=== PATIENT | female | born 1970 | race Hispanic/Latino ===

== ENCOUNTER → 2017-08-14 | Outpatient (CLI) | payer OTHER ==
[~2017-08-14] MED LIST: ACETAMINOPHEN500 MG PO; ALEVE220 M1 PO; LEXAPRO10 MG PO; METRONIDAZOLE250 MG PO; OMEPRAZOLE40 MG PO; TETRACYCLINE H500 MG PO; TYLENOL PO; TYLENOL WITH C1 EACH PO; VALIUM5 MG PO; XANAX2 MG PO; Z-QUIL PO
--- NOTE | 2017-08-14 18:11 | Diagnostic Imaging Report ---
PROCEDURE:X-RAY ABDOMEN - KUB COMPARISON:07/27/16 INDICATIONS:CHECK UP AFTER LITHOTRIPSY FINDINGS: There is a non-obstructed bowel-gas pattern. 5 mm calcification overlying the left renal shadow. There are also tiny calcifications overlying right renal shadow, measuring up to 3 mm. There are no acute osseous abnormalities. The lung bases are clear. CONCLUSION: Overlying bowel gas limits evaluation. Bilateral subcentimeter renal calculi as described above. The bilateral renal stone burden appears slightly decreased when compared to prior KUB. Dictated by: Noe Thayer M.D. on 08/14/2017 at 18:20 Electronically approved by: Noe Thayer M.D. on 08/14/2017 at 18:20
== END ==
LOC: RAD 17:30
PROVIDERS: ATTEND Urology
DX: N20.0 Calculus of kidney (principal)
CPT/HCPCS: 74018

== ENCOUNTER → 2017-09-06 | Day surgery (SDC) | payer OTHER ==
[~2017-09-06] MED LIST changes: +CEFTRIAXONE SOD 1 GM VIAL ONE; +DEXAMETHASONE SOD PHOS INJ 4 MG/ML VIAL ONE; +FENTANYL CITRATE/PF 100MCG/2 ML INJ ONE; +LIDOCAINE HCL 2% LOCAL INJ 5 ML SDV VIAL INJ ONE; +MIDAZOLAM HCL 2 MG/2 ML VIAL ONE; +ONDANSETRON HCL INJ 2 MG/ML VIAL ONE; +PROPOFOL IV EMULSION 10 MG/ML 20 ML VIAL ONE; +SEVOFLURANE INHAL SOLN 250 ML PEN BTL ONE
--- OUTSIDE RECORDS SUMMARY | 2017-09-06 07:49 | XMS REPORT | Clinical Summary ---
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
--- OUTSIDE RECORDS SUMMARY | 2017-09-06 07:49 | XMS REPORT ---
Author Author Admin, [place] Organization [facility] Address Unknown Phone Unavailable Allergies, Adverse Reactions, Alerts Allergy Name Reaction Description Start Date Severity Status Provider VICODIN itchiness Moderate Active Kyle Heránndez MD Conditions or Problems Problem Name Problem Code Onset Date Status Entry Date Provider Comment Standard Description Annotate DEPRESSIVE DISORDER, MAJOR, RECURRENT EPISODE, MODERATE Active Kyle Hernández MD Major depressive disorder, recurrent episode , moderate degree GENERALIZED ANXIETY DISORDER Active Kyle Hernández MD Generalized anxiety disorder Medication List Medication Instructions Start Date Stop Date Generic Name NDC Status Provider Patient Instruction LEXAPRO 20 MG ORAL TABLET Take 1 tab By Mouth Every Morning ESCITALOPRAM OXALATE [id number] Active Kyle Hernández MD Active VALIUM 5 MG ORAL TABLET Take 1 tab By Mouth Twice a Day DIAZEPAM [id number] Active Kyle Hernández MD Active Vital Signs Date Name Value Unit Range Description blood pressure, diastolic 80 mm[Hg] BP bright blood pressure, systolic 119 mm[Hg] BP sys height E&M 63 [in_us] Bdy height pulse rate E&M 90 /min Heart rate weight E&M 145 [lb_av] Weight Measured blood pressure, diastolic 76 mm[Hg] BP bright blood pressure, systolic 112 mm[Hg] BP sys height E&M 63 [in_us] Bdy height pulse rate E&M 87 /min Heart rate weight E&M 145 [lb_av] Weight Measured blood pressure, diastolic 85 mm[Hg] BP bright blood pressure, systolic 121 mm[Hg] BP sys height E&M 63 [in_us] Bdy height pulse rate E&M 77 /min Heart rate weight E&M 136 [lb_av] Weight Measured blood pressure, diastolic 83 mm[Hg] BP bright blood pressure, systolic 127 mm[Hg] BP sys height E&M 63 [in_us] Bdy height pulse rate E&M 91 /min Heart rate weight E&M 132 [lb_av] Weight Measured Encounters Date Encounter Provider Code Facility 14:48:35 ACCESS SERVICES REPRESENTATIVE Est Patient Exp Problem - 32821 Kyle Hernández MD CPT -45980 [facility] 09:24:57 ACCESS SERVICES REPRESENTATIVE Est Patient Detailed - 54460 Kyle Hernández MD CPT- 41995 [facility] 13:15:18 ACCESS SERVICES REPRESENTATIVE Est Patient Detailed - 24032 Kyle Hernández MD CPT- 27997 [facility] Procedures Code Procedure Name Date Entry Date Standard Description CPT-86664 Psychotherapy 45 (38-52*) min - 55618 (with patient and/or family member) 22:38:22 ACCESS SERVICES REPRESENTATIVE CPT-16610 Psychotherapy 45 (38-52*) min - 16998 (with patient and/or family member) 20:22:30 ACCESS SERVICES REPRESENTATIVE CPT-77134 Psychotherapy 45 (38-52*) min - 33209 (with patient and/or family member) 15:26:00 ACCESS SERVICES REPRESENTATIVE CPT-84150 Psychotherapy 45 (38-52*) min - 12678 (with patient and/or family member) 12:50:16 ACCESS SERVICES REPRESENTATIVE CPT-75998 Psychotherapy 45 (38-52*) min - 28136 (with patient and/or family member) 19:40:03 ACCESS SERVICES REPRESENTATIVE CPT-92117 Psychotherapy 45 (38-52*) min - 55837 (with patient and/or family member) 23:43:14 ACCESS SERVICES REPRESENTATIVE CPT-86932 Diagnostic evaluation (no medical) - 83683 16:10:48 ACCESS SERVICES REPRESENTATIVE CPT-37078 Diagnostic evaluation with medical - 59375 10:37:35 CDT
--- OUTSIDE RECORDS SUMMARY | 2017-09-06 07:49 | XMS REPORT ---
Author Author [facility] Address Unknown Phone Unavailable Care Team Providers Care Molecular Pathologist Name Role Phone ANN LAMA Unavailable Unavailable GALILEO PELAEZ Unavailable Unavailable ARPIT GILLESPIE Unavailable Unavailable Problems This patient has no known problems. Allergies, Adverse Reactions, Alerts This patient has no known allergies or adverse reactions. Medications This patient has no known medications. Encounters Start Date/Time End Date/Time Encounter Type Admission Type Attending Clinicians Care Facility Care Department Encounter ID 2017-02-01 11:59:32 2017-02-01 11:59:32 Outpatient [facility] [id number] Results Test Description Test Time Test Comments Text Results Atomic Results Result Comments ABDOMEN-1VIEW (KUB) [place] [address] Patient Name: MARIANNE MCKENZIE MR #: [id number] : 1970 Age/Sex: 46/F Req #: [id number] Adm Physician: Ordered by: ANN LAMA MD Report #: [id number] Location: [facility] Room/Bed: Procedure: [id number] DX/ABDOMEN-1VIEW (KUB) Exam Date: 08/14/17 Exam Time : 1750 REPORT STATUS: Signed PROCEDURE: X-RAY ABDOMEN - KUB COMPARISON: 07/27/16 INDICATIONS: CHECK UP AFTER LITHOTRIPSY FINDINGS: There is a non-obstructed bowel-gas pattern. 5 mm calcification overlying the left renal shadow. There are also tiny calcifications overlying right renal shadow, measuring up to 3 mm. There are no acute osseous abnormalities. The lung bases are clear. CONCLUSION: Overlying bowel gas limits evaluation. Bilateral subcentimeter renal calculi as described above. The bilateral renal stone burden appears slightly decreased when compared to prior KUB. Dictated by: Noe Kapadia M.D. on 08/14/2017 at 18:20 Electronically approved by: Noe Kapadia M.D. on 08/14/2017 at 18:20 Dictated By: NOE KAPADIA MD 19 Transcribed By: ABI on 08/14/171819 COPY TO: ANN LAMA MD [facility] [place] [address] Patient Name: MARIANNE MCKENZIE MR #: [id number] : 1970 Age/Sex: 46/F Req #: [id number] Adm Physician: GALILEO PELAEZ MD Ordered by: SARAI RITCHIE MD Report #: [id number] Location: [facility] Room/Bed: [facility] Procedure: [id number] NM/NUCLEAR MEDICINE MECKELS SCAN Exam Date: 05/31/17 Exam Time: 1028 REPORT STATUS: Signed Meckel's Scan Reason for exam: Chronic GI blood loss Radiopharmaceutical: Tc-99m pertechnetate 11 mCi IV Report: The patient was placed in a slight left decubitus position. Following administration of the radiopharmaceutical, dynamic images of the abdomen in the anterior projection were obtained through 60 minutes. Distribution of tracer activity appears physiologic throughout the abdomen. No focal abnormality is identified nor is there any focal uptake of tracer that appears to intensify over time. Impression: No scan evidence of ectopic gastric mucosa. Signed by: Dr. Beth Mccollum M.D. on 05/31/2017 12: 02 PM Dictated By: BETH MCCOLLUM MD 1202 Transcribed By: EUGENE on 05/31/17 120 COPY TO: SARAI RITCHIE MD CHEST SINGLE (PORTABLE) [place] [address] Patient Name: MARIANNE MCKENZIE MR #: [id number] : 1970 Age/Sex: 46/F Req #: [id number] Adm Physician: Ordered by: ARPIT GILLESPIE MD Report #: [id number] Location: ER Room/Bed: Procedure: [id number] DX/CHEST SINGLE (PORTABLE) Exam Date: 05/11/17 Exam Time: 1045 REPORT STATUS: Signed EXAMINATION: Chest, CHEST SINGLE (PORTABLE) INDICATION: Chest pain COMPARISON: None FINDINGS: LINES: None. Heart: Normal cardiac silhouette. Vascular: The pulmonary vasculature is within normal limits. Mediastinum: No mediastinal, hilar, or axillary mass or lymphadenopathy. Lungs: No parenchymal mass. No focal consolidation. Pleura: No pleural effusion. No pneumothorax. Bones: No acute osseous abnormality. Degenerative changes of the thoracic spine. Soft tissues: Normal. Impression: No acute radiographic abnormality. Signed by: Dr. Cody Granger M.D. on 05/11/2017 11:06 AM Dictated By: CODY GRANGER MD 1106 Transcribed By: EUGENE on 05/11/17 110 COPY TO: ARPIT GILLESPIE MD CT ABDOMEN/PELVIS W [place] [address] Patient Name: MARIANNE MCKENZIE MR #: [id number] : 1970 Age/Sex: 46/F Req #: [id number] Adm Physician: Ordered by: ARPIT GILLESPIE MD Report #: [id number] Location: ER Room/Bed: Procedure: [id number] CT/CT ABDOMEN/PELVIS W Exam Date: 05/11/17 Exam Time : 1035 REPORT STATUS: Signed EXAM: CT Abdomen and Pelvis WITH contrast INDICATION: Abdominal pain COMPARISON: CT abdomen and pelvis without contrast 03/18/2017 TECHNIQUE: Abdomen and pelvis were scanned utilizing a multidetector helical scanner from the lung base to the pubic symphysis after administration of contrast. Coronal and sagittal reformations were obtained. Protocol: General survey IV CONTRAST: 100 mL of Isovue 370 ORAL CONTRAST: Water COMPLICATIONS: None RADIATION DOSE: Total Exam DLP: 251.8 mGy*cm. CTDIvol has been reviewed. It is below the limits set by the Radiation Protocol Committee (RPC). FINDINGS: LINES: None. Lower thorax: No parenchymal abnormality. No pneumothorax. No pleural effusion. Stable bulla in the left lower lobe. Liver: No focal mass. No hepatomegaly. Normal parenchyma. The hepatic and portal veins are patent. Gallbladder: No gallstones. No gallbladder distention. Biliary tree: No intrahepatic duct dilation. No extrahepatic duct dilation. Spleen: No splenomegaly. No focal mass. Pancreas: Normal parenchymal enhancement. No focal mass. Normal pancreatic duct. No peripancreatic inflammatory changes. Kidneys: Stable bilateral nephrolithiasis. No obstructing calculi. No hydronephrosis. No solid enhancing mass. Stable cyst in the inferior pole of the left kidney. No perinephric soft tissue inflammatory changes. Adrenal glands: No adrenal nodules.. Bladder: Normal urinary bladder. Pelvic organs: Right ovarian cysts. Normal uterus. No left ovary is visualized. GI: No bowel wall thickening. No air-fluid levels. The stomach and small bowel are normal. Diverticulosis without evidence of diverticulitis. Normal appendix. A moderate amount of retained feces limits intraluminal evaluation of the colon. Peritoneum/retroperitoneum: No pneumoperitoneum. No ascites. No drainable fluid collection. Lymph nodes : No lymphadenopathy. . Vessels: The abdominal aorta and iliac vessels are patent. The celiac, superior mesenteric, and inferior mesenteric arteries are patent. Single bilateral renal arteries are patent. . Bones: No focal abnormality. . Soft tissues: No focal abnormality. IMPRESSION: Stable bilateral nonobstructing nephrolithiasis. Diverticulosis without evidence of diverticulitis. Right ovarian cysts. Signed by: Dr. Cody Granger M.D. on 05/11/2017 12:25 PM Dictated By : CODY GRANGER MD 1225 Transcribed By: EUGENE on 05/11/17 1225 COPY TO: ARPIT GILLESPIE MD ABDOMEN-1VIEW (KUB) [place] [address] Patient Name: MARIANNE MCKENZIE MR #: [id number] : 1970 Age/Sex: 46/F Req #: [id number] Adm Physician: Ordered by: ANN LAMA MD Report #: [id number] Location: OR Room/Bed: Procedure: [id number] DX/ABDOMEN-1VIEW (KUB) Exam Date: 04/26/17 Exam Time : 0650 REPORT STATUS: Signed PROCEDURE: X-RAY ABDOMEN - KUB COMPARISON: Abdomen one view 04/12/2017. CT abdomen and pelvis 03/18/2017. INDICATIONS: PRE-OP LEFT KIDNEY STONE FINDINGS: There is a non -obstructed bowel-gas pattern. Bilateral nephrolithiasis, the largest calcification measuring 5.7 mm projecting over the superior pole of the left kidney. There are no calcifications projected over the expected course of the ureters or bladder. There are no acute osseous abnormalities. The lung bases are clear. CONCLUSION: Bilateral nephrolithiasis. Dictated by: Cody Granger M.D. on 04/26/2017 at 7:40 Electronically approved by: Cody Granger M.D. on 04/26/2017 at 7:40 Dictated By : CODY GRANGER MD 9 Transcribed By: ABI on 04/26/17739 COPY TO: ANN LAMA MD ABDOMEN-1VIEW (KUB) [place] [address] Patient Name: MARIANNE MCKENZIE MR #: [id number] : 1970 Age/Sex: 46/F Req #: [id number] Adm Physician: Ordered by: ANN LAMA MD Report #: [id number] Location: OR Room/Bed: Procedure: [id number] DX/ABDOMEN-1VIEW (KUB) Exam Date: 04/12/17 Exam Time : 1040 REPORT STATUS: Signed PROCEDURE: X-RAY ABDOMEN - KUB COMPARISON: CT abdomen pelvis 03/18/2017. INDICATIONS: PRE-OPERATIVE KUB FOR STONE REMOVAL FINDINGS: There is a non-obstructed bowel-gas pattern. There are no acute osseous abnormalities. The lung bases are clear. At least 3 clusters of stones in the right and left kidneys are visualized. Other stones are better seen on CT abdomen pelvis 03/18/2017. CONCLUSION: 3 small clusters of stones in bilateral kidneys. More stones were identified on CT abdomen pelvis 03/18/2017. Dictated by: Artie Pollock M.D. on 04/12/2017 at 11:28 Electronically approved by: Artie Pollock M.D. on 04/12/2017 at 11:28 Dictated By: ARTIE POLLOCK MD 112 Transcribed By: ABI on 04/12/17 1128 COPY TO: ANN LAMA MD CT ABDOMEN/PELVIS WO [place] [address] Patient Name: MARIANNE MCKENZIE MR #: [id number] : 1970 Age/Sex: 46/F Req #: [id number] Adm Physician: Ordered by: ARPIT GILLESPIE MD Report #: [id number] Location: ER Room/Bed: Procedure: [id number] CT/CT ABDOMEN/PELVIS WO Exam Date: 03/18/17 Exam Time: 1130 REPORT STATUS: Signed PROCEDURE: CT ABDOMEN AND PELVIS WITHOUT CONTRAST TECHNIQUE: The abdomen and pelvis were scanned utilizing a multidetector helical scanner from the diaphragm to the lesser trochanter. No oral or intravenous contrast was administered per referring physician request. Coronal and sagittal multiplanar reformations were obtained. COMPARISON: 05/17/2012. INDICATIONS: RIGHT LOWER QUADRANT AND BACK PAIN, NAUSEA/VOMITING FINDINGS: ABSENCE OF INTRAVENOUS CONTRAST DECREASES SENSITIVITY FOR DETECTION OF FOCAL LESIONS AND VASCULAR PATHOLOGY. LOWER THORAX: Large air-filled cyst medially within the left lower lobe, unchanged relative to 05/17/2012. Trace subsegmental dependent atelectasis. HEPATOBILIARY: No focal hepatic lesions. No biliary ductal dilatation. Gallbladder is unremarkable. SPLEEN : No splenomegaly. PANCREAS: No focal masses or ductal dilatation. ADRENALS: No adrenal nodules. KIDNEYS/URETERS: No hydronephrosis. No focal renal mass lesion. Bilateral renal calculi with stone burden increased relative to 05/17/2012. Largest left-sided calcification measures 5 mm as seen on series 3 image 61. Largest right-sided calculus measures 9 mm as seen on series 3 image 59. No ureteral, or bladder calculi. No perinephric inflammation. PELVIC ORGANS/BLADDER: The urinary bladder is unremarkable. The uterus is anteflexed and appears normal. 2.6 cm right ovarian cyst, average internal attenuation 16 Hounsfield units. The appearance is unchanged relative to May 2012.. PERITONEUM / RETROPERITONEUM: No ascites or pneumoperitoneum. LYMPH NODES: No pelvic sidewall, retroperitoneal , or mesenteric lymphadenopathy. VESSELS: Limited evaluation without intravenous contrast. Abdominal aorta is non-aneurysmal.. GI TRACT: The large bowel is notable for several sigmoid diverticula without evidence of diverticulitis. Otherwise no distention or wall thickening. The appendix is normal. There is no small bowel dilatation to suggest obstruction. BONES AND SOFT TISSUES: No focal soft tissue abnormalities. No osseous structure lesions. Healed fracture deformity of the right inferior and right superior pubic rami. IMPRESSION: No acute intra-abdominal or pelvic CT abnormalities. Bilateral nonobstructing nephrolithiasis, interval increase in stone burden relative to 05/17/2012. Sigmoid diverticulosis without evidence of diverticulitis. Dictated by: Pritesh Grant M.D. on 03/18/2017 at 12:14 Electronically approved by: Pritesh Grant M.D. on 03/18/2017 at 12:14 Dictated By: PRITESH GRANT MD 1214 Transcribed By: ABI on 03/18/17 1214 COPY TO: ARPIT GILLESPIE MD
--- NOTE | 2017-09-06 08:40 | Operative Report ---
DATE OF PROCEDURE: September 06, 2017 PREOPERATIVE DIAGNOSIS: Right kidney stone. POSTOPERATIVE DIAGNOSIS: Right kidney stone. PROCEDURES 1. Staged shock wave lithotripsy. 2. Supervision of fluoroscopy. ANESTHESIA: General. ESTIMATED BLOOD LOSS: Minimal. COMPLICATIONS: None. INDICATIONS: Ms. Rosales is a 46-year-old female with symptomatic right kidney stone. She has had intermittent colic. She and I had a long discussion about alternatives, risks and benefits, including doing nothing, shock wave lithotripsy, ureteroscopy, percutaneous surgery and open surgery. She voiced understanding of the options, alternatives, risks and benefits and elected to proceed. PROCEDURE IN DETAIL: After informed consent was obtained, the patient was placed on the operating table and underwent general anesthesia by the anesthesia service. The patient was placed in the supine position and sterilely prepped and draped in a standard fashion for lithotripsy. The stones were localized in the X, Y and Z planes. A total of 2000 shocks were delivered with complete fragmentation of the stones. The patient tolerated the procedure well and was transported to the recovery room in excellent condition. SUPERVISION OF FLUOROSCOPY: I was present throughout the entire procedure and I supervised the use of fluoroscopy. Job#: [id number]
== END | disposition home or self-care (01) ==
LOC: OR 07:46
PROVIDERS: ATTEND Urology
DX: N20.0 Calculus of kidney (principal); N39.3 Stress incontinence (female) (male); N39.0 Urinary tract infection, site not specified; R35.1 Nocturia; K21.9 Gastro-esophageal reflux disease without esophagitis; K44.9 Diaphragmatic hernia without obstruction or gangrene; F32.9 Major depressive disorder, single episode, unspecified; F41.9 Anxiety disorder, unspecified
CPT/HCPCS: 50590; J0696; J1100; J2001; J2250; J2405

== ENCOUNTER → 2017-09-25 | Outpatient (CLI) | payer OTHER ==
[~2017-09-25] MED LIST changes: -CEFTRIAXONE SOD 1 GM VIAL ONE; -DEXAMETHASONE SOD PHOS INJ 4 MG/ML VIAL ONE; -FENTANYL CITRATE/PF 100MCG/2 ML INJ ONE; +IOPAMIDOL 370 MG/ML 200 ML INFUS..BTL INJ ONE; -LIDOCAINE HCL 2% LOCAL INJ 5 ML SDV VIAL INJ ONE; -MIDAZOLAM HCL 2 MG/2 ML VIAL ONE; -ONDANSETRON HCL INJ 2 MG/ML VIAL ONE; -PROPOFOL IV EMULSION 10 MG/ML 20 ML VIAL ONE; -SEVOFLURANE INHAL SOLN 250 ML PEN BTL ONE; +SODIUM CHLORIDE 0.9% 50ML 50 ML ONE
--- NOTE | 2017-09-25 12:13 | Diagnostic Imaging Report ---
EXAMINATION: Head CT without and with contrast HISTORY: Dizziness, vertigo, blurry vision, evaluate for intracranial mass COMPARISON: None. TECHNIQUE: Multidetector axial images were obtained without and with contrast from the foramen magnum to the vertex . The images were reconstructed using brain and bone algorithms. Thin section brain images were reformatted into coronal and sagittal planes. Intravenous contrast: 100 mL of Visipaque via 370. Motion/streaking artifact limits the evaluation of the skull base and posterior cranial fossa. FINDINGS: Parenchyma: 1. No abnormal densities. 2. No mass or hemorrhage. No CT evidence of acute territorial vascular insult. Extra-axial spaces:No abnormal density. No extra-axial fluid collections Brain volume: Normal for age. Ventricles: No hydrocephalus or displacement. Arteries: No density suggestive of thrombus. Dural sinuses: No abnormal density. Extra-axial spaces: No abnormal density. Foramen magnum: No mass, Chiari malformation, or basilar invagination. Sella: No obvious mass. Paranasal/mastoid sinuses: Imaged portions unremarkable. Skull/Scalp: No lytic or blastic lesions. No fractures. Nonspecific 2 soft tissue density enhancing foci in the subcutaneous soft tissues of the left parietal occipital scalp (near the placed scalp marker by the microcomputer technician) measuring about 1.3 and 1.6 cm diameter, no associated underlying osseous erosion or intracranial abnormalities, they may represent granulation tissue, scar tissue, lymph nodes, retention sebaceous cyst, less likely prominent draining vessels. Comparison to prior studies if available is recommended. IMPRESSION: 1. No intracranial abnormalities. 2. Nonspecific nonaggressive appearing scalp soft tissue lesions as detail above. Signed by: Dr. Roya Oneal M.D. on 09/25/2017 12:10 PM
== END ==
LOC: CT 10:25
PROVIDERS: ATTEND Family Medicine
DX: R42 Dizziness and giddiness (principal); R55 Syncope and collapse
CPT/HCPCS: 70470; Q9967

== ENCOUNTER → 2017-10-23 | Outpatient (CLI) | payer OTHER ==
[~2017-10-23] MED LIST changes: -IOPAMIDOL 370 MG/ML 200 ML INFUS..BTL INJ ONE; -SODIUM CHLORIDE 0.9% 50ML 50 ML ONE
== END ==
LOC: RAD 17:09
PROVIDERS: ATTEND Internal Medicine Hematology & Oncology
DX: D72.828 Other elevated white blood cell count (principal); D69.2 Other nonthrombocytopenic purpura; D68.62 Lupus anticoagulant syndrome; R22.43 Localized swelling, mass and lump, lower limb, bilateral
CPT/HCPCS: 93970

== ENCOUNTER → 2017-11-14 | Outpatient (CLI) | payer OTHER ==
--- NOTE | 2017-11-14 14:11 | Diagnostic Imaging Report ---
PROCEDURE:X-RAY ABDOMEN - KUB COMPARISON:KUB 08/14/2017 INDICATIONS:RENAL STONE FOLLOW UP. OCCASIONAL PAIN BOTH SIDES FINDINGS: There are no dilated loops of bowel to suggest obstruction. There is no evidence of free air. No acute osseous abnormalities are present. 0.2 cm and 0.3 cm right renal stones are unchanged. Previous 0.5 cm left renal stone is not identified. CONCLUSION: No acute abdominal abnormality. Stable 2 small right renal stones. Previous left renal stone is not visualized. Dictated by: Brown Norwood M.D. on 11/14/2017 at 14:12 Electronically approved by: Brown Norwood M.D. on 11/14/2017 at 14:12
== END ==
LOC: RAD 12:35
PROVIDERS: ATTEND Urology
DX: N20.0 Calculus of kidney (principal)
CPT/HCPCS: 74018

== ENCOUNTER → 2018-01-06 | Outpatient (CLI) | payer OTHER ==
--- NOTE | 2018-01-06 17:03 | Diagnostic Imaging Report ---
PROCEDURE:X-RAY ABDOMEN - KUB COMPARISON:KUB dated 11/14/17 INDICATIONS:FOLLOW UP TO RENAL STONES IN MAY. DENIES COMPLAINTS FINDINGS: There is a non-obstructed bowel-gas pattern. Questionable 2 mm calcification overlying right renal shadow. There are no acute osseous abnormalities. The lung bases are clear. CONCLUSION: Questionable 2 mm right renal calculus. The previously noted 3 mm right renal calculus is not well visualized on today's exam. Please note that renal stone protocol CT is a more sensitive study for detection of renal stones. Dictated by: Noe Thayer M.D. on 01/06/2018 at 17:07 Electronically approved by: Noe Thayer M.D. on 01/06/2018 at 17:07
== END ==
LOC: RAD 14:59
PROVIDERS: ATTEND Urology
DX: N20.0 Calculus of kidney (principal)
CPT/HCPCS: 74018

== ENCOUNTER → 2018-06-11 | Outpatient (CLI) | payer OTHER ==
--- NOTE | 2018-06-11 12:02 | Diagnostic Imaging Report ---
PROCEDURE:X-RAY ABDOMEN - KUB COMPARISON:[facility], DX, ABDOMEN-1VIEW (KUB), 01/06/2018, 15:16. INDICATIONS:LEFT KIDNEY PAIN, BLOOD IN URINE FINDINGS: There are no dilated loops of bowel to suggest obstruction. There multiple stones within the right kidney. At least two small stones in the left kidney are noted. Size of the stones range from 4 mm to barely detectable size. Pelvic calcification is most compatible with phleboliths. There is no evidence of free air. No acute osseous abnormalities are present. CONCLUSION: Bilateral renal lithiasis. Denys You D.O. Dictated by: Denys You D.O. on 06/11/2018 at 12:12 Electronically approved by: Denys You D.O. on 06/11/2018 at 12:12
== END ==
LOC: RAD 09:29
PROVIDERS: ATTEND Urology
DX: N20.0 Calculus of kidney (principal)
CPT/HCPCS: 74018

== ENCOUNTER → 2019-01-16 | Day surgery (SDC) | payer OTHER ==
[~2019-01-16] MED LIST changes: +CEFTRIAXONE SOD 1 GM/NS 50 ML 50 ML IV ONE; +CYMBALTA30 MG PO; +DEXAMETHASONE SOD PHOS INJ 4 MG/ML VIAL ONE; +FENTANYL CITRATE/PF 100MCG/2 ML INJ ONE; +IOPAMIDOL 610MG/1ML 300 MG/ML VIAL IV ONE; +LIDOCAINE HCL 2% LOCAL INJ 5 ML SDV VIAL INJ ONE; +MIDAZOLAM HCL 2 MG/2 ML VIAL ONE; +ONDANSETRON HCL INJ 2MG/ML 2ML 2 MG/ML VIAL ONE; +PROPOFOL IV EMULSION 10 MG/ML 20 ML VIAL ONE; +SEVOFLURANE INHAL SOLN 250 ML PEN BTL ONE
--- OUTSIDE RECORDS SUMMARY | 2019-01-16 05:50 | XMS REPORT | Clinical Summary ---
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 Last Filed Vital Signs Not on file Plan of Treatment Not on file Results Not on fileafter 01/15/2018 Insurance Payer Benefit Subscriber ID Type Phone Address Plan / Group [employer] FA[employer] xxxxxx [employer] E EXCHANGE
--- OUTSIDE RECORDS SUMMARY | 2019-01-16 05:51 | XMS REPORT ---
Author Author Admin, [place] Organization [facility] Address [address] [facility] [address] [place] [id number] Phone Allergies, Adverse Reactions, Alerts Allergy Name Reaction Description Start Date Severity Status Provider VICODIN itchiness Moderate Active Kyle Hernández MD Conditions or Problems Problem Name Problem Code Onset Date Status Entry Date Provider Comment Standard Description Annotate DEPRESSIVE DISORDER, MAJOR, RECURRENT EPISODE, MODERATE Active Kyle Hernández MD Major depressive disorder, recurrent episode, moderate degree GENERALIZED ANXIETY DISORDER Active Kyle Hernández MD Generalized anxiety disorder Vaccination Against Influenza V04.81 Inactive Amadou Alonzo MD Need for prophylactic vaccination and inoculation against influenza Vaccination Against Influenza ICD-V04.81 Inactive Amadou Alonzo MD Medication List Medication Instructions Start Date Stop Date Generic Name NDC Status Provider Patient Instruction CYMBALTA 60 MG ORAL CAPSULE DELAYED RELEASE PARTICLES Take 1 tab By Mouth Every Morning DULOXETINE HCL 01989437158 Active Kyle Hernández MD Active DIAZEPAM 5 MG TABS TAKE 1 TABLET BY MOUTH EVERY 4 TO 6 HOURS NEEDED FOR ANXIETY DIAZEPAM 45846735793 Active Kyle Hernández MD Active ESCITALOPRAM 20 MG TABLET TAKE 1 TABLET BY MOUTH EVERY DAY IN THE MORNING ESCITALOPRAM 20 MG TABLET 492649 ESCITALOPRAM OXALATE Inactive ESCITALOPRAM 20 MG TABLET TAKE 1 TABLET BY MOUTH EVERY DAY IN THE MORNING ESCITALOPRAM OXALATE 44907423119 No Longer Active Kyle Hernández MD Active Immunizations Vaccine Administration Date Value Standard Description influenza immunization (Flu Vax) has been administered given influenza virus vaccine, unspecified formulation Vital Signs Date Name Value Unit Range Description blood pressure, diastolic 89 mm[Hg] BP bright blood pressure, systolic 140 mm[Hg] BP sys height E&M 63 [in_us] Bdy height pulse rate E&M 74 /min Heart rate weight E&M 156.50 [lb_av] Weight Measured blood pressure, diastolic 80 mm[Hg] BP bright blood pressure, systolic 132 mm[Hg] BP sys height E&M 63 [in_us] Bdy height pulse rate E&M 83 /min Heart rate weight E&M 155.50 [lb_av] Weight Measured blood pressure, diastolic 75 mm[Hg] BP bright blood pressure, systolic 107 mm[Hg] BP sys height E&M 63 [in_us] Bdy height pulse rate E&M 61 /min Heart rate weight E&M 158 [lb_av] Weight Measured blood pressure, diastolic 92 mm[Hg] BP bright blood pressure, systolic 144 mm[Hg] BP sys height E&M 63 [in_us] Bdy height pulse rate E&M 68 /min Heart rate respiratory rate E&M 18 /min Resp rate temperature E&M 98.0 [degF] Body temperature weight E&M 156.38 [lb_av] Weight Measured blood pressure, diastolic 84 mm[Hg] BP bright blood pressure, systolic 129 mm[Hg] BP sys height E&M 63 [in_us] Bdy height pulse rate E&M 71 /min Heart rate weight E&M 155.13 [lb_av] Weight Measured blood pressure, diastolic 76 mm[Hg] BP bright blood pressure, systolic 109 mm[Hg] BP sys height E&M 63 [in_us] Bdy height pulse rate E&M 84 /min Heart rate weight E&M 154.20 [lb_av] Weight Measured Encounters Date Encounter Provider Code Facility 12:28:48 CDT Est Patient Detailed - 65089 Kyle Hernández MD CPT-06467 [facility] 11:23:14 CDT Est Patient Exp Problem - 72957 Kyle Hernández MD CPT-15180 [facility] 11:43:54 ESCROW OFFICER Est Patient Detailed - 91746 Kyle Hernández MD CPT-41093 [facility] 14:08:26 ESCROW OFFICER Est Patient Exp Problem - 61983 Amadou Alonzo MD CPT-53450 [facility] 11:09:20 CDT Est Patient Exp Problem - 66491 Kyle Hernández MD CPT-93588 [facility] 13:11:00 CDT Est Patient Exp Problem - 94415 Kyle Hernández MD CPT-89338 [facility] 12:38:22 CDT Est Patient Exp Problem - 67634 Kyle Hernández MD CPT-17171 [facility] 14:04:44 CDT Est Patient Detailed - 72442 Kyle Hernández MD CPT-10885 [facility] 13:56:10 CDT Est Patient Exp Problem - 91741 Kyle Hernández MD CPT-94102 [facility] 14:12:46 CDT Est Patient Exp Problem - 79271 Kyle Hernández MD CPT-78087 [facility] 14:48:35 ESCROW OFFICER Est Patient Exp Problem - 69829 Kyle Hernández MD CPT-33085 [facility] 09:24:57 ESCROW OFFICER Est Patient Detailed - 98788 Kyle Hernández MD CPT-94047 [facility] 13:15:18 ESCROW OFFICER Est Patient Detailed - 69437 Kyle Hernández MD CPT-72046 [facility] Procedures Code Procedure Name Date Entry Date Standard Description CPT-68919 Psychotherapy 45 (38-52*) min - 77279 (with patient and/or family member) 08:26:51 CDT CPT-39666 Psychotherapy 45 (38-52*) min - 68638 (with patient and/or family member) 14:32:43 CDT CPT-55332 Psychotherapy 45 (38-52*) min - 17133 (with patient and/or family member) 21:46:04 ESCROW OFFICER CPT-37227 Psychotherapy 45 (38-52*) min - 53811 (with patient and/or family member) 16:09:29 ESCROW OFFICER CPT-37963 INFLUENZA VACCINE QUADRIVALENT 3 YRS PLUS IM 14:07:30 ESCROW OFFICER CPT-70796 Admin of Vaccine - Injection - 1 14:07:30 ESCROW OFFICER CPT-42251 Psychotherapy 45 (38-52*) min - 56306 (with patient and/or family member) 12:38:52 CDT CPT-47108 Psychotherapy 45 (38-52*) min - 64114 (with patient and/or family member) 07:36:29 CDT CPT-47712 Psychotherapy 45 (38-52*) min - 38084 (with patient and/or family member) 14:09:17 CDT CPT-68878 Psychotherapy 45 (38-52*) min - 54718 (with patient and/or family member) 11:53:59 CDT CPT-44178 Psychotherapy 45 (38-52*) min - 53567 (with patient and/or family member) 13:24:47 CDT CPT-43518 Psychotherapy 45 (38-52*) min - 77587 (with patient and/or family member) 19:29:01 CDT CPT-65452 Psychotherapy 45 (38-52*) min - 52770 (with patient and/or family member) 00:33:46 CDT CPT-48474 Psychotherapy 60 (53+*) min - 00277 (with patient and/or family member) 20:26:53 CDT CPT-70620 Psychotherapy 45 (38-52*) min - 70116 (with patient and/or family member) 14:31:48 CDT CPT-37374 Psychotherapy 60 (53+*) min - 84993 (with patient and/or family member) 18:23:21 CDT CPT-26273 Psychotherapy 45 (38-52*) min - 95540 (with patient and/or family member) 14:06:33 CDT CPT-46191 Psychotherapy 45 (38-52*) min - 22848 (with patient and/or family member) 22:38:22 ESCROW OFFICER CPT-51290 Psychotherapy 45 (38-52*) min - 54202 (with patient and/or family member) 20:22:30 ESCROW OFFICER CPT-44291 Psychotherapy 45 (38-52*) min - 49124 (with patient and/or family member) 15:26:00 ESCROW OFFICER CPT-08494 Psychotherapy 45 (38-52*) min - 49905 (with patient and/or family member) 12:50:16 ESCROW OFFICER CPT-03623 Psychotherapy 45 (38-52*) min - 61496 (with patient and/or family member) 19:40:03 ESCROW OFFICER CPT-63580 Psychotherapy 45 (38-52*) min - 68649 (with patient and/or family member) 23:43:14 ESCROW OFFICER CPT-22437 Diagnostic evaluation (no medical) - 97688 16:10:48 ESCROW OFFICER CPT-05646 Diagnostic evaluation with medical - 56249 10:37:35 CDT
--- NOTE | 2019-01-16 09:25 | NUR ---
SPIRITUAL CARE - Pre-Surgery Assessment: Pt's son at bedside. Pt identified as Zoroastrian. Pt reported supportive attention from family and friends. Intervention: I provided pastoral presence, hospitality, sympathetic listening, and prayer. I acquainted pt with availability of senior electrical design engineer while hospitalized. Outcome: Pt expressed appreciation for visit. No need for follow up indicated at this time. EMILI HALL Primer Waterproofing Machine Operator Spiritual Care Department O: [phone] Pager: [phone] ([phone] calling from)
[2019-01-16 10:45] VITALS: BP 139/84
--- NOTE | 2019-01-16 11:37 | Operative Report ---
DATE OF PROCEDURE: 01/16/2019 SURGEON: Brody Ro MD PREOPERATIVE DIAGNOSES: 1. Right ureteral calculus. 2. Right renal calculus. 3. Hematuria. POSTOPERATIVE DIAGNOSIS: Passed ureteral calculus. PROCEDURES: 1. Right-sided ureteroscopy. 2. Cystourethroscopy with insertion of a right indwelling stent (entirely separate procedure for ureteral stricture). 3. Supervision of fluoroscopy for ureteroscopic and dilation portion. 4. Interpretation of retrograde pyelography. 5. Supervision of fluoroscopy for stent insertion. ANESTHESIA: General. ESTIMATED BLOOD LOSS: Minimal. COMPLICATIONS: None. INDICATIONS FOR PROCEDURE: Ms. Rosales is a very pleasant 48-year-old female patient with a history of right-sided flank pain, who was found on the CT scan to have a right ureteral calculus and right renal calculi. I had a long discussion about alternatives, risks, and benefits of doing nothing, shock wave lithotripsy, ureteroscopy, percutaneous surgery, or open surgery. She voiced understanding of the options, alternatives, the risks, and benefits and she elected to proceed. PROCEDURE IN DETAIL: After informed consent was obtained, the patient was taken to the operative suite, she was placed supine on the operating table, underwent general anesthesia by Anesthesia Service. She was placed in the dorsal lithotomy position and sterilely prepped and draped in standard fashion for cystoscopy. A 21-Tamazight cystoscope was inserted per urethra and normal urethra was noted. Panendoscopy of bladder revealed no tumors and no stones. Both ureteral orifices were in normal anatomic location and position and were seen to efflux clear urine. Right-sided retrograde pyelogram was performed revealing a delicate ureter, some narrowing in the distal ureter, proximal filling defect in the mid to upper pole moiety. A guidewire was advanced utilizing dual-lumen, this was dilated. Flexible ureteroscope was advanced to the level of renal pelvis. There were multiple Ron's plaque seen in the distal ureter. There was ureteral stricture and evidence of prior passage of ureteral calculi, but nothing other than Ron's plaque seen of which photographic images were taken. The scope was removed. A 6 x 26 ureteral stent was deployed with coil in renal pelvis and coil in the bladder. The patient's bladder was drained. She was awakened from anesthesia and transferred to the recovery room in excellent condition. Supervision of fluoroscopy and interpretation of retrograde pyelography: I was present for the entire procedure and supervised the use of fluoroscopy, there was no radiologist present. Attention was turned to the right ureter which was catheterized with ureteroscope and retrograde pyelogram was performed revealing delicate ureter, delicate pelvocaliceal system, filling defects in the mid upper pole moiety found to be consistent with prominent calices and Ron's plaques. MD EBONY Guillen/MODL /[id number]
== END | disposition home or self-care (01) ==
LOC: OR 05:47
PROVIDERS: ATTEND Urology
DX: N20.1 Calculus of ureter (principal); N20.0 Calculus of kidney; N39.0 Urinary tract infection, site not specified; R35.1 Nocturia; N13.5 Crossing vessel and stricture of ureter without hydronephrosis; I10 Essential (primary) hypertension; K58.9 Irritable bowel syndrome, unspecified; F41.9 Anxiety disorder, unspecified; F32.9 Major depressive disorder, single episode, unspecified; Z86.2 Personal history of diseases of the blood and blood-forming organs and certain disorders involving the immune mechanism
CPT/HCPCS: 52332; 52351; 74420; C1758; C1874; J0696; J1100; J2001; J2250; J2405; J2704; J3010; Q9967; C1788; C2617

== ENCOUNTER 2019-06-17 21:04 | Inpatient (IN) | payer OTHER ==
[~2019-06-17] VITALS: Ht 160 cm; Wt 63.5 kg
[~2019-06-17 21:04] MED LIST changes: -CEFTRIAXONE SOD 1 GM/NS 50 ML 50 ML IV ONE; -DEXAMETHASONE SOD PHOS INJ 4 MG/ML VIAL ONE; -FENTANYL CITRATE/PF 100MCG/2 ML INJ ONE; -IOPAMIDOL 610MG/1ML 300 MG/ML VIAL IV ONE; -LIDOCAINE HCL 2% LOCAL INJ 5 ML SDV VIAL INJ ONE; -MIDAZOLAM HCL 2 MG/2 ML VIAL ONE; -ONDANSETRON HCL INJ 2MG/ML 2ML 2 MG/ML VIAL ONE; -PROPOFOL IV EMULSION 10 MG/ML 20 ML VIAL ONE; -SEVOFLURANE INHAL SOLN 250 ML PEN BTL ONE
[2019-06-17] MEDS ORDERED: KETOROLAC TROMETHAMINE 30 MG/ML VIAL IV ONE (21:17)
[2019-06-17] MEDS ORDERED: ONDANSETRON HCL INJ 2MG/ML 2ML 2 MG/ML VIAL IV ONE (21:17)
[2019-06-17 21:36] LABS: BASOPHILS # (AUTO) 0.1 (0.0-0.1); BASOPHILS % 0.6 % (0.0-1.0); EOSINOPHILS # (AUTO) 0.2 (0.0-0.4); EOSINOPHILS % 1.5 % (0.0-6.0); HEMATOCRIT 40.6 % (34.2-44.1); HEMOGLOBIN 12.8 g/dL (12.0-16.0); MEAN CORPUSCULAR HEMOGLOBIN 29.8 pg (28-32); MEAN CORPUSCULAR HGB CONC 31.5 g/dL (31-35); MEAN CORPUSCULAR VOLUME 94.6 fL (81-99); MONOCYTES # (AUTO) 1.2 (0.2-0.8); MONOCYTES % 7.5 % (4.4-11.3); NEUTROPHILS # (AUTO) 11.7 (2.1-6.9); NEUTROPHILS % 74.7 % (38.7-80.0); PLATELET COUNT 278 x10e3/uL (140-360); RED BLOOD COUNT 4.29 x10e6/uL (3.6-5.1); RED CELL DISTRIBUTION WIDTH 13.2 % (11.7-14.4)
[2019-06-17 21:49] LABS: ANION GAP 15.1 mmol/L (8-16); CALCIUM 9.3 mg/dL (8.4-10.2); CREATININE, SERUM 1.6 mg/dL (0.57-1.11); POTASSIUM 4.1 mmol/L (3.5-5.1)
[2019-06-17 22:09] LABS: CLARITY,URINE SL CLOUDY (CLEAR); COLOR,URINE YELLOW (YELLOW); LEUKOCYTE ESTERASE ,URINE NEGATIVE (NEGATIVE); NITRITE,URINE NEGATIVE (NEGATIVE); PROTEIN,URINE DIPSTICK NEGATIVE (NEGATIVE); URINE UROBILINOGEN 0.2 mg/dL (0.2 - 1)
[2019-06-17 22:10] LABS: BILIRUBIN,URINE NEGATIVE (NEGATIVE); KETONES,URINE NEGATIVE (NEGATIVE)
[2019-06-17 22:12] LABS: PREGNANCY TEST, URINE NEGATIVE (NEGATIVE)
[2019-06-17] MEDS ORDERED: HYDROMORPHONE 1MG/1ML INJ IV STA (22:12)
[2019-06-17 22:31] LABS: BACTERIA,URINE MODERATE /HPF; EPITHELIAL CELLS,URINE FEW /LPF
--- NOTE | 2019-06-17 23:22 | Diagnostic Imaging Report ---
EXAM: CT Abdomen and Pelvis WITHOUT contrast INDICATION: Right flank pain COMPARISON: None. TECHNIQUE: Abdomen and pelvis were scanned utilizing a multidetector helical scanner from the lung base to the pubic symphysis without administration of IV contrast. Absence of intravenous contrast decreases sensitivity for detection of focal lesions and vascular pathology. Coronal and sagittal reformations were obtained. Routine protocol was performed. IV CONTRAST: None ORAL CONTRAST: None COMPLICATIONS: None RADIATION DOSE: Total DLP: 441 mGy*cm Estimated effective dose: (DLP x 0.015 x size factor) mSv CTDIvol has been reviewed. It is below the limits set by the Radiation Protocol Committee (RPC). Dose modulation, iterative reconstruction, and/or weight based adjustment of the mA/kV was utilized to reduce the radiation dose to as low as reasonably achievable. FINDINGS: LINES and TUBES: None. LOWER THORAX: Multiple focal patchy ground glass opacities in the bilateral lower lungs. Lead in the medial left lung base. HEPATOBILIARY: No focal hepatic lesions. No biliary ductal dilation. GALLBLADDER: No radio-opaque stones or sludge. No wall thickening. SPLEEN: No splenomegaly. PANCREAS: No focal masses or ductal dilatation. ADRENALS: No adrenal nodules KIDNEYS/URETERS: A 6 mm obstructive calculus in the proximal right ureter with mild upstream right hydroureteronephrosis. Multiple tiny nonobstructive bilateral renal calculi, measure less than 5 mm. No cystic or solid mass lesions. GI TRACT: No abnormal distention, wall thickening, or evidence of bowel obstruction. Colonic stool burden greater than average Appendix is normal. PELVIC ORGANS/BLADDER: Unremarkable. LYMPH NODES: No lymphadenopathy. VESSELS: Unremarkable. PERITONEUM / RETROPERITONEUM: No free air or fluid. BONES: Low bone mineral density. Helical right superior and inferior pubic ramus fractures. SOFT TISSUES: Unremarkable. IMPRESSION: 1. A 6 mm obstructive calculus in the proximal right ureter with mild upstream right hydroureteronephrosis. 2. Multiple additional nonobstructive bilateral renal calculi measure less than 5 mm. 3. Multifocal patchy ground glass opacities in the included lower lungs could reflect multifocal pneumonia. 4. Colonic stool burden greater than average, correlate for constipation. 5. Low bone mineral density. Signed by: Jhonny Whaley DO on 06/17/2019 11:19 PM
[2019-06-18] VITALS (8 sets, daily range): BP systolic 126–165; BP diastolic 72–88
[2019-06-18] MEDS: SODIUM CHLORIDE 0.9% 1000ML 1,000 ML IV SCH ×3 (02:38→17:37)
[2019-06-18] MEDS: CEFTRIAXONE SOD 1 GM/NS 50 ML 50 ML IV SCH (02:38)
--- NOTE | 2019-06-18 03:47 | NUR ---
Received patient from ER. Patient awake, alert, and oriented, in stable condition. No s/s of distress or c/o pain at this time. All safety measures in place. Call light placed within reach. Patient instructed to call for assistance if needed, verbalized understanding. Will continue to monitor.
[2019-06-18] MEDS ORDERED: INFLUENZA VIRUS VAC SPLIT INJ 0.5 ML SYR IM SCH (03:58)
[2019-06-18] MEDS: ONDANSETRON HCL INJ 2MG/ML 2ML 2 MG/ML VIAL IV PRN ×3 (04:24→22:11)
[2019-06-18] MEDS: HYDROMORPHONE 1MG/1ML INJ IV PRN ×6 (04:24→22:11)
--- NOTE | 2019-06-18 07:08 | NUR ---
Bedside report given to day nurse. Patient resting in bed, no s/s of distress at this time. All safety measures in place.
--- NOTE | 2019-06-18 09:44 | Diagnostic Imaging Report ---
Chest, 1 view, 06/18/2019. History: Right flank pain. Comparison: None available. Findings: The cardiomediastinal silhouette and pulmonary vasculature are within normal limits for a portable exam. There is no focal consolidation or pleural effusion. There are no acute osseous or soft tissue abnormalities. Impression: No acute cardiopulmonary abnormality. Signed by: Ivan Barrett on 06/18/2019 9:41 AM
--- NOTE | 2019-06-18 09:47 | Diagnostic Imaging Report ---
Abdomen, 1 view. History: Ureteral calculus. Findings: A 6 mm stone is again seen in the mid right ureter at the level of L3-L4. Air is scattered throughout nondilated small and large bowel. The osseous structures are intact. IMPRESSION: Right ureteral stone unchanged in position. Signed by: Ivan Barrett on 06/18/2019 9:44 AM
[2019-06-18] MEDS: AZITHROMYCIN 250MG/NS 100 ML 100 ML IV SCH (11:39)
[2019-06-18] MEDS: AMLODIPINE BESYLATE 5 MG TAB PO SCH (11:39)
[2019-06-18] MEDS: DULOXETINE HCL 30 MG DELAYED RELEASE PO SCH (11:39)
--- NOTE | 2019-06-18 15:18 | Consultation ---
DATE OF CONSULTATION: 06/18/2019 Urology Consultation Consultation is called by the emergency room. CHIEF COMPLAINT/REASON FOR CONSULTATION: Ureteral calculus. HISTORY OF PRESENT ILLNESS: Kalie Rosales is a 48-year-old female patient of mine is sent to the emergency room with acute onset of sharp severe right-sided flank pain. She denied fevers. No chills. Denied nausea, vomiting. She has prior history of kidney stones. PAST MEDICAL HISTORY: As above. MEDICATIONS: Please see EMR. ALLERGIES: NKDA. SOCIAL HISTORY: Denied smoking or drinking. FAMILY HISTORY: Denied urologic stones or malignancies. REVIEW OF SYSTEMS: Noncontributory, other than problems mentioned above for 12 organ systems. PHYSICAL EXAMINATION: GENERAL: A middle-aged female, in no acute distress. VITAL SIGNS: Temperature 96.4, pulse 83, respirations 18, blood pressure 147/81. HEENT: Sclerae anicteric. NECK: Supple. BACK: Without costovertebral angle tenderness bilaterally. ABDOMEN: Soft. It is nontender. It is nondistended. No palpable mass. No palpable hernias. No palpable groin lymphadenopathy. : Normal female genitalia. EXTREMITIES: No edema. NEUROLOGIC: Moves all four extremities. PSYCH: Alert and mood appropriate. SKIN: Intact. Normal color. PERTINENT LABORATORY DATA: Sodium 141, potassium 4.1, chloride 104, bicarb 26, BUN 28, creatinine 1.6, glucose 131. Hemoglobin 12.8, hematocrit 40.6, platelet count 238,000, and white blood cell count 15,600. Urinalysis 11-20 reds, [address] scan revealing a 6 mm right ureteral calculus, right hydronephrosis, bilateral renal calculi approximately 5 mm in size. IMPRESSION: 1. Right ureteral calculus. 2. Bilateral renal calculus. 3. Right hydronephrosis. 4. Microscopic hematuria. 5. Renal colic. 6. Hypertension. PLAN: We will employ a brief trial OF passage and obtain a KUB. Should this fail, the patient will need stenting. Thank you for allowing me to participate in the care of this patient. We will be happy to follow along with you. Brody Ro MD ES/MODL /[id number] cc: Lee Willis MD
--- NOTE | 2019-06-18 19:20 | History and Physical ---
HISTORY OF PRESENT ILLNESS: The patient is a 48-year-old female, past medical history positive for recurrent kidney stones, came here with right flank pain. She was found to have another kidney stone with hydronephrosis and acute renal failure. The patient has been seen by Dr. Ro, Urology, who is going to do lithotripsy and possible stent placement. Incidentally, she was found to have bilateral pneumonia and started on broad-spectrum IV antibiotic. REVIEW OF SYSTEMS: CARDIOVASCULAR: No chest pain or palpitation. RESPIRATORY: No shortness of breath. No cough. GASTROINTESTINAL: She has vomiting, but no diarrhea. No abdominal pain. GENITOURINARY: No frequency, no dysuria, but she does have right flank pain. ALLERGIES: SHE IS ALLERGIC TO VICODIN. SOCIAL HISTORY: She does not smoke. She does not drink. PAST MEDICAL HISTORY: Mainly positive for recurrent kidney stones for last 20 years. PHYSICAL EXAMINATION: HEART: Showed regular rhythm. Normal S1 and S2 sound. LUNGS: Clear bilaterally. ABDOMEN: Soft. EXTREMITIES: Show no evidence of cyanosis or hematoma. VITAL SIGNS: Blood pressure 147/81, temperature 96.4, heart rate 83 per minute, respiratory rate 18 per minute, and oxygen saturation 100%. LABORATORY DATA: On the BMP; sodium 141, potassium 4.1, chloride 104, CO2 26, BUN 28, creatinine 1.60, and glucose 131. On the CBC; white blood count 15,600, hemoglobin 12.8, hematocrit 40.6, and platelet count 278,000. CT of the abdomen showed hydronephrosis, right kidney stones, intrarenal stones, and bilateral pneumonia. FINAL IMPRESSION: 1. Right kidney stone with hydronephrosis. 2. Bilateral pneumonia. 3. Acute renal failure. PLAN OF TREATMENT: IV ceftriaxone 1 g IV daily. We are going to add Zithromax 250 mg IV daily because of pneumonia. Continue IV fluids with normal saline 125 mL an hour, Dilaudid 1 mg IV every 3 hours as needed, Zofran 4 mg IV q.4 hours as needed, and Tylenol 650 mg q.4 hours as needed for pain or fever. She received influenza vaccine also. We are going to order blood culture. We are going to order a CBC and a BMP tomorrow. MD ISAAC Ray/SHANIQUE /[id number]
[2019-06-19] VITALS (8 sets, daily range): BP systolic 131–161; BP diastolic 76–87
[2019-06-19] MEDS: HYDROMORPHONE 1MG/1ML INJ IV PRN ×4 (01:10→11:28)
[2019-06-19] MEDS: CEFTRIAXONE SOD 1 GM/NS 50 ML 50 ML IV SCH (01:10)
[2019-06-19] MEDS: ONDANSETRON HCL INJ 2MG/ML 2ML 2 MG/ML VIAL IV PRN ×2 (04:30→11:50)
[2019-06-19 05:25] LABS: BASOPHILS # (AUTO) 0.1 (0.0-0.1); BASOPHILS % 0.7 % (0.0-1.0); EOSINOPHILS # (AUTO) 0.2 (0.0-0.4); EOSINOPHILS % 1.8 % (0.0-6.0); HEMATOCRIT 40.3 % (34.2-44.1); HEMOGLOBIN 12.5 g/dL (12.0-16.0); LYMPHOCYTES # (AUTO) 0.8 (1.0-3.2); LYMPHOCYTES % 7.3 % (18.0-39.1); MEAN CORPUSCULAR HEMOGLOBIN 29.3 pg (28-32); MEAN CORPUSCULAR VOLUME 94.4 fL (81-99); MONOCYTES # (AUTO) 0.6 (0.2-0.8); MONOCYTES % 6.1 % (4.4-11.3); NEUTROPHILS # (AUTO) 8.5 (2.1-6.9); NEUTROPHILS % 81.8 % (38.7-80.0); PLATELET COUNT 234 x10e3/uL (140-360); RED BLOOD COUNT 4.27 x10e6/uL (3.6-5.1)
[2019-06-19 05:38] LABS: ALBUMIN 2.9 g/dL (3.5-5.0); ALBUMIN/GLOBULIN RATIO 0.9 (0.8-2.0); ANION GAP 15.1 mmol/L (8-16); CALCIUM 8.8 mg/dL (8.4-10.2); CREATININE, SERUM 1.05 mg/dL (0.57-1.11); POTASSIUM 4.1 mmol/L (3.5-5.1)
--- NOTE | 2019-06-19 07:22 | NUR ---
Gave bedside report to oncoming nurse. Patient resting in bed, no s/s of distress at this time. All safety measures in place.
[2019-06-19] MEDS: AMLODIPINE BESYLATE 5 MG TAB PO SCH (09:00)
--- NOTE | 2019-06-19 09:00 | NUR ---
LISATA ALREADY DOCUMENTED EARLIER
[2019-06-19] MEDS: SODIUM CHLORIDE 0.9% 1000ML 1,000 ML IV SCH ×2 (09:37→09:48)
[2019-06-19] MEDS: AZITHROMYCIN 250MG/NS 100 ML 100 ML IV SCH (11:00)
[2019-06-19] MEDS: ACETAMINOPHEN 325 MG TAB PO PRN ×2 (11:50→20:46)
--- NOTE | 2019-06-19 13:19 | NUR ---
PAGED DR CUEVAS AND NOTIFIED THE PT PASSED STONE GOT THE ORDER PT CAN GO HOME AC HIS STAND POINT
[2019-06-19 13:26] LABS: EOSINOPHILS % (MANUAL) 3 % (0-7); LYMPHOCYTES % (MANUAL) 7 % (19-48); MONOCYTES % (MANUAL) 6 % (3.4-9.0); NEUTROPHILS % (MANUAL) 84 % (40-74); PLATELET ESTIMATE ADEQUATE; PLATELET MORPHOLOGY COMMENT NORMAL; RBC MORPHOLOGY COMMENT NORMAL
--- NOTE | 2019-06-19 18:46 | NUR ---
PT RESTING ON BED BED SIDE REPORT GIVEN TO ONCOMING NURSE
--- NOTE | 2019-06-19 19:38 | NUR ---
Received bedside report from day nurse. Patient resting in bed, no s/s of distress or c/o pain at this time. All safety measures in place. Family at bedside. Will continue to monitor.
[2019-06-20 00:14] VITALS: BP 124/58
[2019-06-20] MEDS: CEFTRIAXONE SOD 1 GM/NS 50 ML 50 ML IV SCH (00:44)
[2019-06-20 05:19] VITALS: BP 129/67
[2019-06-20] MEDS ORDERED: NORVASC5 MG PO (06:49)
[2019-06-20] MEDS ORDERED: ZITHROMAX250 MG PO (06:51)
[2019-06-20] MEDS ORDERED: CEFUROXIME500 MG PO (06:51)
--- NOTE | 2019-06-20 07:00 | NUR ---
RCD PT AT BED PT IS ALERT AND ORIENTED PT RESTING ON BED IV PATENT BY SALINE FLUSH BED LOW AND LOCKED CALL LIGHT IN REACH
--- NOTE | 2019-06-20 07:04 | NUR ---
Bedside report given to day nurse. Patient resting in bed, no s/s of distress or c/o pain at this time. All safety measures in place.
[2019-06-20 07:46] VITALS: BP 129/67
[2019-06-20 08:22] VITALS: BP 138/83
[2019-06-20] MEDS: DULOXETINE HCL 30 MG DELAYED RELEASE PO SCH (08:59)
[2019-06-20] MEDS: AMLODIPINE BESYLATE 5 MG TAB PO SCH (08:59)
--- NOTE | 2019-06-20 09:04 | NUR ---
PT WENT HOME IN SAFE CONDITION WITH HER MOTHER
--- NOTE | 2019-06-20 11:57 | Discharge Summary ---
HOSPITAL COURSE: The patient is a 48-year-old female with past medical history positive for depression and kidney stones, came here with right flank pain and a kidney stone. The patient was admitted to the hospital and she passed the stone. She is going home tomorrow. She was found to have evidence of pneumonia on a CT of the abdomen also, which showed partial view of the lungs. The patient was started on IV antibiotic. She is going to be switched to oral antibiotic and she is going home tomorrow. PHYSICAL EXAMINATION: HEART: Showed regular rhythm. Normal S1 and S2 sound. LUNGS: Clear bilaterally. FINAL IMPRESSION: 1. Right kidney stone, which is resolved. 2. Bilateral pneumonia. 3. Hypertension. PLAN OF TREATMENT: Continue the Cymbalta that she was taking at home 90 mg daily. Continue Norvasc 5 mg daily. Continue on Ceftin 500 mg twice a day for 10 days and Zithromax 250 mg once a day for a total of 10 days. Follow up with Dr. Ro in a week. MD ISAAC Ray/SHANIQUE /[id number]
--- OUTSIDE RECORDS SUMMARY | 2019-06-26 11:10 | XMS REPORT ---
Author Author Admin, [place] Organization Unknown Address Unknown Phone Unavailable PROBLEMS Condition Status Date Provider Notes Vaccination Against Influenza completed - Amadou Alonzo DEPRESSIVE DISORDER, MAJOR, RECURRENT EPISODE, MODERATE active Kyle Hernández GENERALIZED ANXIETY DISORDER active Kyle Hernández ENCOUNTERS Date Type Provider Location Encounter Diagnosis - Ambulatory Encounter Kyle Hernández [facility] UNK - Ambulatory Encounter Kyle Barrera [facility] - Ambulatory Encounter Christina Barrera [facility] UNK - Ambulatory Encounter Leeanne Walsh [facility] UNK [facility] Ambulatory Encounter Kyle Hernández [facility] UNK [facility] Ambulatory Encounter Kyle Barrera [facility] UNK [facility] Ambulatory Encounter Kyle Hernández [facility] UNK - Ambulatory Encounter Leeanne Walsh [facility] UNK - Ambulatory Encounter Christina Barrera [facility] UNK - Ambulatory Encounter Kyle eHrnández [facility] UNK - Ambulatory Encounter Kyle Barrera [facility] UNK - Ambulatory Encounter Kyle Hernández [facility] UNK - Ambulatory Encounter Kyle Fabian [facility]ro[facility] - Ambulatory Encounter Christina Richea [facility] Ambulatory Encounter Kyle Hern[facility]dez [facility] Ambulatory Encounter Leeanneviviane Walsh [facility] Ambulatory Encounter Christina Richea [facility] Ambulatory Encounter Kyle Hern[facility]dez [facility] Ambulatory Encounter Kyle Vasquez [facility] - Ambulatory Encounter Kyle Hern[facility]dez [facility] Ambulatory Encounter Leeanne Walsh [facility] Ambulatory Encounter Christina Richea [facility] Ambulatory Encounter Kyle Hern[facility]dez [facility] Ambulatory Encounter Kyle Hern[facility]dez [facility] Ambulatory Encounter Kyle Vasquez [facility] UNK - Ambulatory Encounter Amadou Fabian [facility]K - Ambulatory Encounter Leeanne Mascorroen [facility] - Ambulatory Encounter Reneefannie Pedro [facility] - Ambulatory Encounter Laura Hull [facility]K - Ambulatory Encounter Amadou Alonzo [facility] - Ambulatory Encounter Amadou Vasquez [facility] Vaccination Against Influenza - Ambulatory Encounter Isaura Rudd [facility] - [facility]ulatory Encounter [facility] - Ambulatory Encounter Laura Hull [facility] UNK - Ambulatory Encounter Leeanne Jillian [facility] UNK [facility] Ambulatory Encounter Cheryl Church [facility] UNK - Ambulatory Encounter Kyle Hernández [facility] UNK - Ambulatory Encounter Kyle Delarosa Blaire [facility] UNK [facility] Ambulatory Encounter Leeanne Walsh [facility] UNK - Ambulatory Encounter Lisa Arnold [facility] UNK [facility] Ambulatory Encounter Kyle Hernández [facility] UNK [facility] Ambulatory Encounter Kyle Arnold [facility] UNK [facility] Ambulatory Encounter Leeanne Walsh [facility] UNK - Ambulatory Encounter Kyle Hernández [facility] UNK - Ambulatory Encounter Klye Arnold [facility] UNK - Ambulatory Encounter Kyle Beck [facility] UNK - Ambulatory Encounter Kyle Fabian [facility] UNK - Ambulatory Encounter Leeanneviviane [facility] Ambulatory Encounter Leeanneviviane [facility] Ambulatory Encounter Kyle [facility] - Ambulatory Encounter Kyle Arnold [facility] UNK [facility] Ambulatory Encounter Leeanneviviane [facility] Ambulatory Encounter Kyle Wills [facility] UNK [facility] Ambulatory Encounter Leeanneviviane [facility] - Ambulatory Encounter Leeanneviviane [facility] Ambulatory Encounter Leeanneviviane [facility] Ambulatory Encounter Leeanneviviane [facility] - Ambulatory Encounter Kyle Hernández [facility] UNK - Ambulatory Encounter Kyle [facility] Ambulatory Encounter Kyle Arnold [facility] UNK - Ambulatory Encounter Leeanneviviane [facility] Ambulatory Encounter Kyle [facility] Ambulatory Encounter Kyle Arnold [facility] UNK - Ambulatory Encounter Kyle Hernández [facility]K - Ambulatory Encounter [facility] - Ambulatory Encounter Kyle Fabian [facility] Ambulatory Encounter Leeanneviviane Mascorroen [facility] Ambulatory Encounter Lisa Arnold [facility] - Ambulatory Encounter Leeanne Jillian [facility] Ambulatory Encounter Kyle Hern[facility]dez [facility] Ambulatory Encounter Lisa Arnold [facility] Ambulatory Encounter Kyle Arnold [facility] Ambulatory Encounter Leeanne Jillian [facility] Ambulatory Encounter Lisa Arnold [facility] Ambulatory Encounter Kyle Hern[facility]dez [facility] UNK - Ambulatory Encounter yKle Arnold [facility] Ambulatory Encounter Leeanne Jillian [facility] - Ambulatory Encounter Lauraiona Steeleia [facility]K - Ambulatory Encounter Leeanne Jillian [facility]K - Ambulatory Encounter Kyle Hernández [facility] Ambulatory Encounter Kyle Arnold [facility] - Ambulatory Encounter Lisa Arnodl [facility] - Ambulatory Encounter Leeanneviviane Walsh [facility] UNK - Ambulatory Encounter Lisa Clayton [facility]K [facility] Ambulatory Encounter Leeanne Walsh [facility] UNK - Ambulatory Encounter Kyle Arnold [facility] UNK - Ambulatory Encounter Kyle Hernández [facility] UNK - Ambulatory Encounter Kyle Hernández [facility] UNK - Ambulatory Encounter Kyle Gonzalez Arnold [facility] GENERALIZED ANXIETY DISORDERDEPRESSIVE DISORDER, MAJOR, RECURRENT EPISODE, MODERATE - Ambulatory Encounter Linette Jarquin [facility] UNK VITAL SIGNS No Information Available ALLERGIES Allergy Name Onset Date Reaction Criticality Status VICODIN itchiness Unable to assess criticality active REASON FOR REFERRAL No Information Available RESULTS No Information Available HISTORY OF IMMUNIZATIONS No Information Available HISTORY OF MEDICATION USE Medication Instructions Dates Provider Comments CYMBALTA 30 MG ORAL CAPSULE DELAYED RELEASE PARTICLES Take 1 tab By Mouth Every Morning - take with 60 mg for total of 90 mg Kyle Hernández DULOXETINE HCL DR 60 MG CAP TAKE 1 CAPSULE BY MOUTH EVERY DAY IN THE MORNING Kyle Hernández ESCITALOPRAM 20 MG TABLET TAKE 1 TABLET BY MOUTH EVERY DAY IN THE MORNING - Kyle Hernández SOCIAL HISTORY Date Observation Value Provider smoking status never smoker Kyle Hernández smoking status never smoker Kyle Hernández smoking status never smoker Kyle Hernández smoking status never smoker Kyle Hernández smoking status never smoker Kyle Hernández " Exercise Program Referral T Mike Vasquez " Weight Management Counseling Provided T Mike Vasquez " Nutrition intervention T Mike Vasquez " drug use, illicit Never Mike Vasquez " alcohol use Previously Mike Vasquez " social history E&M One little sister Lives with bio parents. Seperated in 2004, after 15 years of marriage - 2 children 21, and 18 - live with their father Graduated [employer]. 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 No Debfannie Coulterados " passive cigarette smoke exposure No Deborath Vasquez " smoking status never smoker Mike Vasquez smoking status never smoker Kyle Hernández smoking status never smoker Kyle Hernández " social history E&M One little sister Lives with bio parents. Seperated in 2004, after 15 years of marriage - 2 children 21, and 18 - live with their father Graduated [employer]. 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 Seperated in 2004, after 15 years of marriage - 2 children 21, and 18 - live with their father Graduated [employer]. 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 Seperated in 2004, after 15 years of marriage - 2 children 21, and 18 - live with their father Graduated [employer]. 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 Seperated in 2004, after 15 years of marriage - 2 children 21, and 18 - live with their father Graduated [employer]. 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 Seperated in 2004, after 15 years of marriage - 2 children 21, and 18 - live with their father Graduated [employer]. 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 Seperated in 2004, after 15 years of marriage - 2 children 21, and 18 - live with their father Graduated [employer]. 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 Seperated in 2004, after 15 years of marriage - 2 children 21, and 18 - live with their father Graduated [employer]. 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 Seperated in 2004, after 15 years of marriage - 2 children 21, and 18 - live with their father Graduated [employer]. 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 Seperated in 2004, after 15 years of marriage - 2 children 21, and 18 - live with their father Graduated [employer]. 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 Seperated in 2004, after 15 years of marriage - 2 children 21, and 18 - live with their father Graduated [employer]. 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 Seperated in 2004, after 15 years of marriage - 2 children 21, and 18 - live with their father Kyle Hernández FUNCTIONAL STATUS No Information Available MENTAL STATUS Date Observation Value Provider mental status assessment, judgment fair Kyle Hernández " insight (mental status exam) fair, limited with relationships Kyle Hernández " Mental Status Exam: intelligence oriented to person, oriented to place, oriented to time, oriented to reality Kyle Hernández " hallucinations none Kyle Hernández " thought content (mental status exam) (E&M) lucid Kyle Hernández " mental status assessment, process goal-directed, logical Kyle Hernández " mental status assessment, sensorium alert, clear Kyle Hernández " affect (mental status exam) congruent, anxious Kyle Hernández" mood (mental status exam) " OK " Kyle Hernández " mental status assessment, speech activity normal flow, normal pace, normal pressure, normal rate, normal tone, normal volume, spontaneous Kyle Hernández " mental status assessment, motor activity normal gait, normal posture, Kyle Hernández " behavior (mental status exam) appropriate, cooperative, good eye contact, responsive Kyle Hernández" mental appearance (mental status exam) adequate hygiene, appropriate dress Kyle Arsalanryan mental status assessment, judgment fair Leeanne Jillian " insight (mental status exam) fair Leeanne Jillian " Mental Status Exam: intelligence oriented to person, oriented to place, oriented to time, oriented to reality Leeanne Jillian " hallucinations none Leeanne Jillian " thought content (mental status exam) (E&M) lucid Leeanne Jillian " mental status assessment, process goal-directed, logical Leeanne Jillian " mental status assessment, sensorium alert, clear Leeanne Jillina " affect (mental status exam) congruent, euthymic Leeanne Jillian " mood (mental status exam) frustrated Leeanne Jillian " mental status assessment, speech activity normal flow, normal pace, normal pressure, normal rate, normal tone, normal volume, spontaneous Leeanne Jillian " mental status assessment, motor activity normal gait, normal posture Leeanne Jillian " behavior (mental status exam) appropriate, cooperative, good eye contact, responsive Leeanne Jillian " mental appearance (mental status exam) adequate hygiene, appropriate dress Leeanne Jillian mental status assessment, judgment fair Kyle Hernández " insight (mental status exam) fair Kyle Hernández " Mental Status Exam: intelligence oriented to person, oriented to place, oriented to time, oriented to reality Kyle Berno " hallucinations none Kyle Berno " thought content (mental status exam) (E&M) lucid Kyle Bernryan " mental status assessment, process goal-directed, logical Kyle Berno " mental status assessment, sensorium alert, clear Kyle Berno " affect (mental status exam) congruent, euthymic Kyle Berno " mood (mental status exam) pleasant Kyle Berno " mental status assessment, speech activity normal flow, normal pace, normal pressure, normal rate, normal tone, normal volume, spontaneous Kyle Berno " mental status assessment, motor activity normal gait, normal posture Kyle Edgar " behavior (mental status exam) appropriate, cooperative, good eye contact, responsive Kyle Arriazao " mental appearance (mental status exam) adequate hygiene, appropriate dress Kyle Hernández mood (mental status exam) anxious, frustrated Leeanne Jillian " mental status assessment, judgment fair Leeanne Jillian " insight (mental status exam) fair Leeanne Jillian " Mental Status Exam: intelligence oriented to person, oriented to place, oriented to time, oriented to reality Leeanne Jillian " hallucinations none Leeanne Jillian " thought content (mental status exam) (E&M) lucid Leeanne Jillian " mental status assessment, process goal-directed, logical Leeanne Jillian " mental status assessment, sensorium alert, clear Leeanne Jillian " affect (mental status exam) congruent, euthymic Leeanne Jillian " mental status assessment, speech activity normal flow, normal pace, normal pressure, normal rate, normal tone, normal volume, spontaneous Leeanne Jillian " behavior (mental status exam) appropriate, cooperative, good eye contact, responsive Leeanne Jillian " mental appearance (mental status exam) adequate hygiene, appropriate dress Leeanne Jillian mental status assessment, judgment fair Kyle Hernández " insight (mental status exam) fair Kyle Hernández " Mental Status Exam: intelligence oriented to person, oriented to place, oriented to time, oriented to reality Kyle Berno " hallucinations none Kyle Berno " thought content (mental status exam) (E&M) lucid Kyle Berno " mental status assessment, process goal-directed, logical Kyle Berno " mental status assessment, sensorium alert, clear Kyle Berno " affect (mental status exam) congruent, euthymic Kyle Berno " mood (mental status exam) anxious, pleasant Kyle Berno " mental status assessment, speech activity normal flow, normal pace, normal pressure, normal rate, normal tone, normal volume, spontaneous Kyle Berno " mental status assessment, motor activity normal gait, normal posture Kyle Berno " behavior (mental status exam) appropriate, cooperative, good eye contact, responsive Kyle Berno " mental appearance (mental status exam) adequate hygiene, appropriate dress Kyle Berno mental status assessment, judgment fair Leeanne Jillian " insight (mental status exam) fair Leeanne Jillian " Mental Status Exam: intelligence oriented to person, oriented to place, oriented to time, oriented to reality Leeanne Jillian " hallucinations none Leeanne Jillian " thought content (mental status exam) (E&M) lucid Leeanne Jillian " mental status assessment, process goal-directed, logical Leeanne Jillian " mental status assessment, sensorium alert, clear Leeanne Jillian " affect (mental status exam) congruent, euthymic, normal intensity, normal range Leeanen Jillian " mood (mental status exam) anxious, frustrated, pleasant Leeanne Jillian " mental status assessment, speech activity normal flow, normal pace, normal pressure, normal rate, normal tone, normal volume, spontaneous Leeanne Jillian " mental status assessment, motor activity normal gait, normal posture Leeanne Jillian " behavior (mental status exam) appropriate, cooperative, good eye contact, responsive Leeanne Jillian " mental appearance (mental status exam) adequate hygiene, appropriate dress Leeanne Jillian mental status assessment, judgment fair Kyle Berno " insight (mental status exam) fair Kyle Berno " Mental Status Exam: intelligence oriented to person, oriented to place, oriented to time, oriented to reality Kyle Berno " hallucinations none Kyle Berno " thought content (mental status exam) (E&M) lucid Kyle Berno " mental status assessment, process goal-directed, logical Kyle Berno " mental status assessment, sensorium alert, clear Kyle Berno " affect (mental status exam) congruent, euthymic, normal intensity, normal range Kyle Berno " mood (mental status exam) pleasant Kyle Berno " mental status assessment, speech activity normal flow, normal pace, normal pressure, normal rate, normal tone, normal volume, spontaneous Kyle Berno " mental status assessment, motor activity normal gait, normal posture Kyle Berno " behavior (mental status exam) appropriate, cooperative, good eye contact, responsive Kyle Berno " mental appearance (mental status exam) adequate hygiene, appropriate dress Kyle Berno mental status assessment, judgment fair Leeanne Jillian " insight (mental status exam) fair Leeanne Jillian " Mental Status Exam: intelligence oriented to person, oriented to place, oriented to time, oriented to reality Leeanne Jillian " hallucinations none Leeanne Jillian " thought content (mental status exam) (E&M) lucid Leeanne Jillian " mental status assessment, process goal-directed, logical Leeanne Jillian " mental status assessment, sensorium alert, clear Leeanne Jillian " affect (mental status exam) congruent, euthymic, normal intensity, normal range Leeanne Jillian " mood (mental status exam) anxious, pleasant Leeanne Jillian " mental status assessment, speech activity normal flow, normal pace, normal pressure, normal rate, normal tone, normal volume, spontaneous Leeanne Jillian " mental status assessment, motor activity normal gait, normal posture Leeanne Jillian " behavior (mental status exam) appropriate, cooperative, good eye contact, responsive Leeanne Jillian " mental appearance (mental status exam) adequate hygiene, appropriate dress Leeanne Jillian mental status assessment, judgment fair Kyle Berno " insight (mental status exam) fair Kyle Berno " Mental Status Exam: intelligence oriented to person, oriented to place, oriented to time, oriented to reality Kyle Berno " hallucinations none Kyle Berno " thought content (mental status exam) (E&M) lucid Kyle Berno " mental status assessment, process goal-directed, logical Kyle Berno " mental status assessment, sensorium alert, clear Kyle Berno " affect (mental status exam) congruent, euthymic, normal intensity, normal range Kyle Berno " mood (mental status exam) anxious, pleasant Kyle Berno " mental status assessment, speech activity normal flow, normal pace, normal pressure, normal rate, normal tone, normal volume, spontaneous Kyle Hernández " mental status assessment, motor activity normal gait, normal posture Kyle Edgar " behavior (mental status exam) appropriate, cooperative, good eye contact, responsive Kyle Hernández " mental appearance (mental status exam) adequate hygiene, appropriate dress Kyle Hernández mental status assessment, judgment fair Leeanne Jillian " insight (mental status exam) fair Leeanne Jillian " Mental Status Exam: intelligence oriented to person, oriented to place, oriented to time, oriented to reality Leeanne Jillian " hallucinations none Leeanne Jillian " thought content (mental status exam) (E&M) lucid Leeanne Jillian " mental status assessment, process goal-directed, logical Leeanne Jillian " mental status assessment, sensorium alert, clear Leeanne Jillian " affect (mental status exam) congruent, euthymic, normal intensity, normal range Leeanne Jillian " mood (mental status exam) anxious, pleasant Leeanne Jillian " mental status assessment, speech activity normal flow, normal pace, normal pressure, normal rate, normal tone, normal volume, spontaneous Leeanne Jillian " mental status assessment, motor activity normal gait, normal posture Leeanne Jillian " behavior (mental status exam) appropriate, cooperative, good eye contact, responsive Leeanne Jillian " mental appearance (mental status exam) adequate hygiene, appropriate dress Leeanne Jillian assessment of judgment and insight E&M intact Amadou Alonzo " mental status examination: orientation E&M oriented to time, place, and person Amadou Alonzo " assessment of mood and affect E&M no depression, anxiety, or agitation Amadou Alonzo " Generalized Anxiety Disorder Questionnaire - Question 2 3 amoret Pedro " Generalized Anxiety Disorder Questionnaire - Question 1 3 Mike Vasquez mental status assessment, judgment fair Leeanne Jillian " insight (mental status exam) fair Leeanne Jillian " Mental Status Exam: intelligence oriented to person, oriented to place, oriented to time, oriented to reality Leeanne Jillian " hallucinations none Leeanne Jillian " thought content (mental status exam) (E&M) lucid Leeanne Jillian " mental status assessment, process goal-directed, logical Leeanne Jillian " mental status assessment, sensorium alert, clear Leeanne Jillian " affect (mental status exam) congruent, euthymic, normal intensity, normal range Leeanne Jillian " mood (mental status exam) pleasant Leeanne Jillian " mental status assessment, speech activity normal flow, normal pace, normal pressure, normal rate, normal tone, normal volume, spontaneous Leeanne Jillian " mental status assessment, motor activity normal gait, normal posture Leeanne Jillian " behavior (mental status exam) appropriate, cooperative, good eye contact, responsive Leeanne Jillian " mental appearance (mental status exam) adequate hygiene, appropriate dress Leeanne Jillian mental status assessment, judgment fair Kyle Berno " insight (mental status exam) fair Kyle Berno " Mental Status Exam: intelligence oriented to person, oriented to place, oriented to time, oriented to reality Kyle Berno " hallucinations none Kyle Berno " thought content (mental status exam) (E&M) lucid Kyle Berno " mental status assessment, process goal-directed, logical Kyle Berno " mental status assessment, sensorium alert, clear Kyle Berno " affect (mental status exam) congruent, normal intensity, normal range Kyle Berno " mood (mental status exam) pleasant Kyle Berno " mental status assessment, speech activity normal flow, normal pace, normal pressure, normal rate, normal tone, normal volume, spontaneous Kyle Berno " mental status assessment, motor activity normal gait, normal posture Kyle Berno " behavior (mental status exam) appropriate, cooperative, good eye contact, responsive Kyle Berno " mental appearance (mental status exam) adequate hygiene, appropriate dress Kyle Arriazao mental status assessment, motor activity normal gait, normal posture Leeanne Jillian " mental status assessment, judgment fair Leeanne Jillian " insight (mental status exam) fair Leeanne Jillian " Mental Status Exam: intelligence oriented to person, oriented to place, oriented to time, oriented to reality Leeanne Jillian " hallucinations none Leeanne Jillian " thought content (mental status exam) (E&M) lucid Leeanne Jillian " mental status assessment, process goal-directed, logical Leeanne Jillian " mental status assessment, sensorium alert, clear Leeanne Jillian " affect (mental status exam) congruent, normal intensity, normal range Leeanne Jillian " mood (mental status exam) anxious, pleasant Leeanne Jillian " mental status assessment, speech activity normal flow, normal pace, normal pressure, normal rate, normal tone, normal volume, spontaneous Leeanne Jillian " behavior (mental status exam) appropriate, cooperative, good eye contact, polite, responsive Leeanne Jillian " mental appearance (mental status exam) adequate hygiene, appropriate dress Leeanne Jillian mental status assessment, judgment fair Kyle Berno " insight (mental status exam) fair Kyle Berno " Mental Status Exam: intelligence oriented to person, oriented to place, oriented to time, oriented to reality Kyle Berno " hallucinations none Kyle Berno " thought content (mental status exam) (E&M) lucid Kyle Berno " mental status assessment, process goal-directed, logical Kyle Berno " mental status assessment, sensorium alert, clear Kyle Berno " affect (mental status exam) congruent, normal intensity, normal range Kyle Berno " mental status assessment, speech activity normal flow, normal pace, normal pressure, normal rate, normal tone, normal volume, spontaneous Kyle Berno " mental status assessment, motor activity normal gait, normal posture Kyle Berno " behavior (mental status exam) appropriate, cooperative, good eye contact, polite, responsive Kyle Berno " mental appearance (mental status exam) adequate hygiene, appropriate dress Kyle Arriazao mental status assessment, motor activity normal gait, normal posture Leeanne Jillian " mental status assessment, judgment fair Leeanne Jillian " insight (mental status exam) fair Leeanne Jillian " Mental Status Exam: intelligence oriented to person, oriented to place, oriented to time, oriented to reality Leeanne Jillian " hallucinations none Leeanne Jillian " thought content (mental status exam) (E&M) lucid Leeanne Jillian " mental status assessment, process goal-directed, logical Leeanne Jillian " mental status assessment, sensorium alert, clear Leeanne Jillian " affect (mental status exam) congruent, normal intensity, normal range Leeanne Jillian " mood (mental status exam) anxious, sad Leeanne Jillian " mental status assessment, speech activity normal flow, normal pace, normal pressure, normal rate, normal tone, normal volume, spontaneous Leeanne Jillian " behavior (mental status exam) appropriate, cooperative, good eye contact, polite, responsive Leeanne Jillian " mental appearance (mental status exam) adequate hygiene, appropriate dress Leeanne Jillian mental status assessment, judgment fair Kyle Berno " insight (mental status exam) fair Kyle Berno " Mental Status Exam: intelligence oriented to person, oriented to place, oriented to time, oriented to reality Kyle Berno " hallucinations none Kyle Berno " thought content (mental status exam) (E&M) lucid Kyle Berno " mental status assessment, process goal-directed, logical Kyle Berno " mental status assessment, sensorium alert, clear Kyle Berno " affect (mental status exam) congruent, normal intensity, normal range Kyle Berno " mental status assessment, speech activity normal flow, normal pace, normal pressure, normal rate, normal tone, normal volume, spontaneous Kyle Berno " mental status assessment, motor activity normal posture, fidgety Kyle Berno " behavior (mental status exam) appropriate, cooperative, good eye contact, responsive Kyle Berno " mental appearance (mental status exam) adequate hygiene, appropriate dress Kyle Hernández mental status assessment, judgment fair Leeanne Jillian " insight (mental status exam) fair Leeanne Jillian " Mental Status Exam: intelligence oriented to person, oriented to place, oriented to time, oriented to reality Leeanne Jillian " hallucinations none Leeanne Jillian " thought content (mental status exam) (E&M) lucid Leeanne Jillian " mental status assessment, process goal-directed, logical Leeanne Jillian " mental status assessment, sensorium alert, clear Leeanne Jillian " affect (mental status exam) congruent, euthymic, normal intensity, normal range Leeanne Jillian " mood (mental status exam) anxious, sad Leeanne Jillian " mental status assessment, speech activity normal flow, normal pace, normal pressure, normal rate, normal tone, normal volume, spontaneous Leeanne Jillian " mental status assessment, motor activity normal posture, fidgety Leeanne Jillian " behavior (mental status exam) appropriate, cooperative, good eye contact, responsive Leeanne Jillian " mental appearance (mental status exam) adequate hygiene, appropriate dress Leeanne Walsh mental status assessment, judgment fair Leeanne Jillian " insight (mental status exam) fair Leeanne Jillian " Mental Status Exam: intelligence oriented to person, oriented to place, oriented to time, oriented to reality Leeanne Jillian " hallucinations none Leeanne Jillian " thought content (mental status exam) (E&M) lucid Leeanne Jillian " mental status assessment, process goal-directed, logical Leeanne Jillian " mental status assessment, sensorium alert, clear Leeanne Jillian " affect (mental status exam) congruent, euthymic, normal intensity, normal range Leeanne Jillian " mood (mental status exam) anxious, sad Leeanne Jillian " mental status assessment, speech activity normal flow, normal pace, normal pressure, normal rate, normal tone, normal volume, spontaneous Leeanne Jililan " mental status assessment, motor activity normal posture, fidgety Leeanne Jillian " behavior (mental status exam) appropriate, cooperative, good eye contact, responsive Leeanne Jillian " mental appearance (mental status exam) adequate hygiene, appropriate dress Leeanne Jillian mental status assessment, judgment fair Kyle Berno " insight (mental status exam) fair Kyle Berno " Mental Status Exam: intelligence oriented to person, oriented to place, oriented to time, oriented to reality Kyle Berno " hallucinations none Kyle Berno " thought content (mental status exam) (E&M) lucid Kyle Berno " mental status assessment, process goal-directed, logical Kyle Berno " mental status assessment, sensorium alert, clear Kyle Berno " affect (mental status exam) congruent, euthymic, normal intensity, normal range Kyle Berno " mental status assessment, speech activity normal flow, normal pace, normal pressure, normal rate, normal tone, normal volume, spontaneous Kyle Berno " mental status assessment, motor activity normal posture, fidgety Kyle Berno " behavior (mental status exam) appropriate, cooperative, good eye contact, responsive Kyle Berno " mental appearance (mental status exam) adequate hygiene, appropriate dress Kyle Berno mental status assessment, judgment fair Leeanne Jillian " insight (mental status exam) fair Leeanne Jillian " Mental Status Exam: intelligence oriented to person, oriented to place, oriented to time, oriented to reality Leeanne Jillian " hallucinations none Leeanne Jillian " thought content (mental status exam) (E&M) lucid Leeanne Jillian " mental status assessment, process goal-directed, logical Leeanne Jillian " mental status assessment, sensorium alert, clear Leeanne Jillian " affect (mental status exam) congruent, euthymic, normal intensity, normal range Leeanne Jillian " mood (mental status exam) anxious, sad Leeanne Jillian " mental status assessment, speech activity normal flow, normal pace, normal pressure, normal rate, normal tone, normal volume, spontaneous Leeanne Jillian " mental status assessment, motor activity normal posture, fidgety Leeanne Jillian " behavior (mental status exam) appropriate, cooperative, good eye contact, responsive, tearful Leeanne Jillian " mental appearance (mental status exam) adequate hygiene, appropriate dress Leeanne Jillian mental status assessment, judgment fair Leeanne Jillian " insight (mental status exam) fair Leeanne Jillian " Mental Status Exam: intelligence oriented to person, oriented to place, oriented to time, oriented to reality Leeanne Jillian " hallucinations none Leeanne Jillian " thought content (mental status exam) (E&M) lucid Leeanne Jillian " mental status assessment, process goal-directed, logical Leeanne Jillian " mental status assessment, sensorium alert, clear Leeanne Jillian " affect (mental status exam) congruent, euthymic, normal intensity, normal range Leeanne Jillian " mood (mental status exam) anxious, sad Leeanne Jillian " mental status assessment, speech activity normal flow, normal pace, normal pressure, normal rate, normal tone, normal volume, spontaneous Leeanne Jillian " mental status assessment, motor activity normal posture, fidgety Leeanne Jillian " behavior (mental status exam) appropriate, cooperative, good eye contact, responsive, tearful Leeanne Jillian " mental appearance (mental status exam) adequate hygiene, appropriate dress Leeanne Jillian mental status assessment, judgment fair Leeanne Jillian " insight (mental status exam) fair Leeanne Jillian " Mental Status Exam: intelligence oriented to person, oriented to place, oriented to time, oriented to reality Leeanne Jillian " hallucinations none Leeanne Jillian " thought content (mental status exam) (E&M) lucid Leeanne Jillian " mental status assessment, process goal-directed, logical Leeanne Jillian " mental status assessment, sensorium alert, clear Leeanne Jillian " affect (mental status exam) congruent, euthymic, normal intensity, normal range Leeanne Jillian " mood (mental status exam) anxious, frustrated, sad Leeanne Jillian " mental status assessment, speech activity normal flow, normal pace, normal pressure, normal rate, normal tone, normal volume, spontaneous Leeanne Jillian " mental status assessment, motor activity normal posture, fidgety Leeanne Jillian " behavior (mental status exam) appropriate, cooperative, good eye contact, responsive, tearful Leeanne Jillian " mental appearance (mental status exam) adequate hygiene, appropriate dress Leeanneviviane Walsh mental status assessment, judgment fair Leeanne Jillian " insight (mental status exam) fair Leeanne Jillian " Mental Status Exam: intelligence oriented to person, oriented to place, oriented to time, oriented to reality Leeanne Jillian " hallucinations none Leeanne Jillian " thought content (mental status exam) (E&M) lucid Leeanne Jillian " mental status assessment, process goal-directed, logical Leeanne Jillian " mental status assessment, sensorium alert, clear Leeanne Jillian " affect (mental status exam) congruent, euthymic, normal intensity, normal range Leeanne Jillian " mood (mental status exam) anxious, frustrated Leeanne Jillian " mental status assessment, speech activity normal flow, normal pace, normal pressure, normal rate, normal tone, normal volume, spontaneous Leeanne Jillian " mental status assessment, motor activity normal posture, fidgety Leeanne Jillian " behavior (mental status exam) appropriate, cooperative, good eye contact, responsive, tearful Leeanne Jillian " mental appearance (mental status exam) adequate hygiene, appropriate dress Leeanneviviane Walsh mental status assessment, judgment fair Leeanne Jillian " insight (mental status exam) fair Leeanne Jillian " Mental Status Exam: intelligence oriented to person, oriented to place, oriented to time, oriented to reality Leeanne Jillian " hallucinations none Leeanne Jillian " thought content (mental status exam) (E&M) lucid Leeanne Jillian " mental status assessment, process goal-directed, logical Leeanne Jillian " mental status assessment, sensorium alert, clear Leeanne Jillian " affect (mental status exam) congruent, euthymic, normal intensity, normal range Leeanne Jillian " mood (mental status exam) angry, anxious Leeanne Jillian " mental status assessment, speech activity normal flow, normal pace, normal pressure, normal rate, normal tone, normal volume, spontaneous Leeanne Jillian " mental status assessment, motor activity normal posture, fidgety Leeanne Jillian " behavior (mental status exam) appropriate, cooperative, good eye contact, responsive, tearful Leeanne Jillian " mental appearance (mental status exam) adequate hygiene, appropriate dress Leeanne Mascorroen mental status assessment, judgment fair Kyle Berno " insight (mental status exam) fair Kyle Berno " Mental Status Exam: intelligence oriented to person, oriented to place, oriented to time, oriented to reality Kyle Berno " hallucinations none Kyle Berno " thought content (mental status exam) (E&M) lucid Kyle Berno " mental status assessment, process goal-directed, logical Kyle Berno " mental status assessment, sensorium alert, clear Kyle Berno " affect (mental status exam) congruent, euthymic, normal intensity, normal range Kyle Berno " mental status assessment, speech activity normal flow, normal pace, normal pressure, normal rate, normal tone, normal volume, spontaneous Kyle Berno " mental status assessment, motor activity normal posture, fidgety Kyle Berno " behavior (mental status exam) appropriate, cooperative, good eye contact, responsive Kyle Berno " mental appearance (mental status exam) adequate hygiene, appropriate dress Kyle Arriazao mental status assessment, judgment fair Leeanne Jillian " insight (mental status exam) fair Leeanne Jillian " Mental Status Exam: intelligence oriented to person, oriented to place, oriented to time, oriented to reality Leeanne Jillian " hallucinations none Leeanne Jillian " thought content (mental status exam) (E&M) lucid Leeanne Jillian " mental status assessment, process goal-directed, logical Leeanne Jillian " mental status assessment, sensorium alert, clear Leaenne Jillian " affect (mental status exam) congruent, euthymic, normal intensity, normal range Leeanne Jillian " mood (mental status exam) pleasant, worried Leeanne Jillian " mental status assessment, speech activity normal flow, normal pace, normal pressure, normal rate, normal tone, normal volume, spontaneous Leeanne Jillian " mental status assessment, motor activity normal posture, fidgety Leeanne Jillian " behavior (mental status exam) appropriate, cooperative, good eye contact, responsive Leeanne Jillian " mental appearance (mental status exam) adequate hygiene, appropriate dress Leeanne Jillian mental status assessment, judgment fair Kyle Berno " insight (mental status exam) fair Kyle Berno " Mental Status Exam: intelligence oriented to person, oriented to place, oriented to time, oriented to reality Kyle Berno " hallucinations none Kyle Berno " thought content (mental status exam) (E&M) lucid Kyle Berno " mental status assessment, process goal-directed, logical Kyle Berno " mental status assessment, sensorium alert, clear Kyle Berno " affect (mental status exam) congruent, euthymic, normal intensity, normal range Kyle Berno " mood (mental status exam) pleasant Kyle Berno " mental status assessment, speech activity normal flow, normal pace, normal pressure, normal rate, normal tone, normal volume, spontaneous Kyle Berno " mental status assessment, motor activity normal posture, fidgety Kyle Berno " behavior (mental status exam) appropriate, cooperative, good eye contact, responsive Kyle Berno " mental appearance (mental status exam) adequate hygiene, appropriate dress Kyle Arsalano mental status assessment, judgment fair Leeanne Jillian " insight (mental status exam) fair Leeanne Jillian " Mental Status Exam: intelligence oriented to person, oriented to place, oriented to time, oriented to reality Leeanne Jillian " hallucinations none Leeanne Jillian " thought content (mental status exam) (E&M) lucid Leeanne Jillian " mental status assessment, process goal-directed, logical Leeanne Jillian " mental status assessment, sensorium alert, clear Leeanne Jillian " affect (mental status exam) congruent, euthymic, normal intensity, normal range Leeanne Jillian " mood (mental status exam) frustrated, pleasant Leeanne Jillian " mental status assessment, speech activity normal flow, normal pace, normal pressure, normal rate, normal tone, normal volume, spontaneous Leeanne Jillian " mental status assessment, motor activity normal gait, normal posture, fidgety Leeanne Jillian " behavior (mental status exam) appropriate, cooperative, good eye contact, responsive Leeanne Jillian " mental appearance (mental status exam) adequate hygiene, appropriate dress Leeanne Jillian mental status assessment, judgment fair Leeanne Jillian " insight (mental status exam) fair Leeanne Jillian " Mental Status Exam: intelligence oriented to person, oriented to place, oriented to time, oriented to reality Leeanne Jillian " hallucinations none Leeanne Jillian " thought content (mental status exam) (E&M) lucid Leeanne Jillian " mental status assessment, process goal-directed, logical Leeanne Jillian " mental status assessment, sensorium alert, clear Leeanne Jillian " affect (mental status exam) congruent, euthymic, normal intensity, normal range Leeanne Jillain " mood (mental status exam) pleasant Leeanne Jillian " mental status assessment, speech activity normal flow, normal pace, normal pressure, normal rate, normal tone, normal volume, spontaneous Leeanne Jillian " mental status assessment, motor activity normal gait, normal posture, fidgety Leeanne Jillian " behavior (mental status exam) appropriate, cooperative, good eye contact, responsive Leeanne Jillian " mental appearance (mental status exam) adequate hygiene, appropriate dress Leeanne Walsh mental status assessment, judgment fair Kyle Berno " insight (mental status exam) fair Kyle Berno " Mental Status Exam: intelligence oriented to person, oriented to place, oriented to time, oriented to reality Ykle Berno " hallucinations none Kyle Berno " thought content (mental status exam) (E&M) lucid Kyle Berno " mental status assessment, process goal-directed, logical Kyle Berno " mental status assessment, sensorium alert, clear Kyle Berno " affect (mental status exam) congruent, normal intensity, normal range Kyle Berno " mood (mental status exam) pleasant Kyle Berno " mental status assessment, speech activity normal flow, normal pace, normal pressure, normal rate, normal tone, normal volume, spontaneous Kyle Berno " mental status assessment, motor activity normal gait, normal posture, fidgety Kyle Berno " behavior (mental status exam) appropriate, cooperative, good eye contact, responsive Kyle Berno " mental appearance (mental status exam) adequate hygiene, appropriate dress Kyle Hernández mental status assessment, judgment fair Leeanne Jillian " insight (mental status exam) fair Leeanne Jillian " Mental Status Exam: intelligence oriented to person, oriented to place, oriented to time, oriented to reality Leeanne Jillian " hallucinations none Leeanne Jillian " thought content (mental status exam) (E&M) lucid Leeanne Jillian " mental status assessment, process goal-directed, logical Leeanne Jillian " mental status assessment, sensorium alert, clear Leeanne Jillian " affect (mental status exam) congruent, normal intensity, normal range Leeanne Jillian " mood (mental status exam) pleasant Leeanne Jillian " mental status assessment, speech activity normal flow, normal pace, normal pressure, normal rate, normal tone, normal volume, spontaneous Leeanne Jillian " mental status assessment, motor activity normal gait, normal posture, fidgety Leeanne Jillian " behavior (mental status exam) appropriate, cooperative, good eye contact, responsive Leeanne Jillian " mental appearance (mental status exam) adequate hygiene, appropriate dress Leeanneviviane Mascorroen mental status assessment, judgment fair Kyle Berno " insight (mental status exam) fair Kyle Berno " Mental Status Exam: intelligence oriented to person, oriented to place, oriented to time, oriented to reality Kyle Berno " hallucinations none Kyle Berno " thought content (mental status exam) (E&M) lucid Kyle Berno " mental status assessment, process goal-directed, logical Kyle Berno " mental status assessment, sensorium alert, clear Kyle Berno " affect (mental status exam) congruent, normal intensity, normal range Kyle Berno " mood (mental status exam) pleasant Kyle Berno " mental status assessment, speech activity normal flow, normal pace, normal pressure, normal rate, normal tone, normal volume, spontaneous Kyle Berno " mental status assessment, motor activity normal gait, normal posture, fidgety Kyle Berno " behavior (mental status exam) appropriate, cooperative, good eye contact, responsive Kyle Berno " mental appearance (mental status exam) adequate hygiene, appropriate dress Kyle Arriazao mental status assessment, judgment fair Leeanne Jillian " insight (mental status exam) fair Leeanne Ijllian " Mental Status Exam: intelligence oriented to person, oriented to place, oriented to time, oriented to reality Leeanne Jillian " hallucinations none Leeanne Jillian " thought content (mental status exam) (E&M) lucid Leeanne Jillian " mental status assessment, process goal-directed, logical Leeanne Jillian " mental status assessment, sensorium alert, clear Leeanne Jillian " affect (mental status exam) congruent, euthymic, normal intensity, normal range, anxious Leeanne Jillian " mood (mental status exam) anxious, pleasant Leeanne Jillian " mental status assessment, speech activity normal flow, normal pace, normal pressure, normal rate, normal tone, normal volume, spontaneous Leeanne Jillian " mental status assessment, motor activity normal gait, normal posture, fidgety Leeanne Jillian " behavior (mental status exam) appropriate, cooperative, good eye contact, responsive Leeanne Jillian " mental appearance (mental status exam) adequate hygiene, appropriate dress Leeanne Jillian mental status assessment, judgment fair Leeanne Jillian " insight (mental status exam) fair Leeanne Jillian " Mental Status Exam: intelligence oriented to person, oriented to place, oriented to time, oriented to reality Leeanne Jillian " hallucinations none Leeanne Jillian " thought content (mental status exam) (E&M) lucid Leeanne Jillian " mental status assessment, process goal-directed, logical Leeanne Jillian " mental status assessment, sensorium alert, clear Leeanne Jillian " affect (mental status exam) congruent, normal intensity, normal range Leeanne Jillian " mood (mental status exam) anxious, pleasant Leeanne Jillian " mental status assessment, speech activity normal flow, normal pace, normal pressure, normal rate, normal tone, normal volume, spontaneous Leeanne Jillian " mental status assessment, motor activity normal gait, normal posture, fidgety Leeanne Jillian " behavior (mental status exam) appropriate, cooperative, good eye contact, responsive Leeanne Jillian " mental appearance (mental status exam) adequate hygiene, appropriate dress Leeanne Jillian mental status assessment, judgment fair Kyle Arriazao " insight (mental status exam) fair Kyle Berno " Mental Status Exam: intelligence oriented to person, oriented to place, oriented to time, oriented to reality Kyle Arriazao " hallucinations none Kyle Berno " thought content (mental status exam) (E&M) lucid Kyle Arriazao " mental status assessment, process goal-directed, logical Kyle Berno " mental status assessment, sensorium alert, clear Kyle Berno " affect (mental status exam) congruent, normal intensity, normal range Kyle Berno " mood (mental status exam) pleasant Kyle Berno " mental status assessment, speech activity normal flow, normal pace, normal pressure, normal rate, normal tone, normal volume, spontaneous Kyle Hernández " mental status assessment, motor activity normal gait, normal posture, fidgety Kyle Hernández " behavior (mental status exam) appropriate, cooperative, good eye contact, responsive Kyle Hernández " mental appearance (mental status exam) adequate hygiene, appropriate dress Kyle Hernández mental status assessment, judgment fair Leeanne Jillian " insight (mental status exam) fair Leeanne Jillian " Mental Status Exam: intelligence adequate fund of information, intact memory processes, oriented to person, oriented to place, oriented to time, oriented to reality Leeanne Jillian " hallucinations none Leeanne Jillian " thought content (mental status exam) (E&M) lucid Leeanne Jillian " mental status assessment, process able to abstract, goal-directed, logical Leeanne Jillian " mental status assessment, sensorium alert, clear Leeanne Jillian " affect (mental status exam) congruent, euthymic, normal intensity, normal range Leeanne Jillian " mood (mental status exam) anxious, pleasant, worried Leeanne Jillian " mental status assessment, speech activity normal flow, normal pace, normal pressure, normal rate, normal tone, normal volume, spontaneous Leeanne Jillian " mental status assessment, motor activity normal gait, normal posture, fidgety Leeanne Jillian " behavior (mental status exam) appropriate, candid, cooperative, good eye contact, polite, responsive Leeanne Jillian " mental appearance (mental status exam) adequate hygiene, appropriate dress Leeanne Mascorroen mood (mental status exam) anxious, pleasant Leeanne Jillian " mental status assessment, judgment fair Leeanne Jillian " insight (mental status exam) fair Leeanne Jillian " Mental Status Exam: intelligence adequate fund of information, intact memory processes, oriented to person, oriented to place, oriented to time, oriented to reality Leeanne Jillian " hallucinations none Leeanne Jillian " thought content (mental status exam) (E&M) lucid Leeanne Jillian " mental status assessment, process able to abstract, goal-directed, logical Leeanne Jillian " mental status assessment, sensorium alert, clear Leeanne Jillian " affect (mental status exam) congruent, euthymic Leeanne Jillian " mental status assessment, speech activity normal flow, normal pace, normal pressure, normal rate, normal tone, normal volume, spontaneous Leeanne Jillian " mental status assessment, motor activity normal gait, normal posture, fidgety Leeanne Jillian " behavior (mental status exam) appropriate, candid, cooperative, good eye contact, polite, responsive Leeanne Jillian " mental appearance (mental status exam) adequate hygiene, appropriate dress Leeanne Jillian " anxiety worry a lot, sleep disturbance, restlessness, many physical complaints, panic attacks, muscle tension Leeanne Jillian anxiety worry a lot, sleep disturbance, restlessness, many physical complaints, panic attacks, muscle tension Kyle Hernández " mental status assessment, judgment fair Kyle Hernández" insight (mental status exam) fair Kyle Arriazao " Mental Status Exam: intelligence adequate fund of information, intact memory processes, oriented to person, oriented to place, oriented to time, oriented to reality Kyle Hernández " hallucinations none Kyle Hernández " thought content (mental status exam) (E&M) lucid Kyle Hernández " mental status assessment, process able to abstract, goal-directed, logical Kyle Arriazao " mental status assessment, sensorium alert, clear Kyle Hernández " affect (mental status exam) congruent, euthymic Kyle Berno " mental status assessment, speech activity normal flow, normal pace, normal pressure, normal rate, normal tone, normal volume, spontaneous Kyle Berno " mental status assessment, motor activity normal gait, normal posture, fidgety Kyle Hernández " behavior (mental status exam) appropriate, cooperative, good eye contact, responsive Kyle Arriazao " mental appearance (mental status exam) adequate hygiene, appropriate dress Kyle Hernández MEDICAL EQUIPMENT No Information Available FAMILY HISTORY No Information Available INSURANCE PROVIDERS No Information Available ADVANCE DIRECTIVES No Information Available TREATMENT PLAN Date Name Est Patient Exp Problem - 48693 Psychotherapy 45 (38-52*) min - 55638 (with patient and/or family member) Est Patient Exp Problem - 18297 Psychotherapy 45 (38-52*) min - 92547 (with patient and/or family member) Est Patient Detailed - 91802 Psychotherapy 45 (38-52*) min - 81514 (with patient and/or family member) Est Patient Exp Problem - 58826 Psychotherapy 45 (38-52*) min - 93157 (with patient and/or family member) Est Patient Detailed - 81047 Psychotherapy 45 (38-52*) min - 84595 (with patient and/or family member) Est Patient Exp Problem - 69175 INFLUENZA VACCINE QUADRIVALENT 3 YRS PLUS IM Admin of Vaccine - Injection - 1 Psychotherapy 45 (38-52*) min - 30453 (with patient and/or family member) Est Patient Exp Problem - 32381 Psychotherapy 45 (38-52*) min - 07889 (with patient and/or family member) Est Patient Exp Problem - 79994 Psychotherapy 45 (38-52*) min - 97157 (with patient and/or family member) Est Patient Exp Problem - 69887 Psychotherapy 45 (38-52*) min - 38252 (with patient and/or family member) Psychotherapy 45 (38-52*) min - 61049 (with patient and/or family member) Est Patient Detailed - 40362 Psychotherapy 45 (38-52*) min - 27316 (with patient and/or family member) Psychotherapy 45 (38-52*) min - 89899 (with patient and/or family member) Psychotherapy 60 (53+*) min - 97099 (with patient and/or family member) Psychotherapy 45 (38-52*) min - 75696 (with patient and/or family member) Psychotherapy 60 (53+*) min - 37797 (with patient and/or family member) Est Patient Exp Problem - 53092 Psychotherapy 45 (38-52*) min - 12076 (with patient and/or family member) Est Patient Exp Problem - 08388 Psychotherapy 45 (38-52*) min - 96550 (with patient and/or family member) Psychotherapy 45 (38-52*) min - 91377 (with patient and/or family member) Est Patient Exp Problem - 62930 Psychotherapy 45 (38-52*) min - 38944 (with patient and/or family member) Est Patient Detailed - 59140 Psychotherapy 45 (38-52*) min - 92669 (with patient and/or family member) Psychotherapy 45 (38-52*) min - 69374 (with patient and/or family member) Est Patient Detailed - 82628 Psychotherapy 45 (38-52*) min - 32901 (with patient and/or family member) Diagnostic evaluation (no medical) - 58960 Diagnostic evaluation with medical - 09659 HISTORY OF PROCEDURES Procedure Date Procedure Name Provider Procedure Notes Status Psychotherapy 45 (38-52*) min - 14284 (with patient and/or family member) Leeanne Walsh completed Psychotherapy 45 (38-52*) min - 01739 (with patient and/or family member) Leeanne Walsh completed Psychotherapy 45 (38-52*) min - 48252 (with patient and/or family member) Leeanne Walsh completed Psychotherapy 45 (38-52*) min - 05365 (with patient and/or family member) Leeanne Walsh completed Psychotherapy 45 (38-52*) min - 73691 (with patient and/or family member) Leeanne Walsh completed Psychotherapy 45 (38-52*) min - 56211 (with patient and/or family member) Leeanne Walsh completed Psychotherapy 45 (38-52*) min - 54356 (with patient and/or family member) Leeanne Walsh completed Psychotherapy 45 (38-52*) min - 86667 (with patient and/or family member) Leeanne Walsh completed Psychotherapy 45 (38-52*) min - 14711 (with patient and/or family member) Leeanne Walsh completed Psychotherapy 45 (38-52*) min - 76760 (with patient and/or family member) Leeanne Walsh completed Psychotherapy 45 (38-52*) min - 63402 (with patient and/or family member) Leeanne Walsh completed Psychotherapy 45 (38-52*) min - 08026 (with patient and/or family member) Leeanne Walsh completed Psychotherapy 60 (53+*) min - 58519 (with patient and/or family member) Leeanne Walsh completed Psychotherapy 45 (38-52*) min - 76679 (with patient and/or family member) Leeanne Walsh completed Psychotherapy 60 (53+*) min - 26701 (with patient and/or family member) Leeanne Walsh completed Psychotherapy 45 (38-52*) min - 37093 (with patient and/or family member) Leeanne Walsh completed Psychotherapy 45 (38-52*) min - 96870 (with patient and/or family member) Leeanne Walsh completed Psychotherapy 45 (38-52*) min - 48393 (with patient and/or family member) Leeanne Walsh completed Psychotherapy 45 (38-52*) min - 65527 (with patient and/or family member) Leeanne Walsh completed Psychotherapy 45 (38-52*) min - 90684 (with patient and/or family member) Leeanne Walsh completed Psychotherapy 45 (38-52*) min - 35096 (with patient and/or family member) Leeanne Walsh completed Psychotherapy 45 (38-52*) min - 04928 (with patient and/or family member) Leeanne Walsh completed Diagnostic evaluation (no medical) - 46770 Leeanne Walsh completed Diagnostic evaluation with medical - 06951 Kyle Hernández completed GOALS No Information Available HEALTH CONCERNS No Information Available
--- OUTSIDE RECORDS SUMMARY | 2019-06-26 11:10 | XMS REPORT ---
Author Author Admin, [place] Organization Unknown Address Unknown Phone Unavailable PROBLEMS Condition Status Date Provider Notes Acute sinusitis active Vaishali Kilo Vaccination Against Influenza completed - Amadou Alonzo DEPRESSIVE DISORDER, MAJOR, RECURRENT EPISODE, MODERATE active Kyle Hernández GENERALIZED ANXIETY DISORDER active Kyle Hernández ENCOUNTERS Date Type Provider Location Encounter Diagnosis - Ambulatory Encounter Mike Vasquez [facility] UNK - Ambulatory Encounter Vaishali Kilo Vaishali Kilo [facility] UNK - Ambulatory Encounter Vaishali Kilo Vaishali Kilo [facility] UNK - Ambulatory Encounter Vaishali Kilo Vaishali Kilo [facility] Acute sinusitis - Ambulatory Encounter Kyle Hernández [facility] UNK - Ambulatory Encounter Kyle Barrera [facility] UNK - Ambulatory Encounter Christina Barrera [facility] UNK - Ambulatory Encounter Leeanne Walsh [facility] UNK - Ambulatory Encounter Kyle Hernández [facility] UNK - Ambulatory Encounter Kyle Barrera [facility] UNK - Ambulatory Encounter Kyle Hernández [facility] UNK - Ambulatory Encounter Lee[facility] - Ambulatory Encounter Christina Richea [facility] Ambulatory Encounter Kyle Hern[facility]dez [facility] Ambulatory Encounter Kyle Richea [facility] Ambulatory Encounter Kyle Hern[facility]dez [facility] - Ambulatory Encounter Kyle Schroeder [facility] - Ambulatory Encounter Christina Richea [facility] - Ambulatory Encounter Kyle Hern[facility]dez [facility] - Ambulatory Encounter Leeanne Walsh [facility] - Ambulatory Encounter Christina Barrera [facility] - Ambulatory Encounter [facility] Hern[facility]dez [facility] Ambulatory Encounter Kyel Richea [facility] - Ambulatory Encounter Kyle Hern[facility]dez [facility] - Ambulatory Encounter Leeanneviviane Walsh [facility] Ambulatory Encounter Christina Holly [facility] Ambulatory Encounter Kyle Hern[facility]dez [facility] Ambulatory Encounter Kyle Hern[facility]dez [facility] - Ambulatory Encounter Kyle Vasquez Holly [facility] - Ambulatory Encounter Amadou Fabian [facility]K - Ambulatory Encounter Leeanneviviane Mascorroen [facility] - Ambulatory Encounter Reneekallizabeth Vasquez [facility] - Ambulatory Encounter Laura Hull [facility] - Ambulatory Encounter Amadou Alonzo [facility] - Ambulatory Encounter Amadou Durankallizabeth Vasquez [facility] Vaccination Against Influenza - Ambulatory Encounter Isaura ال[facility]راقي[facility]ulatory Encounter Lauraiona Steeleia [facility] - Ambulatory Encounter Laura Steeleia [facility] - Ambulatory Encounter Leeanneviviane Walsh [facility] Ambulatory En[facility] Cher[facility] - Ambulatory Encounter Kyle Hernández [facility] - Ambulatory Encounter Kyle Correatuno [facility] - Ambulatory Encounter Leeanneviviane Walsh [facility] Ambulatory Encounter Lisa [facility] Ambulatory Encounter Kyle Hern[facility]dez [facility] Ambulatory Encounter Kyle Arnold [facility] - Ambulatory Encounter Leeanneviviane Walsh [facility] - Ambulatory Encounter Kyle Hern[facility]dez [facility] - Ambulatory Encounter Kyle Arnold [facility] UNK - Ambulatory Encounter Kyle Beck [facility] UNK - Ambulatory Encounter Kyle Fabian [facility] UNK - Ambulatory Encounter Leeannevviiane Walsh [facility] UNK - Ambulatory Encounter Leeannezoë Walsh [facility] UN[facility] - Ambulatory Encounter Kyle Hernández [facility] UNK - Ambulatory Encounter Kyle Arnold [facility] UNK - Ambulatory Encounter Leeannezoë Walsh [facility] UNK - Ambulatory Encounter Kyle Wills [facility] UNK - Ambulatory Encounter Leeannezoë Walsh [facility] UNK - Ambulatory Encounter Leeannezoë Walsh [facility] UNK - Ambulatory Encounter Leeanne Jillian [facility] UNK - Ambulatory Encounter Leeanne Jillian [facility] UNK - Ambulatory Encounter Kyle Hernández [facility] UNK - Ambulatory Encounter Kyle Hernández [facility] UNK - Ambulatory Encounter Kyle Arnold [facility] UN[facility] - Ambulatory Encounter Leeanneviviane Walsh [facility] UNK - Ambulatory Encounter Kyle Hernández [facility] - Ambulatory Encounter Kyle Arnold [facility] UNK - Ambulatory Encounter Kyle Hernández [facility] - Ambulatory Encounter Kyle [facility] - Ambulatory Encounter Kyle Fabian [facility] UNK - Ambulatory Encounter Leeanneviviane Walsh [facility] UNK - Ambulatory Encounter Lisa Arnold [facility] UNK - Ambulatory Encounter Leeanneviviane Walsh [facility] UNK - Ambulatory Encounter Kyle Hernández [facility]K - Ambulatory Encounter Lisa Arnold [facility] UNK - Ambulatory Encounter Kyle Arnold [facility] UNK - Ambulatory Encounter Leeanne Jillian [facility] UNK - Ambulatory Encounter Lisa Arnold [facility] UNK - Ambulatory Encounter Kyle Hernández [facility] UNK - Ambulatory Encounter Kyle Arnold [facility] UNK - Ambulatory Encounter Leeanne Jillian [facility] UNK - Ambulatory Encounter Laura Hull [facility] UNK - Ambulatory Encounter Leeanne Walsh [facility] UNK - Ambulatory Encounter Kyle Hernández [facility] UNK - Ambulatory Encounter Kyle Gonzalez Clayton [facility] UNK - Ambulatory Encounter Lisa Arnold [facility] UNK - Ambulatory Encounter Leeanne Walsh [facility] UNK - Ambulatory Encounter Lisa Arnold [facility] UNK - Ambulatory Encounter Leeanneviviane Walsh [facility] UNK - Ambulatory Encounter Kyle Olivajo [facility] UNK - Ambulatory Encounter Kyle Hernández [facility] UNK - Ambulatory Encounter Kyle Hernández [facility] UNK - Ambulatory Encounter Kyle Olivajo [facility] GENERALIZED ANXIETY DISORDERDEPRESSIVE DISORDER, MAJOR, RECURRENT EPISODE, MODERATE - Ambulatory Encounter Linette Jarquin [facility] UNK VITAL SIGNS No Information Available ALLERGIES Allergy Name Onset Date Reaction Criticality Status VICODIN itchiness Unable to assess criticality active REASON FOR REFERRAL No Information Available RESULTS Date Observation Value Provider Reference Range Interpretation Location influenza B virus antigen negative Deborath Vasquez " influenza virus A antigen negative Deborath Vasquez HISTORY OF IMMUNIZATIONS No Information Available HISTORY OF MEDICATION USE Medication Instructions Dates Provider Comments TESSALON PERLES 100 MG ORAL CAPSULE 1 by mouth 3 times a day as needed for cough Vaishali Kilo FLONASE ALLERGY RELIEF 50 MCG/ACT NASAL SUSPENSION 2 sprays each nostril every day Vaishali Kilo AMOXICILLIN 500 MG ORAL CAPSULE 1 by mouth 3 times a day Vaishali Kilo CYMBALTA 30 MG ORAL CAPSULE DELAYED RELEASE [...] Hernández SOCIAL HISTORY Date Observation Value Provider Exercise Program Referral T Mike Vasquez " Weight Management Counseling Provided T Mike Vasquez " Nutrition intervention T Renee Pedro " alcohol use Previously Reneeados " drug use, illicit Never " social history E&M One little sister Lives with bio parents. Seperated in 2004, after 15 years of marriage - 2 children 21, and 18 - live with their father Graduated [employer]. 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 No Mike Vasquez " passive cigarette smoke exposure No Deb Vasquez " smoking status never smoker Mike Vasquez smoking status never smoker Kyle Hernández smoking status never smoker Kyle Hernández smoking status never smoker Kyle Hernández smoking status never smoker Kyle Hernández smoking status never smoker Kyle Hernández " Exercise Program Referral T Mike Vasquez " Weight Management Counseling Provided T Anel Pedro " Nutrition intervention T Renee Pedro " drug use, illicit Never " alcohol use Previously " social history E&M One little sister Lives with bio parents. Seperated in 2004, after 15 years of marriage - 2 children 21, and 18 - live with their father Graduated [employer]. 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 No Mike Vasquez " passive cigarette smoke exposure No Mike Vasquez " smoking status never smoker Mike Vasquez smoking status never smoker Kyle Hernández smoking status never smoker Kyle Hernández " social history E&M One little sister Lives with bio parents. Seperated in 2004, after 15 years of marriage - 2 children 21, and 18 - live with their father Graduated [employer]. 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 Seperated in 2004, after 15 years of marriage - 2 children 21, and 18 - live with their father Graduated [employer]. 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 Seperated in 2004, after 15 years of marriage - 2 children 21, and 18 - live with their father Graduated [employer]. 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 Seperated in 2004, after 15 years of marriage - 2 children 21, and 18 - live with their father Graduated [employer]. 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 Seperated in 2004, after 15 years of marriage - 2 children 21, and 18 - live with their father Graduated [employer]. 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 Seperated in 2004, after 15 years of marriage - 2 children 21, and 18 - live with their father Graduated [employer]. 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 Seperated in 2004, after 15 years of marriage - 2 children 21, and 18 - live with their father Graduated [employer]. 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 Seperated in 2004, after 15 years of marriage - 2 children 21, and 18 - live with their father Graduated [employer]. 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 Seperated in 2004, after 15 years of marriage - 2 children 21, and 18 - live with their father Graduated [employer]. 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 Seperated in 2004, after 15 years of marriage - 2 children 21, and 18 - live with their father Graduated [employer]. 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 Seperated in 2004, after 15 years of marriage - 2 children 21, and 18 - live with their father Kyle Hernández FUNCTIONAL STATUS No Information Available MENTAL STATUS Date Observation Value Provider mental status assessment, judgment fair Kyle Hernández" insight (mental status exam) fair, limited with [...] affect (mental status exam) congruent, anxious Kyle Hernández " mood (mental status exam) " OK " [...] Kyle Hernández mental status assessment, judgment fair Leeannezoë Walsh " insight (mental status exam) fair Leeannezoë Walsh " Mental Status Exam: intelligence oriented to person, oriented to place, oriented to time, oriented to reality Leeannezoë Walsh " hallucinations none Leeanne Jillian " thought content (mental status exam) (E&M) lucid Leeanneviviane Walsh " mental status assessment, process goal-directed, logical Leeanne Jillian " mental status assessment, sensorium alert, clear Leeanne Jillian " affect (mental status exam) congruent, euthymic Leeannezoë Walsh " mood (mental status exam) frustrated Leeanne [...] Walsh mental status assessment, judgment fair Kyle Hernández [...] exam) adequate hygiene, appropriate dress Kyle Arriazao mood (mental status exam) anxious, frustrated Leeanne [...] thought content (mental status exam) (E&M) lucid Leeanneviviane Walsh " mental status assessment, process goal-directed, logical [...] Walsh mental status assessment, judgment fair Kyle Hernández " insight (mental status exam) fair Kyle Arriazao " Mental Status Exam: intelligence oriented to [...] Anxiety Disorder Questionnaire - Question 2 3 [place] Pedro " Generalized Anxiety Disorder Questionnaire - [...] appropriate dress Kyle Berno mental status assessment, motor activity normal gait, [...] content (mental status exam) (E&M) lucid Kyle Arsalano " mental status assessment, process goal-directed, logical [...] appropriate dress Kyle Hernández mental status assessment, motor activity normal gait, [...] exam) congruent, normal intensity, normal range Kyle Arsalano " mental status assessment, speech activity normal flow, normal pace, normal pressure, normal rate, normal tone, normal volume, spontaneous Kyle Berno " mental status assessment, motor activity normal posture, fidgety Kyle Hernández " behavior (mental status exam) appropriate, cooperative, good eye contact, responsive Kyle Edgar " mental appearance (mental status exam) adequate hygiene, appropriate dress Kyle Edgar mental status assessment, judgment fair Leeanne Jillian [...] Leeanne Mascorroen mental status assessment, judgment fair Leeanne Jillian [...] motor activity normal gait, normal posture, fidgety Leeanen Jillian " behavior (mental status exam) appropriate, [...] assessment, process able to abstract, goal-directed, logical Leeanen Jillian " mental status assessment, sensorium alert, [...] candid, cooperative, good eye contact, polite, responsive Leeanneviviane Walsh " mental appearance (mental status exam) adequate hygiene, appropriate dress Leeanne Walsh " anxiety worry a lot, sleep disturbance, restlessness, many physical complaints, panic attacks, muscle tension Leeanneviviane Walsh anxiety worry a lot, sleep disturbance, restlessness, [...] process able to abstract, goal-directed, logical Kyle Hernández " mental status assessment, sensorium alert, clear Kyle Hernández " affect (mental status exam) congruent, euthymic Kyle Arriazao " mental status assessment, speech activity normal [...] Date Name Est Patient Exp Problem - 16384 Est Patient Exp Problem - 04224 Psychotherapy 45 (38-52*) min - 42869 (with patient and/or family member) Est Patient Exp Problem - 81488 Psychotherapy 45 (38-52*) min - 29522 (with patient and/or family member) Est Patient Detailed - 70146 Psychotherapy 45 (38-52*) min - 76232 (with patient and/or family member) Est Patient Exp Problem - 50124 Psychotherapy 45 (38-52*) min - 28717 (with patient and/or family member) Est Patient Detailed - 46207 Psychotherapy 45 (38-52*) min - 22646 (with patient and/or family member) Est Patient Exp Problem - 00666 INFLUENZA VACCINE QUADRIVALENT 3 YRS PLUS IM Admin of Vaccine - Injection - 1 Psychotherapy 45 (38-52*) min - 50420 (with patient and/or family member) Est Patient Exp Problem - 23193 Psychotherapy 45 (38-52*) min - 37059 (with patient and/or family member) Est Patient Exp Problem - 94763 Psychotherapy 45 (38-52*) min - 09681 (with patient and/or family member) Est Patient Exp Problem - 51845 Psychotherapy 45 (38-52*) min - 20991 (with patient and/or family member) Psychotherapy 45 (38-52*) min - 72796 (with patient and/or family member) Est Patient Detailed - 89448 Psychotherapy 45 (38-52*) min - 87703 (with patient and/or family member) Psychotherapy 45 (38-52*) min - 47271 (with patient and/or family member) Psychotherapy 60 (53+*) min - 27835 (with patient and/or family member) Psychotherapy 45 (38-52*) min - 77078 (with patient and/or family member) Psychotherapy 60 (53+*) min - 43879 (with patient and/or family member) Est Patient Exp Problem - 62151 Psychotherapy 45 (38-52*) min - 04809 (with patient and/or family member) Est Patient Exp Problem - 49910 Psychotherapy 45 (38-52*) min - 74019 (with patient and/or family member) Psychotherapy 45 (38-52*) min - 18972 (with patient and/or family member) Est Patient Exp Problem - 79505 Psychotherapy 45 (38-52*) min - 16876 (with patient and/or family member) Est Patient Detailed - 20762 Psychotherapy 45 (38-52*) min - 70448 (with patient and/or family member) Psychotherapy 45 (38-52*) min - 00656 (with patient and/or family member) Est Patient Detailed - 41510 Psychotherapy 45 (38-52*) min - 21831 (with patient and/or family member) Diagnostic evaluation (no medical) - 10815 Diagnostic evaluation with medical - 76229 HISTORY OF PROCEDURES Procedure Date Procedure Name Provider Procedure Notes Status Psychotherapy 45 (38-52*) min - 21257 (with patient and/or family member) Leeanne Walsh completed Psychotherapy 45 (38-52*) min - 84100 (with patient and/or family member) Leeanne Walsh completed Psychotherapy 45 (38-52*) min - 28359 (with patient and/or family member) Leeanne Walsh completed Psychotherapy 45 (38-52*) min - 76476 (with patient and/or family member) Leeanne Walsh completed Psychotherapy 45 (38-52*) min - 02753 (with patient and/or family member) Leeanne Walsh completed Psychotherapy 45 (38-52*) min - 65604 (with patient and/or family member) Leeanne Walsh completed Psychotherapy 45 (38-52*) min - 63800 (with patient and/or family member) Leeanne Walsh completed Psychotherapy 45 (38-52*) min - 13514 (with patient and/or family member) Leeanne Walsh completed Psychotherapy 45 (38-52*) min - 33520 (with patient and/or family member) Leeanne Walsh completed Psychotherapy 45 (38-52*) min - 68558 (with patient and/or family member) Leeanne Walsh completed Psychotherapy 45 (38-52*) min - 87952 (with patient and/or family member) Leeanne Walsh completed Psychotherapy 45 (38-52*) min - 87342 (with patient and/or family member) Leeanne Walsh completed Psychotherapy 60 (53+*) min - 09279 (with patient and/or family member) Leeanne Walsh completed Psychotherapy 45 (38-52*) min - 52896 (with patient and/or family member) Leeanne Walsh completed Psychotherapy 60 (53+*) min - 62271 (with patient and/or family member) Leeanne Walsh completed Psychotherapy 45 (38-52*) min - 93674 (with patient and/or family member) Leeanne Walsh completed Psychotherapy 45 (38-52*) min - 04272 (with patient and/or family member) Leeanne Walsh completed Psychotherapy 45 (38-52*) min - 16287 (with patient and/or family member) Leeanne Walsh completed Psychotherapy 45 (38-52*) min - 73671 (with patient and/or family member) Leeanne Walsh completed Psychotherapy 45 (38-52*) min - 47108 (with patient and/or family member) Leeanne Walsh completed Psychotherapy 45 (38-52*) min - 60252 (with patient and/or family member) Leeanne Walsh completed Psychotherapy 45 (38-52*) min - 14939 (with patient and/or family member) Leeanne Walsh completed Diagnostic evaluation (no medical) - 43451 Leeanne Walsh completed Diagnostic evaluation with medical - 11860 Kyle Hernández completed GOALS No Information Available HEALTH CONCERNS No Information Available
--- OUTSIDE RECORDS SUMMARY | 2019-06-26 11:11 | XMS REPORT ---
Author Author Admin, [place] Organization Unknown Address Unknown Phone Unavailable PROBLEMS Condition Status Date Provider Notes Acute sinusitis active Vaishali Kilo Vaccination Against Influenza completed - Amadou Alonzo DEPRESSIVE DISORDER, MAJOR, RECURRENT EPISODE, MODERATE active Kyle Hernández GENERALIZED ANXIETY DISORDER active Kyle Hernández ENCOUNTERS Date Type Provider Location Encounter Diagnosis - Ambulatory Encounter Mike Vasquez [facility] UNK - Ambulatory Encounter Vaishali Kilo Vaishali Kilo [facility] UNK - Ambulatory Encounter Vaishali Kilo Vaishali Kilo [facility] UNK - Ambulatory Encounter Vaishali Kilo Vaishali Kilo [facility] Acute sinusitis - Ambulatory Encounter Kyle Hernández [facility] UNK - Ambulatory Encounter Kyle Barrera [facility] UNK - Ambulatory Encounter Christina Barrera [facility] UNK - Ambulatory Encounter Leeanne Walsh [facility] UNK - Ambulatory Encounter Kyle Hernández [facility] UNK - Ambulatory Encounter Kyle Barrera [facility] UNK - Ambulatory Encounter Kyle Hernández [facility] UNK - Ambulatory Encounter Leeanne Walsh [facility] UNK - Ambulatory Encounter Christina Richea [facility] UNK - Ambulatory Encounter Kyle Hernández [facility] UNK - Ambulatory Encounter Kyle Richea [facility] UNK - Ambulatory Encounter Kyle Hernández [facility] UNK - Ambulatory Encounter Kyle Schroeder [facility] UNK - Ambulatory Encounter Christina Richea [facility] UNK - Ambulatory Encounter Kyle Hernández [facility] UNK - Ambulatory Encounter Leeanne Walsh [facility] UNK - Ambulatory Encounter Christina Barrera [facility] UNK - Ambulatory Encounter Kyle Hern[facility]dez [facility] - Ambulatory Encounter Kyle Richea [facility] UNK - Ambulatory Encounter Kyle Hernández [facility] UNK - Ambulatory Encounter Leeanneviviane Walsh [facility] UNK - Ambulatory Encounter Christina Holly [facility] UNK - Ambulatory Encounter Kyle Hernández [facility] UNK - Ambulatory Encounter Kyle Hernández [facility] UNK - Ambulatory Encounter Kyle Vasquez Holly [facility] UNK - Ambulatory Encounter Amadou Fabian [facility] UNK - Ambulatory Encounter Leeanneviviane Mascorroen [facility] UNK - Ambulatory Encounter Reneekallizabeth Vasquez [facility] - Ambulatory Encounter Laura Hull [facility] UNK - Ambulatory Encounter Amadou Alonzo [facility] - Ambulatory Encounter Amadou Durankallizabeth Vasquez [facility] Vaccination Against Influenza - Ambulatory Encounter [facility] Lauraiona Steeleia [facility] UNK - Ambulatory Encounter Laura Steeleia [facility]K - Ambulatory Encounter Leeanneviviane Walsh [facility] UN[facility] Amb[facility] Encounter Kyle Hernández [facility] - Ambulatory Encounter Kyle Correatuno [facility] - Ambulatory Encounter Leeanneviviane Walsh [facility] Ambulatory Encounter Lisa [facility] Ambulatory Encounter Kyle Hernández [facility] - Ambulatory Encounter Kyle Arnold [facility] - Ambulatory Encounter Leeanneviviane Walsh [facility] - Ambulatory Encounter Kyle Hern[facility]dez [facility] - Ambulatory Encounter Kyle Arnold [facility] UNK - Ambulatory Encounter Kyle Beck [facility] UNK - Ambulatory Encounter Kyle Fabian [facility] UNK - Ambulatory Encounter Leeanneviviane Walsh [facility] UNK - Ambulatory Encounter Leeannezoë Walsh [facility] UNK - Ambulatory Encounter Kyle Hernández [facility] UNK - Ambulatory Encounter Kyle Arnold [facility] UNK - Ambulatory Encounter Leeannezoë Walsh [facility] UNK - Ambulatory Encounter Kyle Wills [facility] UNK - Ambulatory Encounter Leeannezoë Walsh [facility] UNK - Ambulatory Encounter Leeannezoë Walsh [facility] UNK - Ambulatory Encounter Leeanne Jillian [facility] UNK - Ambulatory Encounter Leeanne Jillian [facility] UNK - Ambulatory Encounter Kyle Hernández [facility] UNK - Ambulatory Encounter Kyle Hernández [facility] UNK - Ambulatory Encounter Kyle Arnold [facility] UNK - Ambulatory Encounter Leeanneviviane Walsh [facility] UNK - Ambulatory Encounter Kyle Hern[facility]dez [facility] UNK - Ambulatory Encounter Kyle Arnold [facility] UNK - Ambulatory Encounter Kyle Hern[facility]dez [facility]K - Ambulatory Encounter [facility] - Ambulatory Encounter Kyle Fabian [facility] UNK - Ambulatory Encounter Leeanneviviane Walsh [facility] UNK - Ambulatory Encounter Lisa Arnold [facility] UNK - Ambulatory Encounter Leeanneviviane Walsh [facility] UNK [facility] Ambulatory Encounter Kyle Hern[facility]dez [facility] UNK - Ambulatory Encounter Lisa Arnold [facility] UNK - Ambulatory Encounter Kyle Arnold [facility] UNK - Ambulatory Encounter Leeanne Jillian [facility] UNK - Ambulatory Encounter Lisa Arnold [facility] UNK - Ambulatory Encounter Kyle Hern[facility]dez [facility] UNK - Ambulatory Encounter Kyle Arnold [facility] UNK - Ambulatory Encounter Leeanne Jillian [facility] UNK - Ambulatory Encounter Laura Hull [facility] UNK - Ambulatory Encounter Leeanne Walsh [facility] UNK - Ambulatory Encounter Kyle Hernández [facility] UNK - Ambulatory Encounter Kyle Gonzalez Clayton [facility] UNK - Ambulatory Encounter Lisa Arnold [facility] UNK - Ambulatory Encounter Leeanne Walsh [facility] UNK - Ambulatory Encounter Lisa Arnold [facility] UNK - Ambulatory Encounter Leeanneviviane Walsh [facility] UNK - Ambulatory Encounter Kyle Olivajo [facility] UNK - Ambulatory Encounter Kyle Hernández [facility] UNK - Ambulatory Encounter Kyle Hernández [facility] UNK - Ambulatory Encounter Kyle Olivajo [facility] GENERALIZED ANXIETY DISORDERDEPRESSIVE DISORDER, MAJOR, RECURRENT EPISODE, MODERATE - Ambulatory Encounter Linette Jarquin [facility] UNK VITAL SIGNS No [...] 18 - live with their father Graduated [employer]. 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 Seperated in 2004, after 15 years of marriage - 2 children 21, and 18 - live with their father Graduated [employer]. 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 Seperated in 2004, after 15 years of marriage - 2 children 21, and 18 - live with their father Graduated [employer]. 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 Seperated in 2004, after 15 years of marriage - 2 children 21, and 18 - live with their father Graduated [employer]. 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 Seperated in 2004, after 15 years of marriage - 2 children 21, and 18 - live with their father Graduated [employer]. 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 Seperated in 2004, after 15 years of marriage - 2 children 21, and 18 - live with their father Graduated [employer]. 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 Seperated in 2004, after 15 years of marriage - 2 children 21, and 18 - live with their father Graduated [employer]. 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 Seperated in 2004, after 15 years of marriage - 2 children 21, and 18 - live with their father Graduated [employer]. 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 Seperated in 2004, after 15 years of marriage - 2 children 21, and 18 - live with their father Graduated [employer]. 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 Works [...] congruent, euthymic, normal intensity, normal range Leeanne Ijllian " mood (mental status exam) anxious, pleasant [...] of judgment and insight E&M intact Amadou Aolnzo " mental status examination: orientation E&M oriented to time, place, and person Amadou Alonzo " assessment of mood and affect E&M no depression, anxiety, or agitation Amadou Alonzo " Generalized Anxiety Disorder Questionnaire - Question 2 3 foster Pedro " Generalized Anxiety Disorder Questionnaire - [...] Berno " insight (mental status exam) fair Klye Berno " Mental Status Exam: intelligence oriented [...] Date Name Est Patient Exp Problem - 96834 Est Patient Exp Problem - 73188 Psychotherapy 45 (38-52*) min - 16029 (with patient and/or family member) Est Patient Exp Problem - 66934 Psychotherapy 45 (38-52*) min - 20258 (with patient and/or family member) Est Patient Detailed - 10406 Psychotherapy 45 (38-52*) min - 39827 (with patient and/or family member) Est Patient Exp Problem - 99158 Psychotherapy 45 (38-52*) min - 11650 (with patient and/or family member) Est Patient Detailed - 56141 Psychotherapy 45 (38-52*) min - 40502 (with patient and/or family member) Est Patient Exp Problem - 47816 INFLUENZA VACCINE QUADRIVALENT 3 YRS PLUS IM Admin of Vaccine - Injection - 1 Psychotherapy 45 (38-52*) min - 91414 (with patient and/or family member) Est Patient Exp Problem - 62200 Psychotherapy 45 (38-52*) min - 57909 (with patient and/or family member) Est Patient Exp Problem - 61507 Psychotherapy 45 (38-52*) min - 39418 (with patient and/or family member) Est Patient Exp Problem - 59611 Psychotherapy 45 (38-52*) min - 68759 (with patient and/or family member) Psychotherapy 45 (38-52*) min - 75876 (with patient and/or family member) Est Patient Detailed - 63728 Psychotherapy 45 (38-52*) min - 45950 (with patient and/or family member) Psychotherapy 45 (38-52*) min - 97373 (with patient and/or family member) Psychotherapy 60 (53+*) min - 42863 (with patient and/or family member) Psychotherapy 45 (38-52*) min - 27125 (with patient and/or family member) Psychotherapy 60 (53+*) min - 32825 (with patient and/or family member) Est Patient Exp Problem - 21660 Psychotherapy 45 (38-52*) min - 64291 (with patient and/or family member) Est Patient Exp Problem - 59333 Psychotherapy 45 (38-52*) min - 34474 (with patient and/or family member) Psychotherapy 45 (38-52*) min - 07496 (with patient and/or family member) Est Patient Exp Problem - 54430 Psychotherapy 45 (38-52*) min - 51087 (with patient and/or family member) Est Patient Detailed - 95808 Psychotherapy 45 (38-52*) min - 81539 (with patient and/or family member) Psychotherapy 45 (38-52*) min - 02187 (with patient and/or family member) Est Patient Detailed - 69292 Psychotherapy 45 (38-52*) min - 76721 (with patient and/or family member) Diagnostic evaluation (no medical) - 81313 Diagnostic evaluation with medical - 27537 HISTORY OF PROCEDURES Procedure Date Procedure Name Provider Procedure Notes Status Psychotherapy 45 (38-52*) min - 47784 (with patient and/or family member) Leeanne Walsh completed Psychotherapy 45 (38-52*) min - 00642 (with patient and/or family member) Leeanne Walsh completed Psychotherapy 45 (38-52*) min - 49756 (with patient and/or family member) Leeanne Walsh completed Psychotherapy 45 (38-52*) min - 90724 (with patient and/or family member) Leeanne Walsh completed Psychotherapy 45 (38-52*) min - 07106 (with patient and/or family member) Leeanne Walsh completed Psychotherapy 45 (38-52*) min - 76735 (with patient and/or family member) Leeanne Walsh completed Psychotherapy 45 (38-52*) min - 35692 (with patient and/or family member) Leeanne Walsh completed Psychotherapy 45 (38-52*) min - 37120 (with patient and/or family member) Leeanne Walsh completed Psychotherapy 45 (38-52*) min - 11930 (with patient and/or family member) Leeanne Walsh completed Psychotherapy 45 (38-52*) min - 33356 (with patient and/or family member) Leeanne Walsh completed Psychotherapy 45 (38-52*) min - 93521 (with patient and/or family member) Leeanne Walsh completed Psychotherapy 45 (38-52*) min - 61111 (with patient and/or family member) Leeanne Walsh completed Psychotherapy 60 (53+*) min - 34732 (with patient and/or family member) Leeanne Walsh completed Psychotherapy 45 (38-52*) min - 01137 (with patient and/or family member) Leeanne Walsh completed Psychotherapy 60 (53+*) min - 65969 (with patient and/or family member) Leeanne Walsh completed Psychotherapy 45 (38-52*) min - 37350 (with patient and/or family member) Leeanne Walsh completed Psychotherapy 45 (38-52*) min - 81567 (with patient and/or family member) Leeanne Walsh completed Psychotherapy 45 (38-52*) min - 15133 (with patient and/or family member) Leeanne Walsh completed Psychotherapy 45 (38-52*) min - 17756 (with patient and/or family member) Leeanne Walsh completed Psychotherapy 45 (38-52*) min - 32752 (with patient and/or family member) Leeanne Walsh completed Psychotherapy 45 (38-52*) min - 40254 (with patient and/or family member) Leeanne Walsh completed Psychotherapy 45 (38-52*) min - 45514 (with patient and/or family member) Leeanne Walsh completed Diagnostic evaluation (no medical) - 53029 Leeanne Walsh completed Diagnostic evaluation with medical - 32128 Kyle Hernández completed GOALS No Information Available HEALTH CONCERNS No Information Available
== END 2019-06-20 09:01 | disposition home or self-care (01) | DRG 693 ==
LOC: ER 21:04 → ERHOLD 06-18 01:46 → MED/SURG2 06-18 03:42
PROVIDERS: ADMIT Internal Medicine; ATTEND Internal Medicine
DX: N13.2 Hydronephrosis with renal and ureteral calculous obstruction (principal); J18.9 Pneumonia, unspecified organism; N17.9 Acute kidney failure, unspecified; I10 Essential (primary) hypertension; R31.29 Other microscopic hematuria
CPT/HCPCS: 36415; 71045; 74018; 74176; 80048; 80053; 81001; 81025; 85025; 87040; 87086; 99284; J0696; J1170; J1885; J2405; J7030

== ENCOUNTER → 2019-08-07 | Day surgery (SDC) | payer OTHER ==
--- NOTE | 2019-08-04 17:53 | Diagnostic Imaging Report ---
Exam: KUB - 2 views Indication: Preoperative Comparison: KUB of 06/18/2019, CT abdomen and pelvis of 06/17/2019 Findings: The previously seen 5 mm right ureteral calculus is no longer visualized on this study. 3 mm right renal calculus. 4 mm left renal calculus. No acute osseous injury. Nonobstructive bowel gas pattern. No free air. Impression: Interval resolution of previously seen right ureteral calculus. Bilateral renal calculi as above. Signed by: Josephine Rose MD on 08/04/2019 5:51 PM
[~2019-08-07] MED LIST changes: +CEFTRIAXONE SOD 1 GM/NS 50 ML 50 ML IV ONE; +CEFUROXIME500 MG PO; +DEXAMETHASONE SOD PHOS INJ 4 MG/ML VIAL ONE; +FENTANYL CITRATE/PF 100MCG/2 ML INJ ONE; +HYDRALAZINE HCL 20 MG/ML VIAL ONE; +LIDOCAINE HCL 2% LOCAL INJ 5 ML SDV VIAL INJ ONE; +NORVASC5 MG PO; +ONDANSETRON HCL INJ 2MG/ML 2ML 2 MG/ML VIAL ONE; +PROPOFOL IV EMULSION 10 MG/ML 20 ML VIAL ONE; +SEVOFLURANE INHAL SOLN 250 ML PEN BTL ONE; +ZITHROMAX250 MG PO
[2019-08-07 08:40] VITALS: BP 118/71
--- NOTE | 2019-08-12 14:59 | Operative Report ---
DATE OF PROCEDURE: 08/07/2019 SURGEON: Brody Ro MD PREOPERATIVE DIAGNOSIS: Left kidney stone. POSTOPERATIVE DIAGNOSIS: Left kidney stone. PROCEDURES: 1. Staged shock wave lithotripsy, left side. 2. Supervision of fluoroscopy. ANESTHESIA: General. ESTIMATED BLOOD LOSS: Minimal. COMPLICATIONS: None. INDICATIONS FOR PROCEDURE: Ms. Rosales is a very pleasant 48-year-old female with intermittently symptomatic left-sided kidney stone. She and I had a long discussion about alternatives, risks, and benefits including doing nothing, cystoscopy, IVP, retrograde pyelogram, shock wave lithotripsy, ureteroscopy. She voiced understanding options, the alternatives, the risks, and the benefits and she elected to proceed. PROCEDURE IN DETAIL: After informed consent was obtained, the patient was taken to the operative suite, placed supine on the operative table, underwent general anesthesia by Anesthesia Service. The stone was localized in the X, Y, and Z planes. Treatment was performed per the treatment report. The patient tolerated the procedure well, was transferred to the recovery room in excellent condition with no untoward effects noted. Supervision of fluoroscopy: I was present for the entire procedure and supervised fluoroscopy. There was no radiologist present. Dosages per treatment report. Brody Ro MD ES/MODL /[id number]
== END | disposition home or self-care (01) ==
LOC: OR 05:45
PROVIDERS: ATTEND Urology
DX: N20.0 Calculus of kidney (principal); Z88.5 Allergy status to narcotic agent; Z01.810 Encounter for preprocedural cardiovascular examination; Z01.818 Encounter for other preprocedural examination; K21.9 Gastro-esophageal reflux disease without esophagitis; K44.9 Diaphragmatic hernia without obstruction or gangrene; K57.90 Diverticulosis of intestine, part unspecified, without perforation or abscess without bleeding; F41.9 Anxiety disorder, unspecified; I10 Essential (primary) hypertension
CPT/HCPCS: 50590; 74018; 93005; J0360; J0696; J1100; J2001; J2405; J2704; J3010

== ENCOUNTER 2019-11-24 21:17 | Emergency (ER) | payer OTHER ==
[~2019-11-24] VITALS: Ht 160 cm; Wt 68.0 kg
[~2019-11-24 21:17] MED LIST changes: -CEFTRIAXONE SOD 1 GM/NS 50 ML 50 ML IV ONE; -DEXAMETHASONE SOD PHOS INJ 4 MG/ML VIAL ONE; -FENTANYL CITRATE/PF 100MCG/2 ML INJ ONE; -HYDRALAZINE HCL 20 MG/ML VIAL ONE; -LIDOCAINE HCL 2% LOCAL INJ 5 ML SDV VIAL INJ ONE; -ONDANSETRON HCL INJ 2MG/ML 2ML 2 MG/ML VIAL ONE; -PROPOFOL IV EMULSION 10 MG/ML 20 ML VIAL ONE; -SEVOFLURANE INHAL SOLN 250 ML PEN BTL ONE
--- OUTSIDE RECORDS SUMMARY | 2019-11-24 21:21 | XMS REPORT | Clinical Summary ---
Author Author [facility] Address Unknown Phone Unavailable Care Team Providers Care Transferrer Name Role Phone PCP Unavailable Allergies Comments [...] Not on file Results Not on fileafter 11/23/2018 Insurance Payer Benefit Subscriber ID Type Phone Address Plan / Group [employer] xxxxxx [employer] E EXCHANGE
--- OUTSIDE RECORDS SUMMARY | 2019-11-24 21:21 | XMS REPORT | Clinical Summary ---
Author Author [facility] Organization [facility] ict Address Unknown Phone Unavailable Care Team Providers Care Health Therapist Name Role Phone PCP Unavailable Allergies Comments Active Allergy Reactions Severity Noted Date Hydrocodone-Acetaminophen 10/27/2012 Medications End Date Status Medication Sig Dispensed Refills Start Date Active naproxen sodium (ALEVE) Take by 0 220 mg cap mouth. Active diphenhydrAMINE (SLEEP Take 25 mg by 0 AID, DIPHENHYDRAMINE,) 25 mouth every 6 mg capsule hours as needed for Itching. Active CYANOCOBALAMIN, VITAMIN Take by 0 B-12, (VITAMIN B-12 OR) mouth. Active HYDROcodone-acetaminophen Take 1 tablet 40 tablet 0 (NORCO) 10-325 mg by mouth 5 tabletIndications: Anal every 6 hours skin tag as needed for Pain. Active traMADol (ULTRAM) 50 mg Take 2 60 tablet 0 tabletIndications: Anal tablets by 5 skin tag mouth every 6 hours as needed for Pain. Active gabapentin (NEURONTIN) Take 1 tablet 90 tablet 1 1 600 mg tabletIndications: by mouth at 6 Other back pain bedtime nightly. Active methocarbamol Take 1 tablet 30 tablet 0 (ROBAXIN-750) 750 mg by mouth 4 7 tabletIndications: Anal times daily spasm as needed (Take when needed for anal pain/spasms). 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 Hemorrhoidal banding x1 Repeat colonoscopy in 3yrs (2018) and f [place] annual FIT in the interim. 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 Depression with anxiety 11/12/2012 Nodule, subcutaneous 11/12/2012 Immunizations Name Administration Dates Next Due Influenza Vaccine 04/20/2016, 04/26/2015 Family History Medical History Relation Name Comments Diabetes Mother Relation Name Status Comments Father Alive Mother Alive Social History Date Tobacco Use Types Packs/Day Years Used Never Smoker Smokeless Tobacco: Never Used Tobacco Cessation: Counseling Given: No Drinks/Week oz/Week Comments Alcohol Use No Food Insecurity Answer Date Recorded Within the past 12 months, you worried that your Never [place] e 02/01/2017 food would run out before you got money to buy more. Within the past 12 months, the food you bought Never true 02/01/2017 just didn't last and you didn't have mo jermain to get more. Sex Assigned at Date Recorded Not on file Industry Job Start Date Occupation Not on file Not on file Not on file Travel End Travel History Travel Start No recent travel history available. Last Filed Vital Signs Not on file Plan of Treatment Health Maintenance Due Date Last Done Comments Breast Cancer Scrn 01/15/2016 01/14/2015 (Yearly) Cervical Cancer Scrn (3 01/14/2018 01/14/2015 Yrs) Results Not on fileafter 11/23/2018 Insurance Type Payer Benefit Subscriber ID Effective Phone Address Plan / Dates Group [employer] xxxxxxxxxx 2015-P [phone] [address] [employer] [address] [place] [address]
--- OUTSIDE RECORDS SUMMARY | 2019-11-24 21:22 | XMS REPORT ---
Author Author Viktoria, [place]ie [place] Organization Unknown Address Unknown Phone Unavailable PROBLEMS Condition Status Date Provider Notes Acute sinusitis active Vaishali Kilo Vaccination Against Influenza completed - 12/02 Amadou Alonzo DEPRESSIVE DISORDER, MAJOR, RECURRENT EPISODE, MODERATE active Kyle Hernández GENERALIZED ANXIETY DISORDER active Kyle davis ENCOUNTERS Date Type Provider Location Encounter Diagn osis - Ambulatory Encounter Crhistina Carreon [facility] Health UNK - Ambulatory Encounter Kyle goyal Gervaisryan [facility] UNK - Ambulatory Encounter Kyle Barrera [facility] UNK - Ambulatory Encounter Thida Lopez Anat [facility] Services Contact Center UNK - Ambulatory Encounter Thida Lopez Anat Behavioral [facility] UNK - Ambulatory Encounter Thida Lopez Royer [facility] UNK - Ambulatory Encounter Thida Lopez Lior Carter [facility] Services Contact Center UNK - Ambulatory Encounter Kyle Hernández [facility] UNK - Ambulatory Encounter Kyle Barrera [facility] UNK - Ambulatory Encounter Mike Vasquez [facility] UNK - Ambulatory Encounter Vaishali Kilo N [place] Kilo [facility] UNK - Ambulatory Encounter Vaishali Kilo [place] [facility] [facility] - Ambulatory Encounter Vaishali Silvestre geeta Nullia Kilo Reneekallizabeth [facility]quez [facility] Acute sinusiti s - Ambulatory Encounter [facility] Hern[facility] - [facility] Encounter [facility]ichea [facility] - Ambulatory Encounter Christina [facility] - Ambulatory [facility] - [facility]ulatory Encounter Kyle Hern[facility]dez [facility] UN[facility] - Ambulatory Encounter [facility]rera [facility] UNK - Ambulatory Encounter Kyle goyal Bernryan [facility] UNK - Ambulatory Encounter Leeanne Carreon [facility] UNK - Ambulatory Encounter Christina [facility] UN[facility] - Ambulatory Encounter Kyle Hern[facility]dez [facility] UNK - Ambulatory Encounter [facility] Barrera [facility] UNK - Ambulatory Encounter Kyle Hern[facility]dez [facility] UNK - Ambulatory Encounter Kyle Schroeder [facility] UNK - Ambulatory Encounter Christina [facility] UN[facility] - Ambulatory Encounter Kyle Hern[facility]dez [facility] UN[facility] - [facility] Ambulatory Encounter Christina Barrera L [facility] UNK - Ambulatory Encounter Kyle Hern[facility]dez [facility] UNK - Ambulatory Encounter Kyle Arsalanryan Barrera [facility] UNK - Ambulatory Encounter Kyle Hernández [facility] UNK - Ambulatory Encounter Leeanne Carreon [facility] UNK - Ambulatory Encounter Christina Barrera Anat [facility] UNK - Ambulatory Encounter Kyle Arsalanryan Chaudhary jyotsna Arriazaryan [facility] UNK - Ambulatory Encounter [facility] Hern[facility]dez [facility] UNK - Ambulatory Encounter Kyle Arriazaryan Barrera [facility] UNK - Ambulatory Encounter Amadou Fabian [facility] UNK - Ambulatory Encounter Leeanne Walsh Anat [facility] UNK - Ambulatory Encounter Reneekallizabeth Vasquez [facility] UNK - Ambulatory Encounter Laura Hull L [facility] UNK - Ambulatory Encounter Amadou Alonzo [facility] UNK - Ambulatory Encounter Amadou Duraneddyvillelizabeth [facility] Vaccination Ag ainst Influenza - Ambulatory Encounter Isaura Blaire L [facility] UNK - Ambulatory Encounter Laura Hull [facility] UN[facility] - Ambulatory Encounter Laura [facility]ia [facility] - Ambulatory Encounter Leeanne Jillian L [facility] UNK - Ambulatory Encounter Cheryl Church [facility] UNK - Ambulatory Encounter Kyle Hernández [facility] UNK - Ambulatory Encounter Kyle Rudd [facility] UNK - Ambulatory Encounter Leeanne Carreon [facility] UNK - Ambulatory Encounter Lisa Carreon [facility] UNK - Ambulatory Encounter Kyle Hernández [facility] UNK - Ambulatory Encounter Kyle Arnold [facility] UNK - Ambulatory Encounter Leeanne Carreon [facility] Health UNK - Ambulatory Encounter Kyle Hernández [facility] UNK - Ambulatory Encounter Kyle Arnold [facility] UNK - Ambulatory Encounter Kyle eBck [facility] Services Contact Center UNK - Ambulatory Encounter Kyle Fabian [facility] UNK - Ambulatory Encounter Leeanneviviane Walsh L [facility] UNK - Ambulatory Encounter Leeanne Jillian [facility] UNK - Ambulatory Encounter Kyle Hern[facility]dez [facility] UNK - Ambulatory Encounter Kyle Arnold [facility] UNK - Ambulatory Encounter Leeanne Jillian [facility] UNK - Ambulatory Encounter Kyle Wills [facility] UNK - Ambulatory Encounter Leeanne Jillian L [facility] UNK - Ambulatory Encounter Leeanne Jillian L [facility] Health UNK - Ambulatory Encounter Leeanne Jillian L [facility] UNK - Ambulatory Encounter Leeanne Jillian L [facility] UNK - Ambulatory Encounter Kyle goyal Arsalanryan [facility] UNK - Ambulatory Encounter Kyle Hernández [facility] UNK - Ambulatory Encounter Kyle Arnold [facility] UNK - Ambulatory Encounter Leeanne Jillian L [facility] Health UNK - Ambulatory Encounter Kyle Hernández [facility] UNK - Ambulatory Encounter Kyle Arnold [facility] UNK - Ambulatory Encounter Kyle Hernández [facility] UNK - Ambulatory Encounter Kyle Melton [facility] UNK - Ambulatory Encounter Kyle HusseinLogbk [facility] UN[facility] - Ambulatory Encounter Leeanne Jillian [facility] UNK - Ambulatory Encounter Lisa Arnold [facility] UN[facility] - Ambulatory Encounter Leeanneviviane Walsh [facility] UNK - Ambulatory Encounter Kyle Hern[facility]dez [facility] UNK - Ambulatory Encounter Lisa Arnold L [facility] UNK - Ambulatory Encounter Kyle Arnold [facility] UNK - Ambulatory Encounter Leeanneviviane Walsh [facility] UNK - Ambulatory Encounter [facility] UNK - Ambulatory Encounter Kyle Hern[facility]dez [facility] UNK - Ambulatory Encounter Kyle Arnold [facility] UNK - Ambulatory Encounter Leeanneviviane Walsh [facility] UN[facility] - Ambulatory Encounter Lauraiona Steeleia [facility] UN[facility] - Ambulatory Encounter Leeanneviviane Walsh [facility] UN[facility] - Ambulatory Encounter Kyle Hern[facility]dez [facility] UNK - Ambulatory Encounter Kyle Arnold [facility] UNK - Ambulatory Encounter Lisa Carreon [facility] UNK - Ambulatory Encounter Leeanne Carreon [facility] Health UNK - Ambulatory Encounter Lisa Arnold Anat [facility]al Health UNK - Ambulatory Encounter Leeanne Carreon [facility] Health UNK - Ambulatory Encounter Kyle Arnold [facility] UNK - Ambulatory Encounter Kyle Hernández [facility] UNK - Ambulatory Encounter Kyle goyal Arsalanryan [facility] UNK - Ambulatory Encounter Kyle Arnold [facility] GENERALIZED ANXIETY DISORDERDEPRESSIVE DISORDER, MAJOR, RECURRENT EPISODE, MODERATE - Ambulatory Encounter Linette palmer [facility] Services Contact Center UNK VITAL SIGNS Date Observation Value Provider blood pressure, diastolic 87 mm[Hg] Christina Holly " blood pressure, systolic 127 mm[Hg] Christina G ovea " pulse rate E&M 86 /min Christina Holly " weight E&M 163 lbs. Christina Holly " weight in kilograms E&M 74.09 kg Christina Go derrick " method used to obtain blood pressure automatic Christina Holly " Blood Pressure Position 01 sitting Christina Holly " blood pressure, site #1 left arm Christina Go derrick " height E&M 63 [in_i] Christina Holly " height in centimeters E&M 160.02 cm Christina Holly method used to obtain blood pressure automatic Christina Holyl " Blood Pressure Position 01 sitting Christina Holly " blood pressure, site #1 left arm Christina Go derrick " blood pressure, diastolic 58 mm[Hg] Christina Holly " blood pressure, systolic 100 mm[Hg] Christina G ovea " pulse rate E&M 96 /min Christina Holly " weight E&M 161.25 lbs. Christina Holly " weight in kilograms E&M 73.30 kg Kyle Hernández " height E&M 63 [in_i] Christina Holly " height in centimeters E&M 160.02 cm Christina Holly oxygen saturation, oximetry 98 % [facility] " blood pressure, diastolic 82 mm[Hg] [facility] " blood pressure, systolic 138 mm[Hg] Debora [facility] " respiratory rate E&M 16 /min [place] " pulse rate E&M 89 /min [place] " temperature E&M 98.9 [degF] [place] " weight E&M 158.60 lbs. [facility] s " weight in kilograms E&M 72.09 kg [facility] " method used to obtain blood pressure automatic [facility] " Blood Pressure Position 01 sitting [facility] " blood pressure, site #1 left arm [facility] " temperature site oral [facility] os " height E&M 63 [in_i] [facility] " height in centimeters E&M 160.02 cm [facility] method used to obtain blood pressure automatic Christina Holly " Blood Pressure Position 01 sitting Christina Holly " blood pressure, site #1 right arm Christina Go derrick " blood pressure, diastolic 82 mm[Hg] Christina Holly " blood pressure, systolic 130 mm[Hg] Christina G ovea " pulse rate E&M 89 /min Christina Holly " weight E&M 160.13 lbs. Christina Holly " weight in kilograms E&M 72.79 kg Christina Go derrick " height E&M 63 [in_i] Christina Holly " height in centimeters E&M 160.02 cm Christina Holly method used to obtain blood pressure automatic Christina Holly " Blood Pressure Position 01 sitting Christina Holly " blood pressure, site #1 right arm Christina Go derrick " blood pressure, diastolic 75 mm[Hg] Christina Holly " blood pressure, systolic 107 mm[Hg] Christina G ovea " pulse rate E&M 88 /min Christina Holly " weight E&M 160 lbs. Christina Holly " weight in kilograms E&M 72.73 kg Christina Go derrick " height E&M 63 [in_i] Christina Holly " height in centimeters E&M 160.02 cm Christina Holly blood pressure, diastolic 89 mm[Hg] Christina Holly " blood pressure, systolic 140 mm[Hg] Christina G ovea " pulse rate E&M 74 /min Christina Holly " weight E&M 156.50 lbs. Christina Holly " weight in kilograms E&M 71.14 kg Christina Go derrick " method used to obtain blood pressure automatic Christina Holly " Blood Pressure Position 01 sitting Christina Holly " blood pressure, site #1 right arm Christina Go derrick " height E&M 63 [in_i] Christina Holly " height in centimeters E&M 160.02 cm Christina Holly method used to obtain blood pressure automatic Christina Holly " Blood Pressure Position 01 sitting Christina Holly " blood pressure, site #1 right arm Christina Go derrick " blood pressure, diastolic 80 mm[Hg] Christina Holly " blood pressure, systolic 132 mm[Hg] Christina G ovea " pulse rate E&M 83 /min Christina Holly " weight E&M 155.50 lbs. Christina Holly " weight in kilograms E&M 70.68 kg Christina Go derrick " height E&M 63 [in_i] Christina Holly " height in centimeters E&M 160.02 cm Christina Holly method used to obtain blood pressure automatic Christina Holly " Blood Pressure Position 01 sitting Christina Holly " blood pressure, site #1 right arm Christina Go derrick " blood pressure, diastolic 75 mm[Hg] Christina Holly " blood pressure, systolic 107 mm[Hg] Christina G ovea " pulse rate E&M 61 /min Christina Holly " weight E&M 158 lbs. Christina Holly " weight in kilograms E&M 71.82 kg Christina Go derrick " height E&M 63 [in_i] Christina Holly " height in centimeters E&M 160.02 cm Christina Holly oxygen saturation, oximetry 98 % [facility] [place] [place] " blood pressure, diastolic 92 mm[Hg] Anel [facility] " blood pressure, systolic 144 mm[Hg] Deborat h Vasquez " respiratory rate E&M 18 /min Deborath Gr anados " pulse rate E&M 68 /min Deborath Blair s " temperature E&M 98.0 [degF] Debora Blair s " weight E&M 156.38 lbs. Deborath Blair s " weight in kilograms E&M 71.08 kg " method used to obtain blood pressure automatic [facility] Vasquez " Blood Pressure Position 01 sitting Debor ath Vasquez " blood pressure, site #1 right arm [place] Vasquez " temperature site oral Deb Granad os " height E&M 63 [in_i] Debora Blair s " height in centimeters E&M 160.02 cm Anel th Vasquez method used to obtain blood pressure automatic Isaura Blaire " Blood Pressure Position 01 sitting Dalil a Blaire " blood pressure, site #1 left arm Isaura O rtuno " blood pressure, diastolic 84 mm[Hg] Isaura Blaire " blood pressure, systolic 129 mm[Hg] Isaura Blaire " pulse rate E&M 71 /min Isaura Blaire " weight E&M 155.13 lbs. Isaura Blaire " weight in kilograms E&M 70.51 kg Isaura O rtuno " height E&M 63 [in_i] Isaura Blaire " height in centimeters E&M 160.02 cm Isaura Blaire method used to obtain blood pressure automatic Lisa Arnold " Blood Pressure Position 01 sitting Lisa Arnold " blood pressure, site #1 left arm Lisa Ro daylin " blood pressure, diastolic 76 mm[Hg] Lisa Arnold " blood pressure, systolic 109 mm[Hg] Lisa R jane " pulse rate E&M 84 /min Lisa Arnold " weight E&M 154.20 lbs. Lisa Arnold " weight in kilograms E&M 70.09 kg Lisa Ro daylin " height E&M 63 [in_i] Lisa Arnold " height in centimeters E&M 160.02 cm Lisa Arnold method used to obtain blood pressure automatic Lisa Arnold " Blood Pressure Position 01 sitting Lisa Arnold " blood pressure, site #1 left arm Lisa Ro daylin " blood pressure, diastolic 78 mm[Hg] Lisa Arnold " blood pressure, systolic 116 mm[Hg] Lisa R jane " pulse rate E&M 79 /min Lisa Arnold " weight E&M 154 lbs. Lisa Arnold " weight in kilograms E&M 70 kg Lisa Ro daylin " height E&M 63 [in_i] Lisa Arnold " height in centimeters E&M 160.02 cm Lisa Arnold method used to obtain blood pressure automatic Lisa Arnold " Blood Pressure Position 01 sitting Lisa Arnold " blood pressure, site #1 left arm Lisa Ro daylin " blood pressure, diastolic 74 mm[Hg] Lisa Arnold " blood pressure, systolic 107 mm[Hg] Lisa R jane " pulse rate E&M 81 /min Lisa Arnold " weight E&M 140 lbs. Lisa Arnold " weight in kilograms E&M 63.64 kg Lisa Ro daylin " height E&M 63 [in_i] Lisa Arnold " height in centimeters E&M 160.02 cm Lisa Arnold method used to obtain blood pressure automatic Lisa Arnold " Blood Pressure Position 01 sitting Lisa Arnold " blood pressure, site #1 left arm Lisa Ro daylin " blood pressure, diastolic 76 mm[Hg] Lisa Arnold " blood pressure, systolic 109 mm[Hg] Lisa R jane " pulse rate E&M 77 /min Lisa Arnold " weight E&M 140 lbs. Lisa Arnold " weight in kilograms E&M 63.64 kg Lisa Ro daylin " height E&M 63 [in_i] Lisa Arnold " height in centimeters E&M 160.02 cm Lisa Arnold method used to obtain blood pressure automatic Lisa Arnold " Blood Pressure Position 01 sitting Lisa Arnold " blood pressure, site #1 left arm Lisa Ro daylin " blood pressure, diastolic 69 mm[Hg] Lisa Arnold " blood pressure, systolic 110 mm[Hg] Lisa R jane " pulse rate E&M 88 /min Lisa Arnold " weight E&M 144 lbs. Lisa Arnold " weight in kilograms E&M 65.45 kg Lisa Ro daylin " height E&M 63 [in_i] Lisa Arnold " height in centimeters E&M 160.02 cm Lisa Arnold method used to obtain blood pressure automatic Lisa Arnold " Blood Pressure Position 01 sitting Lisa Arnold " blood pressure, site #1 left arm Lisa Ro daylin " blood pressure, diastolic 80 mm[Hg] Lisa Arnold " blood pressure, systolic 119 mm[Hg] Lisa R jane " pulse rate E&M 90 /min Lisa Arnold " weight E&M 145 lbs. Lisa Arnold " weight in kilograms E&M 65.91 kg Lisa Ro daylin " height E&M 63 [in_i] Lisa Arnold " height in centimeters E&M 160.02 cm Lisa Arnold method used to obtain blood pressure automatic Lisa Arnold " Blood Pressure Position 01 sitting Lisa Arnold " blood pressure, site #1 left arm Lisa Ro daylin " blood pressure, diastolic 76 mm[Hg] Lisa Arnold " blood pressure, systolic 112 mm[Hg] Lisa R jane " pulse rate E&M 87 /min Lisa Arnold " weight E&M 145 lbs. Lisa Arnold " weight in kilograms E&M 65.91 kg Lisa Ro daylin " height E&M 63 [in_i] Lisa Arnold " height in centimeters E&M 160.02 cm Lisa Arnold method used to obtain blood pressure automatic Lisa Arnold " Blood Pressure Position 01 sitting Lisa Arnold " blood pressure, site #1 right arm Lisa Ro daylin " blood pressure, diastolic 85 mm[Hg] Lisa Arnold " blood pressure, systolic 121 mm[Hg] Lisa R jane " pulse rate E&M 77 /min Lisa Arnold " weight E&M 136 lbs. Lisa Arnold " weight in kilograms E&M 61.82 kg Lisa Ro daylin " height E&M 63 [in_i] Lisa Arnold " height in centimeters E&M 160.02 cm Lisa Arnold method used to obtain blood pressure automatic Lisa Arnold " Blood Pressure Position 01 sitting Lisa Arnold " blood pressure, site #1 right arm Lisa Ro daylin " blood pressure, diastolic 83 mm[Hg] Lisa Clayton " blood pressure, systolic 127 mm[Hg] Lisa lara " pulse rate E&M 91 /min Lisa Arnold " weight E&M 132 lbs. Lisa Arnold " weight in kilograms E&M 60 kg Lisa mao " height in centimeters E&M 160.02 cm Lisa Arnold " height E&M 63 [in_i] Lisa Clayton ALLERGIES Allergy Name Onset Date Reaction Criticality Status VICODIN itchiness Unable to assess criticality active REASON FOR REFERRAL No Information Available RESULTS Date Observation Value Provider Reference Range Interpretati on Location influenza B virus antigen negative Mike Vasquez " influenza virus A antigen negative Mike Vasquez HISTORY OF IMMUNIZATIONS No Information Available HISTORY OF MEDICATION USE Medication Instructions Dates Provider Comments TESSALON PERLES 100 MG ORAL CAPSULE 1 by mouth 3 times a day as needed for cough Vaishali Kilo FLONASE ALLERGY RELIEF 50 MCG/ACT NASAL SUSPENSION 2 s prays each nostril every day Vaishali Kilo AMOXICILLIN 500 MG ORAL CAPSULE 1 by mouth 3 times a day Vaishali Kilo CYMBALTA 30 MG ORAL CAPSULE DELAYED RELEASE PARTICLES Take 1 tab By Mouth Every Morning - take with 60 mg for total of 90 mg Kyle Hernández DULOXETINE HCL DR 60 MG CAP TAKE 1 CAPSULE BY MOUTH EVERY DA Y IN THE MORNING Kyle Hernández ESCITALOPRAM 20 MG TABLET TAKE 1 TABLET BY MOUTH EVERY DAY I N THE MORNING - Kyle Hernández SOCIAL HISTORY Date Observation Value Provider smoking status never smoker Kyle Hernández smoking status never smoker Kyle Hernández Exercise Program Referral T Anel Vasquez " Weight Management Counseling Provided T Mike Vasquez " Nutrition intervention T Mike Vasquez " alcohol use Previously Mike mcnally " drug use, illicit Never Mike lea " social history E&M One little sister Lives with bio parents. Seperated in 2004, after 15 years of marriage - 2 children 21, and 18 - live with their father Graduated [employer]. 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 No Deborath Vasquez " passive cigarette smoke exposure No Debora Vasquez " smoking status never smoker Mike Blair s smoking status never smoker Kyle Arriazaryan smoking status never smoker Kyle Arriazaryan smoking status never smoker Kyle Arriazaryan smoking status never smoker Kyle Arriazaryan smoking status never smoker Kyle Arriazaryan " Exercise Program Referral T " Weight Management Counseling Provided T " Nutrition intervention T " drug use, illicit Never a dos " alcohol use Previously Debora Blair s " social history E&M One little sister Lives with bio parents. Seperated in 2004, after 15 years of marriage - 2 children 21, and 18 - live with their father Graduated [employer]. 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 No Debora Vasquez " passive cigarette smoke exposure No Deb " smoking status never smoker Mike Blair s smoking status never smoker Kyle Arriazaryan smoking status never smoker Kyle Arriazaryan " social history E&M One little sister Lives with bio parents. Seperated in 2004, after 15 years of marriage - 2 children 21, and 18 - live with their father Graduated [employer]. 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 Seperated in 2004, after 15 years of marriage - 2 children 21, and 18 - live with their father Graduated [employer]. 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 Seperated in 2004, after 15 years of marriage - 2 children 21, and 18 - live with their father Graduated [employer]. 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 Seperated in 2004, after 15 years of marriage - 2 children 21, and 18 - live with their father [employer]. 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 Seperated in 2004, after 15 years of marriage - 2 children 21, and 18 - live with their father [employer]. 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 Seperated in 2004, after 15 years of marriage - 2 children 21, and 18 - live with their father [employer]. 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 Seperated in 2004, after 15 years of marriage - 2 children 21, and 18 - live with their father [employer]. 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 Seperated in 2004, after 15 years of marriage - 2 children 21, and 18 - live with their father [employer]. 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 Seperated in 2004, after 15 years of marriage - 2 children 21, and 18 - live with their father [employer]. 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 Seperated in 2004, after 15 years of marriage - 2 children 21, and 18 - live with their father [employer]. 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 Seperated in 2004, after 15 years of marriage - 2 children 21, and 18 - live with their father Kyle Hernández FUNCTIONAL STATUS No Information Available MENTAL STATUS Date Observation Value Provider mental status assessment, judgment fair Kyle Hernández" insight (mental status exam) fair, limited with relationships Kyle Hernández" Mental Status Exam: intelligence oriente d to person, oriented to place, oriented to time, oriented to reality Kyle Hernández" hallucinations none Kyle Hernández " thought content (mental status exam) (E&M) lucid Kyle Hernández " mental status assessment, process goal-directed, logical Kyle Hernández" mental status assessment, sensorium alert, clear Kyle Hernández" affect (mental status exam) congruent, anxious Kyle Hernández" mood (mental status exam) " nuetral " Eleanor Hernández " mental status assessment, speech activit y normal flow, normal pace, normal pressure, normal rate, normal tone, normal volume, spontaneous Kyle Hernández" mental status assessment, motor activity normal gait, normal posture, Kyle Hernández" behavior (mental status exam) appropriat e, cooperative, good eye contact, responsive Kyle Berno " mental appearance (mental status exam) adequate hygiene, appropriate dress Kyle Hernández mental status assessment, judgment fair Kyle Berno " insight (mental status exam) fair, limited with relationships Kyle Arriazao " Mental Status Exam: intelligence oriente d to person, oriented to place, oriented to time, oriented to reality Kyle Berno " hallucinations none Kyle Berno " thought content (mental status exam) (E&M) lucid Kyle Berno " mental status assessment, process goal-directed, logical Kyle Berno " mental status assessment, sensorium alert, clear Kyle Berno " affect (mental status exam) congruent, anxious Kyle Berno " mood (mental status exam) " OK " Michae l Berno " mental status assessment, speech activit y normal flow, normal pace, normal pressure, normal rate, normal tone, normal volume, spontaneous Kyle Berno " mental status assessment, motor activity normal gait, normal posture, Kyle Berno " behavior (mental status exam) appropriat e, cooperative, good eye contact, responsive Kyle Berno " mental appearance (mental status exam) adequate hygiene, appropriate dress Kyle Hernández mental status assessment, judgment fair Kyle Berno " insight (mental status exam) fair, limited with relationships Kyle Arriazao " Mental Status Exam: intelligence oriente d to person, oriented to place, oriented to time, oriented to reality Kyle Berno " hallucinations none Kyle Berno " thought content (mental status exam) (E&M) lucid Kyle Berno " mental status assessment, process goal-directed, logical Kyle Berno " mental status assessment, sensorium alert, clear Kyle Berno " affect (mental status exam) congruent, anxious Kyle Berno " mood (mental status exam) " OK " Michae l Berno " mental status assessment, speech activit y normal flow, normal pace, normal pressure, normal rate, normal tone, normal volume, spontaneous Kyle Berno " mental status assessment, motor activity normal gait, normal posture, Kyle Berno " behavior (mental status exam) appropriat e, cooperative, good eye contact, responsive Kyle Berno " mental appearance (mental status exam) adequate hygiene, appropriate dress Kyle Hernández mental status assessment, judgment fair Leeanne Jillian " insight (mental status exam) fair Sta cey Jillian " Mental Status Exam: intelligence oriente d to person, oriented to place, oriented to [...] Leeanne Jillian " mental status assessment, speech activit y normal flow, normal pace, normal pressure, normal rate, normal tone, normal volume, spontaneous Leeanne Jillian " mental status assessment, motor activity normal gait, normal posture Leeanne Jillian " behavior (mental status exam) appropriat e, cooperative, good eye contact, responsive Leeanne Jillian " mental appearance (mental status exam) adequate hygiene, appropriate dress Leeanne Jillian mental status assessment, judgment fair Kyle Berno " insight (mental status exam) fair Jet hael Berno " Mental Status Exam: intelligence oriente d to person, oriented to place, oriented to time, oriented to reality Kyle Berno " hallucinations none Kyle Berno " thought content (mental status exam) (E&M) lucid Kyle Berno " mental status assessment, process goal-directed, logical Kyle Berno " mental status assessment, sensorium alert, clear Kyle Berno " affect (mental status exam) congruent, euthymic Kyle Berno " mood (mental status exam) pleasant Michae anat Berno " mental status assessment, speech activit y normal flow, normal pace, normal pressure, normal rate, normal tone, normal volume, spontaneous Kyle Berno " mental status assessment, motor activity normal gait, normal posture Kyle Berno " behavior (mental status exam) appropriat e, cooperative, good eye contact, responsive Kyle Berno " mental appearance (mental status exam) adequate hygiene, appropriate dress Kyle Berno mood (mental status exam) anxious, frustrated St acey Jillian " mental status assessment, judgment fair Leeanne Jillian " insight (mental status exam) fair Sta cey Jillian " Mental Status Exam: intelligence oriente d to person, oriented to place, oriented to time, oriented to reality Leeanne Jillian " hallucinations none Leeanne Jillian " thought content (mental status exam) (E&M) lucid Leeanne Jillian " mental status assessment, process goal-directed, logical Leeanne Jillian " mental status assessment, sensorium alert, clear Leeanne Jillian " affect (mental status exam) congruent, euthymic Leeanne Jillian " mental status assessment, speech activit y normal flow, normal pace, normal pressure, normal rate, normal tone, normal volume, spontaneous Leeanne Jillian " behavior (mental status exam) appropriat e, cooperative, good eye contact, responsive Leeanne Jillian " mental appearance (mental status exam) adequate hygiene, appropriate dress Leeanne Jillian mental status assessment, judgment fair Kyle Berno " insight (mental status exam) fair Jet haanmol Berno " Mental Status Exam: intelligence oriente d to person, oriented to place, oriented to time, oriented to reality Kyle Berno " hallucinations none Kyle Berno " thought content (mental status exam) (E&M) lucid Kyle Berno " mental status assessment, process goal-directed, logical Kyle Berno " mental status assessment, sensorium alert, clear Kyle Berno " affect (mental status exam) congruent, euthymic Kyle Berno " mood (mental status exam) anxious, pleasant Ty ael Berno " mental status assessment, speech activit y normal flow, normal pace, normal pressure, normal rate, normal tone, normal volume, spontaneous Kyle Berno " mental status assessment, motor activity normal gait, normal posture Kyle Berno " behavior (mental status exam) appropriat e, cooperative, good eye contact, responsive Kyle Berno " mental appearance (mental status exam) adequate hygiene, appropriate dress Kyle Hernández mental status assessment, judgment fair Leeanne Jillian " insight (mental status exam) fair Sta cey Jillian " Mental Status Exam: intelligence oriente d to person, oriented to place, oriented to time, oriented to reality Leeanne Jillian " hallucinations none Leeanne Jillian " thought content (mental status exam) (E&M) lucid Leeanne Jillian " mental status assessment, process goal-directed, logical Leeanne Jillian " mental status assessment, sensorium alert, clear Leeanne Jillian " affect (mental status exam) congruent, e uthymic, normal intensity, normal range Leeanne Jillian " mood (mental status exam) anxious, frustrated, p leasant Leeanne Jillian " mental status assessment, speech activit y normal flow, normal pace, normal pressure, normal rate, normal tone, normal volume, spontaneous Leeanne Jillian " mental status assessment, motor activity normal gait, normal posture Leeanne Jillian " behavior (mental status exam) appropriat e, cooperative, good eye contact, responsive Leeanne Jillian " mental appearance (mental status exam) adequate hygiene, appropriate dress Leeanne Jillian mental status assessment, judgment fair Kyle Berno " insight (mental status exam) fair Jet hael Berno " Mental Status Exam: intelligence oriente d to person, oriented to place, oriented to time, oriented to reality Kyle Berno " hallucinations none Kyle Berno " thought content (mental status exam) (E&M) lucid Kyle Berno " mental status assessment, process goal-directed, logical Kyle Berno " mental status assessment, sensorium alert, clear Kyle Berno " affect (mental status exam) congruent, e uthymic, normal intensity, normal range Kyle Berno " mood (mental status exam) pleasant Michae l Berno " mental status assessment, speech activit y normal flow, normal pace, normal pressure, normal rate, normal tone, normal volume, spontaneous Kyle Berno " mental status assessment, motor activity normal gait, normal posture Kyle Berno " behavior (mental status exam) appropriat e, cooperative, good eye contact, responsive Kyle Berno " mental appearance (mental status exam) adequate hygiene, appropriate dress Kyle Berno mental status assessment, judgment fair Leeanne Jillian " insight (mental status exam) fair Sta cey Jillian " Mental Status Exam: intelligence oriente d to person, oriented to place, oriented to time, oriented to reality Leeanne Jillian " hallucinations none Leeanne Jillian " thought content (mental status exam) (E&M) lucid Leeanne Jillian " mental status assessment, process goal-directed, logical Leeanne Jillian " mental status assessment, sensorium alert, clear Leeanne Jillian " affect (mental status exam) congruent, e uthymic, normal intensity, normal range Leeanne Jillian " mood (mental status exam) anxious, pleasant Stac david Jillian " mental status assessment, speech activit y normal flow, normal pace, normal pressure, normal rate, normal tone, normal volume, spontaneous Leeanne Jillian " mental status assessment, motor activity normal gait, normal posture Leeanne Jillian " behavior (mental status exam) appropriat e, cooperative, good eye contact, responsive Leeanne Jillian " mental appearance (mental status exam) adequate hygiene, appropriate dress Leeanne Jillian mental status assessment, judgment fair Kyle Berno " insight (mental status exam) fair Jet hael Berno " Mental Status Exam: intelligence oriente d to person, oriented to place, oriented to time, oriented to reality Kyle Berno " hallucinations none Kyle Berno " thought content (mental status exam) (E&M) lucid Kyle Berno " mental status assessment, process goal-directed, logical Kyle Berno " mental status assessment, sensorium alert, clear Kyle Berno " affect (mental status exam) congruent, e uthymic, normal intensity, normal range Kyle Berno " mood (mental status exam) anxious, pleasant Ty ael Berno " mental status assessment, speech activit y normal flow, normal pace, normal pressure, normal rate, normal tone, normal volume, spontaneous Kyle Berno " mental status assessment, motor activity normal gait, normal posture Kyle Berno " behavior (mental status exam) appropriat e, cooperative, good eye contact, responsive Kyle Berno " mental appearance (mental status exam) adequate hygiene, appropriate dress Kyle Berno mental status assessment, judgment fair Leeanne Jillian " insight (mental status exam) fair Sta cey Jillian " Mental Status Exam: intelligence oriente d to person, oriented to place, oriented to time, oriented to reality Leeanne Jillian " hallucinations none Leeanne Jillian " thought content (mental status exam) (E&M) lucid Leeanne Jillian " mental status assessment, process goal-directed, logical Leeanne Jillian " mental status assessment, sensorium alert, clear Leeanne Jillian " affect (mental status exam) congruent, e uthymic, normal intensity, normal range Leeanne Jillian " mood (mental status exam) anxious, pleasant Stac ey Jillian " mental status assessment, speech activit y normal flow, normal pace, normal pressure, normal rate, normal tone, normal volume, spontaneous Leeanne Jillian " mental status assessment, motor activity normal gait, normal posture Leeanne Jillian " behavior (mental status exam) appropriat e, cooperative, good eye contact, responsive Leeanne Jillian " mental appearance (mental status exam) adequate hygiene, appropriate dress Leeanne Jillian assessment of judgment and insight E&M intact Amadou Alonzo " mental status examination: orientation E &M oriented to time, place, and person Amadou Alonzo " assessment of mood and affect E&M no depression, anxiety, or agitation Amadou Alonzo " Generalized Anxiety Disorder Questionnaire - Que stion 2 3 [facility] " Generalized Anxiety Disorder Questionnaire - [facility] assessment, judgment fair Leeanne Jillian " insight (mental status exam) fair Sta cey Jillian " Mental Status Exam: intelligence oriente d to person, oriented to place, oriented to time, oriented to reality Leeanne Jillian " hallucinations none Leeanne Jillian " thought content (mental status exam) (E&M) lucid Leeanne Jillian " mental status assessment, process goal-directed, logical Leeanne Jillian " mental status assessment, sensorium alert, clear Leeanne Jillian " affect (mental status exam) congruent, e uthymic, normal intensity, normal range Leeanne Jillian " mood (mental status exam) pleasant Leeanne Jillian " mental status assessment, speech activit y normal flow, normal pace, normal pressure, normal rate, normal tone, normal volume, spontaneous Leeanne Jillian " mental status assessment, motor activity normal gait, normal posture Leeanne Jillian " behavior (mental status exam) appropriat e, cooperative, good eye contact, responsive Leeanne Jillian " mental appearance (mental status exam) adequate hygiene, appropriate dress Leeanne Jillian mental status assessment, judgment fair Kyle Hernández " insight (mental status exam) fair Jet Hernández " Mental Status Exam: intelligence oriente d to person, oriented to place, oriented to time, oriented to reality Kyle Hernández " hallucinations none Kyle Hernández " thought content (mental status exam) (E&M) lucid Kyle Hernández " mental status assessment, process goal-directed, logical Kyle Hernández " mental status assessment, sensorium alert, clear Kyle Hernández " affect (mental status exam) congruent, normal in tensity, normal range Kyle Berno " mood (mental status exam) pleasant Michae l Berno " mental status assessment, speech activit y normal flow, normal pace, normal pressure, normal rate, normal tone, normal volume, spontaneous Kyle Berno " mental status assessment, motor activity normal gait, normal posture Kyle Arsalano " behavior (mental status exam) appropriat e, cooperative, good eye contact, responsive Kyle Berno " mental appearance (mental status exam) adequate hygiene, appropriate dress Kyle Hernández mental status assessment, motor activity normal gait, normal posture Leeanne Jillian " mental status assessment, judgment fair Leeanne Jillian " insight (mental status exam) fair Sta cey Jillian " Mental Status Exam: intelligence oriente d to person, oriented to place, oriented to time, oriented to reality Leeanne Jillian " hallucinations none Leeanne Jillian " thought content (mental status exam) (E&M) lucid Leeanne Jillian " mental status assessment, process goal-directed, logical Leeanne Jillian " mental status assessment, sensorium alert, clear Leeanne Jillain " affect (mental status exam) congruent, normal in tensity, normal range Leeanne Jillian " mood (mental status exam) anxious, pleasant Stac ey Jillian " mental status assessment, speech activit y normal flow, normal pace, normal pressure, normal rate, normal tone, normal volume, spontaneous Leeanne Jillian " behavior (mental status exam) appropriat e, cooperative, good eye contact, polite, responsive Leeanne Jillian " mental appearance (mental status exam) adequate hygiene, appropriate dress Leeanne Jillian mental status assessment, judgment fair Kyle Hernández " insight (mental status exam) fair Jet Hernández " Mental Status Exam: intelligence oriente d to person, oriented to place, oriented to time, oriented to reality Kyle Berno " hallucinations none Kyle Berno " thought content (mental status exam) (E&M) lucid Kyle Arriazao " mental status assessment, process goal-directed, logical Kyle Berno " mental status assessment, sensorium alert, clear Kyle Berno " affect (mental status exam) congruent, normal in tensity, normal range Kyle Berno " mental status assessment, speech activit y normal flow, normal pace, normal pressure, normal rate, normal tone, normal volume, spontaneous Kyle Berno " mental status assessment, motor activity normal gait, normal posture Kyle Berno " behavior (mental status exam) appropriat e, cooperative, good eye contact, polite, responsive Kyle Berno " mental appearance (mental status exam) adequate hygiene, appropriate dress Kyle Hernández mental status assessment, motor activity normal gait, normal posture Leeanne Jillian " mental status assessment, judgment fair Leeanne Jillian " insight (mental status exam) fair Sta cey Jillian " Mental Status Exam: intelligence oriente d to person, oriented to place, oriented to time, oriented to reality Leeanne Jillian " hallucinations none Leeanne Jillian " thought content (mental status exam) (E&M) lucid Leeanne Jillian " mental status assessment, process goal-directed, logical Leeanne Jillian " mental status assessment, sensorium alert, clear Leeanne Jillian " affect (mental status exam) congruent, normal in tensity, normal range Leeanne Jillian " mood (mental status exam) anxious, sad Leeanne Jillian " mental status assessment, speech activit y normal flow, normal pace, normal pressure, normal rate, normal tone, normal volume, spontaneous Leeanne Jillian " behavior (mental status exam) appropriat e, cooperative, good eye contact, polite, responsive Leeanne Jillian " mental appearance (mental status exam) adequate hygiene, appropriate dress Leeanne Walsh mental status assessment, judgment fair Kyle Bernryan " insight (mental status exam) fair Jet haanmol Bernryan " Mental Status Exam: intelligence oriente d to person, oriented to place, oriented to time, oriented to reality Kyle Berno " hallucinations none Kyle Berno " thought content (mental status exam) (E&M) lucid Kyle Berno " mental status assessment, process goal-directed, logical Kyle Berno " mental status assessment, sensorium alert, clear Kyle Berno " affect (mental status exam) congruent, normal in tensity, normal range Kyle Berno " mental status assessment, speech activit y normal flow, normal pace, normal pressure, normal rate, normal tone, normal volume, spontaneous Kyle Berno " mental status assessment, motor activity normal posture, fidgety Kyle Berno " behavior (mental status exam) appropriat e, cooperative, good eye contact, responsive Kyle Berno " mental appearance (mental status exam) adequate hygiene, appropriate dress Kyle Hernández mental status assessment, judgment fair Leeanne Jillian " insight (mental status exam) fair Sta cey Jillian " Mental Status Exam: intelligence oriente d to person, oriented to place, oriented to time, oriented to reality Leeanne Jillian " hallucinations none Leeanne Jillian " thought content (mental status exam) (E&M) lucid Leeanne Jillian " mental status assessment, process goal-directed, logical Leeanne Jillian " mental status assessment, sensorium alert, clear Leeanne Jillian " affect (mental status exam) congruent, e uthymic, normal intensity, normal range Leeanne Jillian " mood (mental status exam) anxious, sad Leeanne Jillian " mental status assessment, speech activit y normal flow, normal pace, normal pressure, normal rate, normal tone, normal volume, spontaneous Leeanne Jillian " mental status assessment, motor activity normal posture, fidgety Leeanne Jillian " behavior (mental status exam) appropriat e, cooperative, good eye contact, responsive Leeanne Jillian " mental appearance (mental status exam) adequate hygiene, appropriate dress Leeannezoë Walsh mental status assessment, judgment fair Leeanne Jillian " insight (mental status exam) fair Sta cey Jillian " Mental Status Exam: intelligence oriente d to person, oriented to place, oriented to time, oriented to reality Leeanne Jillian " hallucinations none Leeanne Jillian " thought content (mental status exam) (E&M) lucid Leeanne Jillian " mental status assessment, process goal-directed, logical Leeanne Jillian " mental status assessment, sensorium alert, clear Leeanne Jillian " affect (mental status exam) congruent, e uthymic, normal intensity, normal range Leeanne Jillian " mood (mental status exam) anxious, sad Leeanne Jillian " mental status assessment, speech activit y normal flow, normal pace, normal pressure, normal rate, normal tone, normal volume, spontaneous Leeanne Jillian " mental status assessment, motor activity normal posture, fidgety Leeanne Jillian " behavior (mental status exam) appropriat e, cooperative, good eye contact, responsive Leeanne Jillian " mental appearance (mental status exam) adequate hygiene, appropriate dress Leeanne Jillian mental status assessment, judgment fair Kyle Berno " insight (mental status exam) fair Jet haanmol Berno " Mental Status Exam: intelligence oriente d to person, oriented to place, oriented to time, oriented to reality Kyle Arriazao " hallucinations none Kyle Berno " thought content (mental status exam) (E&M) lucid Kyle Berno " mental status assessment, process goal-directed, logical Kyle Berno " mental status assessment, sensorium alert, clear Kyle Berno " affect (mental status exam) congruent, e uthymic, normal intensity, normal range Kyle Berno " mental status assessment, speech activit y normal flow, normal pace, normal pressure, normal rate, normal tone, normal volume, spontaneous Kyle Berno " mental status assessment, motor activity normal posture, fidgety Kyle Berno " behavior (mental status exam) appropriat e, cooperative, good eye contact, responsive Kyle Arriazao " mental appearance (mental status exam) adequate hygiene, appropriate dress Kyle Edgar mental status assessment, judgment fair Leeanne Jillian " insight (mental status exam) fair Sta cey Jillian " Mental Status Exam: intelligence oriente d to person, oriented to place, oriented to time, oriented to reality Leeanne Jillian " hallucinations none Leeanne Jillian " thought content (mental status exam) (E&M) lucid Leeanne Jillian " mental status assessment, process goal-directed, logical Leeanne Jillian " mental status assessment, sensorium alert, clear Leeanne Jillian " affect (mental status exam) congruent, e uthymic, normal intensity, normal range Leeanne Jillian " mood (mental status exam) anxious, sad Leeanne Jillian " mental status assessment, speech activit y normal flow, normal pace, normal pressure, normal rate, normal tone, normal volume, spontaneous Leeanne Jillian " mental status assessment, motor activity normal posture, fidgety Leeanne Jillian " behavior (mental status exam) appropriat e, cooperative, good eye contact, responsive, tearful Leeanne Jillian " mental appearance (mental status exam) adequate hygiene, appropriate dress Leeanne Jillian mental status assessment, judgment fair Leeanne Jillian " insight (mental status exam) fair Sta cey Jillian " Mental Status Exam: intelligence oriente d to person, oriented to place, oriented to time, oriented to reality Leeanne Jillian " hallucinations none Leeanne Jillian " thought content (mental status exam) (E&M) lucid Leeanne Jillian " mental status assessment, process goal-directed, logical Leeanne Jillian " mental status assessment, sensorium alert, clear Leeanne Jillian " affect (mental status exam) congruent, e uthymic, normal intensity, normal range Leeanne Jillian " mood (mental status exam) anxious, sad Leeanne Jillian " mental status assessment, speech activit y normal flow, normal pace, normal pressure, normal rate, normal tone, normal volume, spontaneous Leeanne Jillian " mental status assessment, motor activity normal posture, fidgety Leeanne Jillian " behavior (mental status exam) appropriat e, cooperative, good eye contact, responsive, tearful Leeanne Jillian " mental appearance (mental status exam) adequate hygiene, appropriate dress Leeanne Jillian mental status assessment, judgment fair Leeanne Jillian " insight (mental status exam) fair Sta cey Jillian " Mental Status Exam: intelligence oriente d to person, oriented to place, oriented to time, oriented to reality Leeanne Jillian " hallucinations none Leeanne Jillian " thought content (mental status exam) (E&M) lucid Leeanne Jillian " mental status assessment, process goal-directed, logical Leeanne Jillian " mental status assessment, sensorium alert, clear Leeanne Jillian " affect (mental status exam) congruent, e uthymic, normal intensity, normal range Leeanne Jillian " mood (mental status exam) anxious, frustrated, s ad Leeanne Jillian " mental status assessment, speech activit y normal flow, normal pace, normal pressure, normal rate, normal tone, normal volume, spontaneous Leeanne Jillian " mental status assessment, motor activity normal posture, fidgety Leeanne Jillian " behavior (mental status exam) appropriat e, cooperative, good eye contact, responsive, tearful Leeanne Jillian " mental appearance (mental status exam) adequate hygiene, appropriate dress Leeanne Jillian mental status assessment, judgment fair Leeanne Jillian " insight (mental status exam) fair Sta cey Jillian " Mental Status Exam: intelligence oriente d to person, oriented to place, oriented to time, oriented to reality Leeanne Jillian " hallucinations none Leeanne Jillian " thought content (mental status exam) (E&M) lucid Leeanne Jillian " mental status assessment, process goal-directed, logical Leeanne Jillian " mental status assessment, sensorium alert, clear Leeanne Jillian " affect (mental status exam) congruent, e uthymic, normal intensity, normal range Leeanne Jillian " mood (mental status exam) anxious, frustrated St acey Jillian " mental status assessment, speech activit y normal flow, normal pace, normal pressure, normal rate, normal tone, normal volume, spontaneous Leeanne Jillian " mental status assessment, motor activity normal posture, fidgety Eleanne Jillian " behavior (mental status exam) appropriat e, cooperative, good eye contact, responsive, tearful Leeanne Jillian " mental appearance (mental status exam) adequate hygiene, appropriate dress Leeanne Jillian mental status assessment, judgment fair Leeanne Jillian " insight (mental status exam) fair Sta cey Jillian " Mental Status Exam: intelligence oriente d to person, oriented to place, oriented to time, oriented to reality Leeanne Jillian " hallucinations none Leeanne Jillian " thought content (mental status exam) (E&M) lucid Leeanne Jillian " mental status assessment, process goal-directed, logical Leeanne Jillian " mental status assessment, sensorium alert, clear Leeanne Jillian " affect (mental status exam) congruent, e uthymic, normal intensity, normal range Leeanne Jillian " mood (mental status exam) angry, anxious Leeanne Jillian " mental status assessment, speech activit y normal flow, normal pace, normal pressure, normal rate, normal tone, normal volume, spontaneous Leeanne Jillian " mental status assessment, motor activity normal posture, fidgety Leeanne Jillian " behavior (mental status exam) appropriat e, cooperative, good eye contact, responsive, tearful Leeanne Jillian " mental appearance (mental status exam) adequate hygiene, appropriate dress Leeanne Jillian mental status assessment, judgment fair Kyle Hernández " insight (mental status exam) fair Jet Hernández " Mental Status Exam: intelligence oriente d to person, oriented to place, oriented to time, oriented to reality Kyle Berno " hallucinations none Kyle Berno " thought content (mental status exam) (E&M) lucid Kyle Arriazao " mental status assessment, process goal-directed, logical Kyle Berno " mental status assessment, sensorium alert, clear Kyle Berno " affect (mental status exam) congruent, e uthymic, normal intensity, normal range Kyle Berno " mental status assessment, speech activit y normal flow, normal pace, normal pressure, normal rate, normal tone, normal volume, spontaneous Kyle Berno " mental status assessment, motor activity normal posture, fidgety Kyle Berno " behavior (mental status exam) appropriat e, cooperative, good eye contact, responsive Kyle Berno " mental appearance (mental status exam) adequate hygiene, appropriate dress Kyle Hernández mental status assessment, judgment fair Leeanne Jillian " insight (mental status exam) fair Sta cey Jillian " Mental Status Exam: intelligence oriente d to person, oriented to place, oriented to time, oriented to reality Leeanne Jillian " hallucinations none Leeanne Jillian " thought content (mental status exam) (E&M) lucid Leeanne Jillian " mental status assessment, process goal-directed, logical Leeanne Jillian " mental status assessment, sensorium alert, clear Leeanne Jillian " affect (mental status exam) congruent, e uthymic, normal intensity, normal range Leeanne Jillian " mood (mental status exam) pleasant, worried Stac ey Jillian " mental status assessment, speech activit y normal flow, normal pace, normal pressure, normal rate, normal tone, normal volume, spontaneous Leeanne Jillian " mental status assessment, motor activity normal posture, fidgety Leeanne Jillian " behavior (mental status exam) appropriat e, cooperative, good eye contact, responsive Leeanne Jillian " mental appearance (mental status exam) adequate hygiene, appropriate dress Leeanneviviane Mascorroen mental status assessment, judgment fair Kyle Hernández " insight (mental status exam) fair Jet haanmol Arriazao " Mental Status Exam: intelligence oriente d to person, oriented to place, oriented to time, oriented to reality Kyle Berno " hallucinations none Kyle Berno " thought content (mental status exam) (E&M) lucid Kyle Hernández " mental status assessment, process goal-directed, logical Kyle Hernández " mental status assessment, sensorium alert, clear Kyle Hernández " affect (mental status exam) congruent, e uthymic, normal intensity, normal range Kyle Hernández " mood (mental status exam) pleasant Michae anat Hernández " mental status assessment, speech activit y normal flow, normal pace, normal pressure, normal rate, normal tone, normal volume, spontaneous Kyle Hernández " mental status assessment, motor activity normal posture, fidgety Kyle Hernández " behavior (mental status exam) appropriat e, cooperative, good eye contact, responsive Kyle Hernández " mental appearance (mental status exam) adequate hygiene, appropriate dress Kyle Hernández mental status assessment, judgment fair Leeanne Jillian " insight (mental status exam) fair Sta cey Jillian " Mental Status Exam: intelligence oriente d to person, oriented to place, oriented to time, oriented to reality Leeanne Jillian " hallucinations none Leeanne Jillian " thought content (mental status exam) (E&M) lucid Leeanne Jillian " mental status assessment, process goal-directed, logical Leeanne Jillian " mental status assessment, sensorium alert, clear Leeanne Jillian " affect (mental status exam) congruent, e uthymic, normal intensity, normal range Leeanne Jillian " mood (mental status exam) frustrated, pleasant S tacezoë Jillian " mental status assessment, speech activit y normal flow, normal pace, normal pressure, normal rate, normal tone, normal volume, spontaneous Leeanne Jillian " mental status assessment, motor activity normal gait, normal posture, fidgety Leeanne Jillian " behavior (mental status exam) appropriat e, cooperative, good eye contact, responsive Leeanne Jillian " mental appearance (mental status exam) adequate hygiene, appropriate dress Leeanne Jillian mental status assessment, judgment fair Leeanne Jillian " insight (mental status exam) fair Sta cey Jillian " Mental Status Exam: intelligence oriente d to person, oriented to place, oriented to time, oriented to reality Leeanne Jillian " hallucinations none Leeanne Jillian " thought content (mental status exam) (E&M) lucid Leeanne Jillian " mental status assessment, process goal-directed, logical Leeanne Jillian " mental status assessment, sensorium alert, clear Leeanne Jillian " affect (mental status exam) congruent, e uthymic, normal intensity, normal range Leeanne Jillian " mood (mental status exam) pleasant Leeanne Jillian " mental status assessment, speech activit y normal flow, normal pace, normal pressure, normal rate, normal tone, normal volume, spontaneous Leeanne Jillian " mental status assessment, motor activity normal gait, normal posture, fidgety Leeanne Jillian " behavior (mental status exam) appropriat e, cooperative, good eye contact, responsive Leeanne Jillian " mental appearance (mental status exam) adequate hygiene, appropriate dress Leeanne Jillian mental status assessment, judgment fair Kyle Berno " insight (mental status exam) fair Jet hael Berno " Mental Status Exam: intelligence oriente d to person, oriented to place, oriented to time, oriented to reality Kyle Berno " hallucinations none Kyle Berno " thought content (mental status exam) (E&M) lucid Kyle Berno " mental status assessment, process goal-directed, logical Kyle Berno " mental status assessment, sensorium alert, clear Kyle Berno " affect (mental status exam) congruent, normal in tensity, normal range Kyle Berno " mood (mental status exam) pleasant Michae l Berno " mental status assessment, speech activit y normal flow, normal pace, normal pressure, normal rate, normal tone, normal volume, spontaneous Kyle Berno " mental status assessment, motor activity normal gait, normal posture, fidgety Kyle Berno " behavior (mental status exam) appropriat e, cooperative, good eye contact, responsive Kyle Berno " mental appearance (mental status exam) adequate hygiene, appropriate dress Kyle Berno mental status assessment, judgment fair Leeanne Jillian " insight (mental status exam) fair Sta cey Jillian " Mental Status Exam: intelligence oriente d to person, oriented to place, oriented to time, oriented to reality Leeanne Jillian " hallucinations none Leeanne Jillian " thought content (mental status exam) (E&M) lucid Leeanne Jillian " mental status assessment, process goal-directed, logical Leeanne Jillian " mental status assessment, sensorium alert, clear Leeanne Jillian " affect (mental status exam) congruent, normal in tensity, normal range Leeanne Jillian " mood (mental status exam) pleasant Leeanne Jillian " mental status assessment, speech activit y normal flow, normal pace, normal pressure, normal rate, normal tone, normal volume, spontaneous Leeanne Jillian " mental status assessment, motor activity normal gait, normal posture, fidgety Leeanne Jillian " behavior (mental status exam) appropriat e, cooperative, good eye contact, responsive Leeanne Jillian " mental appearance (mental status exam) adequate hygiene, appropriate dress Leeanne Jillian mental status assessment, judgment fair Kyle Berno " insight (mental status exam) fair Jet haanmol Berno " Mental Status Exam: intelligence oriente d to person, oriented to place, oriented to time, oriented to reality Kyle Berno " hallucinations none Kyle Berno " thought content (mental status exam) (E&M) lucid Kyle Berno " mental status assessment, process goal-directed, logical Kyle Berno " mental status assessment, sensorium alert, clear Kyle Berno " affect (mental status exam) congruent, normal in tensity, normal range Kyle Berno " mood (mental status exam) pleasant Tyae anat Berno " mental status assessment, speech activit y normal flow, normal pace, normal pressure, normal rate, normal tone, normal volume, spontaneous Kyle Berno " mental status assessment, motor activity normal gait, normal posture, fidgety Kyle Berno " behavior (mental status exam) appropriat e, cooperative, good eye contact, responsive Kyle Berno " mental appearance (mental status exam) adequate hygiene, appropriate dress Kyle Arsalano mental status assessment, judgment fair Leeanne Jillian " insight (mental status exam) fair Sta cey Jillian " Mental Status Exam: intelligence oriente d to person, oriented to place, oriented to time, oriented to reality Leeanne Jillian " hallucinations none Leeanne Jillian " thought content (mental status exam) (E&M) lucid Leeanne Jillian " mental status assessment, process goal-directed, logical Leeanne Jillian " mental status assessment, sensorium alert, clear Leeanne Jillian " affect (mental status exam) congruent, e uthymic, normal intensity, normal range, anxious Leeanne Jillian " mood (mental status exam) anxious, pleasant Stac ey Jillian " mental status assessment, speech activit y normal flow, normal pace, normal pressure, normal rate, normal tone, normal volume, spontaneous Leeanne Jillian " mental status assessment, motor activity normal gait, normal posture, fidgety Leeanne Jillian " behavior (mental status exam) appropriat e, cooperative, good eye contact, responsive Leeanne Jillian " mental appearance (mental status exam) adequate hygiene, appropriate dress Leeanne Jillian mental status assessment, judgment fair Leeanne Jillian " insight (mental status exam) fair Sta cey Jillian " Mental Status Exam: intelligence oriente d to person, oriented to place, oriented to time, oriented to reality Leeanne Jillian " hallucinations none Leeanne Jillian " thought content (mental status exam) (E&M) lucid Leeanne Jillian " mental status assessment, process goal-directed, logical Leeanne Jillian " mental status assessment, sensorium alert, clear Leeanne Jillian " affect (mental status exam) congruent, normal in tensity, normal range Leeanne Jillian " mood (mental status exam) anxious, pleasant Stac ey Jillian " mental status assessment, speech activit y normal flow, normal pace, normal pressure, normal rate, normal tone, normal volume, spontaneous Leeanne Jillian " mental status assessment, motor activity normal gait, normal posture, fidgety Leeanne Jillian " behavior (mental status exam) appropriat e, cooperative, good eye contact, responsive Leeanne Jillian " mental appearance (mental status exam) adequate hygiene, appropriate dress Leeanne Jillian mental status assessment, judgment fair Kyle Arriazao " insight (mental status exam) fair Jet Hernández " Mental Status Exam: intelligence oriente d to person, oriented to place, oriented to time, oriented to reality Kyle Berno " hallucinations none Kyle Berno " thought content (mental status exam) (E&M) lucid Kyle Berno " mental status assessment, process goal-directed, logical Kyle Berno " mental status assessment, sensorium alert, clear Kyle Berno " affect (mental status exam) congruent, normal in tensity, normal range Kyle Berno " mood (mental status exam) pleasant Eleanor Arriazao " mental status assessment, speech activit y normal flow, normal pace, normal pressure, normal rate, normal tone, normal volume, spontaneous Kyle Berno " mental status assessment, motor activity normal gait, normal posture, fidgety Kyle Hernández " behavior (mental status exam) appropriat e, cooperative, good eye contact, responsive Kyle Hernández " mental appearance (mental status exam) adequate hygiene, appropriate dress Kyle Hernández mental status assessment, judgment fair Leeanne Jillian " insight (mental status exam) fair Sta cey Jillian " Mental Status Exam: intelligence adequat e fund of information, intact memory processes, oriented to person, oriented to place, oriented to time, oriented to reality Leeanne Jillian " hallucinations none Leeanne Jillian " thought content (mental status exam) (E&M) lucid Leeanne Jillian " mental status assessment, process able to abstra ct, goal-directed, logical Leeanne Jillian " mental status assessment, sensorium alert, clear Leeanne Jillian " affect (mental status exam) congruent, e uthymic, normal intensity, normal range Leeanne Jillian " mood (mental status exam) anxious, pleasant, wor ried Leeanne Jillian " mental status assessment, speech activit y normal flow, normal pace, normal pressure, normal rate, normal tone, normal volume, spontaneous Leeanne Jillian " mental status assessment, motor activity normal gait, normal posture, fidgety Leeanne Jillian " behavior (mental status exam) appropriat e, candid, cooperative, good eye contact, polite, responsive Leeanne Jillian " mental appearance (mental status exam) adequate hygiene, appropriate dress Leeanne Walsh mood (mental status exam) anxious, pleasant Stac ey Jillian " mental status assessment, judgment fair Leeanne Jillian " insight (mental status exam) fair Sta cey Jillian " Mental Status Exam: intelligence adequat e fund of information, intact memory processes, oriented to person, oriented to place, oriented to time, oriented to reality Leeanne Jillian " hallucinations none Leeanne Jillian " thought content (mental status exam) (E&M) lucid Leeanne Jillian " mental status assessment, process able to abstra ct, goal-directed, logical Leeanne Jillian " mental status assessment, sensorium alert, clear Leeanne Jillian " affect (mental status exam) congruent, euthymic Leeanne Jillian " mental status assessment, speech activit y normal flow, normal pace, normal pressure, normal rate, normal tone, normal volume, spontaneous Leeanne Jillian " mental status assessment, motor activity normal gait, normal posture, fidgety Leeanne Jillian " behavior (mental status exam) appropriat e, candid, cooperative, good eye contact, polite, responsive Leeanne Jillian " mental appearance (mental status exam) adequate hygiene, appropriate dress Leeanne Jillian " anxiety worry a lot, sleep d isturbance, restlessness, many physical complaints, panic attacks, muscle tension Leeanne Jillian anxiety worry a lot, sleep d isturbance, restlessness, many physical complaints, panic attacks, muscle tension Kyle Hernández" mental status assessment, judgment fair Kyle Hernández " insight (mental status exam) fair Jet Hernández " Mental Status Exam: intelligence adequat e fund of information, intact memory processes, oriented to person, oriented to place, oriented to time, oriented to reality Kyle Hernández " hallucinations none Kyle Hernández " thought content (mental status exam) (E&M) lucid Kyle Hernández " mental status assessment, process able to abstra ct, goal-directed, logical Kyle Hernández " mental status assessment, sensorium alert, clear Kyle Hernández " affect (mental status exam) congruent, euthymic Kyle Hernández " mental status assessment, speech activit y normal flow, normal pace, normal pressure, normal rate, normal tone, normal volume, spontaneous Kyle Hernández " mental status assessment, motor activity normal gait, normal posture, fidgety Kyle Hernández " behavior (mental status exam) appropriat e, cooperative, good eye contact, responsive Kyle Hernández " mental appearance (mental status exam) adequate hygiene, appropriate dress Kyle Hernández MEDICAL EQUIPMENT No Information Available FAMILY HISTORY No Information Available INSURANCE PROVIDERS No Information Available ADVANCE DIRECTIVES No Information Available TREATMENT PLAN Date Name Est Patient Exp Problem - 99 213 Est Patient Exp Problem - 99 213 Est Patient Exp Problem - 99 213 Est Patient Exp Problem - 99 213 Psychotherapy 45 (38-52*) me n - [id number] (with patient and/or family member) Est Patient Exp Problem - 99 213 Psychotherapy 45 (38-52*) me n - [id number] (with patient and/or family member) Est Patient Detailed - 29322 Psychotherapy 45 (38-52*) mi n - [id number] (with patient and/or family member) Est Patient Exp Problem - 99 213 Psychotherapy 45 (38-52*) mi n - [id number] (with patient and/or family member) Est Patient Detailed - 97503 Psychotherapy 45 (38-52*) mi n - [id number] (with patient and/or family member) Est Patient Exp Problem - 99 213 INFLUENZA VACCINE QUADRIVALE NT 3 YRS PLUS IM Admin of Vaccine - Injection - 1 Psychotherapy 45 (38-52*) mi n - [id number] (with patient and/or family member) Est Patient Exp Problem - 99 213 Psychotherapy 45 (38-52*) mi n - [id number] (with patient and/or family member) Est Patient Exp Problem - 99 213 Psychotherapy 45 (38-52*) mi n - [id number] (with patient and/or family member) Est Patient Exp Problem - 99 213 Psychotherapy 45 (38-52*) mi n - [id number] (with patient and/or family member) Psychotherapy 45 (38-52*) mi n - [id number] (with patient and/or family member) Est Patient Detailed - 22656 Psychotherapy 45 (38-52*) mi n - [id number] (with patient and/or family member) Psychotherapy 45 (38-52*) mi n - [id number] (with patient and/or family member) Psychotherapy 60 (53+*) min - 20548 (with patient and/or family member) Psychotherapy 45 (38-52*) mi n - [id number] (with patient and/or family member) Psychotherapy 60 (53+*) min - 34714 (with patient and/or family member) Est Patient Exp Problem - 99 213 Psychotherapy 45 (38-52*) mi n - [id number] (with patient and/or family member) Est Patient Exp Problem - 99 213 Psychotherapy 45 (38-52*) mi n - [id number] (with patient and/or family member) Psychotherapy 45 (38-52*) mi n - [id number] (with patient and/or family member) Est Patient Exp Problem - 99 213 Psychotherapy 45 (38-52*) mi n - [id number] (with patient and/or family member) Est Patient Detailed - 63056 Psychotherapy 45 (38-52*) mi n - [id number] (with patient and/or family member) Psychotherapy 45 (38-52*) mi n - 50391 (with patient and/or family member) Est Patient Detailed - 05012 Psychotherapy 45 (38-52*) mi n - [id number] (with patient and/or family member) Diagnostic evaluation (no me dical) - 73413 Diagnostic evaluation with m eri - 62376 HISTORY OF PROCEDURES Procedure Date Procedure Name Provider Procedure Notes Status Psychotherapy 45 (38-52*) mi n - [id number] (with patient and/or family member) Leeanne Walsh completed Psychotherapy 45 (38-52*) mi n - [id number] (with patient and/or family member) Leeanne Walsh completed Psychotherapy 45 (38-52*) mi n - [id number] (with patient and/or family member) Leeanne Walsh completed Psychotherapy 45 (38-52*) mi n - 21081 (with patient and/or family member) Leeanne Walsh completed Psychotherapy 45 (38-52*) mi n - 29449 (with patient and/or family member) Leeanne Walsh completed Psychotherapy 45 (38-52*) mi n - [id number] (with patient and/or family member) Leeanne Walsh completed Psychotherapy 45 (38-52*) mi n - 64093 (with patient and/or family member) Leeanne Jillian completed Psychotherapy 45 (38-52*) mi n - 39963 (with patient and/or family member) Leeanne Jillian completed Psychotherapy 45 (38-52*) mi n - [id number] (with patient and/or family member) Leeanne Jillian completed Psychotherapy 45 (38-52*) mi n - [id number] (with patient and/or family member) Leeanne Jillian completed Psychotherapy 45 (38-52*) mi n - 01447 (with patient and/or family member) Leeanne Jillian completed Psychotherapy 45 (38-52*) mi n - 61098 (with patient and/or family member) Leeanne Jillian completed Psychotherapy 60 (53+*) min - 52814 (with patient and/or family member) Leeanne Jillian completed Psychotherapy 45 (38-52*) mi n - 80704 (with patient and/or family member) Leeanne Jillian completed Psychotherapy 60 (53+*) min - 31043 (with patient and/or family member) Leeanne Jillian completed Psychotherapy 45 (38-52*) mi n - 72661 (with patient and/or family member) Leeanne Jillian completed Psychotherapy 45 (38-52*) mi n - [id number] (with patient and/or family member) Leeanne Jillian completed Psychotherapy 45 (38-52*) mi n - 56691 (with patient and/or family member) Leeanne Jillian completed Psychotherapy 45 (38-52*) mi n - 90249 (with patient and/or family member) Leeanne Jillian completed Psychotherapy 45 (38-52*) mi n - 72423 (with patient and/or family member) Leeanne Jillian completed Psychotherapy 45 (38-52*) mi n - 71379 (with patient and/or family member) Leeanne Jillian completed Psychotherapy 45 (38-52*) me n - 06008 (with patient and/or family member) Leeanne Walsh completed Diagnostic evaluation (no medical) - 95556 Leeanne duarte completed Diagnostic evaluation with medical - 38371 Kyle Grullon no completed GOALS No Information Available [facility] No Information Available
--- OUTSIDE RECORDS SUMMARY | 2019-11-24 21:22 | XMS REPORT ---
Author Author [facility] t Organization [facility] Address [address] [place] [address] Phone Unavailable Care Team Providers Care Pattern Maker Name Role Phone NONSTAFF PCP Unavailable ANN LAMA Attphys Unavailable GAL, ROBY Attphys Unavailable Edna GORDILLO Attphys Unavailable DAHU, S JIRIES Attphys Unavailable Eamon GILLESPIE Attphys Unavailable GAL, ROBY Admphys Unavailable DAHU, S JIRIES Admphys Unavailable Payers Payer Name Policy Type Policy Number Effective Date Expiration Date [employer] [id number] 2018 00:00:00 [facility] Problems Condition Name Condition Details Condition Category Status Onset Date Resolution Date Last Treatment Date Treating Clinician Comments Source Internal hemorrhoid Internal hemorrhoid Disease Active 2017-02-01 00:00 :00 [facility] 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 Hemorrhoidal banding r8Iytrpo colonoscopy in 3yrs (2018) and forgo annual FIT in the interim. [facility] Nausea and vomiting Nausea and vomiting Disease Active 2015-07-05 00:00 :00 [facility] Constipation Constipation Disease Active 2015-07-05 00:00:00 [facility] Neurofibromatosis, peripheral, NF1 Neurofibromatosis, peripheral , NF1 Disease Active 2012-11-12 00:00:00 [facility] Depression with anxiety Depression with anxiety Disease Active 2012-11-12 00:00:00 [facility] Nodule, subcutaneous Nodule, subcutaneous Disease Active 00:00:00 [facility] Calculus of ureter Ureterolithiasis Problem Active [facility] Allergies, Adverse Reactions, Alerts Allergy Name Allergy Type Status Severity Reaction(s) Onset Date Inacti ve Date Treating Clinician Comments Source Hydrocodone Allergy to Substance Active Moderate ITCHING 2019-06-17 00: 00:00 [facility] Hydrocodone-Acetaminophen Propensity to adverse reactions to drug Act dimitrios 2012-10-27 00:00:00 [facility] Family Member Diagnosis Comments Start Date Stop Date Source [facility] Social History Social Habit Start Date Stop Date Quantity Comments Source Sex Assigned At [facility] Alcohol intake 2018-12-10 00:00:00 2018-12-10 00:00:00 [facility] History SDOH Food Worry 2017-02-01 00:00:00 2017-02-01 00:00:00 1 [facility] SDOH Food Scarcity 2017-02-01 00:00:00 2017-02-01 00:00:00 1 [facility] Smoking Status Start Date Stop Date Source Never smoker [facility] Medications Ordered Medication Name Filled Medication Name Start Date Stop Da te Current Medication? Ordering Clinician Indication Dosage Frequency Signature (SIG) Comments Components Source naproxen sodium (ALEVE) 220 mg cap 2016-07-20 17:48:25 Yes Take by mouth. [facility] methocarbamol (ROBAXIN-750) 750 mg tablet 2016-07-20 00:00:0 0 Yes [id number] 750mg Take 1 tablet by roz th 4 times daily as needed (Take when needed for anal pain/spasms). [facility] gabapentin (NEURONTIN) 600 mg tablet 2016-04-20 00:00:00 Yes [id number] 600mg Take 1 tablet by mouth at bedtime nightly. [facility] diphenhydrAMINE (SLEEP AID, DIPHENHYDRAMINE,) 25 mg capsule 2015-07-04 15:51:12 Yes 25mg Take 25 mg by mouth every 6 hours as needed for Itching. [facility] CYANOCOBALAMIN, VITAMIN B-12, (VITAMIN B-12 OR) 2015-07-04 15:51 :12 Yes Take by mouth. [facility] HYDROcodone-acetaminophen (NORCO) 10-325 mg tablet 2015-06 00:00:00 Yes [id number] 1{tbl} Take 1 tablet by mouth every 6 hours as needed for Pain. [facility] traMADol (ULTRAM) 50 mg tablet 2015-07-04 00:00:00 Yes [id number] 100mg Take 2 tablets by mouth every 6 hours as needed for Pain. [facility] Amlodipine Besylate (Norvasc) 5 Mg Tab Amlodipine Besylate (Norv asc) 5 Mg Tab Yes 5 Daily [facility] Azithromycin (Zithromax) 250 Mg Tablet Azithromycin (Zithromax) 250 Mg Tablet Yes 250 Daily [facility] Cefuroxime Axetil (Cefuroxime) 500 Mg Tablet Cefuroxim e Axetil (Cefuroxime) 500 Mg Tablet Yes 500 Every 12 Hours C [facility] Duloxetine Hcl (Cymbalta) 30 Mg Capsule. Duloxetine Hcl (Cymbalta) 30 Mg Capsule. Yes 90 Daily [facility] Diazepam (Valium) 5 Mg Tablet, 5 Mg Oral Diazepam (Dariela ium) 5 Mg Tablet, 5 Mg Oral 2019-06-18 00:00:00 No 5 As Needed [facility] Escitalopram Oxalate (Lexapro) 10 Mg Tablet, 10 Mg Ora l Escitalopram Oxalate (Lexapro) 10 Mg Tablet, 10 Mg Oral 2019-01-15 00:00:00 No 1 0 Daily [facility] Diazepam (Valium) 5 Mg Tablet, 5 Mg Oral Diazepam (Dariela ium) 5 Mg Tablet, 5 Mg Oral 2017-09-05 00:00:00 No 5 Twice A Day [facility] Metronidazole 250 Mg Tablet, 250 Mg Oral Metronidazole 250 Mg Tablet, 250 Mg Oral 2017-09-05 00:00:00 No 250 Four Times Daily [facility] Omeprazole 40 Mg Capsule., 40 Mg Oral Omeprazole 40 Mg Cap feroz., 40 Mg Oral 2017-09-05 00:00:00 No 40 Daily [facility] Tetracycline Hcl 500 Mg Capsule, 500 Mg Oral Tetracycl ine Hcl 500 Mg Capsule, 500 Mg Oral 2017-09-05 00:00:00 No 500 Four Times D aily [facility] Tylenol , 500 Mg Oral Tylenol , 500 Mg Oral 2017-09-05 00:00:00 No 500 As Needed [facility] Z-Quil , 30 Ml Oral Z-Quil , 30 Ml Oral 2017-09-05 00:00:00 No 30 Bedtime [facility] Acetaminophen With Codeine (Tylenol With Codeine #3 Tablet) 1 Each Tablet, 300 Mg Oral Acetaminophen With Codeine (Tylenol With Codeine #3 Tablet) 1 Each Tablet, 300 Mg Oral 2017-05-11 00:00:00 No 300 As N eeded [facility] Alprazolam (Xanax) 2 Mg Tablet, 2 Tab Oral Alprazolam (Xanax) 2 Mg Tablet, 2 Tab Oral 2017-05-11 00:00:00 No 2 Twice A Day [facility] Acetaminophen 500 Mg Tablet, 500 Mg Oral Acetaminophen 500 Mg Tablet, 500 Mg Oral 2017-04-25 00:00:00 No 500 As Needed [facility] Naproxen Sodium (Aleve) 220 Mg Capsule, 1 Tab Oral Nap roxen Sodium (Aleve) 220 Mg Capsule, 1 Tab Oral 2017-04-12 00:00:00 No 1 A s Needed [facility] Immunizations Ordered Immunization Name Filled Immunization Name Date Status Comments Source Influenza Vaccine 2016-04-20 00:00:00 Completed [facility] Influenza Vaccine 2015-04-26 00:00:00 Completed [facility] Procedures Procedure Date / Time Performed Performing Clinician Emilie carias Cystoscopy with retrograde pyelography 2019-06-20 00:00:00 ANN RIVER [facility] X-ray of chest, single view 2019-06-18 00:00:00 ANN LAMA [facility] CT of abdomen and pelvis without contrast 2019-06-17 00:00:0 0 JENARO JONES [facility] CYSTOSCOPY AND TREATMENT 2019-01-16 00:00:00 DAINA GEENA [facility] CYSTOURETERO & OR PYELOSCOPE 2019-01-16 00:00:00 [facility] Plan of Care Planned Activity Planned Date Details Comments Source Future Scheduled Test 2018-01-14 00:00:00 Cervical Cancer Sc rn (3 Yrs) [code = Cervical Cancer Scrn (3 Yrs)] [facility] Future Scheduled Test 2016-01-15 00:00:00 Breast Cancer Scrn (Yearly) [code = Breast Cancer Scrn (Yearly)] [facility] Encounters Start Date/Time End Date/Time Encounter Type Admission Type Attendi [facility] Care Department Encounter ID Source 2019-06-18 01:46:00 2019-06-20 09:01:00 Discharged Inpatient 1 GAL, ROBY [facility] [id number] [facility] 2019-01-16 05:47:00 2019-01-16 05:47:00 Registered [facility] Day [facility] [id number] [facility] 2017-02-01 11:59:32 2017-02-01 11:59:32 Outpatient [facility] [id number] [facility] Results Test Description Test Time Test Comments Results Result Comments Source ABDOMEN-1VIEW (KUB) 2019-08-04 17:48:00 [facility] [address] [address] Patient Name: MARIANNE ROSALES MR #: [id number] : 1970 Age/Sex: 48/F Req #: [id number] Adm Physician: Ordered by: ANN LAMA MD Report #: [id number] Location: OR Room/Bed: Procedure: [id number] DX/ABDOMEN-1VIEW (KUB) Exam Date: 08/04/19 Exam Time: 1700 REPORT STATUS: Signed Exam: KUB - 2 views Indication: Preoperative Comparison: KUB of 06/18/2019, CT abdomen and pelvis of 06/17/2019 Findings: The previously seen 5 mm right ureteral calculus is no longer visualized on this study. 3 mm right renal calculus. 4 mm left renal calculus. No acute osseous injury. Nonobstructive bowel gas pattern. No free air. Impression: Interval resolution of previously seen right ureteral calculus. Bilateral renal calculi as above. Signed by: Srini Coello MD on 08/04/2019 5:51 PM Dictated By: SRINI COELLO MD 50 Transcribed By: EUGENE on 08/04/191750 COPY TO: ANN LAMA MD Differential Total Cells Counted 2019-06-19 13:26:00 Test Item Differential Total Cells Counted (test code = Differen tial Total Cells Counted) 100 [facility] % (Manual)2019-06-19 13:26:00 * Test Item Value Reference Range Interpretation Comments Neutrophils % (Manual) (test code = 42291-7) 84 40-74 [facility]Lymph[facility] % (Manual)2019-06-19 13:26:00 * Test Item Value Reference Range Interpretation Comments Lymphocytes % (Manual) (test code = 737-7) 7 19-48 [facility] % (Manual)2019-06-19 13:26:00* Test Item Value Reference Range Interpretation Comments Monocytes % (Manual) (test code = 744-3) 6 3.4-9.0 [facility]Eosinophils % (Manual)2019-06-19 13:26:00 * Test Item Value Reference Range Interpretation Comments Eosinophils % (Manual) (test code = 714-6) 3 0-7 [facility] HospitalPlatelet Zpptpgln1920-16-42 13:26:00* Test Item Value Reference Range Interpretation Comments Platelet Estimate (test code = 50235-0) ADEQUATE [facility] HospitalPlatelet Morphology Blhssmi4006-10-84 13:26:00* Test Item Value Reference Range Interpretation Comments Platelet Morphology Comment (test code = 03646-7) NORMAL [facility] HospitalRed Cell Morphology Stbnxoi4059-22-84 13:26:00* Test Item Value Reference Range Interpretation Comments Red Cell Morphology Comment (test code = 6742-1) NORMAL [facility] HospitalBlood Ymbtlfx9068-06-90 09:50:00* Test Item Value Reference Range Interpretation Comments Blood Culture (test code = 77740652) NO GROWTH AFTER 24 HOURS [facility] Yuowv6213-86-04 05:39:00* Test Item Value Reference Range Interpretation Comments Sodium Level (test code = 2951-2) 139 136-145 [facility] HospitalPotassium Evjyo9927-37-88 05:39:00* Test Item Value Reference Range Interpretation Comments Potassium Level (test code = 2823-3) 4.1 3.5-5.1 [facility] HospitalChloride Ikibc2094-06-76 05:39:00* Test Item Value Reference Range Interpretation Comments Chloride Level (test code = 2075-0) 106 98-107 [facility] HospitalCarbon Dioxide Qphek3386-79-94 05:39:00* Test Item Value Reference Range Interpretation Comments Carbon Dioxide Level (test code = 2028-9) 22 22-29 [facility] HospitalAnion Bjd6164-48-51 05:39:00* Test Item Value Reference Range Interpretation Comments Anion Gap (test code = 31464-4) 15.1 8-16 [facility] HospitalBlood Urea Fizbanad0070-08-95 05:39:00* Test Item Value Reference Range Interpretation Comments Blood Urea Nitrogen (test code = 3094-0) 19 7-26 [facility] HospitalCreatinine2019-12-13 05:39:00* Test Item Value Reference Range Interpretation Comments Creatinine (test code = 2160-0) 1.05 0.57-1.11 [facility] HospitalBUN/Creatinine Uxsas5238-09-57 05:39:00* Test Item Value Reference Range Interpretation Comments BUN/Creatinine Ratio (test code = 3097-3) 18 6-25 [facility] HospitalEstimat Glomerular Filtration Rate 2019-06-19 05:39:00* Test Item Value Reference Range Interpretation Comments Estimat Glomerular Filtration Rate (test code = 884176748) 56 >60 Ranges were taken from the National Kidney Disease Education Program and the [facility] Kid[facility] Foundation literature.Reference ranges:60 or greater: Ouvgzz25-87 ( for 3 consecutive months): Chronic kidney disease 15 or less: Kidney failureParkview Regional HospitalGlucose Qgyfo2976-38-81 05:39:00* Test Item Value Reference Range Interpretation Comments Glucose Level (test code = YIB7315) 116 74-118 [facility] HospitalCalcium Jqpao0938-50-32 05:39:00* Test Item Value Reference Range Interpretation Comments Calcium Level (test code = 23930-9) 8.8 8.4-10.2 [facility] HospitalTotal Yezneojoc2233-45-77 05:39:00* Test Item Value Reference Range Interpretation Comments Total Bilirubin (test code = 1975-2) 0.3 0.2-1.2 [facility] HospitalAspartate Amino Transf (AST/SGOT) 2019-06-19 05:39:00* Test Item Value Reference Range Interpretation Comments Aspartate Amino Transf (AST/SGOT) (test code = Aspartate Amino Transf (AST/SGOT)) 15 5-34 [facility] HospitalAlanine Aminotransferase (ALT/SGPT) 2019-06-19 05:39:00* Test Item Value Reference Range Interpretation Comments Alanine Aminotransferase (ALT/SGPT) (test code = 1742-6) 16 0-55 [facility] HospitalTotal Xgonvkk0732-91-83 05:39:00* Test Item Value Reference Range Interpretation Comments Total Protein (test code = 2885-2) 6.2 6.5-8.1 [facility] HospitalAlbumin2019-12-13 05:39:00* Test Item Value Reference Range Interpretation Comments Albumin (test code = 1751-7) 2.9 3.5-5.0 [facility] HospitalGlobulin2019-12-13 05:39:00* Test Item Value Reference Range Interpretation Comments Globulin (test code = 11714-4) 3.3 2.3-3.5 [facility] HospitalAlbumin/Globulin Kbpuf6782-60-85 05:39:00 * Test Item Value Reference Range Interpretation Comments Albumin/Globulin Ratio (test code = 1759-0) 0.9 0.8-2.0 [facility] HospitalAlkaline Dgohhhcetne4008-92-59 05:39:00* Test Item Value Reference Range Interpretation Comments Alkaline Phosphatase (test code = 6768-6) 87 40-150 [facility] HospitalWhite Blood Kwjvb0132-88-38 05:33:00* Test Item Value Reference Range Interpretation Comments White Blood Count (test code = 6690-2) 10.41 4.8-10.8 [facility] HospitalRed Blood Aacrw9661-04-17 05:33:00* Test Item Value Reference Range Interpretation Comments Red Blood Count (test code = 789-8) 4.27 3.6-5.1 [facility] HospitalHemoglobin2019-12-13 05:33:00* Test Item Value Reference Range Interpretation Comments Hemoglobin (test code = 99026-2) 12.5 12.0-16.0 [facility] HospitalHematocrit2019-12-13 05:33:00* Test Item Value Reference Range Interpretation Comments Hematocrit (test code = 4544-3) 40.3 34.2-44.1 [facility] HospitalMean Corpuscular Pufaro7891-97-38 05:33:00* Test Item Value Reference Range Interpretation Comments Mean Corpuscular Volume (test code = 787-2) 94.4 81-99 [facility] HospitalMean Corpuscular Ffyxnyckun9465-73-14 05:33:00* Test Item Value Reference Range Interpretation Comments Mean Corpuscular Hemoglobin (test code = 785-6) 29.3 28-32 [facility] HospitalMean Corpuscular Hemoglobin Concent 2019-06-19 05:33:00* Test Item Value Reference Range Interpretation Comments Mean Corpuscular Hemoglobin Concent (test code = 786-4) 31.0 31-35 [facility] HospitalRed Cell Distribution Dsdnt2760-42-61 05:33:00* Test Item Value Reference Range Interpretation Comments Red Cell Distribution Width (test code = 88086-8) 13.0 11.7 -14.4 [facility] HospitalPlatelet Woaxx7155-99-75 05:33:00* Test Item Value Reference Range Interpretation Comments Platelet Count (test code = 777-3) 234 140-360 [facility] HospitalNeutrophils (%) (Auto)2019-06-19 05:33:00 * Test Item Value Reference Range Interpretation Comments Neutrophils (%) (Auto) (test code = 93928-7) 81.8 38.7-80.0 [facility] HospitalLymphocytes (%) (Auto)2019-06-19 05:33:00 * Test Item Value Reference Range Interpretation Comments Lymphocytes (%) (Auto) (test code = 736-9) 7.3 18.0-39.1 [facility] HospitalMonocytes (%) (Auto)2019-06-19 05:33:00* Test Item Value Reference Range Interpretation Comments Monocytes (%) (Auto) (test code = 5905-5) 6.1 4.4-11.3 [facility] HospitalEosinophils (%) (Auto)2019-06-19 05:33:00 * Test Item Value Reference Range Interpretation Comments Eosinophils (%) (Auto) (test code = 713-8) 1.8 0.0-6.0 [facility] HospitalBasophils (%) (Auto)2019-06-19 05:33:00* Test Item Value Reference Range Interpretation Comments Basophils (%) (Auto) (test code = 706-2) 0.7 0.0-1.0 [facility] HospitalIM GRANULOCYTES %2019-06-19 05:33:00* Test Item Value Reference Range Interpretation Comments IM GRANULOCYTES % (test code = IM GRANULOCYTES %) 2.3 0.0- 1.0 [facility] HospitalNeutrophils # (Auto)2019-06-19 05:33:00* Test Item Value Reference Range Interpretation Comments Neutrophils # (Auto) (test code = 751-8) 8.5 2.1-6.9 [facility] HospitalLymphocytes # (Auto)2019-06-19 05:33:00* Test Item Value Reference Range Interpretation Comments Lymphocytes # (Auto) (test code = 00592-0) 0.8 1.0-3.2 [facility] HospitalMonocytes # (Auto)2019-06-19 05:33:00* Test Item Value Reference Range Interpretation Comments Monocytes # (Auto) (test code = 742-7) 0.6 0.2-0.8 [facility] HospitalEosinophils # (Auto)2019-06-19 05:33:00* Test Item Value Reference Range Interpretation Comments Eosinophils # (Auto) (test code = 711-2) 0.2 0.0-0.4 [facility] HospitalBasophils # (Auto)2019-06-19 05:33:00* Test Item Value Reference Range Interpretation Comments Basophils # (Auto) (test code = 704-7) 0.1 0.0-0.1 [facility] HospitalAbsolute Immature Granulocyte (auto 2019-06-19 05:33:00* Test Item Value Reference Range Interpretation Comments Absolute Immature Granulocyte (auto (abhijit t code = Absolute Immature Granulocyte (auto) 0.24 0-0.1 [facility]-06-18 09:42:[address] [address] Patient Name: MARIANNE ROSALES MR #: [id number] : 1970 Age/Sex: 48/F Req #: [id number] Adm Physician: ROBY SANTO MD Ordered by: ANN LAMA MD Report #: [id number] Location: MED/SURG2 Room/Bed: [facility] Procedure: [id number] DX/ABD OMEN-1VIEW (KUB) Exam Date: 06/18/19 Exam Time: 914 REPORT STATUS: Signed Abdome n, 1 view. History: Ureteral calculus. Findings: A 6 mm stone is ag ain seen in the mid right ureter at the level of L3-L4. Air is scattered throu ghout nondilated small and large bowel. The osseous structures are intact. IMPRESSION: Right ureteral stone unchanged in position. Signed by: Ivan Barrett on 06/18/2019 9:44 AM Dictated By: IVAN BARRETT MD Electr onically Signed By: IVAN BARRETT MD on 06/18/19943 Transcribed By: EUGENE adkins 06/18/19943 COPY TO: ANN LAMA MD CHEST SINGLE (NOT PORTABLE)2019-06-18 09:41:00 [address] [address] Patient Name: MARIANNE ROSALES MR #: [id number] : 1970 Age/Sex: 48/F Req #: [id number] Adm Physician: ROBY SANTO MD Ordered by: ANN LAMA MD Report #: [id number] Location: MED/SURG2 Room/Bed: 214-1 Procedure: [id number] DX/SOLE ST SINGLE (NOT PORTABLE) Exam Date: 06/18/19 Exam Ti me: 0915 REPORT STATUS: Signed C hest, 1 view, 06/18/2019. History: Right flank pain. Compariso n: None available. Findings: The cardiomediastinal silhouette and pulmonary vasculature are within normal limits for a portable exam. There is no focal c onsolidation or pleural effusion. There are no acute osseous or soft tissue a bnormalities. Impression: No acute cardiopulmonary abnormality. Si gned by: Ivan Barrett on 06/18/2019 9:41 AM Dictated By: IVAN Knutson 0 Transcribed By: EUGENE on 06/18/19940 COPY TO: ANN LAMA MD CT ABDOMEN/PELVIS [id number] 23:14:00 [address] [address] Patient Name: MARIANNE ROSALES MR #: [id number] : 1970 Age/Sex: 48/F Req #: [id number] Adm Physician: Ordered by: JENARO JONES MD Report #: [id number] Location: ER Room/Bed: Procedure: [id number] C T/CT ABDOMEN/PELVIS WO Exam Date: 06/17/19 Exam Time : 5 REPORT STATUS: Signed EXA M: CT Abdomen and Pelvis WITHOUT contrast INDICATION: Right flank pain C OMPARISON: None. TECHNIQUE: Abdomen and pelvis were scanned utilizing a multid etector helical scanner from the lung base to the pubic symphysis without admi nistration of IV contrast. Absence of intravenous contrast decreases sensitivi ty for detection of focal lesions and vascular pathology. Coronal and sagittal reformations were obtained. Routine protocol was performed. IV CONTRA ST: None ORAL CONTRAST: None COMPLICATIONS: None RA DIATION DOSE: Total DLP: 441 mGy*cm Estimated effective dose: (DLP x 0.015 x size factor) mSv CTDIvol has been reviewed. It is below the li mits set by the Radiation Protocol Committee (RPC). Dose modulation, it erative reconstruction, and/or weight based adjustment of the mA/kV was utiliz ed to reduce the radiation dose to as low as reasonably achievable. FIND INGS: LINES and TUBES: None. LOWER THORAX: Multiple focal patchy grou nd glass opacities in the bilateral lower lungs. Lead in the medial left lung base. HEPATOBILIARY: No focal hepatic lesions. No biliary ductal dilat ion. GALLBLADDER: No radio-opaque stones or sludge. No wall thickening. SPLEEN: No splenomegaly. PANCREAS: No focal masses or ductal dilatatio n. ADRENALS: No adrenal nodules KIDNEYS/URETERS: A 6 mm obstruc tive calculus in the proximal right ureter with mild upstream right hydrourete ronephrosis. Multiple tiny nonobstructive bilateral renal calculi, measure les s than 5 mm. No cystic or solid mass lesions. GI TRACT: No abnormal distention, wall thickening, or evidence of bowel obstruction. Colonic stool burden greater than average Appendix is normal. PELVIC ORGANS/BLADDER: Unr emarkable. LYMPH NODES: No lymphadenopathy. VESSELS: Unremarkable. PERITONEUM / RETROPERITONEUM: No free air or fluid. BONES: Low bone gang miner al density. Helical right superior and inferior pubic ramus fractures. SOFT TISSUES: Unremarkable. IMPRESSION: 1. A 6 mm obs tructive calculus in the proximal right ureter with mild upstream right hydrou reteronephrosis. 2. Multiple additional nonobstructive bilateral renal calcul i measure less than 5 mm. 3. Multifocal patchy ground glass opacities in th e included lower lungs could reflect multifocal pneumonia. 4. Colonic stool burden greater than average, correlate for constipation. 5. Low bone mineral density. Signed by: Jhonny Bradford DO on 06/17/2019 11:19 PM Dicta sherry By: JOHNNY BRADFORD DO 18 COPY TO: JENARO HERNANDEZ MD Urine [id number] 22:31:00* Test Item Value Reference Range Interpretation Comments Urine WBC (test code = 5821-4) NONE 0-5 [facility] [id number] 22:31:00* Test Item Value Reference Range Interpretation Comments Urine RBC (test code = 96085-5) 11-20 0-5 [facility] [id number] 22:31:00* Test Item Value Reference Range Interpretation Comments Urine Bacteria (test code = 04509-0) MODERATE NONE [facility] HospitalU[facility] Epithelial [id number] 22:31:00 * Test Item Value Reference Range Interpretation Comments Urine Epithelial Cells (test code = 01390-8) FEW NONE [facility] HospitalU[facility] [id number] 22:12:00* Test Item Value Reference Range Interpretation Comments Urine Test (test code = 2106-3) NEGATIVE NEGATIVE [facility] HospitalU[facility] [id number] 22:10:00* Test Item Value Reference Range Interpretation Comments Urine Color (test code = 5778-6) YELLOW YELLOW [facility] Jlyrzrf9381-18-52 22:10:00* Test Item Value Reference Range Interpretation Comments Urine Clarity (test code = 31026-2) SL CLOUDY CLEAR [facility] Specific Dbsbsot1501-55-13 22:10:00 * Test Item Value Reference Range Interpretation Comments Urine Specific [place] (test code = 5811-5) 1.020 1.010-1.02 5 [facility] pP6529-06-19 22:10:00* Test Item Value Reference Range Interpretation Comments Urine pH (test code = 78646-8) 6 5-7 [facility] Leukocyte Ahwinhjt3792-42-96 22:10:00* Test Item Value Reference Range Interpretation Comments Urine Leukocyte Esterase (test code = 5799-2) NEGATIVE NEGATIVE [facility] Verigkq6837-14-39 22:10:00* Test Item Value Reference Range Interpretation Comments Urine Nitrite (test code = 42361-1) NEGATIVE NEGATIVE [facility] Mbktqjt9767-28-21 22:10:00* Test Item Value Reference Range Interpretation Comments Urine Protein (test code = 5804-0) NEGATIVE NEGATIVE [facility] Glucose (UA)2019-06-17 22:10:00* Test Item Value Reference Range Interpretation Comments Urine Glucose (UA) (test code = 2349-9) NEGATIVE NEGATIVE [facility] Oystoij5177-56-86 22:10:00* Test Item Value Reference Range Interpretation Comments Urine Ketones (test code = 40107-4) NEGATIVE NEGATIVE [facility] Pfepytcpgytz4241-28-93 22:10:00* Test Item Value Reference Range Interpretation Comments Urine Urobilinogen (test code = 06646-6) 0.2 0.2-1 [facility] Zshqgkoyy8402-95-47 22:10:00* Test Item Value Reference Range Interpretation Comments Urine Bilirubin (test code = 1978-6) NEGATIVE NEGATIVE [facility] Djeon9320-54-39 22:10:00* Test Item Value Reference Range Interpretation Comments Urine Blood (test code = 46831-9) 4+ NEGATIVE [facility]2018-06-11 12:12:00 [place] [address] Patient Name: MARIANNE ROSALES MR #: [id number] : 1970 Age/Sex: 47/F Req #: [id number] Adm Physician: Ordered by: ANN LAMA MD Report #: [id number] Location: [facility] Room/Bed: Procedure: [id number] DX/EDGAR MEN-1VIEW (KUB) Exam Date: 06/11/18 Exam Time: 944 REPORT STATUS: Signed PROCEDURE: X-RAY ABDOMEN - KUB COMPARISON: [facility], DX, ABDOMEN- 1VIEW (KUB), 01/06/2018, 15:16. INDICATIONS: LEFT KIDNEY PAIN, BLOOD I N URINE FINDINGS: There are no dilated loops of bowel to suggest obstruction. There multiple stones within the right kidney. At least two sma ll stones in the left kidney are noted. Size of the stones range from 4 mm to barely detectable size. Pelvic calcification is most compatible with phle boliths. There is no evidence of free air. No acute osseous abnormalities are present. CONCLUSION: Bilateral renal lithiasis. Cl rod Landry D.O. Dictated by: Denys Landry D.O. on 06/11/2018 at 12:12 Electronically approved by: Denys Landry D.O. on 06/11/2018 at 12:12 Dictated By: DENYS LANDRY DO 1212 Transcribed By: ABI on 06/11/18 1212 COPY TO : ANN LAMA MD ABDOMEN-1VIEW (KUB)2018-01-06 17:07:00 [place] [address] Patient Name: MARIANNE ROSALES MR #: [id number] : 1970 Age/Sex: 47/F Req #: [id number] Adm Physician: Ordered by: ANN ALMA MD Report #: [id number] Location: [facility] Room/Bed: Procedure: [id number] DX/ABDOMEN-1VIEW (KUB) Exam Date : 01/06/18 Exam Time: 1515 REPORT STATUS: Leticia d PROCEDURE: X-RAY ABDOMEN - KUB COMPARISON: KUB dated 11/14/17 INDICATIONS: FOLLOW UP TO RENAL STONES IN MAY. DENIES COMPLAINTS FINDINGS: There is a non-obstructed bowel-gas pattern. Questionable 2 mm calcification overlying right renal shadow. There are no acute osseous abnor malities. The lung bases are clear. CONCLUSION: Questionable 2 mm rig ht renal calculus. The previously noted 3 mm right renal calculus is not well visualized on today's exam. Please note that renal stone protocol CT is a mo re sensitive study for detection of renal stones. Dictated by: Noe whalen M.D. on 01/06/2018 at 17:07 Electronically approved by: Noe james M.D. on 01/06/2018 at 17:07 Dictated By: NOE KAPADIA MD 06 Transcribed By: Brian MARIE on 01/06/181706 COPY TO: ANN LAMA MD ABDOMEN-1VIEW (KUB) [place] [address] Patient Name: MARIANNE ROSALES MR #: [id number] : 1970 Age/Sex: 47/F Req #: [id number] Adm Physician: Ordered by: ANN LAMA MD Report #: [id number] Location: RAD Room/Bed: Procedure: [id number] DX/ABDOMEN-1VIEW (KUB) Exam Date : 11/14/17 Exam Time: 1340 REPORT STATUS: Leticia d PROCEDURE: X-RAY ABDOMEN - KUB COMPARISON: KUB 08/14/2017 IND ICATIONS: RENAL STONE FOLLOW UP. OCCASIONAL PAIN BOTH SIDES FINDINGS: There are no dilated loops of bowel to suggest obstruction. There is no evidence of free air. No acute osseous abnormalities are present. 0.2 c m and 0.3 cm right renal stones are unchanged. Previous 0.5 cm left renal sto ne is not identified. CONCLUSION: No acute abdominal abnormality. Stable 2 small right renal stones. Previous left renal stone is not visua lized. Dictated by: Brown Pollock M.D. on 11/14/2017 at 14:12 [facility] approved by: Brown Pollock M.D. on 11/14/2017 at 14:12 Dictated By: BROWN POLLOCK MD 1412 Transcrib ed By: ABI on 11/14/17 1412 COPY TO: ANN LAMA MD CT BRAIN [place] [address] Patient Name: MARIANNE ROSALES MR #: [id number] : 1970 Age/Sex: 46/F Req #: [id number] Adm Physician: Ordered by: SAVANAH GORDILLO M.D. Report #: [id number] Location: CT Room/Bed: Procedure: [id number] CT/CT BRAIN WOW Exam Date: 0 09/25/17 Exam Time: 1109 REPORT STATUS: Signed EXAMINATION: Head CT without and with contrast HISTORY: Dizziness, vertig o, blurry vision, evaluate for intracranial mass COMPARISON: None. TECHNIQUE : Multidetector axial images were obtained without and with contrast from the foramen magnum to the vertex . The images were reconstructed using brain and b one algorithms. Thin section brain images were reformatted into coronal and s agittal planes. Intravenous contrast: 100 mL of Visipaque via 370. Motion/s treaking artifact limits the evaluation of the skull base and posterior crania l fossa. FINDINGS: Parenchyma: 1. No abnormal densities. 2. No mass or hemorrhage. No CT evidence of acute territorial vascular insult. Extra-axial spaces:No abnormal density. No extra-axial fluid josé ections Brain volume: Normal for age. Ventricles: No hydrocephal us or displacement. Arteries: No density suggestive of thrombus. Dural sinuses: No abnormal density. Extra-axial spaces: No abnormal de nsity. Foramen magnum: No mass, Chiari malformation, or basilar invagina tion. Sella: No obvious mass. Paranasal/mastoid sinuses: Imaged portions unremarkable. Skull/Scalp: No lytic or blastic lesions. No fractures. Nonspecific 2 soft tissue density enhancing foci in the subcutaneo us soft tissues of the left parietal occipital scalp (near the placed scalp ma rker by the sales technician) measuring about 1.3 and 1.6 cm diameter, no associated underlying osseous erosion or intracranial abnormalities, they may represent granulation tissue, scar tissue, lymph nodes, retention sebaceous cyst, less l ikely prominent draining vessels. Comparison to prior studies if available is recommended. IMPRESSION: 1. No intracranial abnormalities. 2. Nons pecific nonaggressive appearing scalp soft tissue lesions as detail above. Signed by: Dr. Haris Oneal M.D. on 09/25/2017 12:10 PM Dictated By: YESICA ONEAL MD 1210 Transcri bed By: EUGENE on 09/25/17 1210 COPY TO: SAVANAH GORDILLO M.D. ABDOMEN-1VIEW (KUB) [facility] [address] [place] [address] Patient Name: MARIANNE ROSALES MR #: [id number] : 1970 Age/Sex: 46/F Req #: [id number] Adm Physician: Ordered by: ANN LAMA MD Report #: [id number] Location: RAD Room/Bed: Procedure: [id number] DX/ABDOMEN-1VIEW (KUB) Exam Date : 08/14/17 Exam Time: 1750 REPORT STATUS: Leticia d PROCEDURE: X-RAY ABDOMEN - KUB COMPARISON: 07/27/16 INDICATI ONS: CHECK UP AFTER LITHOTRIPSY FINDINGS: There is a non-obstructed bowel-gas pattern. 5 mm calcification overlying the left renal shadow. There are also tiny calcifications overlying right renal shadow, measuring up to 3 mm. There are no acute osseous abnormalities. The lung bases are clear. CONCLUSION: Overlying bowel gas limits evaluation. Bilateral subcentimet er renal calculi as described above. The bilateral renal stone burden appears slightly decreased when compared to prior KUB. Dictated by: Noe Kapadia M.D. on 08/14/2017 at 18:20 Electronically approved by: Noe whalen M.D. on 08/14/2017 at 18:20 Dictated By: NOE KAPADIA MD 19 Transcribed By: ABI on 08/14/171819 COPY TO: ANN LAMA MD NUCLEAR MEDICINE [facility] [address] [place], [place] [address] Patient Name: MARIANNE ROSALES MR #: [id number] : 1970 Age/Sex: 46/F Req #: [id number] Adm Physician: GALILEO PELAEZ MD Ordered by: SARAI RITCHIE MD Report #: [id number] Location: [facility] Room/Bed: [facility] Procedure: [id number] [place] Exam Date: 05/31/17 Exam Time: 1028 REPORT STATUS: Signed Meckel's Scan Reason for exam: Chronic GI blood loss Radiopharmaceutical: Tc-99m pertechnetate 11 mCi IV Report: The patient was placed in a slight left decubitus position. Follow ing administration of the radiopharmaceutical, dynamic images of the abdomen i n the anterior projection were obtained through 60 minutes. Distribution of tracer activity appears physiologic throughout the abdomen. No focal abnor mality is identified nor is there any focal uptake of tracer that appears to i ntensify over time. Impression: No scan evidence of ectopic gastric mucosa. Signed by: Dr. Beth Mccollum M.D. on 05/31/2017 12:02 PM Dict ated By: BETH MCCOLLUM MD 12 02 Transcribed By: EUGENE on 05/31/17 1202 COPY TO: SARAI RITCHIE MD CHEST SINGLE (PORTABLE) [facility] [address] [place], [place] [address] Patient Name: MARIANNE ROSALES MR #: [id number] : 1970 Age/Sex: 46/F Req #: [id number] Adm Physician: Ordered by: ARPIT GILLESPIE MD Report #: [id number] Location: ER Room/Bed: Procedure: [id number] DX/CHEST SINGLE (PORTABLE) Exam Randy e: 05/11/17 Exam Time: 1045 REPORT STATUS: Sign ed EXAMINATION: Chest, CHEST SINGLE (PORTABLE) INDICATION: Chest pa in COMPARISON: None FINDINGS: LINES: None. Heart: Normal cardiac silhouette. Vascular: The pulmonary vasculature is within normal limits. Mediastinum: No mediastinal, hilar, or axillary mass or ly mphadenopathy. Lungs: No parenchymal mass. No focal consolidation. Pl eura: No pleural effusion. No pneumothorax. Bones: No acute osseous abnor mality. Degenerative changes of the thoracic spine. Soft tissues: Geri l. Impression: No acute radiographic abnormality. Signed by: Dr. Joseph Granger M.D. on 05/11/2017 11:06 AM Dictated By: COSME GRANGER MD Electr onically Signed By: COSME GRANGER MD on 05/11/17 1106 Transcribed By: EUGENE on 05/11/17 1106 COPY TO: ARPIT GILLESPIE MD CT ABDOMEN/PELVIS W [place] [address] Patient Name: MARIANNE ROSALES MR #: [id number] : 1970 Age/Sex: 46/F Req #: [id number] Adm Physician: Ordered by: ARPIT GILLESPIE MD Report #: [id number] Location: ER Room/Bed: Procedure: [id number] CT/CT ABDOMEN/PELVIS W Exam Date: 07/11/16 Exam Time: 1035 REPORT STATUS: Signed EXAM: CT Abdomen and Pelvis WITH contrast INDICATION: Abdominal pain COMPARISON: CT abdomen and pelvis without contrast 03/18/2017 TECHNIQUE: Abd omen and pelvis were scanned utilizing a multidetector helical scanner from th e lung base to the pubic symphysis after administration of contrast. Coronal a nd sagittal reformations were obtained. Protocol: General survey IV CON TRAST: 100 mL of Isovue 370 ORAL CONTRAST: Water COMPLICATIONS: None RADIATION DOSE: Total Exam DLP: 251.8 mGy*cm. CTDIvol has been review ed. It is below the limits set by the Radiation Protocol Committee (RPC). FINDINGS: LINES: None. Lower thorax: No parenchymal abnormality. No pneumothorax. No pleural effusion. Stable bulla in the left lower lobe. Liver: No focal mass. No hepatomegaly. Normal parenchyma. The hepatic and portal veins are patent. Gallbladder: No gallstones. No gallbladder disten tion. Biliary tree: No intrahepatic duct dilation. No extrahepatic duct dilat ion. Spleen: No splenomegaly. No focal mass. Pancreas: Normal parenchymal enhancement. No focal mass. Normal pancreatic duct. No peripancreatic infla mmatory changes. Kidneys: Stable bilateral nephrolithiasis. No obstructing calculi. No hydronephrosis. No solid enhancing mass. Stable cyst in the inf erior pole of the left kidney. No perinephric soft tissue inflammatory juarez es. Adrenal glands: No adrenal nodules.. Bladder: Normal urinary diana dder. Pelvic organs: Right ovarian cysts. Normal uterus. No left ovary is visualized. GI: No bowel wall thickening. No air-fluid levels. The stom ach and small bowel are normal. Diverticulosis without evidence of diverticul itis. Normal appendix. A moderate amount of retained feces limits intralumin al evaluation of the colon. Peritoneum/retroperitoneum: No pneumoperiton eum. No ascites. No drainable fluid collection. Lymph nodes: No lymphad enopathy. . Vessels: The abdominal aorta and iliac vessels are patent. The celiac, superior mesenteric, and inferior mesenteric arteries are patent. Single bilateral renal arteries are patent. . Bones: No focal abnorm ality. . Soft tissues: No focal abnormality. IMPRESSION: Stable bilateral nonobstructing nephrolithiasis. Diverticulosis without evidence of diverticulitis. Right ovarian cysts. Signed by: Shyla Tabor on 05/11/2017 12:25 PM Dictated By: COSME GRANGER MD Electronically Sig ofelia By: COSME GRANGER MD on 05/11/17 1225 Transcribed By: EUGENE on 05/11/17 122 5 COPY TO: ARPIT GILLESPIE MD ABDOMEN-1VIEW (KUB) [place] [address] Patient Name: MARIANNE ROSALES MR #: [id number] : 1970 Age/Sex: 46/F Req #: [id number] Adm Physician: Ordered by: ANN LAMA MD Report #: [id number] Location: OR Room/Bed: Procedure: [id number] DX/ABDOMEN-1VIEW (KUB) Exam Date: 04/26/17 Exam Time: 0650 REPORT STATUS: Signed PROCEDURE: X-RAY ABDOMEN - KUB COMPARISON: Abdomen one view 017. CT abdomen and pelvis 03/18/2017. INDICATIONS: PRE-OP LEFT KIDNEY STONE FINDINGS: There is a non-obstructed bowel-gas pattern. Bilateral nephrolithiasis, the largest calcification measuring 5.7 mm project ing over the superior pole of the left kidney. There are no calcifications pr ojected over the expected course of the ureters or bladder. There are no acute osseous abnormalities. The lung bases are clear. CONCLUSION: Bilateral nephrolithiasis. Dictated by: Cosme Granger M.D. on 04/26/2017 at 7:40 Electronically approved by: Cosme Granger M.D. on 04/26/2017 at 7 :40 Dictated By: COSME GRANGER MD 9 Transcribed By: ABI on 04/26/17 0740 COPY TO: ANN LAMA MD ABDOMEN-1VIEW (KUB) [place] [address] Patient Name: MARIANNE ROSALES MR #: [id number] : 1970 Age/Sex: 46/F Req #: [id number] Adm Physician: Ordered by: ANN LAMA MD Report #: [id number] Location: OR Room/Bed: Procedure: [id number] DX/ABDOMEN-1VIEW (KUB) Exam Date: 04/12/17 Exam Time: 1040 REPORT STATUS: Signed PROCEDURE: X-RAY ABDOMEN - KUB COMPARISON: CT abdomen pelvis 2016. INDICATIONS: PRE-OPERATIVE KUB FOR STONE REMOVAL FINDINGS: There is a non-obstructed bowel-gas pattern. There are no acute osseous a bnormalities. The lung bases are clear. At least 3 clusters of stones in t he right and left kidneys are visualized. Other stones are better seen on CT abdomen pelvis 03/18/2017. CONCLUSION: 3 small clusters of stones i n bilateral kidneys. More stones were identified on CT abdomen pelvis 03/18/20. Dictated by: Brown Pollock M.D. on 04/12/2017 at 11:28 Electronical ly approved by: Brown Pollock M.D. on 04/12/2017 at 11:28 Dictated By : BROWN POLLOCK MD 1128 Transcribed By: ABI on 04/12/178 COPY TO: ANN LAMA MD CT ABDOMEN/PELVIS WO [place] [address] Patient Name: MARIANNE ROSALES MR #: [id number] : 1970 Age/Sex: 46/F Req #: [id number] Adm Physician: Ordered by: ARPIT GILLESPIE MD Report #: [id number] Location: ER Room/Bed: Procedure: [id number] CT/CT ABDOMEN/PELVIS WO Exam Date: 03/18/17 Exam Time: 1130 REPORT STATUS: Signed PROCEDURE: CT ABDOMEN AND PELVIS WITHOUT CONTRAST TECHNIQUE: The abd omen and pelvis were scanned utilizing a multidetector helical scanner from t he diaphragm to the lesser trochanter. No oral or intravenous contrast was ad ministered per referring physician request. Coronal and sagittal multiplanar reformations were obtained. COMPARISON: 05/17/2012. INDICATIONS: R IGHT LOWER QUADRANT AND BACK PAIN, NAUSEA/VOMITING FINDINGS: ABSENCE OF INTRAVENOUS CONTRAST DECREASES SENSITIVITY FOR DETECTION OF FOCAL LESIONS AND VASCULAR PATHOLOGY. LOWER THORAX: Large air-filled cyst medially with in the left lower lobe, unchanged relative to 05/17/2012. Trace subsegmental dependent atelectasis. HEPATOBILIARY: No focal hepatic lesions. No regino iary ductal dilatation. Gallbladder is unremarkable. SPLEEN: No splenomegal y. PANCREAS: No focal masses or ductal dilatation. ADRENALS: No adrenal nodules. KIDNEYS/URETERS: No hydronephrosis. No focal renal mass lesion. Bi lateral renal calculi with stone burden increased relative to 05/17/2012. Lar gest left-sided calcification measures 5 mm as seen on series 3 image 61. Lar gest right-sided calculus measures 9 mm as seen on series 3 image 59. No uret eral, or bladder calculi. No perinephric inflammation. PELVIC ORGANS/BLADDE R: The urinary bladder is unremarkable. The uterus is anteflexed and appears normal. 2.6 cm right ovarian cyst, average internal attenuation 16 Hounsfield units. The appearance is unchanged relative to May 2012.. PERITON EUM / RETROPERITONEUM: No ascites or pneumoperitoneum. LYMPH NODES: No pelvic sidewall, retroperitoneal, or mesenteric lymphadenopathy. VESSELS: Limited evaluation without intravenous contrast. Abdominal aorta is non-aneurysmal.. GI TRACT: The large bowel is notable for several sigmoid diverticula wi thout evidence of diverticulitis. Otherwise no distention or wall thickening. The appendix is normal. There is no small bowel dilatation to suggest obstru ction. BONES AND SOFT TISSUES: No focal soft tissue abnormalities. No osse ous structure lesions. Healed fracture deformity of the right inferior and right superior pubic rami. IMPRESSION: No acute intra-abdominal or pelvic CT abnormalities. Bilateral nonobstructing nephrolithiasis, interva l increase in stone burden relative to 05/17/2012. Sigmoid diverticulos is without evidence of diverticulitis. Dictated by: Pritesh Smith M.D. on 03/18/2017 at 12:14 Electronically approved by: Pritesh Smith M.D. on 2016 at 12:14 Dictated By: PRITESH SMITH MD Electronically Leticia d By: PRITESH SMITH MD on 03/18/17 1214 Transcribed By: ABI on 03/18/17 1214 COPY TO: ARPIT GILLESPIE MD
--- OUTSIDE RECORDS SUMMARY | 2019-11-24 21:23 | XMS REPORT ---
Author Author Viktoria, [place] Organization Unknown Address Unknown Phone Unavailable PROBLEMS Condition Status Date Provider Notes Viral URI active Divina Meaghan Overweight active Divina Meaghan Acute sinusitis completed - Divina Meaghan Vaccination Against Influenza completed - 12/02 Amadou Alonzo DEPRESSIVE DISORDER, MAJOR, RECURRENT EPISODE, MODERATE active Kyle Hernández GENERALIZED ANXIETY DISORDER active Kyle davis ENCOUNTERS Date Type Provider Location Encounter Diagn osis - Ambulatory Encounter Rubi Ibrahim [facility] Practice UNK - Ambulatory Encounter Divina Harding Sa evette Meaghan [facility] UNK - Ambulatory Encounter Divinanick Bakere n Divina Meaghan Rubi [facility] Acute sinusitisOverweightViral URI - [facility] - Ambulatory Encounter Christina Carreon [facility] UNK - Ambulatory Encounter Kyle Hernández [facility] UNK - Ambulatory Encounter Kyle Barrera [facility] UNK - Ambulatory Encounter Tan Carreon [facility] UNK - Ambulatory Encounter Tan Carreon [facility] UNK - Ambulatory Encounter Tan mosher [facility] UNK - Ambulatory Encounter Tan Carter [facility] UNK - Ambulatory Encounter Kyle Hernández [facility] UNK - Ambulatory Encounter Kyle Richea [facility] UNK - Ambulatory Encounter Mike Vasquez [facility] UNK - Ambulatory Encounter Vaishali Kilo [facility] UNK - Ambulatory Encounter Vaishali Kilo [facility] UNK - Ambulatory Encounter Vaishali Barnesano va Deborath Vasquez [facility] Acute sinusiti s - Ambulatory Encounter Kyle goyal Arsalanryan [facility] UNK - Ambulatory Encounter Kyle Richea [facility] UNK - Ambulatory Encounter Christina Holly L egacy [facility] UNK - Ambulatory Encounter Leeanneviviane Carreon [facility] UNK - Ambulatory Encounter Kyle Hernández [facility] UNK - Ambulatory Encounter Kyle Richea [facility] UNK - Ambulatory Encounter Kyle Hernández [facility] UNK - Ambulatory Encounter Leeanneviviane Walsh [facility] UNK - Ambulatory Encounter Christina Holly [facility] UNK - Ambulatory Encounter Kyle Arriazaryan [facility] UNK - Ambulatory Encounter Kyle Arriazaryan Kyle Arriazaryan Barrera [facility] UNK - Ambulatory Encounter Kyle Hernández [facility] UNK - Ambulatory Encounter Kyle Arriazaryan Kyle Edgar Schroeder [facility] UNK - Ambulatory Encounter Christina Holly [facility] UNK - Ambulatory Encounter Kyle Hernández [facility] UNK - Ambulatory Encounter Leeanne Carreon [facility] UNK - Ambulatory Encounter Christina Richea [facility] UNK - Amb[facility]counter [facility] - Ambulatory Encounter Kyle Barrera [facility] UNK - Ambulatory Encounter Kyle Hernández [facility] UNK - Ambulatory Encounter Leeanne Carreon [facility] UNK - Ambulatory Encounter Christina Richea [facility] UNK - Ambulatory Encounter Kyle dollanmol Arriazaryan [facility] UNK - Ambulatory Encounter Kyle dollanmol Arriazaryan [facility] UNK - Ambulatory Encounter Kyle Edgar Richea [facility] UNK - Ambulatory Encounter Amadou Fabian [facility] UNK - Ambulatory Encounter Leeanneviviane Mascorroen L [facility] UNK - Ambulatory Encounter Mike Vasquez [facility] UNK - Ambulatory Encounter Laura Hull L [facility] UNK - Ambulatory Encounter Amadou Alonzo [facility] UNK - Ambulatory Encounter Amadou Mckeon Vasquez [facility] Vaccination Ag ainst Influenza - Ambulatory Encounter Isaura Correatuno L [facility] UNK - Ambulatory Encounter Laura Hull L [facility] UNK - Ambulatory Encounter Laura Hull L [facility] UNK - Ambulatory Encounter Leeanneviviane Mascorroen L [facility] UNK - Ambulatory Encounter Cheryl Church [facility] UNK - Ambulatory Encounter Kyle goyal Heflinryan [facility] UNK - Ambulatory Encounter Kyle Rudd [facility] UNK - Ambulatory Encounter Leeanneviviane Walsh L [facility] UNK - Ambulatory Encounter Lisa Arnold L [facility] UNK - Ambulatory Encounter Kyle goyal Arsalanryan [facility] UNK - Ambulatory Encounter Kyle Arnold [facility] UNK - Ambulatory Encounter Leeanneviviane Walsh L [facility] UNK - Ambulatory Encounter Kyle Hernández [facility] UNK - Ambulatory Encounter Kyle Arnold [facility] UNK - Ambulatory Encounter Kyle Edouard [facility] UNK - Ambulatory Encounter Kyle Fabian [facility] UNK - Ambulatory Encounter Leeanne Jillian L [facility] UNK - Ambulatory Encounter Leeanne Jlilian L [facility] UNK - Ambulatory Encounter Kyle goyal Arsalanryan [facility] UNK - Ambulatory Encounter Kyle Arnold [facility] UNK - Ambulatory Encounter Leeanne Jillian L [facility] UNK - Ambulatory Encounter Kyle Wills [facility] UNK - Ambulatory Encounter Leeanne Jillian L [facility] UNK - Ambulatory Encounter Leeanne Jillian L [facility] UNK - Ambulatory Encounter Leeanne Jillian L [facility] UNK - Ambulatory Encounter Leeanne Jillian L [facility] UNK - Ambulatory Encounter Kyle Hernández [facility] UNK - Ambulatory Encounter Kyle Hernández [facility] UNK - Ambulatory Encounter Kyle Arnold [facility] UNK - Ambulatory Encounter Leeanneviviane Carreon [facility] UNK - Ambulatory Encounter Kyle Hernández [facility] UNK - Ambulatory Encounter Kyle Arnold [facility] UNK - Ambulatory Encounter Kyle Hernández [facility] UNK - Ambulatory Encounter Kyle [facility] UNK - Ambulatory Encounter Kyle Fabian [facility] UNK - Ambulatory Encounter Leeanneviviane Carreon [facility] UNK - Ambulatory Encounter Lisa Arnold [facility] UNK - Ambulatory Encounter Leeanneviviane Carreon [facility] UNK - Ambulatory Encounter Kyle goyal Arsalanryan [facility] UNK - Ambulatory Encounter Lisa Arnold [facility] UNK - Ambulatory Encounter Kyle Arnold [facility] UNK - Ambulatory Encounter Leeanneviviane Carreon [facility] UNK - Ambulatory Encounter Lisa Arnold L [facility] UNK - Ambulatory Encounter Kyle Hernández [facility] UNK - Ambulatory Encounter Kyle Arnold [facility] UNK - Ambulatory Encounter Leeanne Mascorroen Anat [facility] UNK - Ambulatory Encounter Laura Carreon [facility] UNK - Ambulatory Encounter Leeanne Carreon [facility] UNK - Ambulatory Encounter Kyle Hernández [facility] UNK - Ambulatory Encounter Kyle Arnold [facility] UNK - Ambulatory Encounter Lisa Carreon [facility] UNK - Ambulatory Encounter Leeanne Jillian Anat [facility] UNK - Ambulatory Encounter Lisa Carreon [facility] UNK - Ambulatory Encounter Leeanne Jillian Anat [facility] UNK - Ambulatory Encounter Kyle Arnold [facility] UNK - Ambulatory Encounter Kyle Hernández [facility] UNK - Ambulatory Encounter Kyle Hernández [facility] UNK - Ambulatory Encounter Kyle Arnold [facility] GENERALIZED ANXIETY DISORDERDEPRESSIVE DISORDER, MAJOR, RECURRENT EPISODE, MODERATE - Ambulatory Encounter Linette palmer [facility] UNK VITAL SIGNS Date Observation Value Provider oxygen saturation, oximetry 96 % Dawn Ibrahim " blood pressure, diastolic 68 mm[Hg] Randell Ibrahim " blood pressure, systolic 106 mm[Hg] Rubi Ibrahim " respiratory rate E&M 16 /min Rubi Vas royer " pulse rate E&M 101 /min Rubi Ibrahim " temperature E&M 98.5 [degF] Rubi Ibrahim " weight E&M 163.20 lbs. Rubi Ibrahim " weight in kilograms E&M 74.18 kg Rubi Ibrahim " method used to obtain blood pressure automatic Rubi Ibrahim " Blood Pressure Position 01 sitting Terry Ibrahim " blood pressure, site #1 left arm Rubi Ibrahim " temperature site oral Rubi Ibrahim " height E&M 63 [in_i] Rubi Ibrahim " height in centimeters E&M 160.02 cm Randell Ibrahim blood pressure, diastolic 87 mm[Hg] Christina Holly [...] Holly oxygen saturation, oximetry 98 % Janie rat Vasquez " blood pressure, diastolic 82 mm[Hg] Anel Vasquez " blood pressure, systolic 138 mm[Hg] Deborat h Vasquez " respiratory rate E&M 16 /min Deborath Gr anados " pulse rate E&M 89 /min Deborath Blair s " temperature E&M 98.9 [degF] [facility] s " weight E&M 158.60 lbs. [facility] s " weight in kilograms E&M 72.09 kg [facility] " method used to obtain blood pressure automatic [facility] " Blood Pressure Position 01 sitting [facility] " blood pressure, site #1 left arm [facility] " temperature site oral [facility] os " height E&M 63 [in_i] [facility] s " height in centimeters E&M 160.02 cm [facility] method used to obtain blood pressure [...] method used to obtain blood pressure automatic Christnia Holly " Blood Pressure Position 01 sitting [...] Holly oxygen saturation, oximetry 98 % Janie rath Vasquez " blood pressure, diastolic 92 mm[Hg] Anel th Vasquez " blood pressure, systolic 144 mm[Hg] Deborat h Vasquez " respiratory rate E&M 18 /min Deborath Gr anados " pulse rate E&M 68 /min Deborath Blair s " temperature E&M 98.0 [degF] Deborath Blair s " weight E&M 156.38 lbs. Deborath Blair s " weight in kilograms E&M 71.08 kg Deborath Vasquez " method used to obtain blood pressure automatic Debkamasth Vasquez " Blood Pressure Position 01 sitting Debor ath Vasquez " blood pressure, site #1 right arm Debkalth Vasquez " temperature site oral Deborath Granad os " height E&M 63 [in_i] Deborath Blair s " height in centimeters E&M [...] used to obtain blood pressure automatic Lisa Arnodl " Blood Pressure Position 01 sitting Lisa [...] " blood pressure, diastolic 83 mm[Hg] Lisa Arnold " blood pressure, systolic 127 mm[Hg] Lisa R jane " pulse rate E&M 91 /min Lisa Arnold " weight E&M 132 lbs. Lisa Arnold " weight in kilograms E&M 60 kg Lisa Ro daylin " height in centimeters E&M 160.02 cm Lisa Arnold " height E&M 63 [in_i] Lisa Arnold ALLERGIES Allergy Name Onset Date Reaction Criticality Status VICODIN itchiness Unable to assess criticality active REASON FOR REFERRAL No Information Available RESULTS Date Observation Value Provider Reference Range Interpretati on Location influenza B virus antigen negative Rubi Ibrahim " influenza virus A antigen negative Rubi Ibrahim " Microbial identification kit, rapid strep method negative Rubi Ibrahim influenza B virus antigen negative Mike Vasquez [...] 1 by mouth 3 times a day 201 03/19/09 - Divina Meaghan CYMBALTA 30 MG ORAL CAPSULE DELAYED RELEASE [...] Observation Value Provider Exercise Program Referral T Randell Ibrahim " Weight Management Counseling Provided T Rubi Ibrahim " Nutrition intervention T Rubi hauser " drug use, illicit Never Rubi chang " alcohol use Previously Rubi Ibrahim " is there any chance that you could be ? No Rubi Ibrahim " passive cigarette smoke exposure No Rubi Ibrahim " if the patient is using/has used a vaping item, Current, Former, Never Used, Not asked No Rubi Ibrahim " smoking status never smoker Rubi Ibrahim smoking status never smoker Kyle Hernández smoking status never smoker Kyle Hernández Exercise Program Referral T Anel Vasquez " Weight Management Counseling Provided T Mike Vasquez " Nutrition intervention T Mike Vasquez " alcohol use Previously Deborath Blair s " drug use, illicit Never Deborath Diandra dos " social history E&M One little sister Lives with bio parents. Seperated in 2004, after 15 years of marriage - 2 children 21, and 18 - live with their father Graduated [employer]. 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 No Deborath Vasquez " passive cigarette smoke exposure No Deborath Vasquez " smoking status never smoker Debkalth Blair s smoking status never smoker Kyle Hernández smoking status never smoker Kyle Hernández smoking status never smoker Kyle Hernández smoking status never smoker Kyle Hernández smoking status never smoker Kyle Hernández " Exercise Program Referral T Vasquez " Weight Management Counseling Provided T ados " Nutrition intervention T " drug use, illicit Never Deborath Diandra dos " alcohol use Previously Deborath Blair s " social history E&M One little sister Lives with bio parents. Seperated in 2004, after 15 years of marriage - 2 children 21, and 18 - live with their father Graduated [employer]. 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 No Deborath Vasquez " passive cigarette smoke exposure No Deborath Vasquez " smoking status never smoker Debkalth Lbair s smoking status never smoker Kyle Hernández smoking status never smoker Kyle Hernández " social history E&M One little sister Lives with bio parents. Seperated in 2004, after 15 years of marriage - 2 children 21, and 18 - live with their father Graduated [employer]. 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 Seperated in 2004, after 15 years of marriage - 2 children 21, and 18 - live with their father Graduated [employer]. 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 Seperated in 2004, after 15 years of marriage - 2 children 21, and 18 - live with their father [employer]uated [employer]. 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 Seperated in 2004, after 15 years of marriage - 2 children 21, and 18 - live with their father Graduated [employer]. 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 Seperated in 2004, after 15 years of marriage - 2 children 21, and 18 - live with their father Graduated [employer]. 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 Seperated in 2004, after 15 years of marriage - 2 children 21, and 18 - live with their father Graduated [employer]. 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 Seperated in 2004, after 15 years of marriage - 2 children 21, and 18 - live with their father Grad[employer]. 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 Seperated in 2004, after 15 years of marriage - 2 children 21, and 18 - live with their father Graduated [employer]. 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 Seperated in 2004, after 15 years of marriage - 2 children 21, and 18 - live with their father Graduated [employer]. 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 Seperated in 2004, after 15 years of marriage - 2 children 21, and 18 - live with their father Graduated [employer]. 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 Seperated in 2004, after 15 years of marriage - 2 children 21, and 18 - live with their father Kyle Hernández FUNCTIONAL STATUS No Information Available MENTAL STATUS Date Observation Value Provider Generalized Anxiety Disorder Questionnaire - Que stion 2 0 Rubi Ibrahim " Generalized Anxiety Disorder Questionnaire - Que stion 1 0 Rubi Ibrahim mental status assessment, judgment fair Kyle Hernández " insight (mental status exam) fair, limited with relationships Kyle Hernández " Mental Status Exam: intelligence oriente [...] Berno " mood (mental status exam) " nuetral " Michae l Berno " mental status assessment, speech activit y normal flow, normal pace, normal pressure, normal rate, normal tone, normal volume, spontaneous Kyle Berno " mental status assessment, motor activity normal gait, normal posture, Kyle Berno " behavior (mental status exam) appropriat e, cooperative, good eye contact, responsive Kyle Berno " mental appearance (mental status exam) adequate hygiene, appropriate dress Kyle Arriazaryan mental status assessment, judgment fair Kyle Berno [...] status exam) adequate hygiene, appropriate dress Kyle Arriazaryan mental status assessment, judgment fair Kyle Berno [...] mood (mental status exam) pleasant Michae anat Arriazao " mental status assessment, speech activit [...] Hernández mood (mental status exam) anxious, frustrated St [...] " mood (mental status exam) pleasant Eleanor anat Arriazao " mental status assessment, speech activit [...] Disorder Questionnaire - Que stion 2 3 Reneekamaslizabeth Vasquez " Generalized Anxiety Disorder Questionnaire - [place] stion 1 3 Mike Vasquez mental status assessment, [...] " mental status assessment, sensorium alert, clear Klye Berno " affect (mental status exam) congruent, [...] congruent, normal in tensity, normal range Kyle Arriazao " mental status assessment, speech activit [...] content (mental status exam) (E&M) lucid Leeanne Walsh " mental status assessment, process goal-directed, [...] insight (mental status exam) fair Jet haanmol Hernández " Mental Status Exam: intelligence oriente d to person, oriented to place, oriented to time, oriented to reality Kyle Hernández " hallucinations none Kyle Berno " thought content (mental status exam) (E&M) lucid Kyle Hernández " mental status assessment, process goal-directed, logical Kyle Berno " mental status assessment, sensorium alert, clear Kyle Berno " affect (mental status exam) congruent, normal in tensity, normal range Kyle Hernández " mental status assessment, speech [...] oriented to time, oriented to reality Leeanne Ijllian " hallucinations none Leeanne Jillian " thought [...] insight (mental status exam) fair Sta cey Jlilian " Mental Status Exam: intelligence oriente d to person, oriented to place, oriented to time, oriented to reality Leeanne Jillian " hallucinations none Leeanne Jillian " thought content (mental status exam) (E&M) lucid Leeanne Ijllian " mental status assessment, process goal-directed, logical [...] assessment, motor activity normal posture, fidgety Kyle Arriazao " behavior (mental status exam) appropriat e, [...] mood (mental status exam) frustrated, pleasant S tacey Jillian " mental status assessment, speech activit [...] " thought content (mental status exam) (E&M) lucadebayo Hernández " mental status assessment, process goal-directed, logical Kyle Hernández " mental status assessment, sensorium alert, clear Kyle Hernández " affect (mental status exam) congruent, normal in tensity, normal range Kyle Hernández " mood (mental status exam) pleasant Tyae anat Hernández " mental status assessment, speech [...] exam) adequate hygiene, appropriate dress Leeanne Jillian mood (mental status exam) anxious, pleasant Stac [...] exam) adequate hygiene, appropriate dress Leeanneviviane Walsh " anxiety worry a lot, sleep d isturbance, restlessness, many physical complaints, panic attacks, muscle tension Leeanne Jillian anxiety worry a lot, sleep d isturbance, restlessness, many physical complaints, panic attacks, muscle tension Kyle Hernández " mental status assessment, judgment fair Kyle Hernández " insight (mental status exam) fair Jet Hernández " Mental Status Exam: intelligence adequat e fund of information, intact memory processes, oriented to person, oriented to place, oriented to time, oriented to reality Kyle Hernández " hallucinations none Kyle Berno " thought content (mental status exam) (E&M) lucid Kyle Berno " mental status assessment, process able to abstra ct, goal-directed, logical Kyle Berno " mental status [...] No Information Available TREATMENT PLAN Date Name Ofc Vst, Est Level III Est Patient Exp Problem - 99 213 Est Patient Exp Problem - 99 213 Est Patient Exp Problem - 99 213 Est Patient Exp Problem - 99 213 Psychotherapy 45 (38-52*) mi n - [id number] (with patient and/or family member) Est Patient Exp Problem - 99 213 Psychotherapy 45 (38-52*) mi n - [id number] (with patient and/or family member) Est Patient Detailed - 15181 Psychotherapy 45 (38-52*) mi n - [id number] (with patient and/or family member) Est Patient Exp Problem - 99 213 Psychotherapy 45 (38-52*) mi n - [id number] (with patient and/or family member) Est Patient Detailed - 49281 Psychotherapy 45 (38-52*) mi n - [id number] (with patient and/or family member) Est Patient Exp Problem - 99 213 INFLUENZA VACCINE QUADRIVALE NT 3 YRS PLUS IM Admin of Vaccine - Injection - 1 Psychotherapy 45 (38-52*) mi n - [id number] (with patient and/or family member) Est Patient Exp Problem - 99 213 Psychotherapy 45 (38-52*) mi n - [id number] (with patient and/or family member) Est Patient Exp Problem - 99 213 Psychotherapy 45 (38-52*) mi n - [id number] (with patient and/or family member) Est Patient Exp Problem - 99 213 Psychotherapy 45 (38-52*) mi n - [id number] (with patient and/or family member) Psychotherapy 45 (38-52*) mi n - [id number] (with patient and/or family member) Est Patient Detailed - 32122 Psychotherapy 45 (38-52*) mi n - [id number] (with patient and/or family member) Psychotherapy 45 (38-52*) mi n - [id number] (with patient and/or family member) Psychotherapy 60 (53+*) min - 15602 (with patient and/or family member) Psychotherapy 45 (38-52*) mi n - [id number] (with patient and/or family member) Psychotherapy 60 (53+*) min - 21865 (with patient and/or family member) Est Patient Exp Problem - 99 213 Psychotherapy 45 (38-52*) mi n - [id number] (with patient and/or family member) Est Patient Exp Problem - 99 213 Psychotherapy 45 (38-52*) mi n - [id number] (with patient and/or family member) Psychotherapy 45 (38-52*) mi n - [id number] (with patient and/or family member) Est Patient Exp Problem - 99 213 Psychotherapy 45 (38-52*) mi n - [id number] (with patient and/or family member) Est Patient Detailed - 06446 Psychotherapy 45 (38-52*) mi n - [id number] (with patient and/or family member) Psychotherapy 45 (38-52*) mi n - [id number] (with patient and/or family member) Est Patient Detailed - 00417 Psychotherapy 45 (38-52*) mi n - [id number] (with patient and/or family member) Diagnostic evaluation (no me dical) - 01543 Diagnostic evaluation with sumaya hwang - 10683 HISTORY OF PROCEDURES Procedure Date Procedure Name Provider Procedure Notes Status Psychotherapy 45 (38-52*) mi n - [id number] (with patient and/or family member) Leeanne Walsh completed Psychotherapy 45 (38-52*) mi n - [id number] (with patient and/or family member) Leeanne Walsh completed Psychotherapy 45 (38-52*) mi n - [id number] (with patient and/or family member) Leeanne Walsh completed Psychotherapy 45 (38-52*) mi n - [id number] (with patient and/or family member) Leeanne Jillian completed Psychotherapy 45 (38-52*) mi n - [id number] (with patient and/or family member) Leeanne Jillian completed Psychotherapy 45 (38-52*) mi n - [id number] (with patient and/or family member) Leeanne Jillian completed Psychotherapy 45 (38-52*) mi n - [id number] (with patient and/or family member) Leeanne Jillian completed Psychotherapy 45 (38-52*) mi n - [id number] (with patient and/or family member) Leeanne Jillian completed Psychotherapy 45 (38-52*) mi n - [id number] (with patient and/or family member) Leeanne Jillian completed Psychotherapy 45 (38-52*) mi n - [id number] (with patient and/or family member) Leeanne Jillian completed Psychotherapy 45 (38-52*) mi n - [id number] (with patient and/or family member) Leeanne Jillian completed Psychotherapy 45 (38-52*) mi n - [id number] (with patient and/or family member) Leeanne Jillian completed Psychotherapy 60 (53+*) min - 71293 (with patient and/or family member) Leeanne Jillian completed Psychotherapy 45 (38-52*) mi n - [id number] (with patient and/or family member) Leeanne Jillian completed Psychotherapy 60 (53+*) min - 87088 (with patient and/or family member) Leeanne Jillian completed Psychotherapy 45 (38-52*) mi n - [id number] (with patient and/or family member) Leeanne Jillian completed Psychotherapy 45 (38-52*) mi n - [id number] (with patient and/or family member) Leeanne Jillian completed Psychotherapy 45 (38-52*) mi n - [id number] (with patient and/or family member) Leeanne Jillian completed Psychotherapy 45 (38-52*) mi n - [id number] (with patient and/or family member) Leeanne Walsh completed Psychotherapy 45 (38-52*) mi n - [id number] (with patient and/or family member) Leeanne Walsh completed Psychotherapy 45 (38-52*) mi n - 58059 (with patient and/or family member) Leeanne Walsh completed Psychotherapy 45 (38-52*) mi n - [id number] (with patient and/or family member) Leeanne Walsh completed Diagnostic evaluation (no medical) - 12122 Leeanne duarte completed Diagnostic evaluation with medical - 57702 Kyle Grullon no completed GOALS No Information Available HEALTH CONCERNS No Information Available
--- OUTSIDE RECORDS SUMMARY | 2019-11-24 21:23 | XMS REPORT ---
Author Author Viktoria, Kalie Milo Organization Unknown Address Unknown Phone Unavailable PROBLEMS Condition Status Date Provider Notes Viral URI active Divina Meaghan Overweight active Divina Meaghan Acute sinusitis completed - Divina Meaghan Vaccination Against Influenza completed - 12/02 Amadou Alonzo DEPRESSIVE DISORDER, MAJOR, RECURRENT EPISODE, MODERATE active Kyle Hernández GENERALIZED ANXIETY DISORDER active Kyle davis ENCOUNTERS Date Type Provider Location Encounter Diagn osis - Ambulatory Encounter Rubi Ibrahim [facility] Practice UNK - Ambulatory Encounter Divina Harding Sa evette Meaghan [facility] UNK - Ambulatory Encounter Divinanick Bakere n Divina Meaghan [facility] Acute sinusitisOverweightViral URI - [facility] - [facility] - Ambulatory Encounter Christina Carreon [facility] UNK - Ambulatory Encounter Kyle Hernández [facility] UNK - Ambulatory Encounter Kyle Barrera [facility] UNK - Ambulatory Encounter Tan Carreon [facility] UNK - Ambulatory Encounter Tan Carreon [facility] UNK [facility] - [facility] Tan Carter [facility] UNK - Ambulatory Encounter [facility] - [facility]a [facility] En[facility] Mike [facility]quez [facility] UNK - Ambulatory Encounter Vaishali Kilo [facility] UNK - Ambulatory Encounter Vaishali Kilo [facility] UNK - Ambulatory Encounter Vaishali Barnesano va [facility]ath [facility] sinusiti s - Ambulatory Encounter Kyle goyal [facility]ryan [facility] - [facility]ulatory Encounter Christina Holly L egacy [facility] UNK - Ambulatory Encounter Leeanneviviane Carreon egacy [facility] UNK - Ambulatory Encounter [facility] - [facility] - [facility]ulatory Encounter Leeanneviviane Walsh [facility] - [facility] En[facility] Christina Holly [facility] UNK - Ambulatory Encounter Kyle Arriazaryan [facility] UNK - Ambulatory Encounter Kyle Arriazaryan Kyle Arriazaryan [facility] Encounter [facility] - Ambulatory Encounter Kyle Arriazaryan Kyle Edgar Sch[facility]eder [facility] En[facility] - [facility] Encounter [facility] - Ambulatory Encounter Leeanne Carreon [facility] UNK - Ambulatory Encounter [facility]a [facility] - [facility] - Ambulatory Encounter [facility] - [facility]ulatory Encounter [facility] - Ambulatory Encounter Leeanne Carreon [facility] UNK - Ambulatory Encounter Christina Richea L [facility] UNK - Ambulatory Encounter Kyle dollanmol [facility]an [facility] - Ambulatory Encounter Kyle dollanmol [facility]an [facility] - Ambulatory Encounter Kyle Edgar Richea [facility] UNK - Ambulatory Encounter Amadou Fabian [facility] UNK - Ambulatory Encounter Leeanneviviane Mascorroen L [facility] UNK - Ambulatory Encounter Mike Vasquez [facility] UNK - Ambulatory Encounter Laura Hull L [facility] UNK - Ambulatory Encounter Amadou Alonzo [facility] UNK - Ambulatory Encounter Amadou Mckeon Vasquez [facility] Vaccination Ag ainst Influenza - Ambulatory Encounter Isaura Correatuno L [facility] UNK - Ambulatory Encounter Laura Hull L [facility] UNK - Ambulatory Encounter Laura Hull L [facility] UNK - Ambulatory Encounter Leeanneviviane Mascorroen L [facility] UNK - Ambulatory Encounter Cheryl Church [facility] UNK - Ambulatory Encounter Kyle goyal Fostersryan [facility] UNK - Ambulatory Encounter Kyle Rudd [facility] UNK - Ambulatory Encounter Leeanneviviane Walsh L [facility] UNK - Ambulatory Encounter Lisa Arnold L [facility] UNK - Ambulatory Encounter Kyle goyal Arsalanryan [facility] UNK - Ambulatory Encounter Kyle Arnold [facility] UNK - Ambulatory Encounter Leeanneviviane Walsh L [facility] UNK - Ambulatory Encounter Kyle Hernández [facility] UNK - Ambulatory Encounter Kyle Arnold [facility] UNK - Ambulatory Encounter Kyle Edouard [facility] UNK - Ambulatory Encounter Kyle Fabian [facility] UNK - Ambulatory Encounter Leeanne Jillian L [facility] UNK - Ambulatory Encounter Leeanne Jillian L [facility] UNK - Ambulatory Encounter Kyle goyal Arsalanryan [facility] UNK - Ambulatory Encounter Kyle Arnold [facility] UNK - Ambulatory Encounter Leeanne Jillian L [facility] UNK - Ambulatory Encounter Kyle Wills [facility] UNK - Ambulatory Encounter Leeanne Jillian L [facility] UNK - Ambulatory Encounter Leeanne Jillian L [facility] UNK - Ambulatory Encounter Leeanne Jililan L [facility] UNK - Ambulatory Encounter Leeanne Jillian L [facility] UNK - Ambulatory Encounter Kyle Hernández [facility] UNK - Ambulatory Encounter Kyle Hernández [facility] UNK - Ambulatory Encounter [facility] - Ambulatory Encounter Leeanneviviane [facility]reon [facility] - Ambulatory Encounter Kyle Hernández [facility] UNK - Ambulatory Encounter Kyle Arnold [facility] UNK - Ambulatory Encounter Kyle Hernández [facility] UNK - Ambulatory Encounter Kyle Melton [facility] UNK - Ambulatory Encounter Kyle Fabian [facility] UNK - Ambulatory Encounter Leeanneviviane [facility] - Ambulatory Encounter Lisa [facility] - Ambulatory Encounter Leeanneviviane Carreon [facility] UNK - Ambulatory Encounter Kyle goyal Arsalanryan [facility] UNK - Ambulatory Encounter Lisa [facility] - Ambulatory Encounter [facility]ronld [facility] - Ambulatory Encounter Leeanneviviane [facility] - Ambulatory Encounter Lisa [facility] - Ambulatory Encounter [facility] - Ambulatory Encounter Kyle Arnold [facility] UNK - Ambulatory Encounter Leeanne Mascorroen Anat [facility] UNK - Ambulatory Encounter Laura Carreon [facility] UNK - Ambulatory Encounter Leeanne Carreon [facility] UNK - Ambulatory Encounter Kyle Hernández [facility] UNK - Ambulatory Encounter Kyle Arnold [facility] UNK - Ambulatory Encounter Lisa Carreon [facility] UNK - Ambulatory Encounter Leeanne Jillian Anat [facility] UNK - Ambulatory Encounter Lisa Carreon [facility] UNK - Ambulatory Encounter Leeanne Jillian Anat [facility] UNK - Ambulatory Encounter Kyle Arnold [facility] UNK - Ambulatory Encounter Kyle Hernández [facility] UNK - Ambulatory Encounter Kyle Hernández [facility] UNK - Ambulatory Encounter Kyle Arnold [facility] GENERALIZED ANXIETY DISORDERDEPRESSIVE DISORDER, MAJOR, RECURRENT EPISODE, MODERATE - Ambulatory Encounter Linette palmer [facility] UNK VITAL SIGNS Date [...] blood pressure, systolic 138 mm[Hg] Deborat h Avsquez " respiratory rate E&M 16 /min Deborath Gr anados " pulse rate E&M 89 /min Deborath Blair s " temperature E&M 98.9 [degF] [facility] " weight E&M 158.60 lbs. [facility] " weight in kilograms E&M 72.09 kg [facility] " method used to obtain blood pressure automatic [facility] " Blood Pressure Position 01 sitting [facility] " blood pressure, site #1 left arm [facility] " temperature site oral [facility] os " height E&M 63 [in_i] [facility] s " height in centimeters E&M 160.02 cm [facility] method used to obtain blood pressure [...] method used to obtain blood pressure automatic [facility]th Vasquez " Blood Pressure Position 01 sitting [...] Arnold " weight E&M 154.20 lbs. Lisa Arnodl " weight in kilograms E&M 70.09 kg [...] 18 - live with their father Graduated [employer]. 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 Seperated in 2004, after 15 years of marriage - 2 children 21, and 18 - live with their father Graduated [employer]. 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 Seperated in 2004, after 15 years of marriage - 2 children 21, and 18 - live with their father Graduated [employer]. 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 Seperated in 2004, after 15 years of marriage - 2 children 21, and 18 - live with their father Graduated [employer]. 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 Seperated in 2004, after 15 years of marriage - 2 children 21, and 18 - live with their father Graduated [employer]. 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 Seperated in 2004, after 15 years of marriage - 2 children 21, and 18 - live with their father Graduated [employer]. 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 Seperated in 2004, after 15 years of marriage - 2 children 21, and 18 - live with their father Graduated [employer]. 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 Seperated in 2004, after 15 years of marriage - 2 children 21, and 18 - live with their father Graduated [employer]. 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 Seperated in 2004, after 15 years of marriage - 2 children 21, and 18 - live with their father Graduated [employer]. 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 Works for [...] normal rate, normal tone, normal volume, spontaneous Ykle Berno " mental status assessment, motor activity [...] mood (mental status exam) pleasant Michae anat Arriaazo " mental status assessment, speech activit y [...] Disorder Questionnaire - Que stion 2 3 Reneewittenberglizabeth Vasquez " Generalized Anxiety Disorder Questionnaire - [place] stion 1 3 Mike Vasquez mental status assessment, judgment fair Eleanne Jillian " insight (mental status exam) fair [...] Hernández " mental status assessment, judgment fair yKle Hernández " insight (mental status exam) fair [...] 213 Psychotherapy 45 (38-52*) mi n - [id number] (with patient and/or family member) Est Patient Exp Problem - 99 213 Psychotherapy 45 (38-52*) mi n - [id number] (with patient and/or family member) Est Patient Detailed - 74829 Psychotherapy 45 (38-52*) mi n - [id number] (with patient and/or family member) Est Patient Exp Problem - 99 213 Psychotherapy 45 (38-52*) mi n - [id number] (with patient and/or family member) Est Patient Detailed - 32325 Psychotherapy 45 (38-52*) mi n - [id number] (with patient and/or family member) Est Patient Exp Problem - 99 213 INFLUENZA VACCINE QUADRIVALE NT 3 YRS PLUS IM Admin of Vaccine - Injection - 1 Psychotherapy 45 (38-52*) mi n - [id number] (with patient and/or family member) Est Patient Exp Problem - 99 213 Psychotherapy 45 (38-52*) mi n - [id number] (with patient and/or family member) Est Patient Exp Problem - 99 213 Psychotherapy 45 (38-52*) mi n - [id number] (with patient and/or family member) Est Patient Exp Problem - 99 213 Psychotherapy 45 (38-52*) mi n - [id number] (with patient and/or family member) Psychotherapy 45 (38-52*) mi n - [id number] (with patient and/or family member) Est Patient Detailed - 17378 Psychotherapy 45 (38-52*) mi n - [id number] (with patient and/or family member) Psychotherapy 45 (38-52*) mi n - [id number] (with patient and/or family member) Psychotherapy 60 (53+*) min - 36178 (with patient and/or family member) Psychotherapy 45 (38-52*) mi n - [id number] (with patient and/or family member) Psychotherapy 60 (53+*) min - 36961 (with patient and/or family member) Est Patient Exp Problem - 99 213 Psychotherapy 45 (38-52*) mi n - [id number] (with patient and/or family member) Est Patient Exp Problem - 99 213 Psychotherapy 45 (38-52*) mi n - [id number] (with patient and/or family member) Psychotherapy 45 (38-52*) mi n - [id number] (with patient and/or family member) Est Patient Exp Problem - 99 213 Psychotherapy 45 (38-52*) mi n - [id number] (with patient and/or family member) Est Patient Detailed - 67975 Psychotherapy 45 (38-52*) mi n - [id number] (with patient and/or family member) Psychotherapy 45 (38-52*) mi n - [phone] (with patient and/or family member) Est Patient Detailed - 86642 Psychotherapy 45 (38-52*) mi n - [id number] (with patient and/or family member) Diagnostic evaluation (no me dical) - 92638 Diagnostic evaluation with sumaya hwang - 38066 HISTORY OF PROCEDURES Procedure Date Procedure Name Provider Procedure Notes Status Psychotherapy 45 (38-52*) mi n - [id number] (with patient and/or family member) Leeanne Walsh completed Psychotherapy 45 (38-52*) mi n - [id number] (with patient and/or family member) Leeanne Walsh completed Psychotherapy 45 (38-52*) mi n - [id number] (with patient and/or family member) Leeanne Walsh completed Psychotherapy 45 (38-52*) mi n - [id number] (with patient and/or family member) Leeanne Jillian completed Psychotherapy 45 (38-52*) mi n - [phone] (with patient and/or family member) Leeanne Jillian completed Psychotherapy 45 (38-52*) mi n - [id number] (with patient and/or family member) Leeanne Jillian completed Psychotherapy 45 (38-52*) mi n - [id number] (with patient and/or family member) Leeanne Jillian completed Psychotherapy 45 (38-52*) mi n - [id number] (with patient and/or family member) Leeanne Jillian completed Psychotherapy 45 (38-52*) mi n - [id number] (with patient and/or family member) Leeanne Jillian completed Psychotherapy 45 (38-52*) mi n - [id number] (with patient and/or family member) Leeanne Jillian completed Psychotherapy 45 (38-52*) mi n - [id number] (with patient and/or family member) Leeanne Jillian completed Psychotherapy 45 (38-52*) mi n - [id number] (with patient and/or family member) Leeanne Jillian completed Psychotherapy 60 (53+*) min - 91246 (with patient and/or family member) Leeanne Jillian completed Psychotherapy 45 (38-52*) mi n - [id number] (with patient and/or family member) Leeanne Jillian completed Psychotherapy 60 (53+*) min - 16230 (with patient and/or family member) Leeanne Jillian completed Psychotherapy 45 (38-52*) mi n - [phone] (with patient and/or family member) Leeanne Jillian completed Psychotherapy 45 (38-52*) mi n - [phone] (with patient and/or family member) Leeanne Jillian completed Psychotherapy 45 (38-52*) mi n - [phone] (with patient and/or family member) Leeanne Jillian completed Psychotherapy 45 (38-52*) mi n - [id number] (with patient and/or family member) Leeanne Walsh completed Psychotherapy 45 (38-52*) mi n - [id number] (with patient and/or family member) Leeanne Walsh completed Psychotherapy 45 (38-52*) mi n - [id number] (with patient and/or family member) Leeanne Walsh completed Psychotherapy 45 (38-52*) mi n - [phone] (with patient and/or family member) Leeanne Walsh completed Diagnostic evaluation (no medical) - 55606 Leeanne duarte completed Diagnostic evaluation with medical - 52131 Kyle Grullon no completed GOALS No Information Available HEALTH CONCERNS No Information Available
--- OUTSIDE RECORDS SUMMARY | 2019-11-24 21:23 | XMS REPORT ---
Author Author Viktoria, Kalie Upham Organization Unknown Address Unknown Phone Unavailable PROBLEMS Condition Status Date Provider Notes Acute sinusitis active Vaishali Kilo Vaccination Against Influenza completed - 12/02 Amadou Alonzo DEPRESSIVE DISORDER, MAJOR, RECURRENT EPISODE, MODERATE active Kyle Hernández GENERALIZED ANXIETY DISORDER active Kyle davis ENCOUNTERS Date Type Provider Location Encounter Diagn osis - Ambulatory Encounter Christina Carreon [facility] Health UNK - Ambulatory Encounter Kyle Hernández [facility] UNK - Ambulatory Encounter Kyle Barrera [facility] UNK - Ambulatory Encounter Thida Lopez [facility]at [facility] Contact Center UNK - Ambulatory Encounter Thida Lopez Anat [facility] UNK - Ambulatory Encounter Thida Lopez [facility] UNK - Ambulatory Encounter Thida Lopez Lior Carter [facility] UNK - Ambulatory Encounter Kyle Hernández [facility] UNK - Ambulatory Encounter Kyle Barrera [facility] UNK - Ambulatory Encounter Mike Vasquez [facility] Family [facility] UNK - Ambulatory Encounter Vaishali Kilo [place] Kilo [facility] UNK - Ambulatory Encounter Vaishali Kilo [place] [facility] UNK - Ambulatory Encounter Vaishali Silvestre geeta Nullia Kilo [facility]izabeth [facility] Acute sinusiti s - Ambulatory Encounter [facility] - Ambulatory Encounter Kyle Richea [facility] UNK - Ambulatory Encounter Christina Barrera [facility] UNK - [facility] - [facility]ulatory Encounter Kyle Hern[facility]dez [facility] - Ambulatory Encounter [facility]rera [facility] UNK - Ambulatory Encounter Kyle goyal Bernryan [facility] UNK - Ambulatory Encounter Leeanne Carreon [facility] UNK - Ambulatory Encounter Christina [facility] - Ambulatory Encounter Kyle Hern[facility]dez [facility] UNK - Ambulatory Encounter Kyle Barrera [facility] UNK - Ambulatory Encounter Kyle Hern[facility]dez [facility] UNK - Ambulatory Encounter Kyle Schroeder [facility] UNK - Ambulatory Encounter Christina [facility] UN[facility] - Ambulatory Encounter Kyle Hern[facility]dez [facility] UNK - [facility] - Ambulatory Encounter Christina Barrera L [facility] UNK - Ambulatory Encounter Kyle Hern[facility]dez [facility] UN[facility] - Ambulatory Encounter Kyle Arsalanryan Barrera [facility] UNK - Ambulatory Encounter Kyle Hernández [facility] UNK - Ambulatory Encounter Leeanne Carreon [facility] UNK - Ambulatory Encounter Christina Barrera Anat [facility] UNK - Ambulatory Encounter Kyle Arsalanryan Chaudhary jyotsna Arriazaryan [facility] UNK - Ambulatory Encounter Kyle Hern[facility]dez [facility] UNK - Ambulatory Encounter Kyle Arriazaryan Barrera [facility] UNK - Ambulatory Encounter Amadou Fabian [facility] Family [facility] UNK - Ambulatory Encounter Leeanne Walsh Anat [facility] UNK - Ambulatory Encounter Reneekallizabeth Vasquez [facility] UNK - Ambulatory Encounter Laura Hull L [facility] UNK - Ambulatory Encounter Amadou Alonzo [facility] UNK - Ambulatory Encounter Amadou Duranhowes cavelizabeth [facility] Vaccination Ag ainst Influenza - Ambulatory Encounter Isaura Blaire L [facility] UNK - Ambulatory Encounter Laura Hull [facility] UN[facility] - Ambulatory Encounter Laura Steeleia [facility] UNK [facility] Ambulatory Encounter Leeanne Jillian L [facility] UNK - Ambulatory Encounter Cheryl Church [facility] Pediatric[facility] UNK - Ambulatory Encounter Kyle Hernández [facility] UNK - Ambulatory Encounter Kyle Rudd [facility] UNK - Ambulatory Encounter Leeanne Carreon [facility] UNK - Ambulatory Encounter Lisa Carreon [facility] UNK - Ambulatory Encounter Kyle Hernández [facility] UNK - Ambulatory Encounter Kyle Arnold [facility] UNK - Ambulatory Encounter Leeanne Carreon [facility] UNK - Ambulatory Encounter Kyle Hernández [facility] UNK - Ambulatory Encounter Kyle Arnold [facility] UNK - Ambulatory Encounter Kyle Beck [facility] UNK - Ambulatory Encounter Kyle Fabian [facility] UNK - Ambulatory Encounter Leeanneviviane Walsh L [facility] UNK - Ambulatory Encounter Leeanne Jillian [facility] UN[facility] - Ambulatory Encounter Kyle Hern[facility]dez [facility] UNK - Ambulatory Encounter Kyle Arnold [facility] UNK - Ambulatory Encounter Leeanne Jillian [facility] UNK - Ambulatory Encounter Kyle Wills [facility] UNK - Ambulatory Encounter Leeanne Jillian L [facility] UNK - Ambulatory Encounter Leeanne Jillian L [facility] UNK - Ambulatory Encounter Leeanne Jillian L [facility] UNK - Ambulatory Encounter Leeanne Jillian L [facility] Health UNK - Ambulatory Encounter Kyle goyal Arsalanryan [facility] UNK - Ambulatory Encounter Kyle Hernández [facility] UNK - Ambulatory Encounter Kyle Arnold [facility] UNK - Ambulatory Encounter Leeanne Jillian L [facility] UNK - Ambulatory Encounter Kyle Hernández [facility] UNK - Ambulatory Encounter Kyle Arnold [facility] UNK - Ambulatory Encounter Kyle Hernández [facility] UNK - Ambulatory Encounter Kyle Melton [facility] UNK - Ambulatory Encounter Kyle HusseinLogbk [facility] UNK - Ambulatory Encounter Leeanne Jillian L [facility] UNK - Ambulatory Encounter Lisa Arnold [facility] UNK - Ambulatory Encounter Leeanneviviane Walsh [facility] UNK - Ambulatory Encounter Kyle Hern[facility]dez [facility] UNK - Ambulatory Encounter Lisa Arnold L [facility] UNK - Ambulatory Encounter Kyle Arnold [facility] UNK - Ambulatory Encounter Leeanneviviane Walsh [facility] UNK - Ambulatory Encounter [facility] UNK - Ambulatory Encounter Kyle Hern[facility]dez [facility] UNK - Ambulatory Encounter Kyle Arnold [facility] UNK - Ambulatory Encounter Leeanneviviane Walsh [facility] UNK - Ambulatory Encounter Lauraiona Steeleia [facility] UNK - Ambulatory Encounter Leeanneviviane Walsh L [facility] UNK - Ambulatory Encounter Kyle Hern[facility]dez [facility] UNK - Ambulatory Encounter Kyle Arnold [facility] UNK - Ambulatory Encounter Lisa Carreon [facility] UNK - Ambulatory Encounter Leeanne Carreon [facility] UNK - Ambulatory Encounter Lisa Arnold Anat [facility] UNK - Ambulatory Encounter Leeanne Carreon [facility] UNK - Ambulatory Encounter Kyle Arnold [facility] UNK - Ambulatory Encounter Kyle Hernández [facility] UNK - Ambulatory Encounter Kyle goyal Arsalanryan [facility] UNK - Ambulatory Encounter Kyle Arnold [facility] GENERALIZED ANXIETY DISORDERDEPRESSIVE DISORDER, MAJOR, RECURRENT EPISODE, MODERATE - Ambulatory Encounter Linette palmer [facility] Contact [facility] UNK VITAL SIGNS Date [...] Christina Holly oxygen saturation, oximetry 98 % [facility] " blood pressure, diastolic 82 mm[Hg] [facility] " blood pressure, systolic 138 mm[Hg] Debora [facility] " respiratory rate E&M 16 /min Debhowes caveth [facility] " pulse rate E&M 89 /min Debhowes [facility] " temperature E&M 98.9 [degF] Deb[facility] " weight E&M 158.60 lbs. [facility] " weight in kilograms E&M 72.09 kg [facility] " method used to obtain blood pressure automatic [facility] " Blood Pressure Position 01 sitting [facility] " blood pressure, site #1 left arm [facility] " temperature site oral [facility] " height E&M 63 [in_i] [facility] " height in centimeters E&M 160.02 cm [facility] method used to obtain blood pressure [...] Holly oxygen saturation, oximetry 98 % [facility] " blood pressure, diastolic 92 mm[Hg] Anel [facility] " blood pressure, systolic 144 mm[Hg] Deborat h Vasquez " respiratory rate E&M 18 /min Deborath [facility] " pulse rate E&M 68 /min Deborath [facility] " temperature E&M 98.0 [degF] Debora [facility] " weight E&M 156.38 lbs. Deborath [facility] " weight in kilograms E&M 71.08 kg " method used to obtain blood pressure automatic [facility] Vasquez " Blood Pressure Position 01 sitting Debor ath Vasquez " blood pressure, site #1 right arm Debhowes caveth Vasquez " temperature site oral Deb Granad [...] their father Graduated [employer]. 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 Seperated in 2004, after 15 years of marriage - 2 children 21, and 18 - live with their father Graduated [employer]. 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 Seperated in 2004, after 15 years of marriage - 2 children 21, and 18 - live with their father Graduated [employer]. 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 Seperated in 2004, after 15 years of marriage - 2 children 21, and 18 - live with their father Graduated [employer]. 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 Seperated in 2004, after 15 years of marriage - 2 children 21, and 18 - live with their father Graduated [employer]. 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 Seperated in 2004, after 15 years of marriage - 2 children 21, and 18 - live with their father Graduated [employer]. 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 Seperated in 2004, after 15 years of marriage - 2 children 21, and 18 - live with their father Graduated [employer]. 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 Seperated in 2004, after 15 years of marriage - 2 children 21, and 18 - live with their father Graduated [employer]. 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 Seperated in 2004, after 15 years of marriage - 2 children 21, and 18 - live with their father Graduated [employer]. 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 Went to [employer] [facility] for medical billing and coding Works [...] appropriat e, cooperative, good eye contact, responsive Kyel Berno " mental appearance (mental status exam) [...] appropriat e, cooperative, good eye contact, responsive Kyel Berno " mental appearance (mental status exam) [...] Disorder Questionnaire - Que stion 2 [address] [facility] " Generalized Anxiety Disorder Questionnaire - Que stion 1 3 [facility] mental status assessment, judgment fair Leeanne [...] (mental status exam) adequate hygiene, appropriate dress Kyel Hernández mental status assessment, judgment fair Leeanne [...] mood (mental status exam) frustrated, pleasant S tacezëo Jillian " mental status assessment, speech activit [...] Problem - 99 213 Psychotherapy 45 (38-52*) il n - [id number] (with patient and/or family member) Est Patient Exp Problem - 99 213 Psychotherapy 45 (38-52*) il n - [id number] (with patient and/or family member) Est Patient Detailed - 42260 Psychotherapy 45 (38-52*) mi n - [id number] (with patient and/or family member) Est Patient Exp Problem - 99 213 Psychotherapy 45 (38-52*) mi n - [id number] (with patient and/or family member) Est Patient Detailed - 43608 Psychotherapy 45 (38-52*) mi n - [id number] (with patient and/or family member) Est Patient Exp Problem - 99 213 INFLUENZA VACCINE QUADRIVALE NT 3 YRS PLUS IM Admin of Vaccine - Injection - 1 Psychotherapy 45 (38-52*) mi n - [id number] (with patient and/or family member) Est Patient Exp Problem - 99 213 Psychotherapy 45 (38-52*) mi n - [id number] (with patient and/or family member) Est Patient Exp Problem - 99 213 Psychotherapy 45 (38-52*) mi n - [id number] (with patient and/or family member) Est Patient Exp Problem - 99 213 Psychotherapy 45 (38-52*) mi n - [id number] (with patient and/or family member) Psychotherapy 45 (38-52*) mi n - [id number] (with patient and/or family member) Est Patient Detailed - 97400 Psychotherapy 45 (38-52*) mi n - [id number] (with patient and/or family member) Psychotherapy 45 (38-52*) mi n - [id number] (with patient and/or family member) Psychotherapy 60 (53+*) min - 74090 (with patient and/or family member) Psychotherapy 45 (38-52*) mi n - [id number] (with patient and/or family member) Psychotherapy 60 (53+*) min - 41278 (with patient and/or family member) Est Patient Exp Problem - 99 213 Psychotherapy 45 (38-52*) mi n - [id number] (with patient and/or family member) Est Patient Exp Problem - 99 213 Psychotherapy 45 (38-52*) mi n - [id number] (with patient and/or family member) Psychotherapy 45 (38-52*) mi n - [id number] (with patient and/or family member) Est Patient Exp Problem - 99 213 Psychotherapy 45 (38-52*) mi n - [id number] (with patient and/or family member) Est Patient Detailed - 37593 Psychotherapy 45 (38-52*) mi n - [id number] (with patient and/or family member) Psychotherapy 45 (38-52*) mi n - 48025 (with patient and/or family member) Est Patient Detailed - 22128 Psychotherapy 45 (38-52*) mi n - [id number] (with patient and/or family member) Diagnostic evaluation (no me dical) - 51689 Diagnostic evaluation with m eri - 60746 HISTORY OF PROCEDURES Procedure Date Procedure Name Provider Procedure Notes Status Psychotherapy 45 (38-52*) mi n - [id number] (with patient and/or family member) Leeanne Walsh completed Psychotherapy 45 (38-52*) mi n - [id number] (with patient and/or family member) Leeanne Walsh completed Psychotherapy 45 (38-52*) mi n - [id number] (with patient and/or family member) Leeanne Walsh completed Psychotherapy 45 (38-52*) mi n - [id number] (with patient and/or family member) Leeanne Walsh completed Psychotherapy 45 (38-52*) mi n - [id number] (with patient and/or family member) Leeanne Walsh completed Psychotherapy 45 (38-52*) mi n - [id number] (with patient and/or family member) Leeanne Walsh completed Psychotherapy 45 (38-52*) mi n - [id number] (with patient and/or family member) Leeanne Jillian completed Psychotherapy 45 (38-52*) mi n - 28643 (with patient and/or family member) Leeanne Jillian completed Psychotherapy 45 (38-52*) mi n - 65730 (with patient and/or family member) Leeanne Jillian completed Psychotherapy 45 (38-52*) mi n - 48062 (with patient and/or family member) Leeanne Jillian completed Psychotherapy 45 (38-52*) mi n - 37385 (with patient and/or family member) Leeanne Jillian completed Psychotherapy 45 (38-52*) mi n - 09300 (with patient and/or family member) Leeanne Jillian completed Psychotherapy 60 (53+*) min - 95914 (with patient and/or family member) Leeanne Jillian completed Psychotherapy 45 (38-52*) mi n - 35366 (with patient and/or family member) Leeanne Jillian completed Psychotherapy 60 (53+*) min - 34833 (with patient and/or family member) Leeanne Jillian completed Psychotherapy 45 (38-52*) mi n - 12310 (with patient and/or family member) Leeanne Jillian completed Psychotherapy 45 (38-52*) mi n - 96220 (with patient and/or family member) Leeanne Jillian completed Psychotherapy 45 (38-52*) mi n - 36829 (with patient and/or family member) Leeanne Jillian completed Psychotherapy 45 (38-52*) mi n - 40929 (with patient and/or family member) Leeanne Jillian completed Psychotherapy 45 (38-52*) mi n - 51770 (with patient and/or family member) Leeanne Jillian completed Psychotherapy 45 (38-52*) mi n - 51130 (with patient and/or family member) Leeanne Jillian completed Psychotherapy 45 (38-52*) il n - 74881 (with patient and/or family member) Leeanne Walsh completed Diagnostic evaluation (no medical) - 91375 Leeanne duarte completed Diagnostic evaluation with medical - 99265 Kyle Grullon no completed GOALS No Information Available HEALTH CONCERNS No Information Available
[2019-11-24] MEDS ORDERED: SODIUM CHLORIDE 0.9% 1000ML 1,000 ML IV STA (21:24)
--- OUTSIDE RECORDS SUMMARY | 2019-11-24 21:24 | XMS REPORT ---
Author Author Admin, Kalie Merced Organization Unknown Address Unknown Phone Unavailable PROBLEMS Condition Status Date Provider Notes Viral URI active Divina Meaghan Overweight active Divina Meaghan Acute sinusitis completed - Divina Meaghan Vaccination Against Influenza completed - 12/02 Amadou Alonzo DEPRESSIVE DISORDER, MAJOR, RECURRENT EPISODE, MODERATE active Kyle Hernández GENERALIZED ANXIETY DISORDER active Kyle davis ENCOUNTERS Date Type Provider Location Encounter Diagn osis - Ambulatory Encounter Kyle Hernández [facility] UNK - Ambulatory Encounter Kyle Barrera [facility] Health UNK - Ambulatory Encounter Rubi Ibrahim [facility] Practice UNK - Ambulatory Encounter Divina Harding [facility] UNK - Ambulatory Encounter Divina Almazan n Divina Ibrahim [facility] Acute sinusitisOverweightViral URI - [facility] - [facility] - Ambulatory Encounter Christina Carreon [facility] UNK - Ambulatory Encounter Kyle Hernández [facility] UNK - Ambulatory Encounter Kyle Barrera [facility] [employer] [facility] UNK - Amb[facility] - Ambulatory Encounter Thileonel Lopez Anat [facility] UNK - [facility] - [facility] - Ambulatory Encounter [facility] - [facility]ulatory En[facility] - Ambulatory Encounter Mike Coulterados [facility] - Ambulatory En[facility]ishali Kilo [facility] - [facility]ilo [facility] - [facility] Acute sinusiti s - Ambulatory Encounter Kyle Hernández [facility] UNK - Ambulatory Encounter [facility] - [facility]ulatory Encounter [facility] - Ambulatory Encounter Leeanne [facility] - Ambulatory Encounter [facility] - Ambulatory Encounter [facility] - Ambulatory Encounter Kyle Hernández [facility] UNK - Ambulatory Encounter Leeanneviviane Mascorroen [facility] - Ambulatory Encounter Christina Holly [facility] - Ambulatory Encounter [facility] - Ambulatory Encounter [facility] - Ambulatory Encounter Kyle Hernández [facility] UNK - Ambulatory Encounter Kyle Scott [facility] UNK - Ambulatory Encounter Christina Barrera L [facility] UNK - Ambulatory Encounter Kyle goyal Arsalanryan [facility] - Ambulatory Encounter Leeanne Jillian L [facility] UNK - Ambulatory Encounter Christina Barrera L [facility] UNK - Ambulatory Encounter [facility] - Ambulatory Encounter [facility] - Ambulatory Encounter [facility] - Ambulatory Encounter Leeannezoë Walsh [facility] UNK - Ambulatory Encounter Christina [facility] - Ambulatory Encounter [facility] - Ambulatory Encounter [facility] - Ambulatory Encounter Kyle Pathakcy Holly [facility] UNK - Ambulatory Encounter Amadou Fabian [facility] - Ambulatory Encounter Leeanne Jillian L [facility] UNK - Ambulatory Encounter Reneefannie Vasquez [facility] - Ambulatory Encounter Laura Hull L [facility] UNK - Ambulatory Encounter [facility] Alonzo [facility] - Ambulatory Encounter Amadou Duransaint cloudlizabeth [facility] Vaccination Ag ainst Influenza - Ambulatory Encounter Isaura Blaire L [facility] UNK - Ambulatory Encounter Laura Hull L [facility] UNK - Ambulatory Encounter Laura Hull L [facility] UNK - Ambulatory Encounter Leeanne Jillian L [facility] UNK - Ambulatory Encounter Cheryl Church [facility] Pediatrics UNK - Ambulatory Encounter Kyle Hernández [facility] UNK - Ambulatory Encounter Kyle Mcgarryo [facility] UNK - Ambulatory Encounter Leeanne Jillian L [facility] UNK - Ambulatory Encounter Lisa Arnold L [facility] UNK - Ambulatory Encounter Kyle Hernández [facility] UNK - Ambulatory Encounter Kyle Arnold [facility] UNK - Ambulatory Encounter Leeanne Jillian L [facility] UNK - Ambulatory Encounter Kyle Chaudhary jyotsna Arriazaryan [facility] UNK - Ambulatory Encounter Kyle Olivajo [facility] UNK - [facility] - Ambulatory Encounter Kyle Fabian [facility] UNK - Ambulatory Encounter Leeanne Jillian L [facility] UNK - Ambulatory Encounter Leeanne Jillian L [facility] UNK - Ambulatory Encounter Kyle goyal Arsalanryan [facility] UNK - Amb[facility] - Ambulatory Encounter Leeanne Jillian L [facility] UNK - Ambulatory Encounter Kyle Wills [facility] UNK - Ambulatory Encounter Leeanne Jillian L [facility] UNK - Ambulatory Encounter Leeanne Jillian L [facility] UNK - Ambulatory Encounter Leeanne Jillian L [facility] UNK - Ambulatory Encounter Leeanne Jililan L [facility] UNK - Ambulatory Encounter Kyle goyal Arsalanryan [facility] UN[facility] - Ambulatory Encounter Kyle Chaudhary jyotsna rAriazaryan [facility] UNK - Ambulatory Encounter Kyle Arnold [facility] UNK - Ambulatory Encounter Leeanneviviane Carreon [facility] Health UNK - Ambulatory Encounter Kyle goyal Arsalanryan [facility] UNK - Ambulatory Encounter Kyle Arnold [facility] UNK - Ambulatory Encounter Kyle goyal Arsalanryan [facility] UNK - Ambulatory Encounter Kyle Fabian [facility] UNK - Ambulatory Encounter Kyle Fabian [facility] UNK - Ambulatory Encounter Leeanneviviane Walsh L [facility] UNK - Ambulatory Encounter Lisa Arnold L [facility] UNK - Ambulatory Encounter Leeanneviviane Walsh L [facility] UNK - Ambulatory Encounter Kyle goyal Arsalanryan [facility] UNK - Ambulatory Encounter Lisa [facility] - Ambulatory Encounter Kyle Arnold [facility] UNK - Ambulatory Encounter Leeanneviviane Walsh L [facility] UNK - Ambulatory Encounter Lisa Arnold [facility] - Ambulatory Encounter Kyle Hernández [facility] UNK - Ambulatory Encounter Kyle Arnold [facility] UNK - Ambulatory Encounter Leeanne Mascorroen Anat [facility] UNK - Ambulatory Encounter Laura Carreon [facility] UNK - Ambulatory Encounter Leeanne Mascorrogerald Carreon [facility] UNK - Ambulatory Encounter Kyle Hernández [facility] UNK - Ambulatory Encounter Kyle Arnold [facility] UNK - Ambulatory Encounter Lisa Carreon [facility] Health UNK - Ambulatory Encounter Leeanne Mascorroen L [facility] Health UNK - Ambulatory Encounter Lisa Carreon [facility] Health UNK - Ambulatory Encounter Leeanneviviane Mascorroen L [facility]al Health UNK - Ambulatory Encounter Kyle Arnold [facility] Health UNK - Ambulatory Encounter Kyle Hernández [facility] UNK - Ambulatory Encounter Kyle Hernández [facility] UNK - Ambulatory Encounter Kyle Arnold [facility] GENERALIZED ANXIETY DISORDERDEPRESSIVE DISORDER, MAJOR, RECURRENT EPISODE, MODERATE - Ambulatory Encounter Linette palmer [facility] Services Contact Center UNK VITAL SIGNS Date Observation Value Provider oxygen saturation, oximetry 96 % Dawn josé miguel Ibrahim " blood pressure, diastolic 68 mm[Hg] Randell a Ibrahim " blood pressure, systolic 106 mm[Hg] Rubi Ibrahim " respiratory rate E&M 16 /min Rubi Vas royer " pulse rate 101 /min Rubi Ibrahim " temperature E&M 98.5 [degF] Rubi Ibrahim " weight E&M 163.20 lbs. Rubi Ibrahim " weight in kilograms E&M 74.18 kg Rubi Ibrahim " method used to obtain blood pressure automatic Rubi Howardquez " Blood Pressure Position 01 sitting Terry Howardquez " blood pressure, site #1 left arm Rubi Ibrahim " temperature site oral Rubi Ibrahim " height E&M 63 [in_i] Rubi Ibrahim " height in centimeters E&M 160.02 cm Randell Howardquez blood pressure, diastolic 87 mm[Hg] Christina Holly " blood pressure, systolic 127 mm[Hg] Christina G ovea " pulse rate 86 /min Christina Holly " weight E&M [...] mm[Hg] Christina G ovea " pulse rate 96 /min Christina Holly " weight E&M 161.25 lbs. Christina Holly " weight in kilograms E&M 73.30 kg Kyle Hernández " height E&M 63 [in_i] Christina Holly " height in centimeters E&M 160.02 cm Christina Holly oxygen saturation, oximetry 98 % [facility] " blood pressure, diastolic 82 mm[Hg] Anel [facility] " blood pressure, systolic 138 mm[Hg] Deborat h Vasquez " respiratory rate E&M 16 /min Deborath Gr anados " pulse rate 89 /min Deborath Blair s " temperature E&M 98.9 [degF] Deborath Blair s " weight E&M 158.60 lbs. Deborath Blair s " weight in kilograms E&M 72.09 kg [facility] Vasquez " method used to obtain blood pressure automatic [facility] " Blood Pressure Position 01 sitting Debor ath Vasquez " blood pressure, site #1 left arm [facility] Vasquez " temperature site oral Deborath Granad os " height E&M 63 [in_i] Debsaint cloudth Blair s " height in centimeters E&M 160.02 cm Anel [facility] method used to obtain blood pressure automatic Christina Holly " Blood Pressure Position 01 sitting Christina Holly " blood pressure, site #1 right arm Christina Go derrick " blood pressure, diastolic 82 mm[Hg] Christina Holly " blood pressure, systolic 130 mm[Hg] Christina G ovea " pulse rate 89 /min Christina Holly " weight E&M [...] mm[Hg] Christina G ovea " pulse rate 88 /min Christina Holly " weight E&M 160 lbs. Christina Holly " weight in kilograms E&M 72.73 kg Christina Go derrick " height E&M 63 [in_i] Christina Holly " height in centimeters E&M 160.02 cm Christina Holly blood pressure, diastolic 89 mm[Hg] Christina Holly " blood pressure, systolic 140 mm[Hg] Christina G ovea " pulse rate 74 /min Christina Holly " weight E&M [...] mm[Hg] Christina G ovea " pulse rate 83 /min Christina Holly " weight E&M 155.50 lbs. Christina Holly " weight in kilograms E&M 70.68 kg Christina Estrada derrick " height E&M 63 [in_i] Christina Holly " height in centimeters E&M 160.02 cm Christina Holly method used to obtain blood pressure automatic Christina Holly " Blood Pressure Position 01 sitting Christina Holly " blood pressure, site #1 right arm Christina Estrada derrick " blood pressure, diastolic 75 mm[Hg] Christina Holly " blood pressure, systolic 107 mm[Hg] Christina G ovea " pulse rate 61 /min Christina Holly " weight E&M 158 lbs. Christina Holly " weight in kilograms E&M 71.82 kg Christina Estrada derrick " height E&M 63 [in_i] Christina Holly " height in centimeters E&M 160.02 cm Christina Holly oxygen saturation, oximetry 98 % Janie rath Vasquez " blood pressure, diastolic 92 mm[Hg] Anel th Vasquez " blood pressure, systolic 144 mm[Hg] Deborat h Vasquez " respiratory rate E&M 18 /min Deborath Gr anados " pulse rate 68 /min Deborath Blair s " temperature E&M 98.0 [degF] Deborath Blair s " weight E&M 156.38 lbs. Deborath Blair s " weight in kilograms E&M 71.08 kg Deb " method used to obtain blood pressure automatic Debsaint cloudth Vasquez " Blood Pressure Position 01 sitting Debor ath Vasquez " blood pressure, site #1 right arm Deborath Vasquez " temperature site oral Deborath Granad os " height E&M 63 [in_i] Deborath Blair s " height in centimeters E&M 160.02 cm Aenl th Vasquez method used to obtain blood pressure automatic Isaura Blaire " Blood Pressure Position 01 sitting Dalil a Blaire " blood pressure, site #1 left arm Isaura O rtuno " blood pressure, diastolic 84 mm[Hg] Isaura Blaire " blood pressure, systolic 129 mm[Hg] Isaura Blaire " pulse rate 71 /min Isaura Blaire " weight E&M [...] mm[Hg] Lisa R jane " pulse rate 84 /min Lisa Arnold " weight E&M [...] mm[Hg] Lisa R jane " pulse rate 79 /min Lisa Arnold " weight E&M [...] mm[Hg] Lisa R jane " pulse rate 81 /min Lisa Arnold " weight E&M [...] mm[Hg] Lisa R jane " pulse rate 77 /min Lisa Arnold " weight E&M [...] mm[Hg] Lisa R jane " pulse rate 88 /min Lisa Arnold " weight E&M [...] mm[Hg] Lisa R jane " pulse rate 90 /min Lisa Arnold " weight E&M [...] mm[Hg] Lisa R jane " pulse rate 87 /min Lisa Arnold " weight E&M [...] mm[Hg] Lisa R jane " pulse rate 77 /min Lisa Arnold " weight E&M [...] mm[Hg] Lisa R jane " pulse rate 91 /min Lisa Arnold " weight E&M [...] Provider smoking status never smoker Kyle Hernández Exercise Program Referral T Randell Ibrahim " [...] T Mike Vasquez " Nutrition intervention T Deborath Vasquez " alcohol use Previously Deborath Blair s " drug use, illicit Never Deborath Diandra dos " social history E&M One little sister Lives with bio parents. Seperated in 2004, after 15 years of marriage - 2 children 21, and 18 - live with their father Graduated [employer]. 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 Seperated in 2004, after 15 years of marriage - 2 children 21, and 18 - live with their father Graduated [employer]. 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 No Deborath Vasquez " passive cigarette smoke exposure No Debora Vasquez " smoking status never smoker Reneeorath Blair s smoking status never smoker Kyle Hernández smoking status never smoker Kyle Hernández " social history E&M One little sister Lives with bio parents. Seperated in 2004, after 15 years of marriage - 2 children 21, and 18 - live with their father Graduated [employer]. 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 Seperated in 2004, after 15 years of marriage - 2 children 21, and 18 - live with their father Graduated [employer]. 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 Seperated in 2004, after 15 years of marriage - 2 children 21, and 18 - live with their father [employer]. 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 Seperated in 2004, after 15 years of marriage - 2 children 21, and 18 - live with their father Grad[employer]. 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 Seperated in 2004, after 15 years of marriage - 2 children 21, and 18 - live with their father [employer]. 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 Seperated in 2004, after 15 years of marriage - 2 children 21, and 18 - live with their father Graduated [employer]. 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 Seperated in 2004, after 15 years of marriage - 2 children 21, and 18 - live with their father Graduated [employer]. 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 Seperated in 2004, after 15 years of marriage - 2 children 21, and 18 - live with their father Grad[employer]. 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 Seperated in 2004, after 15 years of marriage - 2 children 21, and 18 - live with their father Graduated [employer]. 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 Works [...] Date Observation Value Provider mental status assessment, motor activity sitting in her car Kyle Hernández" mental status assessment, judgment fair Kyle Hernándze" insight (mental status exam) fair, limited with relationships Kyle Hernández " Mental Status Exam: intelligence oriente d to person, oriented to place, oriented to time, oriented to reality Kyle Hernández" hallucinations none Kyle Hernández" thought content (mental status exam) (E&M) lucid Kyle Hernández" mental status assessment, process goal-directed, logical Kyle Hernández" mental status assessment, sensorium alert, clear Kyle Hernández" affect (mental status exam) congruent, anxious Kyle Hernández " mood (mental status exam) " OK " Michae l Berno " mental status assessment, speech activit y normal flow, normal pace, normal pressure, normal rate, normal tone, normal volume, spontaneous Kyle Berno " behavior (mental status exam) appropriat e, cooperative, good eye contact, responsive Kyle Hernández " mental appearance (mental status exam) s een via telemedicine appt. seen via telemedicine appt. Kyle Hernández Generalized Anxiety Disorder Questionnaire - Que stion 2 0 Rubi Ibrahim " Generalized Anxiety Disorder Questionnaire - Que stion 1 0 Rubi Ibrahim mental status assessment, judgment fair Kyle Hernández " insight (mental status exam) fair, limited with relationships Kyle Hernández " Mental Status Exam: intelligence oriente d to person, oriented to place, oriented to time, oriented to reality Kyle Arsalano " hallucinations none Kyle Berno " thought content (mental status exam) (E&M) lucid Kyle Hernández" mental status assessment, process goal-directed, logical Kyle Hernández " mental status assessment, sensorium alert, clear Kyle Hernández " affect (mental status exam) congruent, anxious Kyle Hernández " mood (mental status exam) " nuetral [...] Hernández mental status assessment, judgment fair Kyle Hernández " insight (mental status exam) fair, limited with relationships Kyle Hernández " Mental Status Exam: intelligence oriente d to person, oriented to place, oriented to time, oriented to reality Kyle Berno " hallucinations none Kyle Berno " thought content (mental status exam) (E&M) lucid Kyle Hernández " mental status assessment, process goal-directed, logical Kyle Arriazao " mental status assessment, sensorium alert, clear Kyle Arriazao " affect (mental status exam) congruent, anxious [...] e, cooperative, good eye contact, responsive Kyle Arsalano " mental appearance (mental status exam) adequate hygiene, appropriate dress Kyle Hernández mental status assessment, judgment fair Kyle Berno " insight (mental status exam) fair, limited with relationships Kyle Arsalano " Mental Status Exam: intelligence oriente d [...] e, cooperative, good eye contact, responsive Kyle Arsalano " mental appearance (mental status exam) adequate [...] oriented to time, oriented to reality Kyle Arsalano " hallucinations none Kyle Berno " thought [...] motor activity normal gait, normal posture Kyle Arriazao " behavior (mental status exam) [...] content (mental status exam) (E&M) lucid Leeanneviviane Mascorroen " mental status assessment, process goal-directed, logical [...] Kyle Hernández " mood (mental status exam) anxious, pleasant Ty aeanat Hernández " mental status assessment, speech activit y normal flow, normal pace, normal pressure, normal rate, normal tone, normal volume, spontaneous Kyle Hernández " mental status assessment, motor activity normal gait, normal posture Kyle Hernández " behavior (mental status exam) [...] Disorder Questionnaire - Que stion 2 3 Debsaint cloud Pedro " Generalized Anxiety Disorder Questionnaire - Que stion 1 3 Mike Vasquez mental status [...] appropriat e, cooperative, good eye contact, responsive Ykle Berno " mental appearance (mental status exam) [...] " insight (mental status exam) fair Jet Arriazao " Mental Status Exam: intelligence oriente d to person, oriented to place, oriented to time, oriented to reality Kyle Berno " hallucinations none Kyle Berno " thought content (mental status exam) (E&M) lucid Kyle Berno " mental status assessment, process goal-directed, logical Ykle Berno " mental status assessment, sensorium alert, [...] congruent, e uthymic, normal intensity, normal range Leaenne Jillian " mood (mental status exam) anxious, [...] " insight (mental status exam) fair Jet jyotsna Hernández " Mental Status Exam: intelligence oriente [...] affect (mental status exam) congruent, euthymic Leeanne Jillain " mental status assessment, speech activit y [...] Est Patient Exp Problem - 99 213 Ofc Vst, Est Level III Est Patient Exp Problem - 99 213 Est Patient Exp Problem - 99 213 Est Patient Exp Problem - 99 213 Est Patient Exp Problem - 99 213 Psychotherapy 45 (38-52*) mi n - [id number] (with patient and/or family member) Est Patient Exp Problem - 99 213 Psychotherapy 45 (38-52*) mi n - [id number] (with patient and/or family member) Est Patient Detailed - 34053 Psychotherapy 45 (38-52*) mi n - [id number] (with patient and/or family member) Est Patient Exp Problem - 99 213 Psychotherapy 45 (38-52*) mi n - [id number] (with patient and/or family member) Est Patient Detailed - 28798 Psychotherapy 45 (38-52*) mi n - [id number] (with patient and/or family member) Est Patient Exp Problem - 99 213 INFLUENZA VACCINE QUADRIVALE NT 3 YRS PLUS IM Admin of Vaccine - Injection - 1 Psychotherapy 45 (38-52*) mi n - [id number] (with patient and/or family member) Est Patient Exp Problem - 99 213 Psychotherapy 45 (38-52*) mi n - [id number] (with patient and/or family member) Est Patient Exp Problem - 99 213 Psychotherapy 45 (38-52*) mi n - [id number] (with patient and/or family member) Est Patient Exp Problem - 99 213 Psychotherapy 45 (38-52*) mi n - [id number] (with patient and/or family member) Psychotherapy 45 (38-52*) mi n - [id number] (with patient and/or family member) Est Patient Detailed - 47487 Psychotherapy 45 (38-52*) mi n - [id number] (with patient and/or family member) Psychotherapy 45 (38-52*) mi n - [id number] (with patient and/or family member) Psychotherapy 60 (53+*) min - 45208 (with patient and/or family member) Psychotherapy 45 (38-52*) mi n - 90539 (with patient and/or family member) Psychotherapy 60 (53+*) min - 94791 (with patient and/or family member) Est Patient Exp Problem - 99 213 Psychotherapy 45 (38-52*) mi n - [id number] (with patient and/or family member) Est Patient Exp Problem - 99 213 Psychotherapy 45 (38-52*) mi n - [id number] (with patient and/or family member) Psychotherapy 45 (38-52*) mi n - [id number] (with patient and/or family member) Est Patient Exp Problem - 99 213 Psychotherapy 45 (38-52*) mi n - [id number] (with patient and/or family member) Est Patient Detailed - 71723 Psychotherapy 45 (38-52*) mi n - [id number] (with patient and/or family member) Psychotherapy 45 (38-52*) mi n - [id number] (with patient and/or family member) Est Patient Detailed - 44463 Psychotherapy 45 (38-52*) mi n - [id number] (with patient and/or family member) Diagnostic evaluation (no me dical) - 83060 Diagnostic evaluation with sumaya ibrahimical - 49778 HISTORY OF PROCEDURES Procedure Date Procedure Name Provider Procedure Notes Status Psychotherapy 45 (38-52*) mi n - [id number] (with patient and/or family member) Leeanne Walsh completed Psychotherapy 45 (38-52*) mi n - 21509 (with patient and/or family member) Leeanne Jillian completed Psychotherapy 45 (38-52*) mi n - 25792 (with patient and/or family member) Leeanne Jillian completed Psychotherapy 45 (38-52*) mi n - 02140 (with patient and/or family member) Leeanne Jillian completed Psychotherapy 45 (38-52*) mi n - [id number] (with patient and/or family member) Leeanne Jillian completed Psychotherapy 45 (38-52*) mi n - 96038 (with patient and/or family member) Leeanne Jillian completed Psychotherapy 45 (38-52*) mi n - [id number] (with patient and/or family member) Leeanne Jillian completed Psychotherapy 45 (38-52*) mi n - [id number] (with patient and/or family member) Leeanne Jillian completed Psychotherapy 45 (38-52*) mi n - [id number] (with patient and/or family member) Leeanne Jillian completed Psychotherapy 45 (38-52*) mi n - [id number] (with patient and/or family member) Leeanne Jillian completed Psychotherapy 45 (38-52*) mi n - 80641 (with patient and/or family member) Leeanneviviane Walsh completed Psychotherapy 45 (38-52*) mi n - 30363 (with patient and/or family member) Leeanneviviane Walsh completed Psychotherapy 60 (53+*) min - 81555 (with patient and/or family member) Leeanne Jillian completed Psychotherapy 45 (38-52*) mi n - [id number] (with patient and/or family member) Leeanneviviane Walsh completed Psychotherapy 60 (53+*) min - 43912 (with patient and/or family member) Leeanneviviane Walsh completed Psychotherapy 45 (38-52*) mi n - 95429 (with patient and/or family member) Leeanne Walsh completed Psychotherapy 45 (38-52*) mi n - [id number] (with patient and/or family member) Leeanne Walsh completed Psychotherapy 45 (38-52*) mi n - [id number] (with patient and/or family member) Leeanne Walsh completed Psychotherapy 45 (38-52*) mi n - 59630 (with patient and/or family member) Leeanne Walsh completed Psychotherapy 45 (38-52*) mi n - 78361 (with patient and/or family member) Leeanne Walsh completed Psychotherapy 45 (38-52*) mi n - 78023 (with patient and/or family member) Leeanne Walsh completed Psychotherapy 45 (38-52*) mi n - 85925 (with patient and/or family member) Leeanne Walsh completed Diagnostic evaluation (no medical) - 09549 Leeanne duarte completed Diagnostic evaluation with medical - 53406 Kyle Grullon no completed GOALS No Information Available [facility] No Information Available
--- OUTSIDE RECORDS SUMMARY | 2019-11-24 21:24 | XMS REPORT ---
Author Author Viktoria, Kalie Dennard Organization Unknown Address Unknown Phone Unavailable PROBLEMS Condition Status Date Provider Notes Viral URI active Divina Meaghan Overweight active Divina Meaghan Acute sinusitis completed - Divina Meaghan Vaccination Against Influenza completed - 12/02 Amadou Alonzo DEPRESSIVE DISORDER, MAJOR, RECURRENT EPISODE, MODERATE active Kyle Hernández GENERALIZED ANXIETY DISORDER active Kyle davis ENCOUNTERS Date Type Provider Location Encounter Diagn osis - Ambulatory Encounter Kyle Hernández [facility] UNK - Ambulatory Encounter Kyle Barrera [facility] UNK - Ambulatory Encounter Rubi Ibrahim [facility] UNK - Ambulatory Encounter Divina Harding [facility] UNK - Ambulatory Encounter Divina Almazan n Divina Ibrahim [facility] Acute sinusitisOverweightViral URI - [facility] - [facility] - [facility]ulatory Encounter Christina Carreon [facility] UNK - Ambulatory Encounter Kyle Hernández [facility] UNK - Ambulatory Encounter Kyle Barrera [facility] UNK - Ambulatory [facility] - Ambulatory Encounter Thileonel Lopez Anat [facility] UNK - Ambulatory [facility] - Ambulatory Encounter [facility] - Ambulatory Encounter [facility] Ambulatory Encounter Mike Coul[facility]ados [facility] - Ambulatory En[facility]ali [facility]ilo [facility] - [facility] En[facility] - [facility] Acute sinusiti s - Ambulatory Encounter Kyle Hernández [facility] UNK - Ambulatory Encounter [facility] - Ambulatory Encounter [facility] - Ambulatory Encounter Leeanne [facility] - Ambulatory Encounter [facility] - Ambulatory Encounter [facility] UNK - Ambulatory Encounter Kyle Hernández [facility] UNK - Ambulatory Encounter Leeanneviviane Mascorroen [facility] - Ambulatory Encounter [facility] - Ambulatory Encounter [facility] UNK - Ambulatory Encounter [facility] UNK - Ambulatory Encounter Kyle Hernández [facility] UNK - Ambulatory Encounter Kyle Scott [facility] UNK - Ambulatory Encounter Christina Barrera L [facility] UNK - Ambulatory Encounter Kyle goyal Arsalanryan [facility] UN[facility] - Ambulatory Encounter Leeanne Jillian L [facility] UNK - Ambulatory Encounter Christina Barrera L [facility] UNK - Ambulatory Encounter [facility] - Ambulatory Encounter [facility] UNK - Ambulatory Encounter [facility] UNK - Ambulatory Encounter Leeannezoë Walsh [facility] UNK - Ambulatory Encounter [facility] - Ambulatory Encounter [facility] UNK - Ambulatory Encounter [facility] UNK - Ambulatory Encounter Kyle Pathakcy Holly [facility] UNK - Ambulatory Encounter [facility]adou Fabian [facility] - Ambulatory Encounter Leeanne Jillian L [facility] UNK - Ambulatory Encounter [facility]efannie [facility]quez [facility] - Ambulatory Encounter Laura Hull L [facility] UNK - Ambulatory Encounter [facility]onzo [facility] - Ambulatory Encounter Amadou Duranatlantalizabeth [facility] Vaccination Ag ainst Influenza - Ambulatory Encounter Isaura Blaire L [facility] UNK - Ambulatory Encounter Laura Hull L [facility] UNK - Ambulatory Encounter Laura Hull L [facility] UNK - Ambulatory Encounter Leeanne Jillian L [facility] UNK - Ambulatory Encounter Cheryl Church [facility] UNK - Ambulatory Encounter Kyle Hernández [facility] UNK - Ambulatory Encounter Kyle Mcgarryo [facility] UNK - Ambulatory Encounter Leeanne Jillian L [facility] UNK - Ambulatory Encounter Lisa Arnold L [facility] UNK - Ambulatory Encounter Kyle Hernández [facility] UNK - Ambulatory Encounter Kyle Arnold [facility] UNK - Ambulatory Encounter Leeanne Jillian L [facility] UNK - Ambulatory Encounter Kyle Chaudhary jyotsna Arriazaryan [facility] UNK - Ambulatory Encounter Kyle Olivajo [facility] UNK - [facility] - [facility]ulatory Encounter Kyle Fabian [facility] UNK - Ambulatory Encounter Leeanne Jillian L [facility] UNK - Ambulatory Encounter Leeanne Jillian L [facility] UNK - Ambulatory Encounter Kyle goyal Arsalanryan [facility] UNK - [facility] - Ambulatory Encounter Leeanne Jillian L [facility] UNK - Ambulatory Encounter Kyle Wills [facility] UNK - Ambulatory Encounter Leeanne Jillian L [facility] UNK - Ambulatory Encounter Leeanne Jillian L [facility] UNK - Ambulatory Encounter Leeanne Jillian L [facility] UNK - Ambulatory Encounter Leeanne Jillian L [facility] UNK - Ambulatory Encounter [facility] goyal [facility]ryan [facility] UNK - Ambulatory Encounter Kyle Chaudhary jyotsna Arriazaryan [facility] UNK - Ambulatory Encounter Kyle Arnold [facility] UNK - Ambulatory Encounter Leeanneviviane Crareon [facility] UNK - Ambulatory Encounter Kyle goyal Arsalanryan [facility] UNK - Ambulatory Encounter Kyle Arnold [facility] UNK - Ambulatory Encounter Kyle goyal Arsalanryan [facility] UNK - Ambulatory Encounter Kyle Fabian [facility] UNK - Ambulatory Encounter Kyle Fabian [facility] UNK - Ambulatory Encounter Leeanneviviane Walsh L [facility] UNK - Ambulatory Encounter Lisa Arnold L [facility] UNK - Ambulatory Encounter Leeanneviviane Walsh L [facility] UNK - Ambulatory Encounter Kyle goyal Arsalanryan [facility] UNK - Ambulatory Encounter [facility] UNK - Ambulatory Encounter Kyle Arnold [facility] UNK - Ambulatory Encounter Leeanneviviane Walsh L [facility] UNK - Ambulatory Encounter Lisa [facility] UNK - Ambulatory Encounter Kyle Hernández [facility] UNK - Ambulatory Encounter Kyle Arnold [facility] UNK - Ambulatory Encounter Leeanne Mascorroen Anat [facility] UNK - Ambulatory Encounter Laura Carreon [facility] UNK - Ambulatory Encounter Leeanne Mascorrogerald Carreon [facility] UNK - Ambulatory Encounter Kyle Hernández [facility] UNK - Ambulatory Encounter Kyle Arnold [facility] UNK - Ambulatory Encounter Lisa Carreon [facility] UNK - Ambulatory Encounter Leeanne Mascorroen L [facility] UNK - Ambulatory Encounter Lisa Carreon [facility] UNK - Ambulatory Encounter Leeanneviviane Mascorroen L [facility] UNK - Ambulatory Encounter Kyle Arnold [facility] UNK - Ambulatory Encounter Kyle Hernández [facility] UNK - Ambulatory Encounter Kyle Hernández [facility] UNK - Ambulatory Encounter Kyle Arnold [facility] GENERALIZED ANXIETY DISORDERDEPRESSIVE DISORDER, MAJOR, RECURRENT EPISODE, MODERATE - Ambulatory Encounter Linette palmer [facility] Contact Center UNK VITAL SIGNS [...] Christina Holly oxygen saturation, oximetry 98 % [facility] " blood pressure, diastolic 82 mm[Hg] Anel [facility] " blood pressure, systolic 138 mm[Hg] Deborat h Vasquez " respiratory rate E&M 16 /min Deborath Gr anados " pulse rate 89 /min Deborath Blair s " temperature E&M 98.9 [degF] Deborath Blair s " weight E&M 158.60 lbs. Deborath Blair s " weight in kilograms E&M 72.09 kg [facility] Vasquez " method used to obtain blood pressure automatic [facility] " Blood Pressure Position 01 sitting Debor ath Vasquez " blood pressure, site #1 left arm [facility] Vasquez " temperature site oral Deborath Granad os " height E&M 63 [in_i] Debatlantath Blair s " height in centimeters E&M 160.02 cm Anel [facility] method used to obtain blood pressure automatic [...] method used to obtain blood pressure automatic Debatlantath Vasquez " Blood Pressure Position 01 sitting [...] Ro daylin " height E&M 63 [in_i] Lias Arnold " height in centimeters E&M 160.02 [...] " Weight Management Counseling Provided T Rubi bIrahim " Nutrition intervention T Rubi hauser " [...] 18 - live with their father Graduated [employer]. 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 Seperated in 2004, after 15 years of marriage - 2 children 21, and 18 - live with their father Graduated [employer]. 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 Seperated in 2004, after 15 years of marriage - 2 children 21, and 18 - live with their father Graduated [employer]. 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 Seperated in 2004, after 15 years of marriage - 2 children 21, and 18 - live with their father Grad[employer]. 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 Seperated in 2004, after 15 years of marriage - 2 children 21, and 18 - live with their father [employer]. 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 Seperated in 2004, after 15 years of marriage - 2 children 21, and 18 - live with their father Grad[employer]. 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 Seperated in 2004, after 15 years of marriage - 2 children 21, and 18 - live with their father Grad[employer]. 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 Seperated in 2004, after 15 years of marriage - 2 children 21, and 18 - live with their father Grad[employer]. 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 Seperated in 2004, after 15 years of marriage - 2 children 21, and 18 - live with their father Graduated [employer]. 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 Works [...] Hernández" mental status assessment, judgment fair Kyle Hernández" [...] Disorder Questionnaire - Que stion 2 3 Debatlanta Pedro " Generalized Anxiety Disorder Questionnaire - [...] " mental status assessment, judgment fair Leeanne Jililan " insight (mental status exam) fair Sta [...] Berno mental status assessment, judgment fair Leeanne Jililan " insight (mental status exam) fair Sta [...] place, oriented to time, oriented to reality Kyel Berno " hallucinations none Kyle Berno " [...] e, cooperative, good eye contact, responsive, tearful Eleanne Jillian " mental appearance (mental status exam) [...] mental status assessment, sensorium alert, clear Leeanne Jlilian " affect (mental status exam) congruent, normal [...] (mental status exam) adequate hygiene, appropriate dress Leenane Jillian mental status assessment, judgment fair Kyle [...] " insight (mental status exam) fair Jet Heránndez " Mental Status Exam: intelligence adequat e [...] 213 Psychotherapy 45 (38-52*) mi n - [id number] (with patient and/or family member) Est Patient Exp Problem - 99 213 Psychotherapy 45 (38-52*) mi n - [id number] (with patient and/or family member) Est Patient Detailed - 12541 Psychotherapy 45 (38-52*) mi n - [id number] (with patient and/or family member) Est Patient Exp Problem - 99 213 Psychotherapy 45 (38-52*) mi n - [id number] (with patient and/or family member) Est Patient Detailed - 16684 Psychotherapy 45 (38-52*) mi n - [id number] (with patient and/or family member) Est Patient Exp Problem - 99 213 INFLUENZA VACCINE QUADRIVALE NT 3 YRS PLUS IM Admin of Vaccine - Injection - 1 Psychotherapy 45 (38-52*) mi n - [id number] (with patient and/or family member) Est Patient Exp Problem - 99 213 Psychotherapy 45 (38-52*) mi n - [id number] (with patient and/or family member) Est Patient Exp Problem - 99 213 Psychotherapy 45 (38-52*) mi n - [id number] (with patient and/or family member) Est Patient Exp Problem - 99 213 Psychotherapy 45 (38-52*) mi n - [id number] (with patient and/or family member) Psychotherapy 45 (38-52*) mi n - [id number] (with patient and/or family member) Est Patient Detailed - 55889 Psychotherapy 45 (38-52*) mi n - [id number] (with patient and/or family member) Psychotherapy 45 (38-52*) mi n - [id number] (with patient and/or family member) Psychotherapy 60 (53+*) min - 00747 (with patient and/or family member) Psychotherapy 45 (38-52*) mi n - [id number] (with patient and/or family member) Psychotherapy 60 (53+*) min - 42167 (with patient and/or family member) Est Patient Exp Problem - 99 213 Psychotherapy 45 (38-52*) mi n - [id number] (with patient and/or family member) Est Patient Exp Problem - 99 213 Psychotherapy 45 (38-52*) mi n - [id number] (with patient and/or family member) Psychotherapy 45 (38-52*) mi n - [id number] (with patient and/or family member) Est Patient Exp Problem - 99 213 Psychotherapy 45 (38-52*) mi n - [id number] (with patient and/or family member) Est Patient Detailed - 14689 Psychotherapy 45 (38-52*) mi n - [id number] (with patient and/or family member) Psychotherapy 45 (38-52*) mi n - [id number] (with patient and/or family member) Est Patient Detailed - 94207 Psychotherapy 45 (38-52*) mi n - [id number] (with patient and/or family member) Diagnostic evaluation (no me dical) - 31981 Diagnostic evaluation with sumaya ibrahimical - 01367 HISTORY OF PROCEDURES Procedure Date Procedure Name Provider Procedure Notes Status Psychotherapy 45 (38-52*) mi n - [id number] (with patient and/or family member) Leeanne Walsh completed Psychotherapy 45 (38-52*) mi n - [id number] (with patient and/or family member) Leeanne Jillian completed Psychotherapy 45 (38-52*) mi n - [id number] (with patient and/or family member) Leeanen Jillian completed Psychotherapy 45 (38-52*) mi n - [id number] (with patient and/or family member) Leeanne Jillian completed Psychotherapy 45 (38-52*) mi n - [id number] (with patient and/or family member) Leeanne Jillian completed Psychotherapy 45 (38-52*) mi n - [id number] (with patient and/or family member) Leeanne Jillian completed Psychotherapy 45 (38-52*) mi n - [id number] (with patient and/or family member) Leeanne Jillian completed Psychotherapy 45 (38-52*) mi n - [id number] (with patient and/or family member) Leeanne Jillian completed Psychotherapy 45 (38-52*) mi n - [id number] (with patient and/or family member) Leeanne Jillian completed Psychotherapy 45 (38-52*) mi n - [id number] (with patient and/or family member) Leeanne Jillian completed Psychotherapy 45 (38-52*) mi n - [id number] (with patient and/or family member) Leeanneviviane Walsh completed Psychotherapy 45 (38-52*) mi n - [id number] (with patient and/or family member) Leeanneviviane Walsh completed Psychotherapy 60 (53+*) min - 53122 (with patient and/or family member) Leeanne Jillian completed Psychotherapy 45 (38-52*) mi n - [id number] (with patient and/or family member) Leeanneviviane Walsh completed Psychotherapy 60 (53+*) min - 72706 (with patient and/or family member) Leeanneviviane Walsh completed Psychotherapy 45 (38-52*) mi n - [id number] (with patient and/or family member) Leeanne Walsh completed Psychotherapy 45 (38-52*) mi n - [phone] (with patient and/or family member) Leeanne Walsh completed Psychotherapy 45 (38-52*) mi n - [phone] (with patient and/or family member) Leeanne Walsh completed Psychotherapy 45 (38-52*) mi n - [id number] (with patient and/or family member) Leeanne Walsh completed Psychotherapy 45 (38-52*) mi n - [id number] (with patient and/or family member) Leeanne Walsh completed Psychotherapy 45 (38-52*) mi n - [phone] (with patient and/or family member) Leeanne Walsh completed Psychotherapy 45 (38-52*) mi n - [phone] (with patient and/or family member) Leeanne Walsh completed Diagnostic evaluation (no medical) - 84872 Leeanne duarte completed Diagnostic evaluation with medical - 90656 Kyle Grullon no completed GOALS No Information Available HEALTH CONCERNS No Information Available
--- OUTSIDE RECORDS SUMMARY | 2019-11-24 21:24 | XMS REPORT ---
Author Author Viktoria, Kalie [place] Organization Unknown Address Unknown Phone Unavailable PROBLEMS Condition Status Date Provider Notes Viral URI active Divina Meaghan Overweight active Divina Meaghan Acute sinusitis completed - Divina Meaghan Vaccination Against Influenza completed - 12/02 Amadou Alonzo DEPRESSIVE DISORDER, MAJOR, RECURRENT EPISODE, MODERATE active Kyle Hernández GENERALIZED ANXIETY DISORDER active Kyle davis ENCOUNTERS Date Type Provider Location Encounter Diagn osis - Ambulatory Encounter Kyle Barrera [facility] UNK - Ambulatory Encounter Rubi Ibrahim [facility] UNK - Ambulatory Encounter Divinanick Harding [facility] UNK - Ambulatory Encounter Divina Almazan n Divina Meaghan [facility] Acute sinusitisOverweightViral URI - [facility] - [facility] Ambulatory Encounter Christina Carreon [facility] UNK - Ambulatory Encounter Kyle Hernández [facility] UNK - Ambulatory Encounter Kyle Barrera [facility] UNK - Ambulatory Encounter Tan Carreon [facility] UNK - Ambulatory Encounter Thida Lopez [facility] UNK - [facility] - [facility] - Ambulatory Encounter [facility] - Ambulatory Encounter [facility] - Ambulatory Encounter Debfannie Vasquez [facility] UNK - Ambulatory Encounter Vaishali Kilo [facility] - Ambulatory Encounter Vaishali Kilo [facility] UNK - Ambulatory Encounter Vaishali Ivano va Reneefannie Vasquez [facility] Acute sinusiti s - Ambulatory Encounter Kyle Hern[facility]dez [facility] - Ambulatory Encounter [facility] UNK - Ambulatory Encounter [facility] UNK - Ambulatory Encounter Leeanne [facility] UNK - Ambulatory Encounter Kyle Hern[facility]dez [facility] - Ambulatory Encounter [facility] UNK - Ambulatory Encounter Kyle Hern[facility]dez [facility] UNK - Ambulatory Encounter Leeanne [facility] - Ambulatory Encounter [facility] - Ambulatory Encounter Kyle Hern[facility]dez [facility] UNK - Ambulatory Encounter [facility] Barrera [facility] UNK - Ambulatory Encounter Kyle Hern[facility]dez [facility] UNK - Ambulatory Encounter Kyle Schroeder [facility] UNK - Ambulatory Encounter [facility] Richea [facility] - Ambulatory Encounter Kyle goyal Arsalanryan [facility] UNK - Ambulatory Encounter Leeanne [facility] UNK - Ambulatory Encounter [facility] Richea [facility] - Ambulatory Encounter Kyle Hern[facility]dez [facility] UNK - Ambulatory Encounter [facility] Richea [facility] - Ambulatory Encounter [facility]dez [facility] UN[facility] - Ambulatory Encounter Leeanne [facility] - Ambulatory Encounter Christina [facility] UNK - Ambulatory Encounter [facility] UNK - Ambulatory Encounter [facility] Hern[facility]dez [facility] Ambulatory Encounter Kyle Vasquez [facility] UN[facility] Ambulatory Encounter Amadou Fabian [facility] UN[facility] - Ambulatory Encounter Leeanne Jillian [facility] UNK - Ambulatory Encounter Reneekallizabeth Vasquez [facility] - Ambulatory Encounter Laura Hull [facility] - Ambulatory Encounter Amadou Alonzo [facility] - Ambulatory Encounter Amadou Mckeon [facility] Vaccination Ag ainst Influenza - Ambulatory Encounter Isaura Correatuno [facility] UNK - Ambulatory Encounter Laura Hull [facility] UNK - Ambulatory Encounter Laura Hull [facility] UN[facility] - Ambulatory Encounter Leeanne Jillian L [facility] UN[facility] - Ambulatory Encounter Cheryl Church [facility] - [facility]ulatory Encounter [facility]dez [facility] - Ambulatory Encounter Kyle Delarosa Blaire [facility] - Ambulatory Encounter Leeanne Jillian [facility] UNK - Ambulatory Encounter Lisa [facility] - Ambulatory Encounter Kyle Hern[facility]dez [facility] UN[facility] - Ambulatory Encounter Kyle Arnold [facility] UNK - Ambulatory Encounter Leeanne Jillian L [facility] UNK - Ambulatory Encounter Kyle Hernández [facility] UNK - Ambulatory Encounter Kyle Arnold [facility] UNK - Ambulatory Encounter Kyle Dominguezncio [facility] UNK - Ambulatory Encounter Kyle Fabian [facility] UNK - Ambulatory Encounter Leeanne Jillian L [facility] UNK - Ambulatory Encounter Leeanne Jillian L [facility] UNK - Ambulatory Encounter Kyle Hernández [facility] UNK - Ambulatory Encounter Kyle Arnold [facility] UNK - Ambulatory Encounter Leeanne Jillian L [facility] UNK - Ambulatory Encounter Kyle Wills [facility] UNK - Ambulatory Encounter Leeanne Jillian L [facility] UNK - Ambulatory Encounter Leeanne Jillian L [facility] UNK - Ambulatory Encounter Leeanne Jillian L [facility] UNK - Ambulatory Encounter Leeanne Jillian L [facility] UNK - Ambulatory Encounter Kyle Hernández [facility] UNK - Ambulatory Encounter [facility] UNK - Ambulatory Encounter Kyle Arnold [facility] UNK - Ambulatory Encounter Leeanneviviane Walsh L [facility] UNK - Ambulatory Encounter Kyle Hernández [facility] UNK - Ambulatory Encounter Kyle Arnold [facility] UNK - Ambulatory Encounter Kyle Hernández [facility] UNK - Ambulatory Encounter [facility] - Ambulatory Encounter Kyle Fabian [facility] UNK - Ambulatory Encounter Leeanneviviane Walsh L [facility] UNK - Ambulatory Encounter Lisa Arnold L [facility] UNK - Ambulatory Encounter Leeanneviviane Walsh L [facility] UNK - Ambulatory Encounter Kyle Hernández [facility] UNK - Ambulatory Encounter Lisa [facility] - Ambulatory Encounter Kyle Arnold [facility] UNK - Ambulatory Encounter Leeanne Jillian [facility] - Ambulatory Encounter Lisa Arnold [facility] UNK - Ambulatory Encounter Kyle Hernández [facility] UNK - Ambulatory Encounter Kyle Arnold [facility] UNK - Ambulatory Encounter Leeanne Carreon [facility] UNK - Ambulatory Encounter Laura Carreon [facility] UNK - Ambulatory Encounter Leeanne Carreon [facility] UNK - Ambulatory Encounter Kyle Hernández [facility] UNK - Ambulatory Encounter Kyle Arnold [facility] UNK - Ambulatory Encounter Lisamario Careron [facility] UNK - Ambulatory Encounter Leeanne Mascorrogerald Carreon [facility] UNK - Ambulatory Encounter Lisa Carreon [facility] UNK - Ambulatory Encounter Leeanne Carreon [facility] UNK - Ambulatory [...] EPISODE, MODERATE - Ambulatory Encounter Linette palmer [facility] UNK VITAL SIGNS Date [...] blood pressure, site #1 left arm Rubi Howardquez " temperature site oral Rubijosé miguel Webberz " height E&M 63 [in_i] Rubi Ibrahim " height in centimeters E&M 160.02 cm Randellvidhi Howardquez blood pressure, diastolic 87 mm[Hg] Christina [...] Holly oxygen saturation, oximetry 98 % Janie [facility] " blood pressure, diastolic 82 mm[Hg] Anel th Vasquez " blood pressure, systolic 138 mm[Hg] Deborat h Vasquez " respiratory rate E&M 16 /min Deborath Gr anados " pulse rate E&M 89 /min [place] Blair s " temperature E&M 98.9 [degF] Deborath Blair s " weight E&M 158.60 lbs. Deborath Blair s " weight in kilograms E&M 72.09 kg [place] Vasquez " method used to obtain blood pressure automatic [facility] " Blood Pressure Position 01 sitting Debil ath Vasquez " blood pressure, site #1 left arm [place] Vasquez " temperature site oral [place] Granad os " height E&M 63 [in_i] [place] Blair s " height in centimeters E&M 160.02 cm [facility] method used to obtain blood pressure automatic [...] " Blood Pressure Position 01 sitting Christina Richea " blood pressure, site #1 right arm [...] method used to obtain blood pressure automatic [place] Vasquez " Blood Pressure Position 01 sitting Debor ath Vasquez " blood pressure, site #1 right arm Deborath Vasquez " temperature site oral Debora Granad os " height E&M 63 [in_i] [...] " pulse rate E&M 88 /min Lisa Ranold " weight E&M 144 lbs. Lisa Arnold [...] Microbial identification kit, rapid strep method negative Ruib Ibrahim influenza B virus antigen [facility] " influenza virus A antigen negative [facility] HISTORY OF IMMUNIZATIONS No Information Available HISTORY [...] times a day 201 03/19/09 - Divina Harding CYMBALTA 30 MG ORAL CAPSULE DELAYED RELEASE [...] Vasquez " Weight Management Counseling Provided T " Nutrition intervention T " alcohol use Previously Deb Blair s " drug use, illicit Never Deborath Diandra dos " social history E&M One little sister Lives with bio parents. Seperated in 2004, after 15 years of marriage - 2 children 21, and 18 - live with their father Graduated [employer]. 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 Seperated in 2004, after 15 years of marriage - 2 children 21, and 18 - live with their father Graduated [employer]. 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 Seperated in 2004, after 15 years of marriage - 2 children 21, and 18 - live with their father Graduated [employer]. 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 Seperated in 2004, after 15 years of marriage - 2 children 21, and 18 - live with their father Graduated [employer]. 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 Seperated in 2004, after 15 years of marriage - 2 children 21, and 18 - live with their father Graduated [employer]. 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 Seperated in 2004, after 15 years of marriage - 2 children 21, and 18 - live with their father Grad[employer]. 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 Seperated in 2004, after 15 years of marriage - 2 children 21, and 18 - live with their father Grad[employer]. 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 Seperated in 2004, after 15 years of marriage - 2 children 21, and 18 - live with their father Graduated [employer]. Went to [employer] 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 Seperated in 2004, after 15 years of marriage - 2 children 21, and 18 - live with their father Graduated [employer]. 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 Seperated in 2004, after 15 years of marriage - 2 children 21, and 18 - live with their father Graduated [employer]. 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 Seperated in 2004, after 15 years of marriage - 2 children 21, and 18 - live with their father Graduated [employer]. 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 Seperated in 2004, after 15 years of marriage - 2 children 21, and 18 - live with their father Kyle Arsalanryan FUNCTIONAL STATUS No Information Available MENTAL STATUS [...] " thought content (mental status exam) (E&M) abbe Hernández " mental status assessment, process goal-directed, [...] appropriat e, cooperative, good eye contact, responsive Klye Berno " mental appearance (mental status exam) [...] " mood (mental status exam) pleasant Eleanor Hernández " mental status assessment, speech [...] status exam) congruent, euthymic Kyle Arriazao " mood (mental status exam) anxious, pleasant [...] " mood (mental status exam) pleasant Eleanor Hernández " mental status assessment, speech [...] e uthymic, normal intensity, normal range Leeanne Jillain " mood (mental status exam) anxious, pleasant [...] Alonzo " Generalized Anxiety Disorder Questionnaire - [facility] 3 [facility] Generalized Anxiety Disorder Questionnaire - [facility] stion 1 3 Mike Vasquez mental status [...] Jillian mental status assessment, judgment fair Kyle Arsalano " insight (mental status exam) fair Jet [...] appropriate dress Kyle Arsalano mental status assessment, motor activity normal gait, [...] Leeanneviviane Mascorroen mental status assessment, judgment fair Leeanne [...] (mental status exam) anxious, frustrated, s ad Eleanne Jillian " mental status assessment, speech activit [...] (mental status exam) anxious, pleasant Stac ey Jlilian " mental status assessment, speech activit y [...] Leeanneviviane Walsh " mental status assessment, process able to [...] physical complaints, panic attacks, muscle tension Kyle Arriazao " mental status assessment, judgment fair Kyle Arriazao " insight (mental status exam) fair Jet haanmol Arriazao " Mental Status Exam: intelligence adequat e fund of information, intact memory processes, oriented to person, oriented to place, oriented to time, oriented to reality Kyle Arsalano " hallucinations none Kyle Berno " thought content (mental status exam) (E&M) lucid Kyle Arriazao " mental status assessment, process able to [...] exam) adequate hygiene, appropriate dress Kyle Arsalano MEDICAL EQUIPMENT No Information Available FAMILY HISTORY No Information Available INSURANCE PROVIDERS No Information Available ADVANCE DIRECTIVES No Information Available TREATMENT PLAN Date Name Ofc Vst, Est Level III Est Patient Exp Problem - 99 213 Est Patient Exp Problem - 99 213 Est Patient Exp Problem - 99 213 Est Patient Exp Problem - 99 213 Psychotherapy 45 (38-52*) mi n - [id number] (with patient and/or family member) Est Patient Exp Problem - 99 213 Psychotherapy 45 (38-52*) mi n - [id number] (with patient and/or family member) Est Patient Detailed - 63191 Psychotherapy 45 (38-52*) mi n - [id number] (with patient and/or family member) Est Patient Exp Problem - 99 213 Psychotherapy 45 (38-52*) mi n - [id number] (with patient and/or family member) Est Patient Detailed - 99176 Psychotherapy 45 (38-52*) mi n - [id number] (with patient and/or family member) Est Patient Exp Problem - 99 213 INFLUENZA VACCINE QUADRIVALE NT 3 YRS PLUS IM Admin of Vaccine - Injection - 1 Psychotherapy 45 (38-52*) mi n - [id number] (with patient and/or family member) Est Patient Exp Problem - 99 213 Psychotherapy 45 (38-52*) mi n - [id number] (with patient and/or family member) Est Patient Exp Problem - 99 213 Psychotherapy 45 (38-52*) mi n - [id number] (with patient and/or family member) Est Patient Exp Problem - 99 213 Psychotherapy 45 (38-52*) mi n - [id number] (with patient and/or family member) Psychotherapy 45 (38-52*) mi n - [id number] (with patient and/or family member) Est Patient Detailed - 91970 Psychotherapy 45 (38-52*) mi n - [id number] (with patient and/or family member) Psychotherapy 45 (38-52*) mi n - [id number] (with patient and/or family member) Psychotherapy 60 (53+*) min - 83900 (with patient and/or family member) Psychotherapy 45 (38-52*) mi n - [id number] (with patient and/or family member) Psychotherapy 60 (53+*) min - 56125 (with patient and/or family member) Est Patient Exp Problem - 99 213 Psychotherapy 45 (38-52*) mi n - [id number] (with patient and/or family member) Est Patient Exp Problem - 99 213 Psychotherapy 45 (38-52*) mi n - [id number] (with patient and/or family member) Psychotherapy 45 (38-52*) mi n - [id number] (with patient and/or family member) Est Patient Exp Problem - 99 213 Psychotherapy 45 (38-52*) mi n - [id number] (with patient and/or family member) Est Patient Detailed - 60481 Psychotherapy 45 (38-52*) mi n - [id number] (with patient and/or family member) Psychotherapy 45 (38-52*) mi n - [id number] (with patient and/or family member) Est Patient Detailed - 45613 Psychotherapy 45 (38-52*) mi n - [id number] (with patient and/or family member) Diagnostic evaluation (no me dical) - 74514 Diagnostic evaluation with m edical - 13530 HISTORY OF PROCEDURES Procedure Date Procedure Name Provider Procedure Notes Status Psychotherapy 45 (38-52*) mi n - [id number] (with patient and/or family member) Leeanne Walsh completed Psychotherapy 45 (38-52*) mi n - [id number] (with patient and/or family member) Leeanne Walsh completed Psychotherapy 45 (38-52*) mi n - [id number] (with patient and/or family member) Leeanne Jillian completed Psychotherapy 45 (38-52*) mi n - [id number] (with patient and/or family member) Leeanne Jillian completed Psychotherapy 45 (38-52*) mi n - [id number] (with patient and/or family member) Leeanne Jillian completed Psychotherapy 45 (38-52*) mi n - [id number] (with patient and/or family member) Leeanne Jillian completed Psychotherapy 45 (38-52*) mi n - [id number] (with patient and/or family member) Leeanne Jillian completed Psychotherapy 45 (38-52*) mi n - [id number] (with patient and/or family member) Leeanne Jillian completed Psychotherapy 45 (38-52*) mi n - 53051 (with patient and/or family member) Leeanne Jillian completed Psychotherapy 45 (38-52*) mi n - [id number] (with patient and/or family member) Leeanne Jillian completed Psychotherapy 45 (38-52*) mi n - [id number] (with patient and/or family member) Leeanne Jillian completed Psychotherapy 45 (38-52*) mi n - [id number] (with patient and/or family member) Leeanne Jillian completed Psychotherapy 60 (53+*) min - 63300 (with patient and/or family member) Leeanne Jillian completed Psychotherapy 45 (38-52*) mi n - [phone] (with patient and/or family member) Leeanne Jillian completed Psychotherapy 60 (53+*) min - [phone] (with patient and/or family member) Leeanne Jillian completed Psychotherapy 45 (38-52*) mi n - [id number] (with patient and/or family member) Leeanne Jillian completed Psychotherapy 45 (38-52*) mi n - [phone] (with patient and/or family member) Leeanne Jillian completed Psychotherapy 45 (38-52*) mi n - [phone] (with patient and/or family member) Leeanne Walsh completed Psychotherapy 45 (38-52*) mi n - [phone] (with patient and/or family member) Leeanne Walsh completed Psychotherapy 45 (38-52*) mi n - [id number] (with patient and/or family member) Leeanne Walsh completed Psychotherapy 45 (38-52*) mi n - [phone] (with patient and/or family member) Leeanne Walsh completed Psychotherapy 45 (38-52*) mi n - [phone] (with patient and/or family member) Leeanne Walsh completed Diagnostic evaluation (no medical) - [id number] Leeanne duarte completed Diagnostic evaluation with medical - [id number] Kyle Grullon no completed GOALS No Information Available HEALTH CONCERNS No Information Available
[2019-11-24 21:51] LABS: BASOPHILS # (AUTO) 0.1 (0.0-0.1); BASOPHILS % 0.6 % (0.0-1.0); EOSINOPHILS # (AUTO) 0.2 (0.0-0.4); EOSINOPHILS % 1.2 % (0.0-6.0); HEMATOCRIT 38.7 % (34.2-44.1); LYMPHOCYTES # (AUTO) 1.2 (1.0-3.2); LYMPHOCYTES % 9.9 % (18.0-39.1); MEAN CORPUSCULAR HEMOGLOBIN 28.8 pg (28-32); MONOCYTES % 7.8 % (4.4-11.3); NEUTROPHILS # (AUTO) 9.8 (2.1-6.9); NEUTROPHILS % 78.7 % (38.7-80.0); PLATELET COUNT 220 x10e3/uL (140-360); RED BLOOD COUNT 4.16 x10e6/uL (3.6-5.1); RED CELL DISTRIBUTION WIDTH 13.2 % (11.7-14.4)
[2019-11-24 22:08] LABS: ALBUMIN 3.4 g/dL (3.5-5.0); ANION GAP 14.8 mmol/L (8-16); CREATININE, SERUM 1.07 mg/dL (0.57-1.11); POTASSIUM 3.8 mmol/L (3.5-5.1)
[2019-11-24 22:14] LABS: CREATINE KINASE MB 1.3 ng/mL (0-5.0)
--- NOTE | 2019-11-24 22:24 | Diagnostic Imaging Report ---
History: Dizziness, fainted. Comparison studies: CT head 09/25/2017 Technique: Axial images were obtained from the skull base to the vertex. Coronal and sagittal reconstructions obtained from the axial data. Dose modulation, iterative reconstruction, and/or weight based adjustment of the mA/kV was utilized to reduce the radiation dose to as low as reasonably achievable. Findings: Scalp/skull: No acute abnormalities. Stable left parietal and right occipital subcentimeter scalp nodules. No fractures, blastic or lytic lesions. Extra-axial spaces: No masses. No fluid collections. Brain sulci: Mildly prominent. Ventricles: Normal in size and configuration. No hydrocephalus. Parenchyma: Small hypodensity at the left frontal centrum semiovale, nonspecific and most commonly seen with mild chronic microvascular ischemic changes. No masses, hemorrhage, acute or chronic cortical vascular insults. Sellar/suprasellar region: No abnormalities Craniocervical junction: Patent foramen magnum. No Chiari one malformation. IMPRESSION: No acute abnormalities . Signed by: DR Cruz Henley M.D. on 11/24/2019 10:21 PM
--- NOTE | 2019-11-24 22:44 | Diagnostic Imaging Report ---
EXAMINATION: CHEST SINGLE (PORTABLE) INDICATION: DIZZY\ COMPARISON: Chest radiograph 06-18-2019. FINDINGS: TUBES and LINES: None. LUNGS: Lungs are well inflated. There is no evidence of pneumonia or pulmonary edema. PLEURA: No pleural effusion or pneumothorax. HEART AND MEDIASTINUM: The cardiomediastinal silhouette is unremarkable. BONES AND SOFT TISSUES: No acute osseous lesion. Soft tissues are unremarkable. UPPER ABDOMEN: No free air under the diaphragm. IMPRESSION: No acute thoracic abnormality. Signed by: Dr. Willy Skinner MD on 11/24/2019 10:40 PM
--- NOTE | 2019-11-24 22:50 | Emergency Department Note ---
History of Present Illnes History of Present Illness Chief Complaint: Neurological History of Present Illness This is a 49 year old female arrived to the ED after "passing out at work", pt complaining of dizziness and headache, states she drover herself to the ED With no difficulty. Pt denies any slurred speech, no SOB, no chest pain. Chief Complaint Comment Patient states she passed out at work today at about 1pm. States EMS was called but patient deferred going to hospital. Patient c/o dizziness and headache at this time with nausea. No distress noted. Historian: Patient Arrival Mode: Car Reconciling Clerk Required: No Onset (how long ago): hour(s) Onset quality: sudden Timing of current episode: intermittent Progression: resolved Chronicity: new Context: recent illness, recent surgery, trauma/injury, new medications Relieving factors: none Exacerbating factors: none Past Medical/Family History Physician Review I have reviewed the patient's past medical and family history. Any updates have been documented here. Past Medical History Recent Fever: No Clinical Suspicion of Infectio: No New/Unexplained Change in Ment: No Past Medical History: Hypertension, Kidney Stones, UTI's, Anxiety, Depression, GERD Other Medical History: Bilateral carpal tunnel, H. pylori, colon polyps, NF1 tumors of face, vertigo Other Surgery: Rectal surgery to remove precancer cells (2014), kidney stone removal, left ovary removal for cyst, ablation for endometriosis, bilateral eye surgery, NF1 tumor removed from face Social History Smoking Cessation: Never Smoker Alcohol Use: Occasional Any Illegal Drug Use: No Physically hurt or threatened: No Family History Family history of heart diseas: No Other Last Tetanus: UNK Review of Systems Review of Systems Constitutional: no symptoms EENTM: no symptoms Cardiovascular: no symptoms Respiratory: no symptoms Gastrointestinal: no symptoms Genitourinary: no symptoms Musculoskeletal: no symptoms Neurological: as per HPI; numbness Psychological: no symptoms Endocrine: no symptoms Hematological/Lymphatic: no symptoms Review of other systems All other systems reviewed and negative. Physical Exam Related Data Allergies: Coded Allergies: hydrocodone (Verified Allergy, Intermediate, ITCHING, 06/17/19) Triage Vital Signs Vital Signs Date Time Temp Pulse Resp B/P (MAP) Pulse Ox O2 Delivery O2 Flow Rate FiO2 11/24/19 21:35 98.2 75 20 156/78 100 Vital signs reviewed: Yes Physical Exam CONSTITUTIONAL Constitutional: well-developed, well-nourished HENT HENT: normocephalic, atraumatic, oropharynx clear/moist, nose normal HENT L/R: left ext ear normal, right ext ear normal EYES Eyes: PERRL, conjunctivae normal NECK Neck: ROM normal PULMONARY Pulmonary: effort normal, breath sounds normal CARDIOVASCULAR Cardiovascular: regular rhythm, heart sounds normal, capillary refill normal, normal rate GASTROINTESTINAL Abdominal: soft, nontender, bowel sounds normal GENITOURINARY Genitourinary: exam deferred SKIN Skin: warm, dry MUSCULOSKELETAL Musculoskeletal: ROM normal NEUROLOGICAL Neurological: alert, oriented x 3, no gross motor or sensory deficits PSYCHOLOGICAL Psychological: mood/affect normal, judgement normal Results Laboratory Result Diagram: 11/24/19214311/24/192143 Laboratory Laboratory Tests Test 11/24/19 21:44 White Blood Count 12.47 x10e3/uL (4.8-10.8) Red Blood Count 4.16 x10e6/uL (3.6-5.1) Hemoglobin 12.0 g/dL (12.0-16.0) Hematocrit 38.7 % (34.2-44.1) Mean Corpuscular Volume 93.0 fL (81-99) Mean Corpuscular Hemoglobin 28.8 pg (28-32) Mean Corpuscular Hemoglobin Concent 31.0 g/dL (31-35) Red Cell Distribution Width 13.2 % (11.7-14.4) Platelet Count 220 x10e3/uL (140-360) Neutrophils (%) (Auto) 78.7 % (38.7-80.0) Lymphocytes (%) (Auto) 9.9 % (18.0-39.1) Monocytes (%) (Auto) 7.8 % (4.4-11.3) Eosinophils (%) (Auto) 1.2 % (0.0-6.0) Basophils (%) (Auto) 0.6 % (0.0-1.0) Neutrophils # (Auto) 9.8 (2.1-6.9) Lymphocytes # (Auto) 1.2 (1.0-3.2) Monocytes # (Auto) 1.0 (0.2-0.8) Eosinophils # (Auto) 0.2 (0.0-0.4) Basophils # (Auto) 0.1 (0.0-0.1) Absolute Immature Granulocyte (auto 0.23 x10e3/uL (0-0.1) Sodium Level 140 mmol/L (136-145) Potassium Level 3.8 mmol/L (3.5-5.1) Chloride Level 108 mmol/L (98-107) Carbon Dioxide Level 21 mmol/L (22-29) Anion Gap 14.8 mmol/L (8-16) Blood Urea Nitrogen 27 mg/dL (7-26) Creatinine 1.07 mg/dL (0.57-1.11) Estimat Glomerular Filtration Rate 55 ML/MIN (60-) BUN/Creatinine Ratio 25 (6-25) Glucose Level 112 mg/dL (74-118) Calcium Level 9.0 mg/dL (8.4-10.2) Total Bilirubin 0.2 mg/dL (0.2-1.2) Aspartate Amino Transf (AST/SGOT) 14 IU/L (5-34) Alanine Aminotransferase (ALT/SGPT) 15 IU/L (0-55) Alkaline Phosphatase 86 IU/L (40-150) Creatine Kinase 50 IU/L (29-168) Creatine Kinase MB 1.30 ng/mL (0-5.0) Troponin I 0.010 ng/mL (0-0.300) B-Type Natriuretic Peptide 17.8 pg/mL (0-100) Total Protein 6.8 g/dL (6.5-8.1) Albumin 3.4 g/dL (3.5-5.0) Globulin 3.4 g/dL (2.3-3.5) Albumin/Globulin Ratio 1.0 (0.8-2.0) Lab results reviewed: Yes Imaging Imaging results reviewed: Yes Impressions IMPRESSION: No acute abnormalities IMPRESSION: No acute thoracic abnormality. Procedures 12 Lead ECG Interpretation Reconciling Clerk: Interpreted by ED physician Rhythm: sinus rhythm Rate: normal QRS axis: normal ST segments normal: Yes Clinical Impression: normal ECG Critical Care Time Subsequent provider I assumed direction of critical care for this patient from another provider of my specialty. Assessment & Plan Reassessment Reassessment time: 01:10 Reassessment Pt re-evaluated, feels better after Zofran 01:45: Re-evaluted after meclizine reports complete resolution of symptoms Assessment & Plan Final Impression: (1) Vertigo Assessment & Plan cbc, cmp, cardiac markers CT Brain EKG Depart Disposition: HOME, SELF-CARE Last Vital Signs Date Time Temp Pulse Resp B/P (MAP) Pulse Ox O2 Delivery O2 Flow Rate FiO2 11/24/19 21:35 98.2 75 20 156/78 100 Home Meds Reported Medications Diazepam (VALIUM) 5 Mg Tablet, 5 MG PO PRN 07/23/19 Duloxetine Hcl (CYMBALTA) 30 Mg Capsule.dr, 90 MG PO DAILY, #30 CAP 01/15/19 Medications in the ED Sodium Chloride 1,000 ml @ 0 mls/hr Q0M STAT IV Last administered on 11/24/19at 21:45; Admin Dose 999 MLS/HR; Start 11/24/19 at 21:24; Stop 11/24/19 at 21:25 Ondansetron HCl 4 mg STK-MED ONCE .ROUTE ; Start 11/25/19 at 00:00; Stop 11/24/19 at 23:55; Status DC Ondansetron HCl 4 mg NOW STAT IV Last administered on 11/25/19at 00:01; Admin Dose 4 MG; Start 11/24/19 at 23:58; Stop 11/24/19 at 23:59 Meclizine HCl 25 mg ONCE ONCE PO Last administered on 11/25/19at 00:38; Admin Dose 25 MG; Start 11/25/19 at 00:30; Stop 11/25/19 at 00:31 Sodium Chloride 1,000 ml @ 0 mls/hr Q0M STAT IV Last administered on 11/24/19at 21:45; Admin Dose 999 MLS/HR; Start 11/24/19 at 21:24; Stop 11/24/19 at 21:25 KORY RODRIGUEZ, November 24, 2019 22:50
[2019-11-24] MEDS ORDERED: ONDANSETRON HCL INJ 2MG/ML 2ML 2 MG/ML VIAL IV STA (23:58)
[2019-11-25] MEDS ORDERED: ONDANSETRON HCL INJ 2MG/ML 2ML 2 MG/ML VIAL ONE
[2019-11-25] MEDS ORDERED: MECLIZINE HCL 12.5 MG TAB PO ONE (00:30)
[2019-11-25] MEDS ORDERED: MECLIZINE HCL12.5 MG PO (01:28)
== END 2019-11-25 01:52 | disposition home or self-care (01) ==
LOC: ER 21:17
DX: R42 Dizziness and giddiness (principal); R51 Headache; R11.0 Nausea; R55 Syncope and collapse; I10 Essential (primary) hypertension; K21.9 Gastro-esophageal reflux disease without esophagitis; F41.9 Anxiety disorder, unspecified
CPT/HCPCS: 36415; 70450; 71045; 80053; 82550; 82553; 83880; 84484; 85025; 93005; 99284; J2405; J7030; J8597

== ENCOUNTER 2020-02-27 09:45 | Emergency (ER) | payer OTHER ==
[~2020-02-27] VITALS: Ht 160 cm; Wt 68.0 kg
[~2020-02-27 09:45] MED LIST changes: +MECLIZINE HCL12.5 MG PO
--- OUTSIDE RECORDS SUMMARY | 2020-02-27 10:01 | XMS REPORT | Clinical Summary ---
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
--- OUTSIDE RECORDS SUMMARY | 2020-02-27 10:01 | XMS REPORT | Continuity of Care Document ---
Author Author [facility] t Organization [facility] Address [facility] [place] [address] Phone Unavailable Care Team Providers Care Interpreter Name Role Phone NO, PCP PCP Unavailable James Stuart Attphys Veronika Foley Attphys Bob MedAdherence, S Ro Attphys Unavailab Jenaro Padron Attphys Travon Lowery Attphys Unavailable Status, Fax Attphys Unavailable Belkys RODRIGUEZ AMBICA Attphys Unavailable Jodie Castaneda Attphys Christina Barrera Attphys Unavailable Rubi Ibrahim Attphys Unavailable Divina Harding Attphys Lopez Thida Attphys Lior Carter Attphys Unavailable ANN LAMA Attphys Unavailable ROBY SANTO Attphys Unavailable Mike Vasquez Attphys Unavailable Vaishali Boateng Attphys Sonia Schroeder Attphys Eamon Alonzo Attphys Laura Hull Attphys Unavailable Isaura Rudd Attphys Cheryl Church Attphys Unavailable Lisa Arnold Attphys Unavailable Elmira Briscoe Attphys Silke Beck Attphys Unavailable Jannet Capellan Attphys Unavailable Beatrice Wills Attphys ADEDAPO, T SAVANAH Attphys Unavailable DAHU, S JIRIES Attphys Unavailable Eamon GILLESPIE Attphys Unavailable Lopez-Sachnik, Linette Attphys Unavailable GALMALIIS Admphys Unavailable DAHU, S JIRIES Admphys Unavailable Veronika Foley Unavailable Divina Harding Unavailable Jenaro Hernández Unavailable Eamon Alonzo Unavailable Payers Payer Name Policy Type Policy Number Effective Date Expiration Date Belkys deluna [employer] EXCHANGE xxxxxxxxxx xxxxxxxxxx [facility] [employer] NA 2019 00:00:00 [facility] Problems Condition Name Condition Details Condition Category Status Onset Date Resolution Date Last Treatment Date Treating Clinician Comments Source Neurofibromatosis Condition Active 2019-11-25 00:00:00 2019-11-26 07[facility]14[facility] Condition Active 2019-11-25 00:00:00 2019-11-07 07:14:25 Alaina [facility] Hx of syncope and collapse Condition Active 2019-11-25 00 :00:00 2019-11-26 07:14:25 Alaina [facility] Dizziness Condition Active 2019-11-25 00:00:00 07:14:25 [facility] Overweight Condition Active 2019-09-09 00:00:00 2019-11 07:13:42 Divina Harding [facility] DEPRESSIVE DISORDER, MAJOR, RECURRENT EPISODE, MODERATE Condition Active 2017-05-09 00:00:00 2019-11-26 07:13:42 Jenaro Hernández [facility] GENERALIZED ANXIETY DISORDER Condition Active 2017-05-08 00:00:00 2019-11-26 07:13:42 Jenaro Hernández [facility] Internal hemorrhoid Internal hemorrhoid Disease Active 2017-02-01 00:00 :00 [facility] AIN (anal intraepithelial neoplasia) anal canal AIN (a nal intraepithelial neoplasia) anal canal Disease Active 2016-07-20 00:00:00 [facility] History of adenomatous polyp of colon History of adenomatous polyp of colon Disease Active 2015-12-19 00:00:00 Overv iew: S/p colonoscopy (03/2015)- 2 transverse colon polyp (path - adenoma)15mm sigmoid polyp; path: villous adenomaAbnormal appearing mucosa near dentate, bx revealed AINII, refer made to [facility] for EUA. Hemorrhoidal banding [id number] colonoscopy in 3yrs (2017) and forgo annual FIT in the interim. [facility] Nausea and vomiting Nausea and vomiting Disease Active 2015-07-05 00:00 :00 [facility] Constipation Constipation Disease Active 2015-07-05 00:00:00 [facility] Neurofibromatosis, peripheral, NF1 Neurofibromatosis, peripheral , NF1 Disease Active 2012-11-12 00:00:00 [facility] Depression with anxiety Depression with anxiety Disease Active 2012-11-12 00:00:00 [facility] Nodule, subcutaneous Nodule, subcutaneous Disease Active 00:00:00 [facility] Calculus of ureter Ureterolithiasis Problem Active [facility] Vertigo Problem Active [facility] History of Past Illness Condition Name Condition Details Condition Category Status Onset Date Resolution Date Last Treatment Date Treating Clinician Comments Source Viral URI Condition Inactive 2019-09-09 00:00:00 2019-11-25 00:00:00 2019-11-26 07:14:25 Veronika Foley [facility] Acute sinusitis Condition Inactive 2019-06-15 00:00:00 2019 00:00:00 2019-09-10 14:06:46 Divina Harding [facility] Vaccination Against Influenza Condition Inactive 2017-07 00:00:00 2018-12-02 00:00:00 2018-06-05 14:08:42 Amadou Alonzo [facility] Allergies, Adverse Reactions, Alerts Allergy Name Allergy Type Status Severity Reaction(s) Onset Date Inacti ve Date Treating Clinician Comments Source Hydrocodone Allergy to substance Active Moderate ITCHING 2019-06-17 00: 00:[address] [facility] VICODIN Drug allergy (disorder) Active itchiness 2017-05-08 00:00: 00 [facility] Hydrocodone-Acetaminophen Drug Allergy Active 2015-10-31 00 :00:00 [facility] Hydrocodone-Acetaminophen Propensity to adverse reactions to drug Act dimitrios 2012-10-27 00:00:00 Jean Pierre [facility] Family History Family Member Diagnosis Comments Start Date Stop Date Source Natural mother Diabetes Located within [facility] Social History Social Habit Start Date Stop Date Quantity Comments Source Sex Assigned [facility] drug use, illicit 2019-11-25 15:20:42 2019-11-25 15:20:42 Never [facility] alcohol use 2019-11-25 15:20:42 2019-11-25 15:20:42 Previously [facility] social history reviewed E&M 2019-11-25 15:20:42 2019-11-25 15:20 :42 reviewed today [facility] social history E&M 2019-11-25 15:20:42 2019-11-25 15:20:42 One l ittle sisterLives with bio parents. Seperated in 2004, after 15 years of marriage - 2 children 21, and 18 - live with their father [facility]. 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 [facility] sex at 2019-11-25 15:20:42 2019-11-25 15:20:42 Female [facility] patient considered to be homeless 2019-11-25 15:20:42 2019-11-25 15:2 0:42 No [facility] sexual orientation 2019-11-25 15:20:42 2019-11-25 15:20:42 Heterosexu al [facility] Alcohol intake 2018-12-10 00:00:00 2018-12-10 00:00:00 Current non-drinker of alcohol (finding) [facility] family support 2017-05-08 15:53:46 2017-05-08 15:53:46 One noemy mahajan [facility] home/family situation, assessment 2017-05-08 15:53:46 2017-05-08 15:53:46 Lives with bio parents. Seperated in 2004, after 15 years of marriage - 2 children 21, and 18 - live with their father [facility] ealth History SDOH Food Worry 2017-02-01 00:00:00 2017-02-01 00:00:00 1 [facility] History SDOH Food Scarcity 2017-02-01 00:00:00 2017-02-01 00:00:00 1 [facility] Smoking Status Start Date Stop Date Source Never smoker [facility] Medications Ordered Medication Name Filled Medication Name Start Date Stop Da te Current Medication? Ordering Clinician Indication Dosage Frequency Signature (SIG) Comments Components Source Meclizine Hcl Meclizine Hcl 2019-11-25 01:28:00 Yes 25 Daily as needed for Dizziness [facility] (MECLIZINE HCL) 25 MG TABS 2019-11-25 00:00:00 Yes Shyla laura Foley 1{Tablet} 3xD 1 by mouth 3 times a day as needed [facility] (DULOXETINE HCL) 30 MG CPEP 2019-11-02 00:00:00 Yes Ty ael Berno TAKE 1 TAB BY MOUTH EVERY MORNING - TAKE WITH 60 MG FOR TOTAL OF 90 MG [facility] TESSALON PERLES (BENZONATATE) 100 MG CAPS 2019-06-15 00:00 :00 Yes Vaishali Boateng 1{Capsule} 3xD 1 by mouth 3 times a day as needed for cough [facility] FLONASE ALLERGY RELIEF (FLUTICASONE PROPIONATE) 50 MCG/ACT S DETENTION 2019-06-15 00:00:00 Yes Vaishali Kilo 2 sprays each nostri l every day [facility] (AMOXICILLIN) 500 MG CAPS 2019-06-15 00:00:00 2019-09-09 0 0:00:00 No Vaishali Kilo 1{Capsule} 3xD 1 by mouth 3 times a day [facility] (DULOXETINE HCL) 60 MG CPEP 2019-03-26 00:00:00 Yes Jenaro Berno 1{Capsule} 1xD TAKE 1 CAPSULE BY MOUTH EVERY DAY IN THE MORNING [facility] (ESCITALOPRAM OXALATE) 20 MG TABS 2018-10-16 00:00:00 2018 00:00:00 No Jenaro Berno 1{Tablet} 1xD TAKE 1 TABLET BY MOUTH EVERY DAY IN THE MORNING [facility] naproxen sodium (ALEVE) 220 mg cap 2016-07-20 11:48:25 Yes Take by mouth. [facility] methocarbamol (ROBAXIN-750) 750 mg tablet 2016-07-20 00:00:0 0 Yes Anal spasm 750mg Take 1 tablet by roz 4 times daily as needed (Take when needed for anal pain/spasms). [facility] gabapentin (NEURONTIN) 600 mg tablet 2016-04-20 00:00:00 Yes Other back pain 600mg Take 1 tablet by mouth at bedtime nightly. [facility] diphenhydrAMINE (SLEEP AID, DIPHENHYDRAMINE,) 25 mg capsule 2015-07-04 09:51:12 Yes 25mg Take 25 mg by mouth every 6 hours as needed for Itching. [facility] CYANOCOBALAMIN, VITAMIN B-12, (VITAMIN B-12 OR) 2015-07-04 09:51 :12 Yes Take by mouth. [facility] HYDROcodone-acetaminophen (NORCO) 10-325 mg tablet 2015-06 00:00:00 Yes Anal skin tag 1{tbl} Take 1 tablet by mouth ever y 6 hours as needed for Pain. [facility] traMADol (ULTRAM) 50 mg tablet 2015-07-04 00:00:00 Yes Anal skin tag 100mg Take 2 tablets by mouth every 6 hours as needed for Pa in. [facility] Diazepam (Valium) 5 Mg TABLET Diazepam (Valium) 5 Mg TABLET Yes 5 As Needed [facility] Duloxetine Hcl (Cymbalta) 30 Mg CAPSULE. Duloxetine Hcl (Cymbalta) 30 Mg CAPSULE. Yes 90 Daily [facility] Amlodipine Besylate (Norvasc) 5 Mg TAB Amlodipine Besylate (Norv asc) 5 Mg TAB 2019-07-23 00:00:00 No 5 Daily [facility] Azithromycin (Zithromax) 250 Mg TABLET Azithromycin (Zithromax) 250 Mg TABLET 2019-07-23 00:00:00 No 250 Daily [facility] Cefuroxime Axetil (Cefuroxime) 500 Mg TABLET Cefuroxim e Axetil (Cefuroxime) 500 Mg TABLET 2019-07-23 00:00:00 No 500 Every 12 Hours [facility] Diazepam (Valium) 5 Mg TABLET Diazepam (Valium) 5 Mg TABLET 2019-06-18 00:00:00 No 5 As Needed [facility] Escitalopram Oxalate (Lexapro) 10 Mg TABLET Escitalopr am Oxalate (Lexapro) 10 Mg TABLET 2019-01-15 00:00:00 No 10 Daily [facility] Diazepam (Valium) 5 Mg TABLET Diazepam (Valium) 5 Mg TABLET 2017-09-05 00:00:00 No 5 Twice A Day [facility] Metronidazole Metronidazole 2017-09-05 00:00:00 No 25 0 Four Times Daily [facility] Omeprazole Omeprazole 2017-09-05 00:00:00 No 40 Kim ly [facility] Tetracycline Hcl Tetracycline Hcl 2017-09-05 00:00:00 No 500 Four Times Daily [facility] Tylenol Tylenol 2017-09-05 00:00:00 No 500 As Needed [facility] Z-Quil Z-Quil 2017-09-05 00:00:00 No 30 Bedtime [facility] Acetaminophen With Codeine (Tylenol With Codeine #3 Ta blet) 1 Each TABLET Acetaminophen With Codeine (Tylenol With Codeine #3 Tablet) 1 Each TABLET 2017-05-11 00:00:00 No 300 As Needed [facility] Alprazolam (Xanax) 2 Mg TABLET Alprazolam (Xanax) 2 Mg TABLET 2017-05-11 00:00:00 No 2 Twice A Day [facility] Acetaminophen Acetaminophen 2017-04-25 00:00:00 No 500 As Needed [facility] Naproxen Sodium (Aleve) 220 Mg CAPSULE Naproxen Sodium (Aleve) 2 20 Mg CAPSULE 2017-04-12 00:00:00 No 1 As Needed [facility] Immunizations Ordered Immunization Name Filled Immunization Name Date Status Comments Source Influenza Vaccine 2016-04-20 00:00:00 Completed [facility] Influenza Vaccine 2015-04-26 00:00:00 Completed [facility] Vital Signs Vital Name Observation Time Observation Value Comments Source oxygen saturation, oximetry 2019-11-25 15:20:42 95 % [facility] blood pressure, diastolic 2019-11-25 15:20:42 87 mm[Hg] [facility] blood pressure, systolic 2019-11-25 15:20:42 125 mm[Hg] [facility] pulse rate 2019-11-25 15:20:42 99 /min [facility] temperature E&M 2019-11-25 15:20:42 99.1 [degF] [facility] weight E&M 2019-11-25 15:20:42 163 [lb_av] [facility] weight in kilograms E&M 2019-11-25 15:20:42 74.09 kg [facility] temperature site 2019-11-25 15:20:42 oral [facility] respiratory rate E&M 2019-11-25 15:20:42 18 /min [facility] height in centimeters E&M 2019-11-25 15:20:42 160.02 cm [facility] Weight 2019-11-24 21:35:00 150 [lb_av] [facility] BMI (Body Mass Index) 2019-11-24 21:35:00 26.6 kg/m2 [facility] oxygen saturation, oximetry 2019-09-09 14:19:05 96 % [facility] blood pressure, diastolic 2019-09-09 14:19:05 68 mm[Hg] [facility] blood pressure, systolic 2019-09-09 14:19:05 106 mm[Hg] [facility] respiratory rate E&M 2019-09-09 14:19:05 16 /min [facility] pulse rate 2019-09-09 14:19:05 101 /min [facility] temperature E&M 2019-09-09 14:19:05 98.5 [degF] [facility] weight E&M 2019-09-09 14:19:05 163.20 [lb_av] [facility] in [facility] E&M 2019-09-09 14:19:05 74.18 kg [facility] temperature site 2019-09-09 14:19:05 oral [facility] height in centimeters E&M 2019-09-09 14:19:05 160.02 cm [facility] blood pressure, diastolic 2019-09-03 09:38:22 87 mm[Hg] [facility] blood pressure, systolic 2019-09-03 09:38:22 127 mm[Hg] [facility] pulse rate 2019-09-03 09:38:22 86 /min [facility] weight E&M 2019-09-03 09:38:22 163 [lb_av] [facility] weight in kilograms E&M 2019-09-03 09:38:22 74.09 kg [facility] height in centimeters E&M 2019-09-03 09:38:22 160.02 cm [facility] Body Temperature 2019-08-07 06:29:00 97.2 [degF] [facility] blood pressure, diastolic 2019-07-06 09:16:14 58 mm[Hg] [facility] blood pressure, systolic 2019-07-06 09:16:14 100 mm[Hg] [facility] pulse rate 2019-07-06 09:16:14 96 /min [facility] weight E&M 2019-07-06 09:16:14 161.25 [lb_av] [facility] weight in kilograms E&M 2019-07-06 09:16:14 73.30 kg [facility] height in centimeters E&M 2019-07-06 09:16:14 160.02 cm [facility] oxygen saturation, oximetry 2019-06-15 11:51:21 98 % [facility] blood pressure, diastolic 2019-06-15 11:51:21 82 mm[Hg] [facility] blood pressure, systolic 2019-06-15 11:51:21 138 mm[Hg] [facility] respiratory rate E&M 2019-06-15 11:51:21 16 /min [facility] pulse rate 2019-06-15 11:51:21 89 /min [facility] temperature E&M 2019-06-15 11:51:21 98.9 [degF] [facility]&M 2019-06-15 11:51:21 158.60 [lb_av] [facility] weight in kilograms E&M 2019-06-15 11:51:21 72.09 kg [facility] temperature site 2019-06-15 11:51:21 oral [facility] height in centimeters E&M 2019-06-15 11:51:21 160.02 cm [facility] blood pressure, diastolic 2019-05-07 12:29:14 82 mm[Hg] [facility] blood pressure, systolic 2019-05-07 12:29:14 130 mm[Hg] [facility] pulse rate 2019-05-07 12:29:14 89 /min [facility] weight E&M 2019-05-07 12:29:14 160.13 [lb_av] [facility] weight in kilograms E&M 2019-05-07 12:29:14 72.79 kg [facility] height in centimeters E&M 2019-05-07 12:29:14 160.02 cm [facility] blood pressure, diastolic 2019-01-29 13:57:35 75 mm[Hg] [facility] blood pressure, systolic 2019-01-29 13:57:35 107 mm[Hg] [facility] pulse [facility] 2019-01-29 13:57:35 88 /min [facility] weight E&M 2019-01-29 13:57:35 160 [lb_av] [facility] weight in kilograms E&M 2019-01-29 13:57:35 72.73 kg [facility] height in centimeters E&M 2019-01-29 13:57:35 160.02 cm [facility] blood pressure, diastolic 2019-01-01 10:13:14 89 mm[Hg] [facility] blood pressure, systolic 2019-01-01 10:13:14 140 mm[Hg] [facility] pulse rate 2019-01-01 10:13:14 74 /min [facility] weight E&M 2019-01-01 10:13:14 156.50 [lb_av] [facility] weight in kilograms E&M 2019-01-01 10:13:14 71.14 kg [facility] height in centimeters E&M 2019-01-01 10:13:14 160.02 cm [facility] blood pressure, diastolic 2018-10-02 10:40:00 80 mm[Hg] [facility] blood pressure, systolic 2018-10-02 10:40:00 132 mm[Hg] [facility] pulse rate 2018-10-02 10:40:00 83 /min [facility] 2018-10-02 10:40:00 155.50 [lb_av] [facility] weight in kilograms E&M 2018-10-02 10:40:00 70.68 kg [facility] height in centimeters E&M 2018-10-02 10:40:00 160.02 cm [facility] blood pressure, diastolic 2018-09-03 10:28:13 75 mm[Hg] [facility] blood pressure, systolic 2018-09-03 10:28:13 107 mm[Hg] [facility] pulse rate 2018-09-03 10:28:13 61 /min [facility] weight E&M 2018-09-03 10:28:13 158 [lb_av] [facility] weight in kilograms E&M 2018-09-03 10:28:13 71.82 kg [facility] height in centimeters E&M 2018-09-03 10:28:13 160.02 cm [facility] oxygen saturation, oximetry 2018-06-05 13:22:38 98 % [facility] blood pressure, diastolic 2018-06-05 13:22:38 92 mm[Hg] [facility] blood pressure, systolic 2018-06-05 13:22:38 144 mm[Hg] [facility] respiratory rate E&M 2018-06-05 13:22:38 18 /min [facility] pulse rate 2018-06-05 13:22:38 68 /min [facility] temperature E&M 2018-06-05 13:22:38 98.0 [degF] [facility] weight E&M 2018-06-05 13:22:38 156.38 [lb_av] [facility] weight in kilograms E&M 2018-06-05 13:22:38 71.08 kg [facility] temperature site 2018-06-05 13:22:38 oral [facility] height in centimeters E&M 2018-06-05 13:22:38 160.02 cm [facility] blood pressure, diastolic 2018-05-07 10:32:26 84 mm[Hg] [facility] blood pressure, systolic 2018-05-07 10:32:26 129 mm[Hg] [facility] pulse rate 2018-05-07 10:32:26 71 /min [facility] weight E&M 2018-05-07 10:32:26 155.13 [lb_av] [facility] weight in kilograms E&M 2018-05-07 10:32:26 70.51 kg [facility] height in centimeters E&M 2018-05-07 10:32:26 160.02 cm [facility] blood pressure, diastolic 2018-02-12 12:34:28 76 mm[Hg] [facility] blood pressure, systolic 2018-02-12 12:34:28 109 mm[Hg] [facility] pulse rate 2018-02-12 12:34:28 84 /min [facility] weight E&M 2018-02-12 12:34:28 154.20 [lb_av] [facility] weight in kilograms E&M 2018-02-12 12:34:28 70.09 kg [facility] height in centimeters E&M 2018-02-12 12:34:28 160.02 cm [facility] blood pressure, diastolic 2018-01-01 12:21:01 78 mm[Hg] [facility] blood pressure, systolic 2018-01-01 12:21:01 116 mm[Hg] [facility] pulse rate 2018-01-01 12:21:01 79 /min [facility] weight E&M 2018-01-01 12:21:01 154 [lb_av] [facility] weight in kilograms E&M 2018-01-01 12:21:01 70 kg [facility] height in centimeters E&M 2018-01-01 12:21:01 160[facility]02 [facility], diastolic 2017-11-21 13:32:10 74 mm[Hg] [facility] pressure, systolic 2017-11-21 13:32:10 107 mm[Hg] [facility] pulse rate 2017-11-21 13:32:10 81 /min [facility] weight E&M 2017-11-21 13:32:10 140 [lb_av] [facility] weight in kilograms E&M 2017-11-21 13:32:10 63.64 kg [facility] height in centimeters E&M 2017-11-21 13:32:10 160.02 cm [facility] blood pressure, diastolic 2017-10-17 13:34:02 76 mm[Hg] [facility], systolic 2017-10-17 13:34:02 109 mm[Hg] [facility] pulse rate 2017-10-17 13:34:02 77 /min [facility] weight E&M 2017-10-17 13:34:02 140 [lb_av] [facility] weight in kilograms E&M 2017-10-17 13:34:02 63.64 kg [facility] height in centimeters E&M 2017-10-17 13:34:02 160.02 cm [facility] [facility] blood [facility], diastolic 2017-09-26 13:00:42 69 mm[Hg] [facility], [facility] 2017-09-26 13:00:42 110 mm[Hg] [facility] pulse rate 2017-09-26 13:00:42 88 /min [facility] weight E&M 2017-09-26 13:00:42 144 [lb_av] [facility] weight in kilograms E&M 2017-09-26 13:00:42 65.45 kg [facility] height in centimeters E&M 2017-09-26 13:00:42 160.02 cm [facility], [facility] 2017-08-07 14:08:50 80 mm[Hg] [facility], systolic 2017-08-07 14:08:50 119 mm[Hg] [facility] pulse rate 2017-08-07 14:08:50 90 /min [facility] weight E&M 2017-08-07 14:08:50 145 [lb_av] [facility] weight in kilograms E&M 2017-08-07 14:08:50 65.91 kg [facility] height in centimeters E&M 2017-08-07 14:08:50 160.02 cm [facility] blood pressure, diastolic 2017-07-12 08:51:29 76 mm[Hg] [facility] blood pressure, systolic 2017-07-12 08:51:29 112 mm[Hg] [facility] pulse rate 2017-07-12 08:51:29 87 /min [facility] weight E&M 2017-07-12 08:51:29 145 [lb_av] [facility] weight in kilograms E&M 2017-07-12 08:51:29 65.91 kg [facility] height in centimeters E&M 2017-07-12 08:51:29 160.02 cm [facility] blood pressure, diastolic 2017-06-05 12:39:59 85 mm[Hg] [facility], systolic 2017-06-05 12:39:59 121 mm[Hg] [facility] pulse rate 2017-06-05 12:39:59 77 /min [facility] weight E&M 2017-06-05 12:39:59 136 [lb_av] [facility] weight in kilograms E&M 2017-06-05 12:39:59 61.82 kg [facility] height in centimeters E&M 2017-06-05 12:39:59 160.02 cm [facility] blood pressure, diastolic 2017-05-08 15:53:46 83 mm[Hg] [facility] blood pressure, systolic 2017-05-08 15:53:46 127 mm[Hg] [facility] pulse rate 2017-05-08 15:53:46 91 /min [facility] weight E&M 2017-05-08 15:53:46 132 [lb_av] [facility] weight in kilograms E&M 2017-05-08 15:53:46 60 kg [facility] height E&M 2017-05-08 15:53:46 63 [in_i] [facility] Procedures Procedure Date / Time Performed Performing Clinician Sour e Computed tomography of brain without radiopaque contrast 2019-11 00:00:00 [facility] FRAGMENTING OF KIDNEY STONE 2019-08-07 00:00:00 [facility] FRAGMENTING OF KIDNEY STONE 2019-07-24 00:00:00 [facility] X-ray of chest, single view 2019-06-18 00:00:00 ANN LAMA [facility] CT of abdomen and pelvis without contrast 2019-06-17 00:00:00 [facility] Diagnostic evaluation with medical - [id number] 2017-05-08 17:39:53 Jenaro Cheema [facility] Plan of Care Planned Activity Planned Date Details Comments Source Future Scheduled Test 2018-01-14 00:00:00 Screening for bruna gnant neoplasm of cervix (procedure) [code = 541754182] [facility] Future Scheduled Test 2016-01-15 00:00:00 Breast Cancer Scrn (Yearly) [code = Breast Cancer Scrn (Yearly)] [facility] Instructions Dizziness [facility] Instructions Vertigo [facility] Encounters Start Date/Time End Date/Time Encounter Type Admission Type Attendi [facility] Care Department Encounter ID Source 2019-12-07 00:00:00 2019-12-07 00:00:00 Office Visit Veronika Benavidez Jaquelin S [facility] Encounter/[id number] [facility] 2019-12-07 00:00:00 2019-12-07 00:00:00 Office Visit Ty Hernández [facility] Encounter/[id number] [facility] 2019-11-26 00:00:00 2019-11-26 00:00:00 Office Visit HericandydavidTravon Belkys zhang [facility] Encounter/[id number] [facility] 2019-11-26 00:00:00 2019-11-26 00:00:00 Office Visit Status, Fax [facility] Encounter/[id number] [facility] 2019-11-26 00:00:00 2019-11-26 00:00:00 Office Visit Status, Fax [facility] Encounter/[id number] [facility] 2019-11-26 00:00:00 2019-11-26 00:00:00 Office Visit Status, Fax [facility] Encounter/[id number] [facility] 2019-11-26 00:00:00 2019-11-26 00:00:00 Office Visit Status, Fax [facility] Encounter/[id number] [facility] 2019-11-26 00:00:00 2019-11-26 00:00:00 Office Visit Status, Fax [facility] Encounter/[id number] [facility] 2019-11-26 00:00:00 2019-11-26 00:00:00 Office Visit Status, Fax [facility] Encounter/[id number] [facility] 2019-11-24 21:17:00 2019-11-25 01:52:00 Departed Emergency Room 1 KORY RODRIGUEZ [facility] [id number] [facility] 2019-11-25 00:00:00 2019-11-25 00:00:00 Office Visit Ember Foley [facility] Encounter/[id number] [facility] 2019-11-25 00:00:00 2019-11-25 00:00:00 Office Visit Ember Foley [facility] Encounter/[id number] [facility] 2019-11-25 00:00:00 2019-11-25 00:00:00 Office Visit Ember Foley [facility] Encounter/[id number] [facility] 2019-11-25 00:00:00 2019-11-25 00:00:00 Office Visit Veronika Benavidez Tamika Moxey, Co Shanna LC [facility][id number] [facility]-03 00:00:00 2019-11-03 00:00:00 Office Visit Ty Hernández LC [facility] Encounter/[id number] [facility] 2019-10-29 00:00:00 2019-10-29 00:00:00 Office Visit Jenaro Cheema Nancy LC LC Encounter/[id number] [facility] 2019-09-09 00:00:00 2019-09-09 00:00:00 Office Visit Martin Ibrahim LC [facility] Encounter/[id number] [facility] 2019-09-09 00:00:00 2019-09-09 00:00:00 Office Visit Daniel Harding LC LC Encounter/[id number] [facility] 2019-09-09 00:00:00 2019-09-09 00:00:00 Office Visit Divina Betancourt Adriana LC [facility] Encounter/[id number] [facility] 2019-09-09 00:00:00 2019-09-09 00:00:00 Office Visit Ty Hernández LC [facility] Encounter/[id number] [facility] 2019-09-09 00:00:00 2019-09-09 00:00:00 Office Visit Ty Hernández LC [facility] Encounter/[id number] [facility] 2019-09-03 00:00:00 2019-09-03 00:00:00 Office Visit Ibis Barrera LC [facility] Encounter/[id number] [facility] 2019-09-03 00:00:00 2019-09-03 00:00:00 Office Visit Ty Hernández LC [facility] Encounter/[id number] [facility] 2019-09-03 00:00:00 2019-09-03 00:00:00 Office Visit Jenaro Cheema Nancy [facility] Encounter/[id number] Legac y [facility] 2019-08-10 00:00:00 2019-08-10 00:00:00 Office Visit LopezTan [facility] Encounter/[id number] [facility] 2019-08-10 00:00:00 2019-08-10 00:00:00 Office Visit LopezValentinaleonel [facility] Encounter/[id number] [facility] 2019-08-10 00:00:00 2019-08-10 00:00:00 Office Visit JessicaValentinaleonel [facility] Encounter/[id number] [facility] 2019-08-10 00:00:00 2019-08-10 00:00:00 Office Visit Tan Lima Diego [facility] Encounter/[id number] Legac y [facility] 2019-08-07 04:45:00 2019-08-07 04:45:00 Registered Surgical Day Car e 3 ROSA ELENANESSAALEXEYGEENA [facility] [id number] I [facility] 2019-07-24 04:29:00 2019-07-24 04:29:00 Registered Surgical Day Care [facility] [id number] [facility] 2019-07-06 00:00:00 2019-07-06 00:00:00 Office Visit Ty Hernández [facility] Encounter/[id number] [facility] 2019-07-06 00:00:00 2019-07-06 00:00:00 Office Visit Jenaro Cheema Nancy [facility] Encounter/[id number] Legac y [facility] 2019-06-18 00:46:00 2019-06-20 08:01:00 Discharged Inpatient 1 GALMALIIS [facility] [id number] [facility] 2019-06-15 00:00:00 2019-06-15 00:00:00 Office Visit Mike Smyth [facility] Encounter/[id number] [facility] 2019-06-15 00:00:00 2019-06-15 00:00:00 Office Visit Juliana Boateng LC [facility] Encounter/[id number] [facility] 2019-06-15 00:00:00 2019-06-15 00:00:00 Office Visit Juliana Boateng [facility] Encounter/[id number] [facility] 2019-06-15 00:00:00 2019-06-15 00:00:00 Office Visit Vaishali PichardoadosMike LC [facility] Encounter/[id number] [facility] 2019-05-07 00:00:00 2019-05-07 00:00:00 Office Visit Ty Hernández LC [facility] Encounter/[id number] [facility] 2019-05-07 00:00:00 2019-05-07 00:00:00 Office Visit Jenaro Cheema Nancy LC LC Encounter/[id number] [facility] 2019-03-05 00:00:00 2019-03-05 00:00:00 Office Visit Ibis Barrera y [facility] Encounter/[id number] [facility] 2019-01-29 00:00:00 2019-01-29 00:00:00 Office Visit Ty Hernández LC [facility] Encounter/[id number] [facility] 2019-01-29 00:00:00 2019-01-29 00:00:00 Office Visit Jenaro Cheema Nancy [facility] Encounter/[id number] [facility] 2019-01-23 00:00:00 2019-01-23 00:00:00 Office Visit Ty Hernández [facility] Encounter/[id number] [facility] 2019-01-16 05:47:00 2019-01-16 05:47:00 Registered Surgical Day Care [facility] [id number] [facility] 2019-01-01 00:00:00 2019-01-01 00:00:00 Office Visit Holly Ibis DIAZ LC Encounter/[id number] [facility] 2019-01-01 00:00:00 2019-01-01 00:00:00 Office Visit Ty Hernández LC [facility] Encounter/[id number] [facility] 2019-01-01 00:00:00 2019-01-01 00:00:00 Office Visit Jenaro Cheema Nancy LC [facility] Encounter/[id number] [facility] 2018-12-19 00:00:00 2018-12-19 00:00:00 Office Visit Ty Hernández LC [facility] Encounter/[id number] [facility] 2018-12-08 00:00:00 2018-12-08 00:00:00 Office Visit Ibis Barrera LC LC Encounter/[id number] [facility] 2018-11-19 00:00:00 2018-11-19 00:00:00 Office Visit Ty Hernández LC [facility] Encounter/[id number] [facility] 2018-10-17 00:00:00 2018-10-17 00:00:00 Office Visit Jenaro Cheema Yu LC [facility] Encounter/[id number] [facility] 2018-10-02 00:00:00 2018-10-02 00:00:00 Office Visit Ibis Barrera LC [facility] Encounter/[id number] [facility] 2018-10-02 00:00:00 2018-10-02 00:00:00 Office Visit Ty Hernández LC [facility] Encounter/[id number] [facility] 2018-10-02 00:00:00 2018-10-02 00:00:00 Office Visit Jenaro Cheema Nancy LC [facility] Encounter/[id number] [facility] 2018-09-26 00:00:00 2018-09-26 00:00:00 Office Visit Ty Hernández [facility] Encounter/[id number] [facility] 2018-09-03 00:00:00 2018-09-03 00:00:00 Office Visit Ibis Barrera [facility] Encounter/[id number] [facility] 2018-09-03 00:00:00 2018-09-03 00:00:00 Office Visit Ty Hernández [facility] Encounter/[id number] [facility] 2018-09-03 00:00:00 2018-09-03 00:00:00 Office Visit Ty Hernández [facility] Encounter/[id number] [facility] 2018-09-03 00:00:00 2018-09-03 00:00:00 Office Visit Jenaro Cheema Nancy [facility] Encounter/[id number] [facility] 2018-06-05 00:00:00 2018-06-05 00:00:00 Office Visit Eulogio Alonzo [facility] Encounter/[id number] [facility] 2018-06-05 00:00:00 2018-06-05 00:00:00 Office Visit Mike Smyth L[facility] Encounter/[id number] [facility] 2018-06-05 00:00:00 2018-06-05 00:00:00 Office Visit Davidson Hull L[facility] Encounter/[id number] [facility] 2018-06-05 00:00:00 2018-06-05 00:00:00 Office Visit Eulogio Alonzo L[facility] Encounter/[id number] [facility] 2018-06-05 00:00:00 2018-06-05 00:00:00 Office Visit Amadou Merrill Deborath L[facility] Encounter/[id number] [facility] 2018-06-05 00:00:00 2018-06-05 00:00:00 Office Visit Home Rudd L[facility] Encounter/[id number] [facility] 2018-06-05 00:00:00 2018-06-05 00:00:00 Office Visit Davidson Hull L[facility] Encounter/[id number] [facility] 2018-06-05 00:00:00 2018-06-05 00:00:00 Office Visit Davidson Hull [facility] Encounter/[id number] [facility] 2018-05-07 00:00:00 2018-05-07 00:00:00 Office Visit Ranjit Lizet isbell L[facility] Encounter/[id number] [facility] 2018-05-07 00:00:00 2018-05-07 00:00:00 Office Visit Ty Hernández [facility] Encounter/[id number] [facility] 2018-05-07 00:00:00 2018-05-07 00:00:00 Office Visit Jenaro Cheema Dalila L[facility] Encounter/[id number] [facility] 2018-02-12 00:00:00 2018-02-12 00:00:00 Office Visit Lisa Arnold LC [facility] Encounter/[id number] [facility] 2018-02-12 00:00:00 2018-02-12 00:00:00 Office Visit Ty Hernández [facility] Encounter/[id number] [facility] 2018-02-12 00:00:00 2018-02-12 00:00:00 Office Visit Jenaro Cheema Grace [facility] Encounter/[id number] [facility] 2018-01-01 00:00:00 2018-01-01 00:00:00 Office Visit Ty Hernández [facility] Encounter/[id number] [facility] 2018-01-01 00:00:00 2018-01-01 00:00:00 Office Visit Jenaro Cheema Grace [facility] Encounter/[id number] [facility] 2017-12-27 00:00:00 2017-12-27 00:00:00 Office Visit Jenaro Cheema Maritza Asencio, Patricia L[facility] Encounter/[id number] [facility] 2017-11-21 00:00:00 2017-11-21 00:00:00 Office Visit Ty Hernández LC [facility] Encounter/[id number] [facility] 2017-11-21 00:00:00 2017-11-21 00:00:00 Office Visit Jenaro Cheema Grace LC [facility] Encounter/[id number] [facility] 2017-11-15 00:00:00 2017-11-15 00:00:00 Office Visit Jenaro Cheema Grace Bahena, Reyna Chandrasekaran, Charukesi LC [facility] Encounter/[id number] [facility] 2017-10-17 00:00:00 2017-10-17 00:00:00 Office Visit Ty Hernández LC [facility] Encounter/[id number] [facility] 2017-10-17 00:00:00 2017-10-17 00:00:00 Office Visit Ty Hernández LC [facility] Encounter/[id number] [facility] 2017-10-17 00:00:00 2017-10-17 00:00:00 Office Visit Ty Hernández LC [facility] Encounter/[id number] [facility] 2017-10-17 00:00:00 2017-10-17 00:00:00 Office Visit Jenaro Cheema Grace LC [facility] Encounter/[id number] [facility] 2017-09-26 00:00:00 2017-09-26 00:00:00 Office Visit Ty Hernández LC [facility] Encounter/[id number] [facility] 2017-09-26 00:00:00 2017-09-26 00:00:00 Office Visit Jenaro Cheema Grace LC [facility] Encounter/[id number] [facility] 2017-09-06 00:00:00 2017-09-06 00:00:00 Office Visit Ty Hernández LC [facility] Encounter/[id number] [facility] 2017-09-06 00:00:00 2017-09-06 00:00:00 Office Visit Ty Hernández [facility] Encounter/[id number] [facility] 2017-08-26 00:00:00 2017-08-26 00:00:00 Office Visit Lisa Arnold [facility] Encounter/[id number] [facility] 2017-08-07 00:00:00 2017-08-07 00:00:00 Office Visit Ty Hernández [facility] Encounter/[id number] [facility] 2017-08-07 00:00:00 2017-08-07 00:00:00 Office Visit Lisa Arnold [facility] Encounter/[id number] [facility] 2017-08-07 00:00:00 2017-08-07 00:00:00 Office Visit Jenaro Cheema Grace [facility] Encounter/[id number] [facility] 2017-07-12 00:00:00 2017-07-12 00:00:00 Office Visit Ty Hernández [facility] Encounter/[id number] [facility] 2017-07-12 00:00:00 2017-07-12 00:00:00 Office Visit Lisa Arnold L[facility] Encounter/[id number] [facility] 2017-07-12 00:00:00 2017-07-12 00:00:00 Office Visit Ty Hernández [facility] Encounter/[id number] [facility] 2017-07-12 00:00:00 2017-07-12 00:00:00 Office Visit Jenaro Cheema Grace [facility] Encounter/[id number] [facility] 2017-06-18 00:00:00 2017-06-18 00:00:00 Office Visit Davidson Hull LCH [facility] Encounter/[id number] [facility] 2017-06-05 00:00:00 2017-06-05 00:00:00 Office Visit Ty Hernández [facility] Encounter/[id number] [facility] 2017-06-05 00:00:00 2017-06-05 00:00:00 Office Visit Jenaro Cheema Grace [facility] Encounter/[id number] [facility] 2017-06-05 00:00:00 2017-06-05 00:00:00 Office Visit Lisa Arnold [facility] Encounter/[id number] [facility] 2017-05-13 00:00:00 2017-05-13 00:00:00 Office Visit Lisa Arnold [facility] Encounter/[id number] [facility] 2017-05-09 00:00:00 2017-05-09 00:00:00 Office Visit Jenaro Cheema Grace [facility] Encounter/[id number] [facility] 2017-05-08 00:00:00 2017-05-08 00:00:00 Office Visit Ty Hernández [facility] Encounter/[id number] [facility] 2017-05-08 00:00:00 2017-05-08 00:00:00 Office Visit Ty Hernández [facility] Encounter/[id number] [facility] 2017-05-08 00:00:00 2017-05-08 00:00:00 Office Visit Jenaro Cheema Grace [facility] Encounter/[id number] [facility] 2017-03-08 00:00:00 2017-03-08 00:00:00 Office Visit Linette Hannah [facility] Encounter/[id number] [facility] 2017-02-01 11:59:32 2017-02-01 11:59:32 Outpatient [facility] [id number] [facility] Results Test Description Test Time Test Comments Results Result Comments Source CHEST SINGLE (PORTABLE) 2019-11-24 22:38:00 [place] [address] Patient Name: MARIANNE MCKENZIE MR #: [id number] : 1970 Age/Sex: 49/F Req #: [id number] Adm Physician: Ordered by: KORY RODRIGUEZ DO Report #: [id number] Location: ER Room/Bed: Procedure: [id number] DX/CHEST SINGLE (PORTABLE) Exam Date: 11/24/19 Exam Time: 2153 REPORT STATUS: Signed EXAMINATION: CHEST SINGLE (PORTABLE) INDICATION: DIZZY COMPARISON: Chest radiograph 06-18-2019. FINDINGS: TUBES and LINES: None. LUNGS: Lungs are well inflated. There is no evidence of pneumonia or pulmonary edema. PLEURA: No pleural effusion or pneumothorax. HEART AND MEDIASTINUM: The cardiomediastinal silhouette is unremarkable. BONES AND SOFT TISSUES: No acute osseous lesion. Soft tissues are unremarkable. UPPER ABDOMEN: No free air under the diaphragm. IMPRESSION: No acute thoracic abnormality. Signed by: Dr. Matt Orozco MD on 11/24/2019 10:40 PM Dictated By: MATT OROZCO MD 39 Transcribed By: EUGENE on 11/24/192239 COPY TO: KORY RODRIGUEZ DO CT BRAIN WO 2019-11-24 22:14:00 [place] [address] Patient Name: MARIANNE MCKENZIE MR #: [id number] : 1970 Age/Sex: 49/F Req #: [id number] Adm Physician: Ordered by: KORY RODRIGUEZ DO Report #: [id number] Location: ER Room/Bed: Procedure: [id number] CT/CT BRAIN WO Exam Date: 11/24/19 Exam Time: 2154 REPORT STATUS: Signed History: Dizziness, fainted. Comparison studies: CT head 09/25/2017 Technique: Axial images were obtained from the skull base to the vertex. Coronal and sagittal reconstructions obtained from the axial data. Dose modulation, iterative reconstruction, and/or weight based adjustment of the mA/kV was utilized to reduce the radiation dose to as low as reasonably achievable. Findings: Scalp/skull: No acute abnormalities. Stable left parietal and right occipital subcentimeter scalp nodules. No fractures, blastic or lytic lesions. Extra-axial spaces: No masses. No fluid collections. Brain sulci: Mildly prominent. Ventricles: Normal in size and configuration. No hydrocephalus. Parenchyma: Small hypodensity at the left frontal centrum semiovale, nonspecific and most commonly seen with mild chronic microvascular ischemic changes. No masses, hemorrhage, acute or chronic cortical vascular insults. Sellar/suprasellar region: No abnormalities Craniocervical junction: Patent foramen magnum. No Chiari one malformation. IMPRESSION: No acute abnormalities . Signed by: DR Cruz Henley M.D. on 11/24/2019 10:21 PM Dictated By: CRUZ BAPTISTE MD 20 Transcribed By: EUGENE on 11/24/192220 COPY TO: KORY RODRGIUEZ DO Blood leukocytes automated count (number/volume) 2019-11-24 21:44:00 Test Item White Blood Count (test code = 6690-2) 12.47 4[facility]10.8 [facility]/volume[facility]2019-11-24 21:44:00* Test Item Value Reference Range Interpretation Comments Red Blood Count (test code = 789-8) 4.16 3.6-5.1 [facility] (moles/volume)2019-11-24 21:44:00* Test Item Value Reference Range Interpretation Comments Hemoglobin (test code = 62953-0) 12.0 12.0-16.0 [facility] hematocrit (volume fraction)2019-11-24 21:44:00* Test Item Value Reference Range Interpretation Comments Hematocrit (test code = 4544-3) 38.7 34.2-44.1 [facility] mean corpuscular [id number] 21:44:00* Test Item Value Reference Range Interpretation Comments Mean Corpuscular Volume (test code = 787-2) 93.0 81-99 [facility] mean corpuscular hemoglobin (mass per erythrocyte)2019-11-24 21:44:00* Test Item Value Reference Range Interpretation Comments Mean Corpuscular Hemoglobin (test code = 785-6) 28.8 28-32 [facility] mean corpuscular hemoglobin concentration measurement (mass/volume)2019-11-24 21:44:00* Test Item Value Reference Range Interpretation Comments Mean Corpuscular Hemoglobin Concent (test code = 786-4) 31.0 31-35 [facility] [facility] PqyLz-Anr3676-45-19 21:44:00* Test Item Value Reference Range Interpretation Comments Red Cell Distribution Width (test code = 89616-1) 13.2 11.7 -14.4 [facility] HospitalAutomated blood platelet count (count/volume)2019-11-24 21:44:00* Test Item Value Reference Range Interpretation Comments Platelet Count (test code = 777-3) 220 140-360 [facility] HospitalAutwakemed cary hospitaled blood segmented neutrophil count as percentage of total kizsoyqffd2752-44-58 21:44:00* Test Item Value Reference Range Interpretation Comments Neutrophils (%) (Auto) (test code = 14131-5) 78.7 38.7-80.0 [facility] HospitalAutomated blood lymphocyte count as percentage ot total istomwfpgd7243-66-44 21:44:00* Test Item Value Reference Range Interpretation Comments Lymphocytes (%) (Auto) (test code = 736-9) 9.9 18.0-39.1 [facility] HospitalAutomated blood monocyte count as percentage of total omocxclalj0087-09-16 21:44:00* Test Item Value Reference Range Interpretation Comments Monocytes (%) (Auto) (test code = 5905-5) 7.8 4.4-11.3 [facility] HospitalAutomated blood eosinophil count as percentage of total qklkqayavy1115-91-02 21:44:00* Test Item Value Reference Range Interpretation Comments Eosinophils (%) (Auto) (test code = 713-8) 1.2 0.0-6.0 [facility] HospitalAutomated blood basophil count as percentage of total zgnzibktgf7104-42-40 21:44:00* Test Item Value Reference Range Interpretation Comments Basophils (%) (Auto) (test code = 706-2) 0.6 0.0-1.0 [facility] HospitalFluoroscopic procedure less than one hour ewelzjaz0787-44-55 21:44:00* Test Item Value Reference Range Interpretation Comments IM GRANULOCYTES % (test code = IM GRANULOCYTES %) 1.8 0.0- 1.0 [facility] HospitalAutomated blood neutrophil count 2019-11-24 21:44:00* Test Item Value Reference Range Interpretation Comments Neutrophils # (Auto) (test code = 751-8) 9.8 2.1-6.9 [facility] HospitalBlood lymphocytes count (number/volume) 2019-11-24 21:44:00* Test Item Value Reference Range Interpretation Comments Lymphocytes # (Auto) (test code = 73503-5) 1.2 1.0-3.2 [facility] HospitalBlood monocytes automated count (number/volume)2019-11-24 21:44:00* Test Item Value Reference Range Interpretation Comments Monocytes # (Auto) (test code = 742-7) 1.0 0.2-0.8 [facility] HospitalAutomated blood eosinophil count 2019-11-24 21:44:00* Test Item Value Reference Range Interpretation Comments Eosinophils # (Auto) (test code = 711-2) 0.2 0.0-0.4 [facility] HospitalAutomated blood basophil count (count/volume)2019-11-24 21:44:00* Test Item Value Reference Range Interpretation Comments Basophils # (Auto) (test code = 704-7) 0.1 0.0-0.1 [facility] HospitalFluoroscopic procedure less than one hour bhjqvkiq1588-11-69 21:44:00* Test Item Value Reference Range Interpretation Comments Absolute Immature Granulocyte (auto (abhijit t code = Absolute Immature Granulocyte (auto) 0.23 0-0.1 [facility] sodium measurement (moles/volume)2019-11-24 21:44:00* Test Item Value Reference Range Interpretation Comments Sodium Level (test code = 2951-2) 140 136-145 [facility] or plasma potassium measurement (moles/volume)2019-11-24 21:44:00* Test Item Value Reference Range Interpretation Comments Potassium Level (test code = 2823-3) 3.8 3.5-5.1 [facility] or plasma chloride measurement (moles/volume)2019-11-24 21:44:00* Test Item Value Reference Range Interpretation Comments Chloride Level (test code = 2075-0) 108 98-107 [facility] or plasma carbon dioxide, total measurement (moles/volume)2019-11-24 21:44:00* Test Item Value Reference Range Interpretation Comments Carbon Dioxide Level (test code = 2028-9) 21 22-29 [facility]um or plasma anion ree0663-95-19 21:44:00* Test Item Value Reference Range Interpretation Comments Anion Gap (test code = 78107-4) 14.8 8-16 [facility]um or plasma urea nitrogen measurement (mass/volume)2019-11-24 21:44:00* Test Item Value Reference Range Interpretation Comments Blood Urea Nitrogen (test code = 3094-0) 27 7-26 [facility] or plasma creatinine measurement (mass/volume)2019-11-24 21:44:00* Test Item Value Reference Range Interpretation Comments Creatinine (test code = 2160-0) 1.07 0.57-1.11 [facility] or plasma urea nitrogen/creatinine mass lqmey5221-06-64 21:44:00* Test Item Value Reference Range Interpretation Comments BUN/Creatinine Ratio (test code = 3097-3) 25 6-25 [facility] HospitalEstimated glomerular filtration rate (GFR) omcoscejxftea6589-10-69 21:44:00* Test Item Value Reference Range Interpretation Comments Estimat Glomerular Filtration Rate (test code = 228539871) 55 >60 Ranges were taken from the National Kidney Disease Education Program and the [facility] Kidney Foundation literature.Reference ranges:60 or greater: Ykwdqb90-26 ( for 3 consecutive months): Chronic kidney disease 15 or less: Kidney failureNorth Central Baptist HospitalGlucose gmfcrnaavli7135-09-45 21:44:00* Test Item Value Reference Range Interpretation Comments Glucose Level (test code = CWQ8014) 112 74-118 [facility] or plasma calcium measurement (mass/volume)2019-11-24 21:44:00* Test Item Value Reference Range Interpretation Comments Calcium Level (test code = 33463-8) 9.0 8.4-10.2 [facility] or plasma total bilirubin measurement (mass/volume)2019-11-24 21:44:00* Test Item Value Reference Range Interpretation Comments Total Bilirubin (test code = 1975-2) 0.2 0.2-1.2 [facility] HospitalFluoroscopic procedure less than one hour qxybetei5533-55-92 21:44:00* Test Item Value Reference Range Interpretation Comments Aspartate Amino Transf (AST/SGOT) (test code = Aspartate Amino Transf (AST/SGOT)) 14 5-34 [facility] or plasma alanine aminotransferase measurement (enzymatic activity/volume)2019-11-24 21:44:00* Test Item Value Reference Range Interpretation Comments Alanine Aminotransferase (ALT/SGPT) (test code = 1742-6) 15 0-55 [facility] or plasma protein measurement (mass/volume)2019-11-24 21:44:00* Test Item Value Reference Range Interpretation Comments Total Protein (test code = 2885-2) 6.8 6.5-8.1 [facility] or plasma albumin measurement (mass/volume)2019-11-24 21:44:00* Test Item Value Reference Range Interpretation Comments Albumin (test code = 1751-7) 3.4 3.5-5.0 [facility] HospitalPlasma globulin measurement (mass/volume) 2019-11-24 21:44:00* Test Item Value Reference Range Interpretation Comments Globulin (test code = 79807-1) 3.4 2.3-3.5 [facility] or plasma albumin/globulin mass jokym2355-46-30 21:44:00* Test Item Value Reference Range Interpretation Comments Albumin/Globulin Ratio (test code = 1759-0) 1.0 0.8-2.0 [facility] or plasma alkaline phosphatase measurement (enzymatic activity/volume)2019-11-24 21:44:00* Test Item Value Reference Range Interpretation Comments Alkaline Phosphatase (test code = 6768-6) 86 40-150 [facility] HospitalBNP Gej-aXwp7937-83-19 21:44:00* Test Item Value Reference Range Interpretation Comments B-Type Natriuretic Peptide (test code = 51864-4) 17.8 0-100 [facility] or plasma creatine kinase measurement (enzymatic activity/volume)2019-11-24 21:44:00* Test Item Value Reference Range Interpretation Comments Creatine Kinase (test code = 2157-6) 50 29-168 [facility] or plasma creatine kinase MB measurement (mass/volume)2019-11-24 21:44:00* Test Item Value Reference Range Interpretation Comments Creatine Kinase MB (test code = 49022-3) 1.30 0-5.0 [facility] HospitalTroponin I measurement by highly sensitive enzyme yrsqkyfsigh5839-58-05 21:44:00* Test Item Value Reference Range Interpretation Comments Troponin I (test code = 80958-4) 0.010 0-0.300 [facility] Hospitalinfluenza B virus spzcmam4785-91-36 14:19:05* Test Item Value Reference Range Interpretation Comments influenza B virus antigen (test code = 89399) negative [facility] Hospitalin[facility] A rvmasto0279-21-90 14:19:05* Test Item Value Reference Range Interpretation Comments influenza virus A antigen (test code = 3413) negative [facility] HospitalMicrobial identification kit, rapid strep method 2019-09-09 14:19:05* Test Item Value Reference Range Interpretation Comments Microbial identification kit, rapid strep method (test code = 39515-9) negative [facility] HospitalABDOMEN-1VIEW (KUB)2019-08-04 17:48:00 [place] [address] Patient Name: MARIANNE MCKENZIE MR #: [id number] : 1970 Age/Sex: 48/F Req #: [id number] Adm Physician: Ordered by: ANN LAMA MD Report #: [id number] Location: OR Room/Bed: Procedure: [id number] DX/EDGAR HERNANDEZ-1VIEW (KUB) Exam Date: 08/04/19 Exam Time: 1700 REPORT STATUS: Signed Exam: KUB - 2 views Indication: Preoperative Comparison: KUB of 06/18/2019, CT a bdomen and pelvis of 06/17/2019 Findings: The previously seen 5 mm right ureteral calculus is no longer visualized on this study. 3 mm right renal clara culus. 4 mm left renal calculus. No acute osseous injury. Nonobstructive bowel gas pattern. No free air. Impression: Interval resolution of previously seen right ureteral calculus. Bilateral renal calculi as above. Signed by : Srini Coello MD on 08/04/2019 5:51 PM Dictated By: SRINI COELLO MD Electro nically Signed By: SRINI COELLO MD on 08/04/191750 Transcribed By: EUGENE on 1750 COPY TO: ANN LAMA MD Differential Total Cells Ywczbip9134-32-96 13:26:00* Test Item Value Reference Range Interpretation Comments Differential Total Cells Counted (test code = Eugenio martines Total Cells Counted) 100 [facility] HospitalNeutrophils % (Manual)2019-06-19 13:26:00 * Test Item Value Reference Range Interpretation Comments Neutrophils % (Manual) (test code = 95634-3) 84 40-74 H [facility] HospitalLymphocytes % (Manual)2019-06-19 13:26:00 * Test Item Value Reference Range Interpretation Comments Lymphocytes % (Manual) (test code = 737-7) 7 19-48 L [facility] HospitalMonocytes % (Manual)2019-06-19 13:26:00* Test Item Value Reference Range Interpretation Comments Monocytes % (Manual) (test code = 744-3) 6 3.4-9.0 [facility] HospitalEosinophils % (Manual)2019-06-19 13:26:00 * Test Item Value Reference Range Interpretation Comments Eosinophils % (Manual) (test code = 714-6) 3 0-7 [facility] HospitalPlatelet Pzuetnlz4369-44-07 13:26:00* Test Item Value Reference Range Interpretation Comments Platelet Estimate (test code = 60217-5) ADEQUATE [facility] HospitalPlatelet Morphology Vaorakr9346-62-15 13:26:00* Test Item Value Reference Range Interpretation Comments Platelet Morphology Comment (test code = 87427-0) NORMAL [facility] HospitalRed Cell Morphology Rjuvdab5997-78-53 13:26:00* Test Item Value Reference Range Interpretation Comments Red Cell Morphology Comment (test code = 6742-1) NORMAL [facility] HospitalFluoroscopic procedure less than one hour hbhmphyb7381-68-59 12:30:00* Test Item Value Reference Range Interpretation Comments Stone Analysis (T) (test code = Stone Analysis (T)) See Comment Calculi, Urinary: Color Hernández Size 6x5x4 mm Weight 70.3 mg Composition Percenta ge (Represents the % composition) Ca oxalate monohydr. 30 % Calcium phosphate 4 5 % Magnesium anh phos 10 % Ca hydrogen phos. 15 % Nidus: No Nidus visualize d Please note: Calculi report without photograph will follow via computer, [facility], or flexboard operator delivery.Comment: Physician questions regarding Calculi Analysis contact [facility] at: [phone].Disclaimer: This test was developed and its pe rformance characteristics determined by [employer]. It has not been cleared or appr edi by the Food and Drug Administration.Testing performed by:[employer] [address] [id number]. Michele Guerrero MD [facility] HospitalBlood Kbndahh1911-54-32 09:50:00* Test Item Value Reference Range Interpretation Comments Blood Culture (test code = 43463585) NO GROWTH AFTER 24 HOURS [facility] Worthodium Atmsk6431-31-20 05:39:00* Test Item Value Reference Range Interpretation Comments Sodium Level (test code = 2951-2) 139 136-145 [facility] HospitalPotassium Sdwob4269-34-74 05:39:00* Test Item Value Reference Range Interpretation Comments Potassium Level (test code = 2823-3) 4.1 3.5-5.1 [facility] HospitalChloride Dbjpo6438-05-97 05:39:00* Test Item Value Reference Range Interpretation Comments Chloride Level (test code = 2075-0) 106 98-107 [facility] HospitalCarbon Dioxide Ncurf1638-80-68 05:39:00* Test Item Value Reference Range Interpretation Comments Carbon Dioxide Level (test code = 2028-9) 22 22-29 [facility] HospitalAnion Fyk9816-64-35 05:39:00* Test Item Value Reference Range Interpretation Comments Anion Gap (test code = 22989-5) 15.1 8-16 [facility] HospitalBlood Urea Freatinf7326-06-88 05:39:00* Test Item Value Reference Range Interpretation Comments Blood Urea Nitrogen (test code = 3094-0) 19 7-26 [facility] HospitalCreatinine2019-12-13 05:39:00* Test Item Value Reference Range Interpretation Comments Creatinine (test code = 2160-0) 1.05 0.57-1.11 [facility] HospitalBUN/Creatinine Fizvj8030-25-56 05:39:00* Test Item Value Reference Range Interpretation Comments BUN/Creatinine Ratio (test code = 3097-3) 18 6-25 [facility] HospitalEstimat Glomerular Filtration Rate 2019-06-19 05:39:00* Test Item Value Reference Range Interpretation Comments Estimat Glomerular Filtration Rate (test code = 326590359) 56 >60 L Ranges were taken from the National Kidney Disease Education Program and the [facility] literature.Reference ranges:60 or greater: Nouvvj42-86 ( for 3 consecutive months): Chronic kidney disease 15 or less: Kidney failureNorth Central [facility] HospitalGlucose Tshbb7747-75-34 05:39:00* Test Item Value Reference Range Interpretation Comments Glucose Level (test code = NAL6742) 116 74-118 [facility] HospitalCalcium Xgcnm8110-14-91 05:39:00* Test Item Value Reference Range Interpretation Comments Calcium Level (test code = 23162-5) 8.8 8.4-10.2 [facility] HospitalTotal Eyqcsmibu5987-92-91 05:39:00* Test Item Value Reference Range Interpretation Comments Total Bilirubin (test code = 1975-2) 0.3 0.2-1.2 [facility] HospitalAspartate Amino Transf (AST/SGOT) 2019-06-19 05:39:00* Test Item Value Reference Range Interpretation Comments Aspartate Amino Transf (AST/SGOT) (test code = Aspartate Amino Transf (AST/SGOT)) 15 5-34 [facility] HospitalAlanine Aminotransferase (ALT/SGPT) 2019-06-19 05:39:00* Test Item Value Reference Range Interpretation Comments Alanine Aminotransferase (ALT/SGPT) (test code = 1742-6) 16 0-55 [facility] HospitalTotal Cwawure0479-18-95 05:39:00* Test Item Value Reference Range Interpretation Comments Total Protein (test code = 2885-2) 6.2 6.5-8.1 L [facility] HospitalAlbumin2019-12-13 05:39:00* Test Item Value Reference Range Interpretation Comments Albumin (test code = 1751-7) 2.9 3.5-5.0 L [facility] HospitalGlobulin2019-12-13 05:39:00* Test Item Value Reference Range Interpretation Comments Globulin (test code = 68227-8) 3.3 2.3-3.5 [facility] HospitalAlbumin/Globulin Htsyf5711-07-21 05:39:00 * Test Item Value Reference Range Interpretation Comments Albumin/Globulin Ratio (test code = 1759-0) 0.9 0.8-2.0 [facility] HospitalAlkaline Uoktohfliek3463-95-68 05:39:00* Test Item Value Reference Range Interpretation Comments Alkaline Phosphatase (test code = 6768-6) 87 40-150 [facility] HospitalWhite Blood Xcoiw1370-34-06 05:33:00* Test Item Value Reference Range Interpretation Comments White Blood Count (test code = 6690-2) 10.41 4.8-10.8 [facility] HospitalRed Blood Vcahd7906-38-83 05:33:00* Test Item Value Reference Range Interpretation Comments Red Blood Count (test code = 789-8) 4.27 3.6-5.1 [facility] HospitalHemoglobin2019-12-13 05:33:00* Test Item Value Reference Range Interpretation Comments Hemoglobin (test code = 36790-2) 12.5 12.0-16.0 [facility] HospitalHematocrit2019-12-13 05:33:00* Test Item Value Reference Range Interpretation Comments Hematocrit (test code = 4544-3) 40.3 34.2-44.1 [facility] HospitalMean Corpuscular Ghpnym5418-30-13 05:33:00* Test Item Value Reference Range Interpretation Comments Mean Corpuscular Volume (test code = 787-2) 94.4 81-99 [facility] HospitalMean Corpuscular Bjssmoliad5839-24-39 05:33:00* Test Item Value Reference Range Interpretation Comments Mean Corpuscular Hemoglobin (test code = 785-6) 29.3 28-32 [facility] HospitalMean Corpuscular Hemoglobin Concent 2019-06-19 05:33:00* Test Item Value Reference Range Interpretation Comments Mean Corpuscular Hemoglobin Concent (test code = 786-4) 31.0 31-35 [facility] HospitalRed Cell Distribution Reqdo1747-97-09 05:33:00* Test Item Value Reference Range Interpretation Comments Red Cell Distribution Width (test code = 72236-8) 13.0 11.7 -14.4 [facility] HospitalPlatelet Azihp7932-71-41 05:33:00* Test Item Value Reference Range Interpretation Comments Platelet Count (test code = 777-3) 234 140-360 [facility] HospitalNeutrophils (%) (Auto)2019-06-19 05:33:00 * Test Item Value Reference Range Interpretation Comments Neutrophils (%) (Auto) (test code = 95539-5) 81.8 38.7-80.0 H [facility] HospitalLymphocytes (%) (Auto)2019-06-19 05:33:00 * Test Item Value Reference Range Interpretation Comments Lymphocytes (%) (Auto) (test code = 736-9) 7.3 18.0-39.1 L [facility] HospitalMonocytes (%) (Auto)2019-06-19 05:33:00* Test Item Value Reference Range Interpretation Comments Monocytes (%) (Auto) (test code = 5905-5) 6.1 4.4-11.3 [facility] HospitalEosinophils (%) (Auto)2019-06-19 05:33:00 * Test Item Value Reference Range Interpretation Comments Eosinophils (%) (Auto) (test code = 713-8) 1.8 0.0-6.0 [facility] HospitalBasophils (%) (Auto)2019-06-19 05:33:00* Test Item Value Reference Range Interpretation Comments Basophils (%) (Auto) (test code = 706-2) 0.7 0.0-1.0 [facility] HospitalIM GRANULOCYTES %2019-06-19 05:33:00* Test Item Value Reference Range Interpretation Comments IM GRANULOCYTES % (test code = IM GRANULOCYTES %) 2.3 0.0- 1.0 H [facility] HospitalNeutrophils # (Auto)2019-06-19 05:33:00* Test Item Value Reference Range Interpretation Comments Neutrophils # (Auto) (test code = 751-8) 8.5 2.1-6.9 H [facility] HospitalLymphocytes # (Auto)2019-06-19 05:33:00* Test Item Value Reference Range Interpretation Comments Lymphocytes # (Auto) (test code = 31389-8) 0.8 1.0-3.2 L [facility] HospitalMonocytes # (Auto)2019-06-19 05:33:00* Test Item Value Reference Range Interpretation Comments Monocytes # (Auto) (test code = 742-7) 0.6 0.2-0.8 [facility] HospitalEosinophils # (Auto)2019-06-19 05:33:00* Test Item Value Reference Range Interpretation Comments Eosinophils # (Auto) (test code = 711-2) 0.2 0.0-0.4 [facility] HospitalBasophils # (Auto)2019-06-19 05:33:00* Test Item Value Reference Range Interpretation Comments Basophils # (Auto) (test code = 704-7) 0.1 0.0-0.1 [facility] HospitalAbsolute Immature Granulocyte (auto 2019-06-19 05:33:00* Test Item Value Reference Range Interpretation Comments Absolute Immature Granulocyte (auto (abhijit t code = Absolute Immature Granulocyte (auto) 0.24 0-0.1 H [facility] HospitalFluoroscopic procedure less than one hour hbpayddi4793-60-37 03:48:00* Test Item Value Reference Range Interpretation Comments Differential Total Cells Counted (test code = Differen tial Total Cells Counted) 100 [facility] HospitalManual blood neutrophils/100 leukocytes 2019-06-19 03:48:00* Test Item Value Reference Range Interpretation Comments Neutrophils % (Manual) (test code = 48882-0) 84 40-74 [facility] HospitalManual blood lymphocytes/100 leukocytes 2019-06-19 03:48:00* Test Item Value Reference Range Interpretation Comments Lymphocytes % (Manual) (test code = 737-7) 7 19-48 [facility]100 leukocytes 2019-06-19 03:48:00* Test Item Value Reference Range Interpretation Comments Monocytes % (Manual) (test code = 744-3) 6 3.4-9.0 [facility] HospitalManual blood eosinophil count as percentage of total apeuzvppts1925-10-09 03:48:00* Test Item Value Reference Range Interpretation Comments Eosinophils % (Manual) (test code = 714-6) 3 0-7 [facility] HospitalBlood platelets count by estimate (number/volume)2019-06-19 03:48:00* Test Item Value Reference Range Interpretation Comments Platelet Estimate (test code = 12725-0) ADEQUATE [facility] HospitalPlatelet tlytkdlmcn1685-12-15 03:48:00* Test Item Value Reference Range Interpretation Comments Platelet Morphology Comment (test code = 20418-4) NORMAL [facility] HospitalRB pkdwlaxfic0752-27-35 03:48:00* Test Item Value Reference Range Interpretation Comments Red Cell Morphology Comment (test code = 6742-1) NORMAL [facility] HospitalABDOMEN-1VIEW (KUB)2019-06-18 09:42:00 [place] [address] Patient Name: MARIANNE MCKENZIE MR #: [id number] : 1970 Age/Sex: 48/F Req #: [id number] Adm Physician: ROBY SANTO MD Ordered by: ANN LAMA MD Report #: [id number] Location: MED/SURG2 Room/Bed: [facility] Procedure: DX/ABD OMEN-1VIEW (KUB) Exam Date: 06/18/19 Exam Time: 914 REPORT STATUS: Signed Abdome n, 1 view. History: Ureteral calculus. Findings: A 6 mm stone is ag ain seen in the mid right ureter at the level of L3-L4. Air is scattered throu ghout nondilated small and large bowel. The osseous structures are intact. IMPRESSION: Right ureteral stone unchanged in position. Signed by: Ivan Knutson on 06/18/2019 9:44 AM Dictated By: IVAN KNUTSON MD Electr onically Signed By: IVAN KNUTSON MD on 06/18/19943 Transcribed By: EUGENE adkins 06/18/19943 COPY TO: ANN LAMA MD CHEST SINGLE (NOT PORTABLE)2019-06-18 09:41:00 [place] [address] Patient Name: MARIANNE MCKENZIE MR #: [id number] : 1970 Age/Sex: 48/F Req #: [id number] Adm Physician: ROBY SANTO MD Ordered by: ANN LAMA MD Report #: [id number] Location: MED/SURG2 Room/Bed: [facility] Procedure: DX/SOLE ST SINGLE (NOT PORTABLE) Exam Date: 06/18/19 Exam Ti me: 914 REPORT STATUS: Signed C hest, 1 view, 06/18/2019. History: Right flank pain. Compariso n: None available. Findings: The cardiomediastinal silhouette and pulmonary vasculature are within normal limits for a portable exam. There is no focal c onsolidation or pleural effusion. There are no acute osseous or soft tissue a bnormalities. Impression: No acute cardiopulmonary abnormality. Si gned by: Ivan Knutson on 06/18/2019 9:41 AM Dictated By: IVAN Knutson 0 Transcribed By: EUGENE on 06/18/19940 COPY TO: ANN LAMA MD Blood oidgrsz0632-09-52 08:42:00* Test Item Value Reference Range Interpretation Comments Blood Culture (test code = 56955254) NO GROWTH AFTER 5 DAYS, [facility]AL [facility]PORT [facility]PELVIS OP8358-78-13 23:14:00 [place] [address] Patient Name: MARIANNE MCKENZIE MR #: [id number] : 1970 Age/Sex: 48/F Req #: [id number] Adm Physician: Ordered by: JENARO JONES MD Report #: [id number] Location: ER Room/Bed: Procedure: [id number] C T/CT ABDOMEN/PELVIS WO Exam Date: 06/17/19 Exam Time : 2224 REPORT STATUS: Signed EXA M: CT Abdomen [...] free air or fluid. BONES: Low bone rn examiner al density. Helical right superior and inferior [...] on 06/17/2019 11:19 PM Dicta sherry By: JHONNY BRADFORD DO 4288 COPY TO: JENARO HERNANDEZ MD Urine [id number] 22:31:00* Test Item Value Reference Range Interpretation Comments Urine WBC (test code = 5821-4) [facility]ONE [facility]-5 [facility] [id number] 22:31:00* Test Item Value Reference Range Interpretation Comments Urine RBC (test code = 66240-4) 11-20 0-5 [facility] Ihoyfjxl2860-94-14 22:31:00* Test Item Value Reference Range Interpretation Comments Urine Bacteria (test code = 93357-4) MODERATE NONE [facility] Epithelial Aoono1339-96-92 22:31:00 * Test Item Value Reference Range Interpretation Comments Urine Epithelial Cells (test code = 97489-0) FEW NONE [facility] Yqtd7424-27-40 22:12:00* Test Item Value Reference Range Interpretation Comments Urine Test (test code = 2106-3) NEGATIVE NEGATIVE [facility] Rdprn3836-42-11 22:10:00* Test Item Value Reference Range Interpretation Comments Urine Color (test code = 5778-6) YELLOW YELLOW [facility] Agmfdfa6288-85-32 22:10:00* Test Item Value Reference Range Interpretation Comments Urine Clarity (test code = 36446-3) SL CLOUDY CLEAR [facility] Specific Pwsxmnz1186-57-85 22:10:00 * Test Item Value Reference Range Interpretation Comments Urine Specific [place] (test code = 5811-5) 1.020 1.010-1.02 5 [facility] [id number] 22:10:00* Test Item Value Reference Range Interpretation Comments Urine pH (test code = 10686-9) 6 5-7 [facility] Leukocyte Iumsccis8452-59-21 22:10:00* Test Item Value Reference Range Interpretation Comments Urine Leukocyte Esterase (test code = 5799-2) NEGATIVE NEGATIVE [facility] Gbrqnsn5049-09-90 22:10:00* Test Item Value Reference Range Interpretation Comments Urine Nitrite (test code = 60812-2) NEGATIVE NEGATIVE [facility] Tboyaxm0470-48-48 22:10:00* Test Item Value Reference Range Interpretation Comments Urine Protein (test code = 5804-0) NEGATIVE NEGATIVE [facility] Glucose (UA)2019-06-17 22:10:00* Test Item Value Reference Range Interpretation Comments Urine Glucose (UA) (test code = 2349-9) NEGATIVE NEGATIVE [facility] Yrnzsfi4622-71-95 22:10:00* Test Item Value Reference Range Interpretation Comments Urine Ketones (test code = 48339-2) NEGATIVE NEGATIVE [facility] Krbdxtipsklh4374-13-52 22:10:00* Test Item Value Reference Range Interpretation Comments Urine Urobilinogen (test code = 74212-4) 0.2 0.2-1 [facility] Pipvgnelo8781-33-65 22:10:00* Test Item Value Reference Range Interpretation Comments Urine Bilirubin (test code = 1978-6) NEGATIVE NEGATIVE [facility] Fkpfo1032-74-06 22:10:00* Test Item Value Reference Range Interpretation Comments Urine Blood (test code = 76855-4) 4+ NEGATIVE [facility] color lxygjglsrxnvk4072-98-34 20:19:00* Test Item Value Reference Range Interpretation Comments Urine Color (test code = 5778-6) YELLOW YELLOW [facility] nbqwpyi9017-35-86 20:19:00* Test Item Value Reference Range Interpretation Comments Urine Clarity (test code = 59440-1) SL CLOUDY CLEAR [facility] by Test strip 2019-06-17 20:19:00* Test Item Value Reference Range Interpretation Comments Urine Specific [place] (test code = 5811-5) 1.020 1.010-1.02 5 [facility] pH measurement by automated test zgffu3194-58-31 20:19:00* Test Item Value Reference Range Interpretation Comments Urine pH (test code = 41339-8) 6 5-7 [facility] leukocyte esterase detection by oxivtcan0121-29-23 20:19:00* Test Item Value Reference Range Interpretation Comments Urine Leukocyte Esterase (test code = 5799-2) NEGATIVE NEGATIVE [facility] nitrite vargnsbva0492-18-97 20:19:00* Test Item Value Reference Range Interpretation Comments Urine Nitrite (test code = 31416-9) NEGATIVE NEGATIVE [facility] protein measurement by test strip (mass/volume)2019-06-17 20:19:00* Test Item Value Reference Range Interpretation Comments Urine Protein (test code = 5804-0) NEGATIVE NEGATIVE [facility] glucose lknhtrnuw9144-78-45 20:19:00* Test Item Value Reference Range Interpretation Comments Urine Glucose (UA) (test code = 2349-9) NEGATIVE NEGATIVE [facility] ketones detection by automated test rlsru7402-76-62 20:19:00* Test Item Value Reference Range Interpretation Comments Urine Ketones (test code = 56711-7) NEGATIVE NEGATIVE [facility] urobilinogen measurement by test strip (mass/volume)2019-06-17 20:19:00* Test Item Value Reference Range Interpretation Comments Urine Urobilinogen (test code = 85279-3) 0.2 0.2-1 [facility] total bilirubin measurement (mass/volume)2019-06-17 20:19:00* Test Item Value Reference Range Interpretation Comments Urine Bilirubin (test code = 1978-6) NEGATIVE NEGATIVE [facility] erythrocytes gkictjmur3125-04-86 20:19:00* Test Item Value Reference Range Interpretation Comments Urine Blood (test code = 11194-1) 4+ NEGATIVE [facility] sediment leukocyte count by microscopy (number/high power field)2019-06-17 20:19:00* Test Item Value Reference Range Interpretation Comments Urine WBC (test code = 5821-4) NONE 0-5 [facility]rocytes detection in urine sediment by light dajyaxwwfl0142-41-64 20:19:00* Test Item Value Reference Range Interpretation Comments Urine RBC (test code = 62155-8) 11-20 0-5 [facility] detection in urine sediment by light jjukdmewwa9335-47-10 20:19:00* Test Item Value Reference Range Interpretation Comments Urine Bacteria (test code = 22226-9) MODERATE NONE [facility]pit[facility] cells detection in urine sediment by light hxeyovvpoc7533-73-52 20:19:00* Test Item Value Reference Range Interpretation Comments Urine Epithelial Cells (test code = 59083-6) FEW NONE [facility] human chorionic gonadotropin (hCG) hsfsnfvdr9415-63-80 20:19:00* Test Item Value Reference Range Interpretation Comments Urine Test (test code = 2106-3) NEGATIVE NEGATIVE [facility]fluenza B virus pfpbzsa2462-55-08 11:51:21* Test Item Value Reference Range Interpretation Comments influenza B virus antigen (test code = 06105) negative [facility] nbslvkz3709-97-06 11:51:21* Test Item Value Reference Range Interpretation Comments influenza virus A antigen (test code = 3413) negative [facility] (KUB)2018-06-11 12:12:00 [facility] [address] [place] [address] Patient Name: MARIANNE MCKENZIE MR #: [id number] : 1970 Age/Sex: 47/F Req #: [id number] Adm Physician: Ordered by: ANN LAMA MD Report #: [id number] Location: [facility] Room/Bed: Procedure: [id number] DX/EDGAR MEN-1VIEW (KUB) Exam Date: 06/11/18 Exam Time: 45 REPORT STATUS: Signed PROCEDURE: X-RAY ABDOMEN - KUB COMPARISON: [facility], DX, ABDOMEN- 1VIEW (KUB), 01/06/2018, 15:16. [...] abnormalities are present. CONCLUSION: Bilateral renal lithiasis. Anders Landry D.O. Dictated by: Santiago Landry D.O. on 06/11/2018 at 12:12 Electronically approved by: Santiago Landry D.O. on 06/11/2018 at 12:12 Dictated By: SANTIAGO LANDRY DO 1212 Transcribed By: ABI on 06/11/18 1212 COPY TO : ANN LAMA MD ABDOMEN-1VIEW (KUB)2018-01-06 17:07:00 [place] [address] Patient Name: MARIANNE MCKENZIE MR #: [id number] : 1970 Age/Sex: 47/F Req #: [id number] Adm Physician: Ordered by: ANN LAMA MD Report #: [id number] Location: [facility] Room/Bed: Procedure: [id number] DX/ABDOMEN-1VIEW (KUB) Exam Date : 01/06/18 Exam [...] for detection of renal stones. Dictated by: Melony whalen M.D. on 01/06/2018 at 17:07 Electronically approved by: Melony james M.D. on 01/06/2018 at 17:07 Dictated By: MELONY THAYER MD 06 Transcribed By: Brian MARIE on 01/06/181706 COPY TO: ANN LAMA MD ABDOMEN-1VIEW (KUB) [place] [address] Patient Name: MARIANNE MCKENZIE MR #: [id number] : 1970 Age/Sex: 47/F Req #: [id number] Adm Physician: Ordered by: ANN LAMA MD Report #: [id number] Location: [facility] Room/Bed: Procedure: [id number] DX/ABDOMEN-1VIEW (KUB) Exam Date : 11/14/17 Exam [...] Brown Pollock M.D. on 11/14/2017 at 14:12 Electroni saima approved by: Brown Pollock M.D. on 11/14/2017 at 14:12 Dictated By: BROWN POLLOCK MD 141 Transcrib ed By: ABI on 11/14/17 141 COPY TO: ANN LAMA MD CT BRAIN WOW [place] [address] Patient Name: MARIANNE MCKENZIE MR #: [id number] : 1970 Age/Sex: 46/F Req #: [id number] Adm Physician: Ordered by: SAVANAH GORDILLO M.D. Report #: [id number] Location: CT Room/Bed: Procedure: [id number] CT/CT BRAIN WOW Exam Date: 09/25/17 Exam Time: 1109 REPORT STATUS: Signed [...] the placed scalp ma rker by the autocad technician) measuring about 1.3 and 1.6 cm diameter, no associated underlying osseous erosion or intracranial abnormalities, they may represent granulation tissue, scar tissue, lymph nodes, retention sebaceous cyst, less l ikely prominent draining vessels. Comparison to prior studies if available is recommended. IMPRESSION: 1. No intracranial abnormalities. 2. Nons pecific nonaggressive appearing scalp soft tissue lesions as detail above. Signed by: Dr. Haris Metcalf M.D. on 09/25/2017 12:10 PM Dictated By: YESICA METCALF MD 1210 Transcri bed By: EUGENE on 09/25/17 1210 COPY TO: SAVANAH GORDILLO M.D. [facility] ([place] [address] Patient Name: MARIANNE MCKENZIE MR #: [id number] : 1970 Age/Sex: 46/F Req #: [id number] Adm Physician: Ordered by: ANN LAMA MD Report #: [id number] Location: [facility] Room/Bed: Procedure: [id number] DX/ABDOMEN-1VIEW (KUB) Exam Date : 08/14/17 Exam [...] when compared to prior KUB. Dictated by: Melony Thayer M.D. on 08/14/2017 at 18:20 Electronically approved by: Melony whalen M.D. on 08/14/2017 at 18:20 Dictated By: MELONY THAYER MD 19 Transcribed By: ABI on 08/14/171819 COPY TO: ANN LAMA MD NUCLEAR MEDICINE [place] [address] Patient Name: MARIANNE MCKENZIE MR #: [id number] : 1970 Age/Sex: 46/F Req #: [id number] [facility] Physician: GALILEO PELAEZ MD Ordered by: SARAI RITCHIE MD Report #: [id number] Location: MED/SURG2 Room/Bed: 214 Procedure: [id number] [facility] Exam Date: 05/31/17 Exam Time: [...] of ectopic gastric mucosa. Signed by: Dr. Doris Mccollum M.D. on 05/31/2017 12:02 PM Dict ated By: DORIS MCCOLLUM MD 12 02 Transcribed By: EUGENE on 05/31/17 1202 COPY TO: SARAI RITCHIE MD CHEST SINGLE (PORTABLE) [place] [address] Patient Name: MARIANNE MCKENZIE MR #: [id number] : 1970 Age/Sex: 46/F Req #: [id number] Adm Physician: Ordered by: ARPIT GILLESPIE MD Report #: [id number] Location: ER Room/Bed: Procedure: [id number] DX/CHEST SINGLE (PORTABLE) Exam Randy e: 05/11/17 [...] acute radiographic abnormality. Signed by: Dr. Joseph Dumont M.D. on 05/11/2017 11:06 AM Dictated By: CODY DUMONT MD Electr onically Signed By: CODY DUMONT MD on 05/11/171105 Transcribed By: EUGENE on 05/11/171105 COPY TO: ARPIT GILLESPIE MD CT ABDOMEN/PELVIS W [place] [address] Patient Name: MARIANNE MCKENZIE MR #: [id number] : 1970 Age/Sex: 46/F Req #: [id number] Adm Physician: Ordered by: ARPIT GILLESPIE MD Report #: [id number] Location: ER Room/Bed: Procedure: [id number] CT/CT ABDOMEN/PELVIS W Exam Date: 07/11/16 Exam [...] Tabor on 05/11/2017 12:25 PM Dictated By: CODY DUMONT MD Electronically Sig ofelia By: CODY DUMONT MD on 05/11/17 1225 Transcribed By: EUGENE on 05/11/17 122 5 COPY TO: ARPIT GILLESPIE MD ABDOMEN-[facility] ([facility]) [place] [address] Patient Name: MARIANNE MCKENZIE MR #: [id number] : 1970 Age/Sex: 46/F Req #: [id number] Adm Physician: Ordered by: ANN LAMA MD Report #: [id number] Location: OR Room/Bed: Procedure: [id number] DX/ABDOMEN-1VIEW (KUB) Exam Date: 04/26/17 Exam Time: [...] clear. CONCLUSION: Bilateral nephrolithiasis. Dictated by: Cody Dumont M.D. on 04/26/2017 at 7:40 Electronically approved by: Cody Dumont M.D. on 04/26/2017 at 7 :40 Dictated By: CODY DUMONT MD 9 Transcribed By: ABI on 04/26/17739 COPY TO: ANN LAMA MD ABDOMEN-1VIEW (KUB) [place] [address] Patient Name: MARIANNE MCKENZIE MR #: [id number] : 1970 Age/Sex: 46/F Req #: [id number] Adm Physician: Ordered by: ANN LAMA MD Report #: [id number] Location: OR Room/Bed: Procedure: [id number] DX/ABDOMEN-1VIEW (KUB) Exam Date: 04/12/17 Exam Time: [...] POLLOCK MD 1128 Transcribed By: ABI on 04/12/17 1128 COPY TO: ANN LAMA MD CT ABDOMEN/PELVIS [place] [address] Patient Name: MARIANNE MCKENZIE MR #: [id number] : 1970 Age/Sex: 46/F Req #: [id number] Adm Physician: Ordered by: ARPIT GILLESPIE MD Report #: [id number] Location: ER Room/Bed: Procedure: [id number] CT/CT ABDOMEN/PELVIS WO Exam Date: 03/18/17 Exam [...] Electronically approved by: Pritesh Grant M.D. on 2016 at 12:14 Dictated By: PRITESH GRANT MD Electronically Leticia d By: PRITESH GRANT MD on 03/18/17 1214 Transcribed By: ABI on 03/18/17 1214 COPY TO: ARPIT GILLESPIE MD
--- OUTSIDE RECORDS SUMMARY | 2020-02-27 10:01 | XMS REPORT | Clinical Summary ---
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 Last Filed Vital Signs Not on file Plan of Treatment Care Team Description Date Type Specialty Julio Stuart [address] [facility] [address] [place] [address] [phone] [facility] Resonance Imaging Julio Stuart [address] [facility] [address] [place] [address] [phone] 1.5, [facility] Appointment Magnetic Resonance Imaging Results Not on fileafter 02/26/2019 Insurance Payer Benefit Subscriber ID Type Phone Address Plan / Group [employer] xxxxxxxxxx [employer] E EXCHANGE
[2020-02-27] MEDS ORDERED: SODIUM CHLORIDE 0.9% 1000ML 1,000 ML IV STA (10:22)
[2020-02-27 10:33] LABS: BASOPHILS # (AUTO) 0.1 (0.0-0.1); BASOPHILS % 0.6 % (0.0-1.0); EOSINOPHILS # (AUTO) 0.1 (0.0-0.4); EOSINOPHILS % 1.2 % (0.0-6.0); HEMATOCRIT 39.7 % (34.2-44.1); HEMOGLOBIN 12.2 g/dL (12.0-16.0); LYMPHOCYTES # (AUTO) 0.8 (1.0-3.2); LYMPHOCYTES % 8.3 % (18.0-39.1); MEAN CORPUSCULAR HEMOGLOBIN 28.6 pg (28-32); MEAN CORPUSCULAR HGB CONC 30.7 g/dL (31-35); MONOCYTES # (AUTO) 0.8 (0.2-0.8); MONOCYTES % 8.6 % (4.4-11.3); NEUTROPHILS # (AUTO) 7.4 (2.1-6.9); NEUTROPHILS % 78.8 % (38.7-80.0); PLATELET COUNT 227 x10e3/uL (140-360); RED BLOOD COUNT 4.27 x10e6/uL (3.6-5.1); RED CELL DISTRIBUTION WIDTH 13.4 % (11.7-14.4)
[2020-02-27 10:39] LABS: BILIRUBIN,URINE NEGATIVE (NEGATIVE); CLARITY,URINE CLEAR (CLEAR); COLOR,URINE YELLOW (YELLOW); KETONES,URINE NEGATIVE (NEGATIVE); LEUKOCYTE ESTERASE ,URINE NEGATIVE (NEGATIVE); NITRITE,URINE NEGATIVE (NEGATIVE); PROTEIN,URINE DIPSTICK NEGATIVE (NEGATIVE); URINE UROBILINOGEN 0.2 mg/dL (0.2 - 1)
[2020-02-27 10:43] LABS: BACTERIA,URINE FEW /HPF; EPITHELIAL CELLS,URINE MODERATE /LPF; RBC,URINE 0-5 /HPF (0-5); WBC,URINE (MAN) 0-5 /HPF (0-5)
[2020-02-27 10:44] LABS: PREGNANCY TEST, URINE NEGATIVE (NEGATIVE)
[2020-02-27 10:56] LABS: ALBUMIN 3.3 g/dL (3.5-5.0); ANION GAP 12.6 mmol/L (8-16); CALCIUM 8.8 mg/dL (8.4-10.2); MAGNESIUM 2.1 MG/DL (1.3-2.1); POTASSIUM 3.6 mmol/L (3.5-5.1)
[2020-02-27 11:15] LABS: CREATINE KINASE MB 2.6 ng/mL (0-5.0); THYROID STIMULATING HORMONE 1.254 uIU/mL (0.350-4.940)
[2020-02-27 11:16] LABS: INR 0.95; PROTHROMBIN TIME 13.1 seconds (11.9-14.5)
--- NOTE | 2020-02-27 12:35 | Emergency Department Note ---
History of Present Illnes History of Present Illness Chief Complaint: General Medicine Complaints History of Present Illness This is a 49 year old female SWELLING TO R FOOT/LEG FOR 1 WEEK W/ SOB AND FAST HEART RATE. CURRENTLY BEING EVALUATED AT [facility] FOR TACHYCARDIA/SOB NO DX YET. ALSO WITH SWELLING TO L KNEE. Historian: Patient Arrival Mode: Car Capital Project Engineer Required: No Onset (how long ago): week(s) (1) Location: RIGHT LOWER LEG Quality: SWELLING Radiation: Reports non-radiation Severity: mild Onset quality: gradual Timing of current episode: constant Chronicity: new Context: Denies recent illness Relieving factors: none Exacerbating factors: none Associated symptoms: Reports denies other symptoms Treatments prior to arrival: none Past Medical/Family History Physician Review I have reviewed the patient's past medical and family history. Any updates have been documented here. Past Medical History Recent Fever: No Clinical Suspicion of Infectio: No New/Unexplained Change in Ment: No Past Medical History: Hypertension, Kidney Stones, UTI's, Anxiety, Depression, GERD Other Medical History: Bilateral carpal tunnel, H. pylori, colon polyps, NF1 tumors of face, vertigo Other Surgery: Rectal surgery to remove precancer cells (2014), kidney stone removal, left ovary removal for cyst, ablation for endometriosis, bilateral eye surgery, NF1 tumor removed from face Social History Smoking Cessation: Never Smoker Counseling Performed: No Alcohol Use: None Any Illegal Drug Use: No TB Exposure/Symptoms: No Physically hurt or threatened: No Family History Family history of heart diseas: No Other Last Tetanus: UNK Any Pre-Existing Lines (PICC,: No Review of Systems Review of Systems Constitutional: Reports no symptoms EENTM: Reports no symptoms Cardiovascular: Reports as per HPI, Reports palpitations Respiratory: Reports as per HPI Gastrointestinal: Reports no symptoms Genitourinary: Reports no symptoms Musculoskeletal: Reports no symptoms Integumentary: Reports no symptoms Neurological: Reports no symptoms Psychological: Reports no symptoms Endocrine: Reports no symptoms Hematological/Lymphatic: Reports no symptoms Physical Exam Related Data Allergies: Coded Allergies: hydrocodone (Verified Allergy, Intermediate, ITCHING, 06/17/19) Triage Vital Signs Vital Signs Date Time Temp Pulse Resp B/P (MAP) Pulse Ox O2 Delivery O2 Flow Rate FiO2 02/27/20 10:04 98.6 90 18 134/84 100 Room Air Vital signs reviewed: Yes Physical Exam CONSTITUTIONAL Constitutional: Present well-developed, Present well-nourished HENT HENT: Present normocephalic, Present atraumatic, Present oropharynx clear/moist, Present nose normal HENT L/R: Present left ext ear normal, Present right ext ear normal EYES Eyes: Reports PERRL, Reports conjunctivae normal NECK Neck: Present ROM normal PULMONARY Pulmonary: Present effort normal, Present breath sounds normal CARDIOVASCULAR Cardiovascular: Present regular rhythm, Present heart sounds normal, Present capillary refill normal, Present normal rate GASTROINTESTINAL Abdominal: Present soft, Present nontender, Present bowel sounds normal GENITOURINARY Genitourinary: Present exam deferred SKIN Skin: Present warm, Present dry MUSCULOSKELETAL Musculoskeletal: Present ROM normal, Present other (RLE WITH 1+ EDEMA BELOW KNEE, TRACE ON LEFT, LEFT KNEE WITH SWELLING OF PREPATELLAR BURSA BUT NOT TENDER (SHE SAYS THIS HAS BEEN THERE FOR MANY MONTHS)) NEUROLOGICAL Neurological: Present alert, Present oriented x 3, Present no gross motor or sensory deficits PSYCHOLOGICAL Psychological: Present mood/affect normal, Present judgement normal Results Laboratory Result Diagram: 02/27/20 1018 02/27/20 1018 Laboratory Laboratory Tests Test 02/27/20 10:18 White Blood Count 9.33 x10e3/uL (4.8-10.8) Red Blood Count 4.27 x10e6/uL (3.6-5.1) Hemoglobin 12.2 g/dL (12.0-16.0) Hematocrit 39.7 % (34.2-44.1) Mean Corpuscular Volume 93.0 fL (81-99) Mean Corpuscular Hemoglobin 28.6 pg (28-32) Mean Corpuscular Hemoglobin Concent 30.7 g/dL (31-35) Red Cell Distribution Width 13.4 % (11.7-14.4) Platelet Count 227 x10e3/uL (140-360) Neutrophils (%) (Auto) 78.8 % (38.7-80.0) Lymphocytes (%) (Auto) 8.3 % (18.0-39.1) Monocytes (%) (Auto) 8.6 % (4.4-11.3) Eosinophils (%) (Auto) 1.2 % (0.0-6.0) Basophils (%) (Auto) 0.6 % (0.0-1.0) Neutrophils # (Auto) 7.4 (2.1-6.9) Lymphocytes # (Auto) 0.8 (1.0-3.2) Monocytes # (Auto) 0.8 (0.2-0.8) Eosinophils # (Auto) 0.1 (0.0-0.4) Basophils # (Auto) 0.1 (0.0-0.1) Absolute Immature Granulocyte (auto 0.23 x10e3/uL (0-0.1) Prothrombin Time 13.1 seconds (11.9-14.5) Prothromb Time International Ratio 0.95 Activated Partial Thromboplast Time 42.0 seconds (23.8-35.5) D-Dimer Quantitative (PE/DVT) 272 ng/mL (0-400) Urine Color Yellow (YELLOW) Urine Clarity Clear (CLEAR) Urine pH 6 (5 - 7) Urine Specific [place] >=1.030 (1.010-1.025) Urine Protein Negative (NEGATIVE) Urine Glucose (UA) Negative (NEGATIVE) Urine Ketones Negative (NEGATIVE) Urine Blood Negative (NEGATIVE) Urine Nitrite Negative (NEGATIVE) Urine Bilirubin Negative (NEGATIVE) Urine Urobilinogen 0.2 mg/dL (0.2 - 1) Urine Leukocyte Esterase Negative (NEGATIVE) Urine RBC 0-5 /HPF (0-5) Urine WBC 0-5 /HPF (0-5) Urine Epithelial Cells Moderate /LPF (NONE) Urine Bacteria Few /HPF (NONE) Urine Test Negative (NEGATIVE) Sodium Level 141 mmol/L (136-145) Potassium Level 3.6 mmol/L (3.5-5.1) Chloride Level 107 mmol/L (98-107) Carbon Dioxide Level 25 mmol/L (22-29) Anion Gap 12.6 mmol/L (8-16) Blood Urea Nitrogen 19 mg/dL (7-26) Creatinine 1.00 mg/dL (0.57-1.11) Estimat Glomerular Filtration Rate 59 ML/MIN (60-) BUN/Creatinine Ratio 19 (6-25) Glucose Level 97 mg/dL (74-118) Calcium Level 8.8 mg/dL (8.4-10.2) Magnesium Level 2.1 MG/DL (1.3-2.1) Total Bilirubin 0.4 mg/dL (0.2-1.2) Aspartate Amino Transf (AST/SGOT) 15 IU/L (5-34) Alanine Aminotransferase (ALT/SGPT) 13 IU/L (0-55) Alkaline Phosphatase 68 IU/L (40-150) Creatine Kinase 106 IU/L (29-168) Creatine Kinase MB 2.60 ng/mL (0-5.0) Troponin I 0.124 ng/mL (0-0.300) B-Type Natriuretic Peptide 19.0 pg/mL (0-100) Total Protein 6.7 g/dL (6.5-8.1) Albumin 3.3 g/dL (3.5-5.0) Globulin 3.4 g/dL (2.3-3.5) Albumin/Globulin Ratio 1.0 (0.8-2.0) Thyroid Stimulating Hormone (TSH) 1.254 uIU/mL (0.350-4.940) Lab results reviewed: Yes Imaging Imaging results reviewed: Yes Impressions EXAMINATION: CHEST SINGLE (PORTABLE) INDICATION: PALPITATIONS COMPARISON: Chest radiograph 11-24-2019. FINDINGS: TUBES and LINES: None. LUNGS: Lungs are well inflated. There is no evidence of pneumonia or pulmonary edema. PLEURA: No pleural effusion or pneumothorax. HEART AND MEDIASTINUM: The cardiomediastinal silhouette is unremarkable. BONES AND SOFT TISSUES: No acute osseous abnormality. Diffuse osteopenia. UPPER ABDOMEN: No free air under the diaphragm. IMPRESSION: No acute thoracic abnormality. Diffuse osteopenia. Signed by: Dr. Willy Skinner MD on 02/27/2020 12:55 PM VENOUS DOPPLER - NEGATIVE FOR DVT Assessment & Plan Medical Decision Making MDM RLE SWELLING AND PALPITATIONS (WHICH SHE UNDERGOING WORKUP FOR DOWNTOWN) - CBC, CHEM, CARDIACS, D-DIMER, BNP, CXR, VENOUS DOPPLER - R/O RENAL INSUFF, CHF, DVT, HYPOALBUMINEMIA Reassessment Reassessment DC HOME, BACTRIM DS BID X 10 DAYS, F/U PCP AND ORTHO, DR LIZ Assessment & Plan Final Impression: (1) Edema (2) Bursal cyst Depart Disposition: HOME, SELF-CARE Last Vital Signs Date Time Temp Pulse Resp B/P (MAP) Pulse Ox O2 Delivery O2 Flow Rate FiO2 02/27/20 12:04 75 19 141/87 100 Room Air 02/27/20 10:04 98.6 Home Meds Active Scripts Meclizine Hcl (MECLIZINE HCL) 12.5 Mg Tablet, 25 MG PO DAILY PRN for DIZZINESS, #30 TAB Prov:KORY RODRIGUEZ DO 11/25/19 Reported Medications Diazepam (VALIUM) 5 Mg Tablet, 5 MG PO PRN 07/23/19 Duloxetine Hcl (CYMBALTA) 30 Mg Capsule.dr, 90 MG PO DAILY, #30 CAP 01/15/19 Medications in the ED Sodium Chloride 1,000 ml @ 0 mls/hr Q0M STAT IV Last administered on 02/27/20at 10:54; Admin Dose 999 MLS/HR; Start 02/27/20 at 10:22; Stop 02/27/20 at 10:23 NIC LARKIN MD Feb 27, 2020 12:35
--- NOTE | 2020-02-27 12:58 | Diagnostic Imaging Report ---
EXAMINATION: CHEST SINGLE (PORTABLE) INDICATION: PALPITATIONS COMPARISON: Chest radiograph 11-24-2019. FINDINGS: TUBES and LINES: None. LUNGS: Lungs are well inflated. There is no evidence of pneumonia or pulmonary edema. PLEURA: No pleural effusion or pneumothorax. HEART AND MEDIASTINUM: The cardiomediastinal silhouette is unremarkable. BONES AND SOFT TISSUES: No acute osseous abnormality. Diffuse osteopenia. UPPER ABDOMEN: No free air under the diaphragm. IMPRESSION: No acute thoracic abnormality. Diffuse osteopenia. Signed by: Dr. Willy Skinner MD on 02/27/2020 12:55 PM
[2020-02-27 13:48] VITALS: BP 137/90
== END 2020-02-27 14:02 | disposition home or self-care (01) ==
LOC: ER 09:58
DX: R60.9 Edema, unspecified (principal); R00.2 Palpitations; M71.161 Other infective bursitis, right knee; M25.861 Other specified joint disorders, right knee; I10 Essential (primary) hypertension; K21.9 Gastro-esophageal reflux disease without esophagitis; F41.9 Anxiety disorder, unspecified; F32.9 Major depressive disorder, single episode, unspecified; Z87.442 Personal history of urinary calculi
CPT/HCPCS: 36415; 71045; 80053; 81001; 81025; 82550; 82553; 83735; 83880; 84443; 84484; 85025; 85379; 85610; 85730; 87086; 93005; 93971; 99285

== ENCOUNTER → 2020-05-23 | Outpatient (CLI) | payer OTHER ==
--- NOTE | 2020-05-23 16:34 | Diagnostic Imaging Report ---
Abdomen, one view AP INDICATION: ^CALCULUS OF KIDNEY Comparison: 08/04/2019. Discussion: Stable 4 mm left inferior pole calculus. Questionable stable 2 to 3 mm right renal calculus. No definite new calculus is identified. Overlying stool limits evaluation. No calculus identified along the course of the ureters. No dilated loops of bowel are identified. No acute osseous abnormality. IMPRESSION: Probable stable bilateral renal calculi. Signed by: Alec Moody MD on 05/23/2020 4:31 PM
== END ==
LOC: RAD 15:51
PROVIDERS: ATTEND Urology
DX: N20.0 Calculus of kidney (principal)
CPT/HCPCS: 74018

== ENCOUNTER 2021-05-16 18:24 | Emergency (ER) | payer SELFPAY ==
[~2021-05-16] VITALS: Ht 160 cm; Wt 68.0 kg
[2021-05-16 19:17] LABS: BASOPHILS # (AUTO) 0.1 (0.0-0.1); BASOPHILS % 0.7 % (0.0-1.0); EOSINOPHILS # (AUTO) 0.2 (0.0-0.4); EOSINOPHILS % 1.8 % (0.0-6.0); HEMATOCRIT 40.7 % (34.2-44.1); HEMOGLOBIN 12.4 g/dL (12.0-16.0); LYMPHOCYTES % 7.9 % (18.0-39.1); MEAN CORPUSCULAR HEMOGLOBIN 28.4 pg (28-32); MEAN CORPUSCULAR HGB CONC 30.5 g/dL (31-35); MEAN CORPUSCULAR VOLUME 93.1 fL (81-99); MONOCYTES # (AUTO) 0.8 (0.2-0.8); MONOCYTES % 6.4 % (4.4-11.3); NEUTROPHILS # (AUTO) 10.1 (2.1-6.9); NEUTROPHILS % 80.8 % (38.7-80.0); PLATELET COUNT 216 x10e3/uL (140-360); RED BLOOD COUNT 4.37 x10e6/uL (3.6-5.1); RED CELL DISTRIBUTION WIDTH 12.9 % (11.7-14.4)
[2021-05-16 19:35] LABS: ALBUMIN 3.5 g/dL (3.5-5.0); ALBUMIN/GLOBULIN RATIO 0.9 (0.8-2.0); ANION GAP 14.8 mmol/L (8-16); CREATININE, SERUM 1.35 mg/dL (0.57-1.11); POTASSIUM 3.8 mmol/L (3.5-5.1)
[2021-05-16] MEDS ORDERED: SODIUM CHLORIDE 0.9% 1000ML 1,000 ML IV SCH (20:00)
[2021-05-16] MEDS ORDERED: SODIUM CHLORIDE 0.9% 50ML 50 ML ONE (20:09)
[2021-05-16] MEDS ORDERED: IOPAMIDOL 370 MG/ML 200 ML INFUS..BTL INJ ONE (20:09)
[2021-05-16] MEDS ORDERED: SODIUM CHLORIDE 0.9% 1000ML 1,000 ML ONE (20:14)
[2021-05-16] MEDS ORDERED: SODIUM CHLORIDE 0.9% 1000ML 1,000 ML IV ONE (20:15)
[2021-05-16 20:27] LABS: CREATINE KINASE MB 1.6 ng/mL (0-5.0)
[2021-05-16] MEDS ORDERED: CEPHALEXIN500 MG PO (21:35)
[2021-05-16] MEDS ORDERED: FLOMAX0.4 MG PO (21:35)
[2021-05-16] MEDS ORDERED: CEPHALEXIN 500 MG CAP PO ONE (21:45)
[2021-05-16 21:51] VITALS: BP 142/90
== END 2021-05-16 22:15 | disposition home or self-care (01) ==
LOC: ER 18:45
DX: R00.2 Palpitations (principal); J18.9 Pneumonia, unspecified organism; R55 Syncope and collapse; N20.0 Calculus of kidney; R20.2 Paresthesia of skin; R91.8 Other nonspecific abnormal finding of lung field; I10 Essential (primary) hypertension; F41.9 Anxiety disorder, unspecified; K21.9 Gastro-esophageal reflux disease without esophagitis
CPT/HCPCS: 36415; 71045; 71260; 80053; 82550; 82553; 84484; 85025; 85379; 93005; 99284; J7030; Q9967

== ENCOUNTER 2021-07-22 14:59 | Emergency (ER) | payer BC ==
[~2021-07-22] VITALS: Ht 160 cm; Wt 68.0 kg
[~2021-07-22 14:59] MED LIST changes: +CEPHALEXIN500 MG PO; +FLOMAX0.4 MG PO
[2021-07-22] MEDS ORDERED: SODIUM CHLORIDE 0.9% 1000ML 1,000 ML IV STA (15:20)
[2021-07-22 15:27] LABS: BASOPHILS # (AUTO) 0.1 (0.0-0.1); BASOPHILS % 0.6 % (0.0-1.0); EOSINOPHILS # (AUTO) 0.2 (0.0-0.4); EOSINOPHILS % 1.6 % (0.0-6.0); HEMATOCRIT 41.5 % (34.2-44.1); HEMOGLOBIN 12.5 g/dL (12.0-16.0); LYMPHOCYTES # (AUTO) 1.2 (1.0-3.2); LYMPHOCYTES % 11.4 % (18.0-39.1); MEAN CORPUSCULAR HGB CONC 30.1 g/dL (31-35); MEAN CORPUSCULAR VOLUME 92.8 fL (81-99); MONOCYTES # (AUTO) 0.8 (0.2-0.8); MONOCYTES % 7.1 % (4.4-11.3); NEUTROPHILS # (AUTO) 8.3 (2.1-6.9); NEUTROPHILS % 78.3 % (38.7-80.0); PLATELET COUNT 139 x10e3/uL (140-360); RED BLOOD COUNT 4.47 x10e6/uL (3.6-5.1); RED CELL DISTRIBUTION WIDTH 13.2 % (11.7-14.4)
[2021-07-22 15:39] LABS: INR 1.21; PROTHROMBIN TIME 16.1 seconds (11.9-14.5)
[2021-07-22 15:40] LABS: PARTIAL THROMBOPLASTIN TIME 48.5 seconds (23.8-35.5)
[2021-07-22 15:51] LABS: ALBUMIN 3.5 g/dL (3.5-5.0); ALBUMIN/GLOBULIN RATIO 0.9 (0.8-2.0); ANION GAP 11.2 mmol/L (8-16); CALCIUM 9.6 mg/dL (8.4-10.2); CREATININE, SERUM 1.31 mg/dL (0.57-1.11); POTASSIUM 4.2 mmol/L (3.5-5.1)
[2021-07-22] MEDS ORDERED: SODIUM CHLORIDE 0.9% 100 ML ONE (16:26)
[2021-07-22] MEDS ORDERED: IOPAMIDOL 370 MG/ML 200 ML INFUS..BTL INJ ONE (16:27)
== END 2021-07-22 18:55 | disposition home or self-care (01) ==
LOC: ER 15:22
DX: K92.1 Melena (principal); Z20.822 Contact with and (suspected) exposure to COVID-19
CPT/HCPCS: 36415; 74174; 80053; 83735; 85025; 85610; 85730; 86850; 86900; 99284; C9113; J7030; J7050; Q9967; U0002

== ENCOUNTER → 2021-08-05 | Day surgery (SDC) | payer BC ==
[~2021-08-05] MED LIST changes: +ABILIFY2 MG PO; +FENTANYL CITRATE/PF 100MCG/2 ML INJ ONE; +GLYCOPYRROLATE INJ 0.2 MG/ML VIAL ONE; +LIDOCAINE HCL 2% LOCAL INJ 5 ML SDV VIAL INJ ONE; +MIDAZOLAM HCL 2 MG/2 ML VIAL ONE; +PROPOFOL IV EMULSION 10 MG/ML 20 ML VIAL ONE; +SODIUM CHLORIDE 0.9% 500ML 500 ML ONE; +VENLAFAXINE HCL75 M2 PO
[2021-08-05 16:50] VITALS: BP 152/97
== END | disposition home or self-care (01) ==
LOC: OR 14:01
PROVIDERS: ATTEND Internal Medicine Gastroenterology
DX: K62.5 Hemorrhage of anus and rectum (principal); K63.5 Polyp of colon; K29.50 Unspecified chronic gastritis without bleeding; K20.90 Esophagitis, unspecified without bleeding; K44.9 Diaphragmatic hernia without obstruction or gangrene; K21.9 Gastro-esophageal reflux disease without esophagitis; K31.89 Other diseases of stomach and duodenum; K57.30 Diverticulosis of large intestine without perforation or abscess without bleeding; K59.00 Constipation, unspecified; K64.8 Other hemorrhoids; Z71.3 Dietary counseling and surveillance; G47.00 Insomnia, unspecified; I10 Essential (primary) hypertension; F32.A Depression, unspecified; F41.9 Anxiety disorder, unspecified; Z88.6 Allergy status to analgesic agent; Z01.810 Encounter for preprocedural cardiovascular examination; Z01.812 Encounter for preprocedural laboratory examination; Z20.822 Contact with and (suspected) exposure to COVID-19; Z79.899 Other long term (current) drug therapy; Z68.28 Body mass index [BMI] 28.0-28.9, adult; Z86.19 Personal history of other infectious and parasitic diseases; Z87.442 Personal history of urinary calculi; Z80.0 Family history of malignant neoplasm of digestive organs
CPT/HCPCS: 43239; 45380; 93005; C9113; J2001; J2250; J2704; J3010; J7040; U0002

== ENCOUNTER 2024-01-09 19:08 | Emergency (ER) | payer BC ==
[~2024-01-09] VITALS: Ht 160 cm; Wt 68.0 kg
[~2024-01-09 19:08] MED LIST changes: -FENTANYL CITRATE/PF 100MCG/2 ML INJ ONE; -GLYCOPYRROLATE INJ 0.2 MG/ML VIAL ONE; -LIDOCAINE HCL 2% LOCAL INJ 5 ML SDV VIAL INJ ONE; -MIDAZOLAM HCL 2 MG/2 ML VIAL ONE; -PROPOFOL IV EMULSION 10 MG/ML 20 ML VIAL ONE; -SODIUM CHLORIDE 0.9% 500ML 500 ML ONE
[2024-01-09 19:20] VITALS: TEMP 98.2
[2024-01-09 21:08] VITALS: PULSE 67; RESP 16; O2SAT 98
== END 2024-01-09 21:09 | disposition home or self-care (01) ==
LOC: ER 19:20
DX: M25.522 Pain in left elbow (principal)
CPT/HCPCS: 99283

== ENCOUNTER 2024-09-18 15:51 | Inpatient (IN) | payer BC, OTHER ==
[~2024-09-18] VITALS: Ht 160 cm; Wt 68.0 kg
[2024-09-18 16:40] VITALS: TEMP 98.4
[2024-09-18 20:45] LABS: BASOPHILS % 0.1 % (0.0-1.0); HEMATOCRIT 29.8 % (34.2-44.1); HEMOGLOBIN 9.6 g/dL (12.0-16.0); LYMPHOCYTES # (AUTO) 0.4 (1.0-3.2); LYMPHOCYTES % 3.4 % (18.0-39.1); MEAN CORPUSCULAR HGB CONC 32.2 g/dL (31-35); MONOCYTES # (AUTO) 0.7 (0.2-0.8); MONOCYTES % 5.5 % (4.4-11.3); NEUTROPHILS # (AUTO) 10.9 (2.1-6.9); NEUTROPHILS % 89.8 % (38.7-80.0); PLATELET COUNT 220 x10e3/uL (140-360); RED BLOOD COUNT 3.31 x10e6/uL (3.6-5.1); RED CELL DISTRIBUTION WIDTH 14.3 % (11.7-14.4); WHITE BLOOD COUNT 12.08 x10e3/uL (4.8-10.8)
[2024-09-18 21:09] LABS: ALBUMIN 3.2 g/dL (3.5-5.0); ALBUMIN/GLOBULIN RATIO 0.9 (0.8-2.0); ANION GAP 15.2 mmol/L (8-16); BILIRUBIN,TOTAL 0.6 mg/dL (0.2-1.2); CALCIUM 8.8 mg/dL (8.4-10.2); CREATININE, SERUM 0.96 mg/dL (0.57-1.11); POTASSIUM 4.2 mmol/L (3.5-5.1); TOTAL PROTEIN 6.8 g/dL (6.5-8.1)
[2024-09-18 21:16] LABS: TROPONIN I 0.01 ng/mL (0-0.300)
[2024-09-18 22:27] VITALS: PULSE 74; RESP 18
[2024-09-18] MEDS: Morphine 4mg INJECTION 4 MG/ML INJ IV PRN (22:38)
[2024-09-18] MEDS: ONDANSETRON HCL INJ 2MG/ML 2ML 2 MG/ML VIAL IV PRN (22:38)
[2024-09-18] MEDS: SODIUM CHLORIDE 0.9% 1000ML 1,000 ML IV SCH (22:39)
[2024-09-19] VITALS (9 sets, daily range): BP systolic 110–147; BP diastolic 66–88; PULSE 52–89; RESP 16–20; TEMP 97.6–98.5; O2SAT 93–100
[2024-09-19] MEDS ORDERED: Morphine 4mg INJECTION 4 MG/ML INJ IV PRN ×2 (06:30→06:45)
[2024-09-19] MEDS ORDERED: KETOROLAC TROMETHAMINE 30 MG/ML VIAL IV PRN (08:15)
[2024-09-19 08:30] LABS: CREATINE KINASE 52 IU/L (29-168)
[2024-09-19 08:46] LABS: TROPONIN I < 0.001 ng/mL (0-0.300)
[2024-09-19] MEDS: Morphine 4mg INJECTION 4 MG/ML INJ IV PRN (08:50)
[2024-09-19 09:24] LABS: ALBUMIN 2.9 g/dL (3.5-5.0); ALBUMIN/GLOBULIN RATIO 0.9 (0.8-2.0); BILIRUBIN,TOTAL 0.6 mg/dL (0.2-1.2); CALCIUM 8.5 mg/dL (8.4-10.2); CREATININE, SERUM 0.81 mg/dL (0.57-1.11); TOTAL PROTEIN 6.1 g/dL (6.5-8.1)
[2024-09-19 09:26] LABS: BASOPHILS % 0.1 % (0.0-1.0); EOSINOPHILS % 0.3 % (0.0-6.0); HEMATOCRIT 28.5 % (34.2-44.1); HEMOGLOBIN 9.2 g/dL (12.0-16.0); LYMPHOCYTES # (AUTO) 0.6 (1.0-3.2); LYMPHOCYTES % 9.2 % (18.0-39.1); MEAN CORPUSCULAR HEMOGLOBIN 29.2 pg (28-32); MEAN CORPUSCULAR HGB CONC 32.3 g/dL (31-35); MEAN CORPUSCULAR VOLUME 90.5 fL (81-99); MONOCYTES # (AUTO) 0.4 (0.2-0.8); MONOCYTES % 6.4 % (4.4-11.3); NEUTROPHILS # (AUTO) 5.7 (2.1-6.9); NEUTROPHILS % 83.3 % (38.7-80.0); PLATELET COUNT 227 x10e3/uL (140-360); RED BLOOD COUNT 3.15 x10e6/uL (3.6-5.1); RED CELL DISTRIBUTION WIDTH 14.3 % (11.7-14.4); WHITE BLOOD COUNT 6.83 x10e3/uL (4.8-10.8)
[2024-09-19] MEDS ORDERED: PROTONIX40 MG PO (13:21)
[2024-09-19] MEDS ORDERED: TRAZODONE HCL50 MG PO (13:21)
[2024-09-19] MEDS ORDERED: NEURONTIN100 MG PO (13:21)
[2024-09-19] MEDS ORDERED: FLOMAX0.4 MG PO (13:21)
[2024-09-19] MEDS ORDERED: BUSPIRONE HCL10 MG PO (13:21)
[2024-09-19] MEDS ORDERED: PANTOPRAZOLE SO40 MG PO (13:21)
[2024-09-19] MEDS ORDERED: BACLOFEN10 MG PO (13:21)
[2024-09-19] MEDS ORDERED: SODIUM BICARBO650 MG PO (13:21)
[2024-09-19] MEDS ORDERED: LIPITOR20 MG PO (13:21)
[2024-09-19] MEDS ORDERED: ASPIRIN81 MG PO (13:21)
[2024-09-19] MEDS ORDERED: FLUOXETINE HCL20 MG PO (13:21)
[2024-09-19] MEDS ORDERED: CETIRIZINE HCL10 MG PO (13:21)
[2024-09-19] MEDS ORDERED: AMOXICILLIN500 MG PO (13:23)
[2024-09-19] MEDS: TRAZODONE HCL 50 MG TAB PO SCH (20:38)
[2024-09-19] MEDS: ATORVASTATIN 40 MG TAB PO SCH (20:39)
[2024-09-19] MEDS: GABAPENTIN 300 MG CAP PO SCH (20:39)
[2024-09-19] MEDS: FLUOXETINE HCL 20 MG CAP PO SCH (20:40)
[2024-09-19] MEDS: ACETAMINOPHEN/CODEINE 300MG - 30MG TAB PO PRN (20:42)
[2024-09-20] VITALS (10 sets, daily range): BP systolic 101–155; BP diastolic 56–83; PULSE 65–91; RESP 16–20; TEMP 96.6–98.3; O2SAT 90–97
[2024-09-20 06:45] LABS: BASOPHILS % 0.2 % (0.0-1.0); EOSINOPHILS % 0.6 % (0.0-6.0); HEMATOCRIT 27.8 % (34.2-44.1); HEMOGLOBIN 8.8 g/dL (12.0-16.0); LYMPHOCYTES # (AUTO) 0.4 (1.0-3.2); LYMPHOCYTES % 7.8 % (18.0-39.1); MEAN CORPUSCULAR HEMOGLOBIN 29.4 pg (28-32); MEAN CORPUSCULAR HGB CONC 31.7 g/dL (31-35); MONOCYTES # (AUTO) 0.3 (0.2-0.8); MONOCYTES % 6.9 % (4.4-11.3); NEUTROPHILS % 83.4 % (38.7-80.0); PLATELET COUNT 193 x10e3/uL (140-360); RED BLOOD COUNT 2.99 x10e6/uL (3.6-5.1); RED CELL DISTRIBUTION WIDTH 14.4 % (11.7-14.4); WHITE BLOOD COUNT 4.75 x10e3/uL (4.8-10.8)
[2024-09-20 07:27] LABS: ALBUMIN 2.6 g/dL (3.5-5.0); ALBUMIN/GLOBULIN RATIO 0.8 (0.8-2.0); ANION GAP 13.9 mmol/L (8-16); BILIRUBIN,TOTAL 0.6 mg/dL (0.2-1.2); CALCIUM 8.1 mg/dL (8.4-10.2); CHOL/HDL RATIO 2.7 (3.0-3.6); CREATININE, SERUM 0.93 mg/dL (0.57-1.11); MAGNESIUM 1.9 MG/DL (1.3-2.1); PHOSPHORUS 2.5 MG/DL (2.3-4.7); POTASSIUM 3.9 mmol/L (3.5-5.1); TOTAL PROTEIN 5.8 g/dL (6.5-8.1)
[2024-09-20 07:36] LABS: FERRITIN 116.7 ng/mL (4.63-204.00)
[2024-09-20 07:37] LABS: FREE T4 (FREE THYROXINE) 0.9 ng/dL (0.8-1.8); THYROID STIMULATING HORMONE 1.039 uIU/mL (0.350-4.940)
[2024-09-20] MEDS: BUSPIRONE HCL 10 MG TABLET PO SCH (08:19)
[2024-09-20] MEDS: SODIUM BICARBONATE 650 MG TAB PO SCH (08:19)
[2024-09-20] MEDS: TAMSULOSIN HCL 0.4 MG CAP PO SCH (08:20)
[2024-09-20] MEDS: PANTOPRAZOLE SOD 40 MG TABEC PO SCH (08:20)
[2024-09-20] MEDS: LORATADINE 10 MG TAB PO SCH (08:20)
[2024-09-20] MEDS: DOCUSATE SODIUM 100 MG CAP PO SCH ×2 (08:20→20:31)
[2024-09-20] MEDS: ASPIRIN 81 MG CHEW TAB PO SCH (08:20)
[2024-09-20] MEDS: IRON SUCROSE 100 MG in SODIUM CHLORIDE 0.9% 100 ML IV SCH (11:23)
[2024-09-20 12:08] LABS: FOLATE 11.8 ng/mL (7.0-15.4)
[2024-09-20] MEDS ORDERED: POLYETHYLENE GLYCOL 3350 17 GM PACK PO PRN (15:15)
[2024-09-20] MEDS: ASCORBIC ACID 500 MG TAB PO SCH (15:52)
[2024-09-20] MEDS: ONDANSETRON HCL INJ 2MG/ML 2ML 2 MG/ML VIAL IV PRN (18:22)
[2024-09-20] MEDS: Morphine 2mg Syringe 2 MG/ML SYR IV PRN (18:22)
[2024-09-21] VITALS (11 sets, daily range): BP systolic 103–126; BP diastolic 57–86; PULSE 72–90; RESP 16–19; TEMP 97.2–98.2; O2SAT 90–100
[2024-09-21 06:40] LABS: TROPONIN I 0.002 ng/mL (0-0.300)
[2024-09-22] VITALS (11 sets, daily range): BP systolic 104–178; BP diastolic 58–81; PULSE 71–94; RESP 16–18; TEMP 97.3–98.5; O2SAT 89–99
[2024-09-22] MEDS: POLYETHYLENE GLYCOL 3350 17 GM PACK PO PRN (14:15)
[2024-09-22] MEDS: HYDRALAZINE HCL 20 MG/ML VIAL IV PRN (17:46)
[2024-09-22] MEDS: LACTULOSE SYRUP 20 GM/30 ML UDC PO PRN (23:09)
[2024-09-23] VITALS (10 sets, daily range): BP systolic 118–129; BP diastolic 68–87; PULSE 74–93; RESP 16–21; TEMP 97.6–98.4; O2SAT 94–100
[2024-09-23 07:53] LABS: BASOPHILS % 0.4 % (0.0-1.0); EOSINOPHILS # (AUTO) 0.1 (0.0-0.4); EOSINOPHILS % 0.6 % (0.0-6.0); HEMOGLOBIN 8.8 g/dL (12.0-16.0); LYMPHOCYTES # (AUTO) 0.7 (1.0-3.2); LYMPHOCYTES % 6.6 % (18.0-39.1); MEAN CORPUSCULAR HEMOGLOBIN 29.6 pg (28-32); MEAN CORPUSCULAR HGB CONC 32.6 g/dL (31-35); MEAN CORPUSCULAR VOLUME 90.9 fL (81-99); MONOCYTES # (AUTO) 0.6 (0.2-0.8); MONOCYTES % 6.3 % (4.4-11.3); NEUTROPHILS # (AUTO) 8.3 (2.1-6.9); NEUTROPHILS % 83.4 % (38.7-80.0); PLATELET COUNT 239 x10e3/uL (140-360); RED BLOOD COUNT 2.97 x10e6/uL (3.6-5.1); RED CELL DISTRIBUTION WIDTH 14.7 % (11.7-14.4); WHITE BLOOD COUNT 9.91 x10e3/uL (4.8-10.8)
[2024-09-23] MEDS: BISACODYL 10 MG SUPP PR PRN (08:15)
[2024-09-23 08:21] LABS: ANION GAP 14.8 mmol/L (8-16); CALCIUM 8.4 mg/dL (8.4-10.2); CREATININE, SERUM 0.93 mg/dL (0.57-1.11); POTASSIUM 3.8 mmol/L (3.5-5.1)
[2024-09-23] MEDS: MINERAL OIL 132 ML BTL PR PRN (14:41)
[2024-09-23] MEDS: KETOROLAC TROMETHAMINE 30 MG/ML VIAL ONE (15:16)
[2024-09-23] MEDS: CITRATE OF MAGNESIA 300ML BOTTLE PO ONE (18:14)
[2024-09-24] VITALS (10 sets, daily range): BP systolic 97–137; BP diastolic 57–83; PULSE 87–108; RESP 17–19; TEMP 97.7–98.7; O2SAT 92–98
[2024-09-24] MEDS ORDERED: SIMETHICONE 80 MG CHEW PO PRN (04:45)
[2024-09-25] VITALS (10 sets, daily range): BP systolic 102–117; BP diastolic 60–68; PULSE 82–92; RESP 18–20; TEMP 97.5–98.9; O2SAT 90–97
[2024-09-25] MEDS: ACETAMINOPHEN 325 MG TAB PO PRN (07:41)
[2024-09-25] MEDS: OXYCODONE HCL 10 MG TAB CR PO PRN (15:04)
[2024-09-26] VITALS (10 sets, daily range): BP systolic 99–135; BP diastolic 61–83; PULSE 68–96; RESP 18–21; TEMP 97.5–98.8; O2SAT 93–100
[2024-09-26] MEDS: POLYETHYLENE GLYCOL 3350 17 GM PACK PO SCH (11:25)
[2024-09-27] VITALS (11 sets, daily range): BP systolic 100–127; BP diastolic 68–81; PULSE 63–89; RESP 18–21; TEMP 97.6–98.6; O2SAT 95–99
[2024-09-27 06:40] LABS: BASOPHILS % 0.4 % (0.0-1.0); EOSINOPHILS # (AUTO) 0.1 (0.0-0.4); EOSINOPHILS % 1.7 % (0.0-6.0); HEMATOCRIT 28.1 % (34.2-44.1); HEMOGLOBIN 8.7 g/dL (12.0-16.0); LYMPHOCYTES # (AUTO) 0.7 (1.0-3.2); LYMPHOCYTES % 8.7 % (18.0-39.1); MEAN CORPUSCULAR HEMOGLOBIN 29.4 pg (28-32); MEAN CORPUSCULAR VOLUME 94.9 fL (81-99); MONOCYTES # (AUTO) 0.8 (0.2-0.8); MONOCYTES % 9.9 % (4.4-11.3); NEUTROPHILS # (AUTO) 6.3 (2.1-6.9); NEUTROPHILS % 77.7 % (38.7-80.0); PLATELET COUNT 245 x10e3/uL (140-360); RED BLOOD COUNT 2.96 x10e6/uL (3.6-5.1); RED CELL DISTRIBUTION WIDTH 15.5 % (11.7-14.4); WHITE BLOOD COUNT 8.09 x10e3/uL (4.8-10.8)
[2024-09-27 07:19] LABS: ALBUMIN 2.8 g/dL (3.5-5.0); ALBUMIN/GLOBULIN RATIO 0.8 (0.8-2.0); ANION GAP 11.6 mmol/L (8-16); BILIRUBIN,TOTAL 0.4 mg/dL (0.2-1.2); CALCIUM 8.6 mg/dL (8.4-10.2); CREATININE, SERUM 0.97 mg/dL (0.57-1.11); POTASSIUM 4.6 mmol/L (3.5-5.1); TOTAL PROTEIN 6.2 g/dL (6.5-8.1)
[2024-09-27] MEDS: FERROUS SULFATE 325 MG TAB PO SCH (09:25)
[2024-09-27] MEDS: SENNOSIDES 8.6 MG TAB PO SCH (09:27)
[2024-09-28] VITALS (11 sets, daily range): BP systolic 97–112; BP diastolic 62–76; PULSE 63–117; RESP 18–20; TEMP 97.7–98.9; O2SAT 94–100
[2024-09-28] MEDS ORDERED: Morphine 4mg INJECTION 4 MG/ML INJ IV PRN (04:15)
[2024-09-28] MEDS: KETOROLAC TROMETHAMINE 30 MG/ML VIAL IV STA (05:09)
[2024-09-28 06:37] LABS: BASOPHILS % 0.4 % (0.0-1.0); EOSINOPHILS # (AUTO) 0.2 (0.0-0.4); EOSINOPHILS % 1.5 % (0.0-6.0); HEMATOCRIT 28.9 % (34.2-44.1); HEMOGLOBIN 9.1 g/dL (12.0-16.0); LYMPHOCYTES # (AUTO) 0.8 (1.0-3.2); LYMPHOCYTES % 7.4 % (18.0-39.1); MEAN CORPUSCULAR HEMOGLOBIN 29.9 pg (28-32); MEAN CORPUSCULAR HGB CONC 31.5 g/dL (31-35); MEAN CORPUSCULAR VOLUME 95.1 fL (81-99); MONOCYTES # (AUTO) 0.8 (0.2-0.8); MONOCYTES % 7.5 % (4.4-11.3); NEUTROPHILS # (AUTO) 9.2 (2.1-6.9); NEUTROPHILS % 81.4 % (38.7-80.0); PLATELET COUNT 251 x10e3/uL (140-360); RED BLOOD COUNT 3.04 x10e6/uL (3.6-5.1); RED CELL DISTRIBUTION WIDTH 15.5 % (11.7-14.4); WHITE BLOOD COUNT 11.26 x10e3/uL (4.8-10.8)
[2024-09-28 07:04] LABS: ANION GAP 14.4 mmol/L (8-16); CALCIUM 8.7 mg/dL (8.4-10.2); MAGNESIUM 2.1 MG/DL (1.3-2.1); POTASSIUM 4.4 mmol/L (3.5-5.1)
[2024-09-28] MEDS: EPSOM SALT 454 GM POWD TOP SCH (10:45)
[2024-09-28] MEDS: TRIMETHOPRIM/SULFAMETHOXAZOLE 160-800 MG TAB PO SCH (11:56)
[2024-09-28] MEDS: TRAMADOL HCL 50 MG TAB PO PRN (12:01)
[2024-09-28] MEDS: BACLOFEN 10 MG TAB PO PRN (14:32)
[2024-09-28] MEDS: SODIUM CHLORIDE 0.9% 1000ML 1,000 ML IV SCH (15:12)
[2024-09-29] VITALS (8 sets, daily range): BP systolic 97–121; BP diastolic 57–79; PULSE 64–78; RESP 16–20; TEMP 97.6–98.5; O2SAT 96–99
[2024-09-29 06:30] LABS: BASOPHILS # (AUTO) 0.1 (0.0-0.1); BASOPHILS % 0.4 % (0.0-1.0); EOSINOPHILS # (AUTO) 0.2 (0.0-0.4); EOSINOPHILS % 1.3 % (0.0-6.0); HEMATOCRIT 26.9 % (34.2-44.1); HEMOGLOBIN 8.4 g/dL (12.0-16.0); LYMPHOCYTES # (AUTO) 0.8 (1.0-3.2); LYMPHOCYTES % 6.7 % (18.0-39.1); MEAN CORPUSCULAR HGB CONC 31.2 g/dL (31-35); MEAN CORPUSCULAR VOLUME 96.1 fL (81-99); MONOCYTES # (AUTO) 0.8 (0.2-0.8); MONOCYTES % 6.8 % (4.4-11.3); NEUTROPHILS % 83.4 % (38.7-80.0); PLATELET COUNT 212 x10e3/uL (140-360); RED CELL DISTRIBUTION WIDTH 15.7 % (11.7-14.4)
[2024-09-29 07:03] LABS: ANION GAP 11.6 mmol/L (8-16); CALCIUM 8.2 mg/dL (8.4-10.2); CREATININE, SERUM 1.1 mg/dL (0.57-1.11); POTASSIUM 4.6 mmol/L (3.5-5.1)
[2024-09-29] MEDS ORDERED: LIDOCAINE HCL 2% LOCAL INJ 5 ML SDV VIAL INJ ONE ×2 (11:19→11:20)
[2024-09-29] MEDS ORDERED: ROCURONIUM BROMIDE 0 ML IV ONE (11:20)
[2024-09-29] MEDS ORDERED: MIDAZOLAM HCL 2 MG/2 ML VIAL ONE (11:25)
[2024-09-29] MEDS ORDERED: FENTANYL CITRATE/PF 100MCG/2 ML INJ ONE (11:25)
[2024-09-29] MEDS: EPSOM SALT 454 GM POWD TOP SCH (16:17)
[2024-09-30] VITALS (9 sets, daily range): BP systolic 99–116; BP diastolic 57–75; PULSE 66–76; RESP 16–20; TEMP 97.6–99.3; O2SAT 92–97
[2024-10-01] VITALS (7 sets, daily range): BP systolic 95–130; BP diastolic 61–83; PULSE 60–88; RESP 17–21; TEMP 97.9–98.5; O2SAT 94–100
[2024-10-01 06:41] LABS: BASOPHILS # (AUTO) 0.1 (0.0-0.1); BASOPHILS % 0.5 % (0.0-1.0); EOSINOPHILS # (AUTO) 0.1 (0.0-0.4); EOSINOPHILS % 1.3 % (0.0-6.0); HEMATOCRIT 26.3 % (34.2-44.1); HEMOGLOBIN 8.1 g/dL (12.0-16.0); LYMPHOCYTES # (AUTO) 0.7 (1.0-3.2); LYMPHOCYTES % 7.7 % (18.0-39.1); MEAN CORPUSCULAR HEMOGLOBIN 29.9 pg (28-32); MEAN CORPUSCULAR HGB CONC 30.8 g/dL (31-35); MONOCYTES # (AUTO) 0.7 (0.2-0.8); MONOCYTES % 7.9 % (4.4-11.3); NEUTROPHILS # (AUTO) 7.4 (2.1-6.9); NEUTROPHILS % 80.4 % (38.7-80.0); PLATELET COUNT 158 x10e3/uL (140-360); RED BLOOD COUNT 2.71 x10e6/uL (3.6-5.1); RED CELL DISTRIBUTION WIDTH 16.5 % (11.7-14.4); WHITE BLOOD COUNT 9.24 x10e3/uL (4.8-10.8)
[2024-10-01 07:04] LABS: ANION GAP 10.4 mmol/L (8-16); CALCIUM 7.9 mg/dL (8.4-10.2); CREATININE, SERUM 0.87 mg/dL (0.57-1.11); POTASSIUM 4.4 mmol/L (3.5-5.1)
[2024-10-02] VITALS (10 sets, daily range): BP systolic 113–133; BP diastolic 52–77; PULSE 66–90; RESP 18–21; TEMP 97.9–98.1; O2SAT 95–99
[2024-10-02] MEDS ORDERED: HYDRALAZIN20 MG/1 ML IV (16:13)
[2024-10-02] MEDS ORDERED: Trimethoprim/Sulfamethoxazole PO (16:13)
[2024-10-02] MEDS ORDERED: Morphine 4mg INJECTION IV (16:13)
[2024-10-02] MEDS ORDERED: ONDANSETRON4 MG/2 M1 IV (16:13)
[2024-10-02] MEDS ORDERED: MIRALAX17 GM PO (16:13)
[2024-10-02] MEDS ORDERED: ASCORBIC ACID500 MG PO (16:13)
[2024-10-02] MEDS ORDERED: ACETAMINOPHEN325 M1 PO (16:13)
[2024-10-02] MEDS ORDERED: SIMETHICONE80 MG PO (16:13)
[2024-10-02] MEDS ORDERED: FLUOXETINE HCL20 MG PO (16:13)
[2024-10-02] MEDS ORDERED: DULCOLAX SUPP10 MG PR (16:13)
[2024-10-02] MEDS ORDERED: [UNRECOGNIZED DRUG - OTHER] PR (16:13)
[2024-10-02] MEDS ORDERED: ULTRAM 50MG50 MG PO (16:13)
[2024-10-02] MEDS ORDERED: SENOKOT8.6 MG PO (16:13)
[2024-10-02] MEDS ORDERED: LACTULOSE10 GM/151 PO (16:13)
[2024-10-02] MEDS ORDERED: Ferrous Sulfate PO (16:13)
[2024-10-02] MEDS ORDERED: EPSOM SALT TOP (16:13)
[2024-10-02] MEDS ORDERED: Docusate Sodium PO (16:13)
== END 2024-10-02 19:00 | DRG 516 ==
LOC: ER 18:27 → MED/SURG3 21:30 → ER 22:40 → IMCU 09-19 08:19 → MED/SURG3 09-19 08:21
PROVIDERS: ADMIT Internal Medicine; ATTEND Internal Medicine
PROC: 0QU03JZ Supplement Lumbar Vertebra with Synthetic Substitute, Percutaneous Approach (ICD-10-PCS; principal; 2024-09-29 12:22)
DX: S32.010A Wedge compression fracture of first lumbar vertebra, initial encounter for closed fracture (principal); I69.354 Hemiplegia and hemiparesis following cerebral infarction affecting left non-dominant side; S22.030A Wedge compression fracture of third thoracic vertebra, initial encounter for closed fracture; S22.040A Wedge compression fracture of fourth thoracic vertebra, initial encounter for closed fracture; S22.060A Wedge compression fracture of T7-T8 vertebra, initial encounter for closed fracture; Q85.01 Neurofibromatosis, type 1; L03.011 Cellulitis of right finger; D72.829 Elevated white blood cell count, unspecified; I10 Essential (primary) hypertension; D50.9 Iron deficiency anemia, unspecified; K59.00 Constipation, unspecified; R42 Dizziness and giddiness; J30.2 Other seasonal allergic rhinitis; F41.1 Generalized anxiety disorder; F32.9 Major depressive disorder, single episode, unspecified; K21.9 Gastro-esophageal reflux disease without esophagitis; R11.2 Nausea with vomiting, unspecified; W08.XXXA Fall from other furniture, initial encounter; Y92.019 Unspecified place in single-family (private) house as the place of occurrence of the external cause; Z90.721 Acquired absence of ovaries, unilateral; Z88.5 Allergy status to narcotic agent
CPT/HCPCS: 36415; 70450; 72125; 72128; 72131; 72146; 72148; 72192; 76000; 80048; 80053; 80061; 82550; 82607; 82728; 82746; 83036; 83540; 83690; 83735; 83880; 84100; 84439; 84443; 84466; 84484; 85025; 85045; 93005; 93306; 94799; 96361; 99284; C1713; J0360; J0690; J1756; J1885; J2003; J2250; J2270; J2405; J2470; J7030; J7050